=== PATIENT | female | born 1985 | race Caucasian/White ===

== ENCOUNTER 2023-01-13 20:31 | Outpatient (REF) | payer MEDICAID, SELFPAY ==
[2023-01-16 21:08] LABS: Age Gdln ACOG Testing Note (.); HPV Aptima Negative (Negative); IGP, Aptima HPV, rfx 16/18,45 Note (.)
== END 2023-01-13 20:32 | disposition home or self-care (01) ==
LOC: LAB 20:31
PROVIDERS: Visit Provider Obstetrics & Gynecology
DX: Z12.4 Encounter for screening for malignant neoplasm of cervix (principal)
CPT/HCPCS: 87624; G0145

== ENCOUNTER 2023-01-30 09:22 | Outpatient (OUT) | payer MEDICAID, SELFPAY ==
--- NOTE | 2023-01-30 09:31 | US_ITS ---
Patient: LUIS LOVELACE Exam Date: 01/30/2023 : 1985 Gender:F Ordering : DR Jhonny Bhatia . Admission #: [id number] Family : DR. LORAINE VOSS . Order #: [id number] CLICK HERE TO VIEW EXAM RADIOLOGY REPORT PROCEDURE: MM TOMOSYNTHESIS DIAGNOSTIC BI, 01/30/2023, 09:21 US BREAST LT LIMITED, 01/30/2023, 10:20 COMPARISON: None. INDICATIONS: Left Breast Lump N63.21 Calculator Name NCI Breast Cancer Risk Assessment Tool 5 Year Breast Cancer Risk Not Reported. Lifetime Breast Cancer Risk Not Reported. Personal Breast Cancer No Personal Ovarian Cancer No Treatments None Family Cancers None LOCATION: [facility] [place] BREAST COMPOSITION: Heterogeneously dense,which may obscure small masses. FINDINGS: DIAGNOSTIC CATEGORY 1--NEGATIVE. RIGHT BREAST: No significant suspicious finding. LEFT BREAST: A skin surface marker localizing the patient's palpable lump is present over the upper outer quadrant. No underlying mammographic abnormality. Ultrasound evaluation demonstrates normal appearing fibroglandular tissue within this region. RECOMMENDATIONS: CLINICAL EVALUATION. PLEASE NOTE: A NORMAL MAMMOGRAM DOES NOT EXCLUDE THE POSSIBILITY OF BREAST CANCER. A CLINICALLY SUSPICIOUS PALPABLE LUMP SHOULD BE BIOPSIED. Dictated by: Tarun Briceno M.D. on 01/30/2023 at 11:55 Approved by: Tarun Briceno M.D. on 01/30/2023 at 11:57
--- NOTE | 2023-01-30 09:31 | US_ITS ---
The [address] [address] Patient Name: LUIS LOVELACE MRN: [id number] date: 1985 Sex: F Assigned Patient Location: Current Patient Location: US Accession/Order Number: [id number] Exam Date: 01/30/2023 09:32 Report Date: 01/30/2023 10:21 At the request of: BABS GUILLEN Procedure: US pelvis transvaginal EXAM: Pelvic ultrasound HISTORY: . Pelvic Pain In Female R10.2 . COMPARISON: None. TECHNIQUE: Transvaginal scanning was performed FINDINGS: Scanning of the pelvis demonstrates absence of the uterus. Cyst are noted within the cervix. Right ovary measures 4.3 x 2.4 x 2.1 cm. Color-flow is noted. Resistive indexes 0.4. Follicles are noted. There is a 1.8 x 1.5 cm simple cyst in the right ovary. Left ovary was not identified. No fluid is noted in the cul-de-sac. US/US pelvis transvaginal IMPRESSION: 1. Absent uterus. 2. Cervix remains. Nabothian cyst are noted. 3. Left ovary was not identified. 4. Color-flow regional to the right ovary. There is a 1.8 x 1.5 cm simple cyst within the right ovary. Electronically authenticated by: ANDREW IQBAL Date: 01/30/2023 10:21
== END 2023-01-30 09:23 | disposition home or self-care (01) ==
LOC: US 09:22
PROVIDERS: PCP Internal Medicine; Visit Provider Obstetrics & Gynecology
DX: N63.21 Unspecified lump in the left breast, upper outer quadrant (principal); R10.2 Pelvic and perineal pain
CPT/HCPCS: 76642; 76830; 77066; G0279

== ENCOUNTER 2023-02-10 21:49 | Outpatient (OUT) | payer MEDICAID, SELFPAY | END 2023-02-10 21:50 | disposition home or self-care (01) | LOC: SLEEP 21:50 | PROVIDERS: PCP Internal Medicine; Visit Provider Internal Medicine | DX: G47.33 Obstructive sleep apnea (adult) (pediatric) (principal); G47.11 Idiopathic hypersomnia with long sleep time; F51.01 Primary insomnia; G47.61 Periodic limb movement disorder | CPT/HCPCS: 95810 ==

== ENCOUNTER 2023-02-27 12:23 | Outpatient (OUT) | payer MEDICAID, SELFPAY ==
--- NOTE | 2023-02-27 12:55 | XR_ITS ---
[address] [address] Patient Name: LUIS LOVELACE MRN: [id number] date: 1985 Sex: F Assigned Patient Location: [facility] Current Patient Location: [facility] Accession/Order Number: [id number] Exam Date: 02/27/2023 13:00 Report Date: 02/27/2023 13:42 At the request of: BABS GUILLEN Procedure: XR chest 2V EXAM: XR chest 2V HISTORY: Preop exam COMPARISON: None. TECHNIQUE: PA and lateral views of the chest. FINDINGS: The cardiomediastinal silhouette is normal. No focal consolidation is identified. There is no pneumothorax. No pleural effusion is noted. The osseous structures are intact. XR/XR chest 2V IMPRESSION: No acute cardiopulmonary process. Electronically authenticated by: ELIZABETH MONTOYA Date: 02/27/2023 13:42
== END 2023-02-27 12:24 | disposition home or self-care (01) ==
LOC: PST 12:23
PROVIDERS: Visit Provider Obstetrics & Gynecology
DX: Z01.810 Encounter for preprocedural cardiovascular examination (principal); Z01.812 Encounter for preprocedural laboratory examination; R10.2 Pelvic and perineal pain; N94.10 Unspecified dyspareunia
CPT/HCPCS: 71046

== ENCOUNTER 2023-02-27 12:30 | Outpatient (OUT) | payer MEDICAID, SELFPAY ==
[2023-02-27 13:36] LABS: Basophils Absolute Auto 0.1 10^3/uL (0.0-0.1); Basophils Percent Auto 0.9 % (0.2-2.0); Eosinophils Absolute Auto 0.1 10^3/uL (0.0-0.7); Eosinophils Percent Auto 1.5 % (0.9-7.0); Hematocrit 40.1 % (36.0-48.0); Immature Granulocytes Abs Auto 0.01 10^3/uL (0.00-0.03); Immature Granulocytes Pct Auto 0.1 % (0.0-0.5); Lymphocytes Absolute Auto 2.5 10^3/uL (1.2-3.8); Mean Corpuscular HGB Conc 32.4 g/dL (29.9-35.2); Mean Corpuscular Hemoglobin 30.6 pg (26.7-34.0); Mean Corpuscular Volume 94.4 fL (81.0-99.0); Mean Platelet Volume 10.9 fL (9.5-13.5); Monocytes Absolute Auto 0.5 10^3/uL (0.3-0.8); Monocytes Percent Auto 7.8 % (1.7-12.0); Neutrophils Absolute Auto 3.5 10^3/uL (1.4-6.5); Neutrophils Percent Auto 51.7 % (43.0-75.0); Platelet Count 249 10^3/uL (150-450); Red Blood Count 4.25 10^6/uL (4.20-5.40); Red Cell Distribution Width 11.6 % (11.0-15.0); White Blood Count 6.7 10^3/uL (4.0-11.0)
[2023-02-27 13:46] LABS: Estimated Average Glucose 100 mg/dL; Glycohemoglobin A1C 5.1 % (4.5-6.2)
[2023-02-27 14:30] LABS: Free T4 1.09 ng/dL (0.76-1.46)
[2023-02-27 14:34] LABS: HCG Quantitative <1 mIU/mL; Thyroid Stimulating Hormone 1.711 uIU/mL (0.358-3.740)
[2023-02-28 05:08] LABS: Estradiol 81.2 pg/mL (.); FSH 13.5 mIU/mL (.); Luteinizing Hormone(LH) 13.4 mIU/mL (.); Progesterone 1.1 ng/mL (.)
[2023-03-03 13:08] LABS: DHEA, Serum 123 ng/dL (31-701)
== END 2023-02-27 12:31 | disposition home or self-care (01) ==
LOC: LAB 12:31
PROVIDERS: Visit Provider Obstetrics & Gynecology
DX: Z01.812 Encounter for preprocedural laboratory examination (principal); Z01.810 Encounter for preprocedural cardiovascular examination; R10.2 Pelvic and perineal pain; N94.10 Unspecified dyspareunia
CPT/HCPCS: 36415; 71046; 82626; 82627; 82670; 83001; 83002; 83036; 84144; 84439; 84443; 84702; 85025

== ENCOUNTER 2023-03-13 06:13 | Day surgery (SDC) | payer MEDICAID, SELFPAY ==
[2023-02-27 12:48] VITALS: BP 111/72; PULSE 85; RESP 18; TEMP 36.3; O2SAT 99; BMI 40.9
[2023-03-13] VITALS (9 sets, daily range): BP systolic 82–136; BP diastolic 60–85; PULSE 66–88; RESP 12–19; TEMP 36.1; O2SAT 98–100
[2023-03-13 06:22] LABS: Basophils Absolute Auto 0.1 10^3/uL (0.0-0.1); Basophils Percent Auto 0.8 % (0.2-2.0); Eosinophils Absolute Auto 0.2 10^3/uL (0.0-0.7); Eosinophils Percent Auto 2.4 % (0.9-7.0); Hematocrit 36.5 % (36.0-48.0); Hemoglobin 12.1 g/dL (12.0-16.0); Immature Granulocytes Abs Auto 0.02 10^3/uL (0.00-0.03); Immature Granulocytes Pct Auto 0.3 % (0.0-0.5); Lymphocytes Absolute Auto 3.2 10^3/uL (1.2-3.8); Lymphocytes Percent Auto 40.2 % (20.5-60.0); Mean Corpuscular HGB Conc 33.2 g/dL (29.9-35.2); Mean Corpuscular Hemoglobin 31.1 pg (26.7-34.0); Mean Corpuscular Volume 93.8 fL (81.0-99.0); Mean Platelet Volume 10.8 fL (9.5-13.5); Monocytes Absolute Auto 0.8 10^3/uL (0.3-0.8); Monocytes Percent Auto 9.5 % (1.7-12.0); Neutrophils Absolute Auto 3.7 10^3/uL (1.4-6.5); Neutrophils Percent Auto 46.8 % (43.0-75.0); Platelet Count 229 10^3/uL (150-450); Red Blood Count 3.89 10^6/uL (4.20-5.40); Red Cell Distribution Width 11.5 % (11.0-15.0); White Blood Count 7.9 10^3/uL (4.0-11.0)
[2023-03-13 06:49] LABS: Glucometer 106 mg/dL (74-106)
[2023-03-13] MEDS: LACTATED RINGER'S SOLUTION 1,000 ML 50 ML IV (07:00)
--- NOTE | 2023-03-13 08:39 | P.ON_ITS ---
Brief Operative Note Date of procedure: 03/13/23 Pre-op diagnosis: pelvic pain Post-op diagnosis: same as pre-op Procedure: NAME OF PROCEDURE: [diagnostic laparoscopy with lysis of omental adhesions] PROCEDURE: The patient was taken back to the Operating Room where she was placed in dorsal lithotomy position after given general anesthesia. The patient was prepped and draped in normal sterile fashion. A sponge stick was placed into the patient's vagina. Attention was turned to the patient's abdomen, where a small umbilical incision was made. The fascia was tented using Sd clamps and the fascia was entered sharply. Confirmation of intraabdominal placement of the 10 mm port was confirmed under direct visualization using a laparoscope. The patient's abdomen was then insufflated using CO2 gas with approximately 4 liters. A second port was placed left laterally, this was done under direct visualization with a 5 mm port. Survey of the patient's abdomen demonstrated normal liver and gallbladder. Survey of the patient's pelvic anatomy demonstrated normal appearing rt and lt ovary as well as normal absent uterus. No endometrial implants could be noted, no evidence of any pelvic disease was seen, normal appearing pelvic cavity. Omental adhesions to anterior abdominal wall, transected and ligated using the ligasure. All instruments were removed from the patient's abdomen. The patient's abdomen was deinsufflated of CO2 gas. The patient tolerated the procedure well. Sponge stick was removed from the patient's vagina. The patient's infraumbilical fascia was closed using #0 Vicryl on a GI needle. The patient's skin was closed laterally and infraumbilically using 4-0 Vicryl. The patient tolerated the procedure well. Sponge, lap and needle counts were correct x 2. The patient was taken to Recovery Room in stable condition.Clips from prior surgery noted adhered to bladder, the clips were grasped and gently removed Anesthesia: SINGH Surgeon: Jhonny Bhatia Head Char Filter Tank Tender: Caitlin Ferrell Estimated blood loss (mL): 5 Pathology: none sent Condition: stable Disposition: PACU
== END 2023-03-13 09:48 | disposition home or self-care (01) ==
PROVIDERS: Visit Provider Obstetrics & Gynecology
PROC: (CPT 00840; principal; 2023-03-13 07:30)
DX: R10.2 Pelvic and perineal pain (principal); N94.10 Unspecified dyspareunia; Z79.84 Long term (current) use of oral hypoglycemic drugs; N73.6 Female pelvic peritoneal adhesions (postinfective); F41.8 Other specified anxiety disorders; J45.909 Unspecified asthma, uncomplicated; N91.2 Amenorrhea, unspecified; Z90.49 Acquired absence of other specified parts of digestive tract; Z90.711 Acquired absence of uterus with remaining cervical stump
CPT/HCPCS: 00840; 49329; 36415; 82948; 85025; J2704

== ENCOUNTER 2023-07-02 18:29 | Emergency (ER) | payer MEDICAID, SELFPAY ==
--- OUTSIDE RECORDS SUMMARY | 2023-07-02 18:37 | XMS_ITS | CCD ---
Author Name Unknown Address [address] [facility] [address] [place] [id number] Organization [facility] Care Team Providers Care Drum Operator Name Role Phone DENNISE, DR MCKAY Espinoza Primary Care Unavailable KHRIS, DR ELIZABETH Arias Admitting Unavailable KHRIS, DR ELIZABETH Arias Attending Unavailable KHRIS, DR ELIZABETH Arias Consulting Unavailable ERROL TIM Consulting Unavailable MINDY, DR BRICE Admitting Unavailable MINDY, DR BRICE Attending Unavailable DENNISE, DR MCKAY Espinoza Primary Care Unavailable MINDY, DR BRICE Consulting Unavailable DENNISE, DR MCKAY Espinoza Admitting Unavailable DENNISE, DR MCKAY Espinoza Attending Unavailable DENNISE, DR MCKAY Espinoza Primary Care Unavailable DE SOTO, DR ANDREW Hopkins Consulting Unavailable DENNISE, DR MCKAY Espinoza Consulting Unavailable LORNA Velasquez Attending Provider Problems Active Problems Problem Classification Problem Date Documented Date Episodic/Chronic Immunizations and screening for infectious disease (2 sources) Encounter for screening for human papillomavirus (HPV); Translations: [Contact with and (suspected) exposure to other viral communicable diseases] Onset: 03-19-2020 Episodic Other nervous system disorders (1 source) Other chronic pain; Translations: [OTHER CHRONIC PAIN] Onset: 06-14-2020 Chronic Other upper respiratory infections (1 source) Chronic sinusitis, unspecified; Translations: [CHRONIC SINUSITIS UNSPECIFIED] Onset: 03-19-2020 Chronic Past or Other Problems Problem Classification Problem Date Documented Da te Episodic/Chronic Chronic obstructive pulmonary disease and bronchiectasis (1 source) Bronchitis, not specified as acute or chronic; Translations: [BRONCHITIS NOT SPEC ACUTE/CHRON] Onset: 03-19-2020 Episodic Nonspecific chest pain (4 sources) Other chest pain; Translations: [OTHER CHEST PAIN] Onset: 03-14-2020 Episodic Spondylosis; intervertebral disc disorders; other back problems (4 sources) Lumbago with sciatica, left side; Translations: [LUMBAGO WITH SCIATICA LEFT SIDE] Onset: 06-06-2020 Episodic Results Test Name Value Interpretation Reference Range Facil ity XR ankle LT min 3V*on 2021 XR ankle LT min 3V* [facility] Main Needles [address] [place] [id number] XRay Report Signed Patient: Diana Stewart MR#: [id number] : 1985 Acct:[id number] Age/Sex: 36 / F ADM Date: 12/20/21 Loc: XDUCLY Room: Type: [facility] Attending Dr: Amanda Velasquez APRN Copies to: Amanda Velasquez APRN Ordering Provider: Amanda Velasquez APRN Date of Service: 12/20/21 XR/XR ankle LT min 3V*: Injury ([id number]) XR/XR foot LT min 3V*: Injury XR foot LT min 3V*, XR ankle LT min 3V* 12/20/2021 12:24 PM SIGNS AND SYMPTOMS: Injury to left foot and ankle with pain on the lateral aspect of the foot and ankle PROTOCOL: Frontal, lateral, and radiographs of the left foot and left ankle COMPARISON: None FINDINGS: Left ankle: The ankle mortise is preserved. There is no evidence of fracture or dislocation. There is mild diffuse soft tissue swelling. Left foot: The bones are in anatomical. There is no evidence of fracture or dislocation. The joint spaces are preserved. No significant soft tissue swelling is noted. XR/XR foot LT min 3V* IMPRESSION: Left ankle: No evidence of fracture or dislocation. There is mild diffuse soft tissue swelling. Left foot: No evidence of fracture or dislocation. Impression dictated by: Elizabeth Yeager M.D.12/20/2021 12:52 PM Dictation Location: [place] [address] Transcribed By: [facility] 12/20/21 1252 Dictated By: Elizabeth Yeager II, MD 12/20/21 1247 Signed By: 12/20/21 1252 [facility] PAP ACOG PANEL 2: 30 to 65on 12-28-2020 . . Normal [facility] Comment on above: Result Comment: Perf ormed at: WB Performed By: #### [id number] #### [facility] Laboratory [address] [place] [address] Tracy Pop Age Gdln ACOG Testing 30-65 Normal [facility] Comment on above: Performed By: #### [id number] #### [facility] Laboratory [address] [place] [address] Tracy Elaineen DIAGNOSIS: Comment Normal [facility] Comment on above: Result Comment: NEGA TIVE FOR INTRAEPITHELIAL LESION OR MALIGNANCY. THIS SPECIMEN WAS RESCREENED PART OF OUR SHOE REPAIRER APPRENTICE PROGRAM. Performed at: WB Performed By: #### [id number] #### [facility] Laboratory [address] [place] [address] Tracy Elaineen HPV Aptima Negative Normal Negative [facility] Comment on above: Result Comment: This nucleic acid amplification test detects fourteen high-risk HPV types (16,18,31,33,35,39,45,51,52,56,58,59,66,68) without differentiation. Performed at: =G Performed By: #### [id number] #### [facility] Laboratory [address] [place] [address] Tracy Elaineen Methodology: Comment Normal [facility] Comment on above: Result Comment: This liquid based ThinPrep(R) pap test was screened with the use of an image guided system. Performed at: WB Performed By: #### [id number] #### [facility] Laboratory [address] [place] [address] Tracy Pop Note: Comment Normal [facility] Comment on above: Result Comment: The Pap smear is a screening test designed to aid in the detection of premalignant and malignant conditions of the uterine cervix. It is not a diagnostic procedure and should not be used as the sole means of detecting cervical cancer. Both false-positive and false-negative reports do occur. . Performed at: WB Performed By: #### [id number] #### [facility] [address] [place] [address] Tracy Pop Performed by: Comment Normal [facility] Comment on above: Result Comment: Addi Barajas, Boat Rental Clerk (ASCP) Performed at: WB Performed By: #### [id number] #### [facility] [address] [place] [address] Tracy Pop QC reviewed by: Comment Normal [facility] Comment on above: Result Comment: Aby Oliveira, Supervisory Boat Rental Clerk (ASCP) Performed at: WB Performed By: #### [id number] #### [facility] Laboratory [address] [place] [address] Tracy Pop Specimen adequacy: Comment Normal [facility] Comment on above: Result Comment: Sati sfactory for evaluation. No endocervical component is identified. Performed at: WB Performed By: #### [id number] #### [facility] Laboratory [address] [place] [address] Tracy Pop CHLAMYDIA/GONOCOCCUS ANTONIO (SW AB/URINE/PAPon 12-26-2020 Chlamydia trachomatis, ANTONIO Negative Normal Negative [facility] Comment on above: Performed By: #### C T/NGNA #### [facility] Laboratory [address] [place] [address] Tracy Pop Neisseria gonorrhoeae, ANTONIO Negative Normal Negative [facility] Comment on above: Performed By: #### C T/NGNA #### [facility] [address] [place] [address] Tracy Pop VAGINITIS/VAGINOSIS DNA PROB Boris 12-26-2020 Cheryl species Negative Normal Negative [facility] Comment on above: Performed By: #### V AGINT ####[facility] [address] [place], [place] [address]Gerken Kiesha Gardnerella vaginalis Negative Normal Negative [facility] Comment on above: Performed By: #### V AGINT ####[facility] [address] [place], [place] [address]Gerken Kiesha Trichomonas vaginalis Negative Normal Negative [facility] Comment on above: Performed By: #### V AGINT ####[facility] [address] [place], [place] [address]Gerken Kiesha XR LSPINE 2_3 VIEWSon 2020 XR LSPINE 2_3 VIEWS EXAMINATION: XR LSPINE 2_3 VIEWS HISTORY: Lumbago with sciatica COMPARISON: No relevant comparison available. FINDINGS: BONES: Normal. No significant spondylosis, scoliosis, fracture, or visible bony lesion. DISC SPACES: Normal. No significant disc height narrowing, subluxation, or endplate abnormality. PARASPINOUS: Negative. No paraspinous abnormality is seen. OTHER: Negative. IMPRESSION: No acute abnormality Electronically authenticated by: ANDREW BLUM Date: 2020-06-06 09:25 Normal [facility] COVID-19 PCRon 03-17-2020 SARS-CoV-2 (COVID-19) RNA ANTONIO+probe Ql (Unsp spec) Not detected Normal Not Detected [facility] Comment on above: Result Comment: This nucleic acid amplification test was developed and its performance characteristics determined by [employer]. Nucleic acid amplification tests include PCR and TMA. This test has not been FDA cleared or approved. This test has been authorized by FDA under an Emergency Use Authorization (EUA). This test is only authorized for the duration of time the declaration that circumstances exist justifying the authorization of the emergency use of in vitro diagnostic tests for detection of SARS-CoV-2 virus and/or diagnosis of COVID-19 infection under section 564(b)(1) of the Act, 21 U.S.C. 360bbb-3(b) (1), unless the authorization is terminated or revoked sooner. When diagnostic testing is negative, the possibility of a false negative result should be considered in the context of a patient's recent exposures and the presence of clinical signs and symptoms consistent with COVID-19. An individual without symptoms of COVID-19 and who is not shedding SARS-CoV-2 virus would expect to have a negative (not detected) result in this assay. Performed By: #### C VDPCR, CVDSTAT #### [facility] [address] [address] Tracy Pop PRIORITY COVID PROCESSINGon 03-17-2020 Comment Comment Normal [facility] Comment on above: Result Comment: Rece ived Performed By: #### C VDPCR, CVDSTAT #### [facility] [address] [address] Tracy Pop CBC AUTO DIFFon 03-15-2020 BASO # 0.1 103/ul Normal 0.0-0.1 [facility] Comment on above: Performed By: #### C BC #### [facility] Laboratory [address] [place], [place] [address] Tracy Kiesha Basophils/100 WBC (Bld) 0.8 % Normal 0.2-2.0 [facility] Comment on above: Performed By: #### C BC #### [facility] [address] [place] [address] Tracy Kiesha EO # 0.3 103/ul Normal 0.0-0.7 [facility] Comment on above: Performed By: #### C BC #### [facility] [address] [place] [address] Tracy Kiesha Eosinophils/100 WBC (Bld) 3.8 % Normal 0.9-7.0 [facility] Comment on above: Performed By: #### C BC #### [facility] [address] [place] [address] Tracy Kiesha Erythrocyte distribution width (RBC) [Ratio] 11.7 % Normal 11.0-15.0 [facility] Comment on above: Performed By: #### C BC #### [facility] [address] [place], [place] [address] Tracy Kiesha Hematocrit (Bld) [Volume fraction] 39.6 % Normal 36.0-48.0 [facility] Comment on above: Performed By: #### C BC #### [facility] [address] [place], [place] [address] Tracy Kiesha Hemoglobin (Bld) [Mass/Vol] 13.0 g/dL Normal 12.0-16.0 [facility] Comment on above: Performed By: #### C BC #### [facility] Laboratory [address] [place] [address] Tracy Kiesha IG # 0.03 10e3/ul Normal 0.00-0.03 [facility] Comment on above: Performed By: #### C BC #### [facility] [address] [place] [address] Tracy Kiesha IG % 0.4 % Normal 0.0-0.5 [facility] Comment on above: Performed By: #### C BC #### [facility] [address] [place], [place] [address] Tracy Kiesha LYMPH # 3.5 103/ul Normal 1.2-3.8 [facility] Comment on above: Performed By: #### C BC #### [facility] [address] [place], [place] [address] Tracy Kiesha Lymphocytes/100 WBC (Bld) 41.5 % Normal 20.5-60.0 [facility] Comment on above: Performed By: #### C BC #### [facility] [address] [place], [place] [address] Tracy Kiesha MANUAL DIFF REQ NO Normal [facility] Comment on above: Performed By: #### C BC #### [facility] [address] [place] [address] Tracy Kiesha MCH (RBC) [Entitic mass] 31.0 pg Normal 26.7-34.0 [facility] Comment on above: Performed By: #### C BC #### [facility] [address] [place], [place] [address] Tracy Kiesha MCHC (RBC) [Mass/Vol] 32.8 g/dL Normal 29.9-35.2 [facility] Comment on above: Performed By: #### C BC #### [facility] [address] [place], [place] [address] Tracy Kiesha MCV (RBC) [Entitic vol] 94.5 fL Normal 81.0-99.0 [facility] Comment on above: Performed By: #### C BC #### [facility] [address] [place] [address] Tracy Kiesha MONO # 0.7 103/ul Normal 0.3-0.8 [facility] Comment on above: Performed By: #### C BC #### [facility] [address] [place], [place] [address] Tracy Kiesha Monocytes/100 WBC (Bld) 7.8 % Normal 1.7-12.0 [facility] Comment on above: Performed By: #### C BC #### [facility] [address] [place], [place] [address] Tracy Pop NEUT # 3.9 103/ul Normal 1.4-6.5 [facility] Comment on above: Performed By: #### C BC #### [facility] [address] [place], [place] [address] Tracy Pop Neutrophils/100 WBC (Bld) 45.7 % Normal 43.0-75.0 [facility] Comment on above: Performed By: #### C BC #### [facility] [address] [place], [place] [address] Tracyramona Pop Platelet mean volume (Bld) [Entitic vol] 11.1 fL Normal 9.5-13.5 [facility] Comment on above: Performed By: #### C BC #### [facility] [address] [place], [place] [address] Tracyramona Elaineen PLT 226 103/ul Normal 150-450 [facility] Comment on above: Performed By: #### C BC #### [facility] [address] [place] [address] Tracyramona Pop RBC 4.19 106/ul Critically low 4.20-5.40 [facility] Comment on above: Performed By: #### C BC #### [facility] [address] [place] [address] Tracyramona Pop WBC 8.4 103/ul Normal 4.0-11.0 [facility] Comment on above: Performed By: #### C BC #### [facility] [address] [place] [address] Tracyramona oPp PROF 14(COMP METB)on 020 Albumin [Mass/Vol] 3.9 g/dL Normal 3.5-5.0 [facility] Comment on above: Performed By: #### C MP #### [facility] [address] [place] [address] Tracyramona Pop Albumin/Globulin [Mass ratio] 1.2 {ratio} Normal [facility] Comment on above: Performed By: #### C MP #### [facility] [address] [place], [place] [address] Tracy Kiesha ALP [Catalytic activity/Vol] 63 U/L Normal 38-126 [facility] Comment on above: Performed By: #### C MP #### [facility] [address] [place], [place] [address] Tracy Kiesha ALT [Catalytic activity/Vol] 29 U/L Normal 9-52 [facility] Comment on above: Performed By: #### C MP #### [facility] [address] [place], [place] [address] Tracy Kiesha Anion gap [Moles/Vol] 9.1 mmol/L Normal [facility] Comment on above: Performed By: #### C MP #### [facility] [address] [place], [place] [address] Tracy Kiesha AST [Catalytic activity/Vol] 16 U/L Normal 14-36 [facility] Comment on above: Performed By: #### C MP #### [facility] [address] [place], [place] [address] Tracy Kiesha Bilirubin [Mass/Vol] 0.3 mg/dL Normal 0.2-1.3 [facility] Comment on above: Performed By: #### C MP #### [facility] [address] [place], [place] [address] Tracy Kiesha Calcium [Mass/Vol] 9.2 mg/dL Normal 8.4-10.2 [facility] Comment on above: Performed By: #### C MP #### [facility] [address] [place], [place] [address] Tracy Kiesha Chloride [Moles/Vol] 103 mmol/L Normal 98-107 [facility] Comment on above: Performed By: #### C MP #### [facility] [address] [place], [place] [address] Tracy Kiesha CO2 [Moles/Vol] 28.1 mmol/L Normal 22.0-30.0 [facility] Comment on above: Performed By: #### C MP #### [facility] [address] [place], [place] [address] Tracy Kiesha Creatinine [Mass/Vol] 0.60 mg/dL Normal 0.52-1.04 [facility] Comment on above: Performed By: #### C MP #### [facility] [address] [place], [place] [address] Tracy Kiesha EGFR-AF HAITIAN >60 Normal >=60 [facility] Comment on above: Performed By: #### C MP #### [facility] [address] [place], [place] [address] Tracy Kiesha EGFR-NON AF HAITIAN >60 Normal >=60 [facility] Comment on above: Performed By: #### C MP #### [facility] [address] [place], [place] [address] Tracy Kiesha Globulin (S) [Mass/Vol] 3.3 g/dL Normal [facility] Comment on above: Performed By: #### C MP #### [facility] [address] [place] [address] Tracy Kiesha Glucose [Mass/Vol] 97 mg/dL Normal 74-106 [facility] Comment on above: Performed By: #### C MP #### [facility] [address] [place], [place] [address] Tracy Kiesha Potassium [Moles/Vol] 4.2 mmol/L Normal 3.4-5.0 [facility] Comment on above: Performed By: #### C MP #### [facility] [address] [place], [place] [address] Tracy Kiesha Protein [Mass/Vol] 7.2 g/dL Normal 6.1-8.2 [facility] Comment on above: Performed By: #### C MP #### [facility] [address] [place], [place] [address] Tracy Kiesha Sodium [Moles/Vol] 136 mmol/L Critically low 137-145 [facility] Comment on above: Performed By: #### C MP #### [facility] [address] [place], [place] [address] Tracy Kiesha Urea nitrogen [Mass/Vol] 9.0 mg/dL Normal 7.0-17.0 [facility] Comment on above: Performed By: #### C MP #### [facility] [address] [place] [address] Tracy Pop Urea nitrogen/Creatinin e [Mass ratio] 15.0 mg/mg Normal [facility] Comment on above: Performed By: #### C MP #### [facility] [address] [place] [address] Tracy Pop TROPONIN - Ion 03-15-2020 TROP <0.012 Normal <=0.034 [facility] Comment on above: Performed By: #### T ROP #### [facility] [address] [place] [address] Tracy Pop TROPONIN RANGE SEE BELOW Normal [facility] Comment on above: Result Comment: <0.0 34 ng/ml NEGATIVE 0.034-0.119 INDETERMINATE 0.120 AMI CUT OFF Performed By: #### T ROP #### [facility] [address] [place] [address] Tracy Pop INFLUENZA A AND B AGon 03-14 INFLUANEGH SEE BELOW Normal [facility] Comment on above: Result Comment: Nega tive for Flu A protein angiten. Infection due to Flu A cannot be ruled out. Flu A angiten in the sample may be below the detection limit of the test. Performed By: #### I NFLUAB #### [facility] [address] [place] [address] Tracy Pop INFLUBNEGH SEE BELOW Normal [facility] Comment on above: Result Comment: Nega tive for Flu B protein antigen. Infection due to Flu B cannot be ruled out. Flu B antigen in the sample may be below the detection limit of the test. Performed By: #### I NFLUAB #### [facility] [address] [place] [address] Tracy Pop INFLUENZA A AG Negative Normal NEGATIVE SEE COMMENT [facility] Comment on above: Performed By: #### I NFLUAB #### [facility] [address] [place] [address] Tracy Pop INFLUENZA B AG Negative Normal NEGATIVE SEE COMMENT [facility] Comment on above: Performed By: #### I NFLUAB #### [facility] [address] [place], [place] [address] Tracy Pop INTERNAL CONTROLS Within Normal Limits Normal Wi thin Normal Limits [facility] Comment on above: Performed By: #### I NFLUAB #### [facility] [address] [place], [place] [address] Tracy Pop Encounters Encounter Date Encounter Type Care Provider Facility Start: 12-20-2021 End: 12-20-2021 Patient encounter procedure 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 Amanda Velasquez Work Phone: [facility] Start: 01-08-2021 Encounter for gynecological examination (general) (routine) without abnormal findings DR BABS GUILLEN [facility] Start: 12-24-2020 End: 12-24-[address] BABS GUILLEN Facility:[facility] Start: 12-24-2020 End: 12-24-2020 Encounter for gynecological examination (general) (routine) without abnormal findings DR BABS GUILLEN Facility:[facility] Start: 06-06-2020 End: 06-07-[address] MCKAY BOWDEN Facility:[facility] Start: 03-14-2020 End: 03-15-[address] MCKAY BOWDEN Facility:[facility] Procedures Date Procedure Procedure Detail Performing Clinician Start: 12-20-2021 X-ray of left ankle APR N Amanda Velasquez Work Phone: Start: 12-20-2021 X-ray of left foot GED TEACHER Amanda Ron Work Phone: Payers Date Payer Category Payer Unknown [id number] [id number] [id number] 1985 Unknown [id number] [id number] [id number] 1985 Unknown [id number] 1958 Unknown [id number] Social History Date Type Detail Facility [facility] Work Phone: Start: 1985 Sex Assigned At Female F [facility] Clinical Note 03-15-2020 Note Date & Type Note Facility 03-15-2020 Note PROCEDURE: XR CHEST 1 V REASON FOR STUDY/CLINICAL HISTORY: COUGH. COMPARISON STUDY: 07/06/2009 TECHNIQUE: Single view(s) of the chest presented for interpretation. FINDINGS: No acute cardiopulmonary process. There is minimal left basilar atelectasis and subtle left perihilar bronchial wall thickening. Normal cardiomediastinal silhouette. No focal consolidation, edema, or effusion. No pneumothorax. No acute appearing focal significant bony abnormality. IMPRESSION: Trace left basilar atelectasis and mild bronchial thickening. No other acute process. Electronically authenticated by: ERROL TIM Date: 2020-03-14 22:34 [facility] Evaluation note Note Date & Type Note Facility Evaluation note No assessment information availa [facility] Work Phone: Summary Purpose Family History No Family History Records FoundNo Family History Records Found Advance Directives Advance Directive Response Recorded Date/ Time Advance Directives No December 20, 2021 7:52pm Chief Complaint and Reason for Visit Chief Complaint T14.90XA Additional Source Comments INFORMATION SOURCE (unrecogn ized section and content) DATE CREATED AUTHOR 01/09/2021 [facility] DATE CREATED AUTHOR AUTHOR'S ORGANIZ ATION 01/01/2022 [facility] Care Teams (unrecognized sec tion and content) Team Status: Inactive Member Role Status Dates Amanda Velasquez APRN Attending Provider Active Goals (unrecognized section and content) Goals may be documented in a n alternate section FOR RECORDS PERTAINING TO PATIENTS WHO ARE OR HAVE BEEN ENROLLED IN A CHEMICAL DEPENDENCY/SUBSTANCEABUSE PROGRAM, SOME INFORMATION MAY BE OMITTED. This clinical summary was aggregated from multiple sources. Caution should be exercised in using it in the provision of clinical care. This summary normalizes information from multiple sources, and as a consequence, information in this document may materially change the coding, format and clinical context of patient data. In addition, data may be omitted in some cases. CLINICAL DECISIONS SHOULD BE BASED ON THE PRIMARY CLINICAL RECORDS. [employer] provides no warranty or guarantee of the accuracy or completeness of information in this document.
[2023-07-02 18:39] VITALS: BP 136/83; PULSE 85; RESP 16; TEMP 36.8; O2SAT 98; BMI 38.4
--- NOTE | 2023-07-02 19:07 | CT_ITS ---
The [address] [address] Patient Name: LUIS LOVELACE MRN: [id number] date: 1985 Sex: F Assigned Patient Location: ED.MAIN Current Patient Location: ER Accession/Order Number: [id number] Exam Date: 07/02/2023 19:40 Report Date: 07/02/2023 19:56 At the request of: DAISY ABARCA Procedure: CT head/brain wo con EXAM: CT head/brain wo con HISTORY: Head injury 2 weeks ago. COMPARISON: None. TECHNIQUE: Multi slice thin computed tomograms of the brain were obtained, with sagittal and coronal reconstructions. Radiation reduction technique and algorithms were utilized during the study. FINDINGS: The ventricles are not enlarged, the lateral ventricles are symmetric and the third ventricles in the midline. The sylvian fissures and cortical sulci are unremarkable. There is no evidence of an intracranial hemorrhage, mass lesion or apparent acute infarct. No abnormality is seen in the deep white matter. The cerebellum and visualized brainstem are intact. The visualized paranasal sinuses are clear. The middle ears are aerated. The mastoid sinuses are clear. There is no apparent acute skull fracture. CT/CT head/brain wo con IMPRESSION: There is no evidence of an intracranial hemorrhage, mass lesion or apparent acute infarct. The visualized sinuses are clear. There is no apparent skull fracture. Electronically authenticated by: MARYSOL REES Date: 07/02/2023 19:56
--- NOTE | 2023-07-02 20:50 | ED_ITS ---
HPI - General Adult General Chief complaint: Headache Stated complaint: head injury-hit by gate 2 weeks ago Time Seen by Provider: 07/02/23 19:07 Source: patient Mode of arrival: walk-in Limitations: no limitations History of Present Illness HPI narrative: Patient is a 38-year-old female presents to the emergency department for continued headache, light sensitivity, nausea 2 weeks after head injury. She states she was moving cows when the gate came back and hit her in the left congregational. She states she had a large area of swelling to the scalp. She continues to have a headache, light sensitivity and occasional blurred vision. She denies neck pain, falls or other associated injuries. She has had nausea but no vomiting, no concern for . No fevers or upper respiratory symptoms. She has been using ibuprofen without improvement. Related Data Home Medications Medication Instructions Recorded Confirmed alprazolam 0.25 mg tablet 0.25 mg PO QDAY PRN anxiety 02/27/23 07/02/23 atomoxetine 80 mg capsule 80 mg PO QDAY 02/27/23 07/02/23 metformin 500 mg tablet,extended 500 mg PO QDAY 02/27/23 07/02/23 release 24 hr zolpidem 5 mg tablet 5 mg PO QPM PRN insomnia 02/27/23 07/02/23 escitalopram oxalate 5 mg tablet 5 mg PO DAILY 03/13/23 07/02/23 fexofenadine 180 mg tablet 180 mg PO DAILY 03/13/23 07/02/23 ibuprofen 800 mg tablet 800 mg PO TID 03/13/23 07/02/23 Previous Rx's Medication Instructions Recorded ibuprofen 800 mg tablet 800 mg PO Q8H PRN pain 14 days #40 03/13/23 tabs dggumcpeto-rowesdwmosmiq-qkmzadri 1 cap PO QID PRN headache 4 days 07/02/23 50 mg-300 mg-40 mg capsule #20 caps (Fioricet) ondansetron 4 mg disintegrating 4 mg PO Q6H PRN nausea and 07/02/23 tablet vomiting #12 tabs Allergies Allergy/AdvReac Type Severity Reaction Status Date / Time chlorhexidine Allergy Rash Verified 02/27/23 12:37 Review of Systems ROS Constitutional Denies: fever or chills Ears, nose, mouth, and throat Denies: throat pain Cardiovascular Denies: chest pain Respiratory Denies: shortness of breath or cough Gastrointestinal Reports: nausea; Denies: vomiting Musculoskeletal Denies: back pain or neck pain Integumentary/Breast Denies: rash Neurological Reports: headache and dizziness; Denies: weakness in extremities or slurred speech Psychiatric Denies: anxiety Endocrine Denies: excessive urination [facility] Medical History (Updated 07/02/23 @ 20:52 by CHUCKY Gaytan) Knee pain ?M25.569 - Pain in unspecified knee (ICD-10) Back pain ?M54.9 - Dorsalgia, unspecified (ICD-10) History of blood transfusion ?Z92.89 - Personal history of other medical treatment (ICD-10) Anemia ?D64.9 - Anemia, unspecified (ICD-10) Insomnia ?G47.00 - Insomnia, unspecified (ICD-10) Depression ?F32.A - Depression, unspecified (ICD-10) Anxiety ?F41.9 - Anxiety disorder, unspecified (ICD-10) Sleep apnea ?G47.30 - Sleep apnea, unspecified (ICD-10) COVID-19 ?U07.1 - COVID-19 (ICD-10) Asthma ?J45.909 - Unspecified asthma, uncomplicated (ICD-10) Migraine ?G43.909 - Migraine, unspecified, not intractable, without status migrainosus (ICD-10) Dyspareunia Pelvic pain ?R10.2 - Pelvic and perineal pain (ICD-10) Prediabetes ?R73.03 - Prediabetes (ICD-10) Surgical History (Updated 02/27/23 @ 12:48 by Tanna Redding NP) History of appendectomy ?Z90.49 - Acquired absence of other specified parts of digestive tract (ICD- 10) History of cholecystectomy ?Z90.49 - Acquired absence of other specified parts of digestive tract (ICD- 10) History of section ?Z98.891 - History of uterine scar from previous surgery (ICD-10) History of section ?Z98.891 - History of uterine scar from previous surgery (ICD-10) History of hysterectomy ?Z90.710 - Acquired absence of both cervix and uterus (ICD-10) History of section ?Z98.891 - History of uterine scar from previous surgery (ICD-10) Family History (Updated 02/27/23 @ 12:48 by Tanna Redding NP) Other Family history of breast cancer Family history of cervical cancer Family history of diabetes mellitus Family history of stroke Social History Within the past year, how often did you have a drink containing alcohol: monthly or less Smoking status: Current every day smoker Do you use any of these nicotine containing products: e-cigarettes and vaping products Non-prescribed substance use: denies use 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 Highest level of school completed/degree received: high school graduate Exam Narrative Exam Narrative: Gen.: Awake, alert, in no distress Head: Normocephalic, atraumatic ENT: Moist mucous membranes, C-spine nontender Respiratory: No respiratory distress, lungs clear bilaterally Cardio: Regular rate and rhythm Gastrointestinal: Abdomen is soft, nondistended and nontender to palpation Extremities: Moves extremities equally, no injuries noted Psych: Normal mood and affect Neuro: No focal neuro deficit Skin: Warm, dry, intact Constitutional Vital Signs, click to edit/add: Last Vital Signs Temp 98.2 F 07/02/23 18:39 Pulse 85 07/02/23 18:39 Resp 16 07/02/23 18:39 BP 136/83 07/02/23 18:39 Pulse Ox 98 07/02/23 18:39 O2 Del Method Room Air 07/02/23 18:39 Course Vital Signs Vital signs: Vital Signs Temperature 98.2 F 07/02/23 18:39 Pulse Rate 85 07/02/23 18:39 Respiratory Rate 16 07/02/23 18:39 Blood Pressure 136/83 07/02/23 18:39 Pulse Oximetry 98 07/02/23 18:39 Oxygen Delivery Method Room Air 07/02/23 18:39 Temperature 98.2 F 07/02/23 18:39 Pulse Rate 85 07/02/23 18:39 Respiratory Rate 16 07/02/23 18:39 Blood Pressure 136/83 07/02/23 18:39 Pulse Oximetry 98 07/02/23 18:39 Oxygen Delivery Method Room Air 07/02/23 18:39 Medical Decision Making MDM Narrative Medical decision making narrative: CT of the brain with no evidence of acute process.Patient given Toradol and Zofran in the ER if she is driving home. Fioricet and Zofran given for home, postconcussion syndrome discussed with the patient at bedside, she is referred to a concussion clinic locally. Follow-up with PCP and return to the ER if symptoms change or worsen Medical Records Medical records reviewed: Yes I reviewed the patient's medical records Imaging Data CT scan - head: Attestation: I have reviewed the pertinent imaging results. Radiologist's impression: ITS Impressions Head CT 07/02/23 19:07 IMPRESSION: There is no evidence of an intracranial hemorrhage, mass lesion or apparent acute infarct. The visualized sinuses are clear. There is no apparent skull fracture. Electronically authenticated by: MARYSOL REES Date: 07/02/2023 19:56 Discharge Plan Discharge Chief Complaint: Headache Clinical Impression: Closed head injury, Postconcussion syndrome Patient Disposition: Home, Self-Care Time of Disposition Decision: 20:52 Condition: Good Prescriptions / Home Meds: New gtovlaudvj-rafdkrwdegpfn-mumb [Fioricet] 50-300-40 mg capsule 1 cap PO QID PRN (Reason: headache) 4 Days Qty: 20 0RF Rx Instructions: DX: R51 ondansetron 4 mg tablet,disintegrating 4 mg PO Q6H PRN (Reason: nausea and vomiting) Qty: 12 0RF No Action alprazolam 0.25 mg tablet 0.25 mg PO QDAY PRN (Reason: anxiety) atomoxetine 80 mg capsule 80 mg PO QDAY metformin 500 mg tablet extended release 24 hr 500 mg PO QDAY zolpidem 5 mg tablet 5 mg PO QPM PRN (Reason: insomnia) ibuprofen 800 mg tablet 800 mg PO TID Patient Comments: takes PRN escitalopram oxalate 5 mg tablet 5 mg PO DAILY fexofenadine 180 mg tablet 180 mg PO DAILY ibuprofen 800 mg tablet 800 mg PO Q8H PRN (Reason: pain) 14 Days Qty: 40 0RF Instructions: Post Concussion Syndrome (ED) Stand Alone Forms: Portal Instructions Referrals: MARSHALL LIU [Physician] - 1 week ([id number] [place] [facility] [place] Physician,Non-Staff, MD [Primary Care Provider] - 1 week Discharge Date/Time: 07/02/23 21:26
[2023-07-02] MEDS: KETOROLAC TROMETHAMINE 10 MG TABLET PO (21:14)
[2023-07-02] MEDS: ONDANSETRON 4 MG RAPDIS TABLET SL (21:14)
== END 2023-07-02 21:26 | disposition home or self-care (01) ==
PROVIDERS: Emergency Provider Internal Medicine
DX: F07.81 Postconcussional syndrome (principal); S09.8XXA Other specified injuries of head, initial encounter; W22.8XXA Striking against or struck by other objects, initial encounter; Z79.899 Other long term (current) drug therapy; F32.A Depression, unspecified; F41.9 Anxiety disorder, unspecified; G47.30 Sleep apnea, unspecified; J45.909 Unspecified asthma, uncomplicated; Z86.16 Personal history of COVID-19; Z90.49 Acquired absence of other specified parts of digestive tract; R73.03 Prediabetes; Z98.891 History of uterine scar from previous surgery; Z90.710 Acquired absence of both cervix and uterus; F17.290 Nicotine dependence, other tobacco product, uncomplicated
CPT/HCPCS: 70450; 99285; Q0162

== ENCOUNTER 2023-08-06 07:03 | Outpatient (RCR) | payer MEDICAID, SELFPAY | END 2023-08-14 13:03 | disposition home or self-care (01) | LOC: PT 07:03 | PROVIDERS: PCP Family Medicine; Visit Provider Physical Medicine & Rehabilitation | DX: H81.10 Benign paroxysmal vertigo, unspecified ear (principal); R26.89 Other abnormalities of gait and mobility; R26.9 Unspecified abnormalities of gait and mobility | CPT/HCPCS: 97110; 97162 ==

== ENCOUNTER 2023-09-22 08:45 | Outpatient (OUT) | payer MEDICAID, SELFPAY ==
--- OUTSIDE RECORDS SUMMARY | 2023-09-22 08:51 | XMS_ITS | CCD ---
Author Organization [facility] Care Team Providers Care Beam Worker Name Role Phone DENNISE, DR MCKAY Espinoza [...] DENNISE, DR MCKAY Espinoza Primary Care Unavailable KULWANT, DR ANDREW [employer] Unavailable DENNISE, DR MCKAY Espinoza Consulting Unavailable LORNA Velasquez Attending Provider [phone] Medications Current Medications Medication Drug Class(es) Dates Sig (Normalized) Sig (Original) ALPRAZolam 0.25 mg oral tablet (1 source) Benzodiazepine Start: 08-04-2023 take 0.25 mg by mouth once daily Alprazolam Active 0.25 MG PO Daily August 04, 2023 12:00am atomoxetine 80 mg oral capsule (1 source) Norepinephrine Reuptake Inhibitor Start: 08-04-2023 take 80 mg by mouth once daily in the morning Atomoxetine Active 80 MG PO Every morning August 04, 2023 12:00am escitalopram 5 mg oral tablet (1 source) Serotonin Reuptake Inhibitor Start: 08-04-2023 take 1 tablet by mouth once daily Escitalopram Oxalate (Lexapro) 5 mg tablet Active 5 MG PO Daily August 04, 2023 12:00am fexofenadine hydrochloride 180 mg oral tablet (1 source) Histamine-1 Receptor Antagonist Start: 08-04-2023 take 1 tablet by mouth once daily Fexofenadine (Darby Allergy) 180 mg tablet Active 180 MG PO Daily August 04, 2023 12:00am ibuprofen 800 mg oral tablet (1 source) Nonsteroidal Anti-inflammatory Drug Start: 08-04-2023 take 800 mg by mouth three times daily Ibuprofen Active 800 MG PO Three times daily August 04, 2023 12:00am metFORMIN hydrochloride 500 mg oral tablet (1 source) Biguanide Start: 08-04-2023 take 500 mg by mouth once daily Metformin Active 500 MG PO Daily August 04, 2023 12:00am Multivitamin preparation (1 source) Start: 08-04-2023 take 1 tablet by mouth once daily Multivitamin Active 1 TAB PO Daily August 04, 2023 12:00am zolpidem tartrate 10 mg oral tablet (1 source) gamma-Aminobutyric Acid-ergic Agonist Start: 08-04-2023 take 10 mg by mouth once daily at bedtime Zolpidem Active 10 MG PO Daily at bedtime August 04, 2023 12:00am Completed/Discontinued Medications Medication Drug Class(es) Dates Sig (Normalized) Sig (Original) LORazepam 0.5 mg oral tablet (1 source) Benzodiazepine Start: 08-04-2023 End: 08-04-2023 take 0.5 mg by mouth once daily Lorazepam Discontinued 0.5 MG PO Daily August 04, 2023 12:00am August 04, 2023 1:41pm Problems Active Problems Problem Classification Problem Date Documented Date Episodic/Chronic Anxiety disorders (2 sources) Mixed anxiety and depressive disorder; Translations: [Anxiety disorder, unspecified] 08-04-2023 Chronic Attention-deficit, conduct, and disruptive behavior disorders (1 source) Attention deficit hyperactivity disorder; Translations: [Attention-deficit hyperactivity disorder, unspecified type] 08-04-2023 Chronic Attention-deficit, conduct, and disruptive behavior disorders (1 source) Attention-deficit hyperactivity disorder, unspecified type; Translations: [Attention deficit disorder with hyperactivity] 08-04-2023 Chronic Delirium, dementia, and amnestic and other cognitive disorders (2 sources) Postconcussion syndrome; Translations: [Postconcussional syndrome] 08-04-2023 Chronic Headache; including migraine (2 sources) Posttraumatic headache; Translations: [Post-traumatic headache, unspecified, not intractable] 08-04-2023 Episodic Immunizations and screening for infectious disease (2 [...] 3V*on 2021 XR ankle LT min 3V* [facility] [place] [address] [place] [address] XRay Report Signed Patient: Diana Stewart MR#: [id number] : 1985 Acct:[id number] Age/Sex: 36 / F ADM Date: 12/20/21 Loc: [facility] Room: Type: [facility] Attending Dr: Amanda Velasquez APRN Copies to: Amanda Velasquez APRN Ordering Provider: Amanda Velasquez APRN Date of Service: 12/20/21 XR/XR ankle LT min 3V*: Injury ([id number]) XR/XR foot LT min 3V*: Injury XR [...] Elizabeth Yeager M.D.12/20/2021 12:52 PM Dictation Location: [place] [address] Transcribed By: WOO 12/20/21 1252 Dictated By: Elizabeth Yeager II, MD 12/20/21 1247 Signed By: 12/20/[address] [facility] PAP ACOG PANEL 2: 30 to 65on 12-28-2020 . . Normal [facility] Comment on above: Result Comment: Perf ormed at: WB Performed By: #### [id number] #### [facility] [address] [place] [address] Tracy Pop Age Gdln ACOG Testing 30-65 Normal [facility] Comment on above: Performed By: #### [id number] #### [facility] [address] [address] Tracy Pop DIAGNOSIS: Comment Normal [facility] Comment on above: Result Comment: NEGA TIVE FOR INTRAEPITHELIAL LESION OR MALIGNANCY. THIS SPECIMEN WAS RESCREENED PART OF OUR OTOLARYNGOLOGY NURSE PROGRAM. Performed at: WB Performed By: #### [id number] #### [facility] [address] [place] [address] Tracy Pop HPV Aptima Negative Normal Negative [facility] Comment on above: Result Comment: This nucleic acid amplification test detects fourteen high-risk HPV types (16,18,31,33,35,39,45,51,52,56,58,59,66,68) without differentiation. Performed at: =G Performed By: #### 4 [id number] #### [facility] [address] [place] [address] Tracy Pop Methodology: Comment Normal [facility] Comment on above: Result Comment: This liquid based ThinPrep(R) pap test was screened with the use of an image guided system. Performed at: WB Performed By: #### [id number] #### [facility] [address] [place] [address] Tracy Elaineen Note: Comment Normal [facility] Comment on above: Result Comment: The Pap smear is a screening test designed to aid in the detection of premalignant and malignant conditions of the uterine cervix. It is not a diagnostic procedure and should not be used as the sole means of detecting cervical cancer. Both false-positive and false-negative reports do occur. . Performed at: WB Performed By: #### [id number] #### [facility] [address] [place] [address] Tracy Pop Performed by: Comment Normal [facility] Comment on above: Result Comment: Addi Barajas, Caustic Strength Inspector (ASCP) Performed at: WB Performed By: #### [id number] #### [facility] [address] [place] [address] Tracy Pop QC reviewed by: Comment Normal [facility] Comment on above: Result Comment: Aby Oliveira, Supervisory Caustic Strength Inspector (ASCP) Performed at: WB Performed By: #### 4 [id number] #### [facility] [address] [place] [address] Tracy Pop Specimen adequacy: Comment Normal [facility] Comment on above: Result Comment: Sati sfactory for evaluation. No endocervical component is identified. Performed at: WB Performed By: #### 4 [id number] #### [facility] [address] [place] [address] Tracy Pop CHLAMYDIA/GONOCOCCUS ANTONIO (SW AB/URINE/PAPon 12-26-2020 Chlamydia trachomatis, ANTONIO Negative Normal Negative [facility] Comment on above: Performed By: #### C T/NGNA #### [facility] [address] [place] [address] Tracy Pop Neisseria gonorrhoeae, ANTONIO Negative Normal Negative [facility] Comment on above: Performed By: #### C T/NGNA #### [facility] [address] [place] [address] Tracy Pop VAGINITIS/VAGINOSIS DNA PROB Boris 12-26-2020 Cheryl species Negative Normal Negative [facility] Comment on above: Performed By: #### V AGINT ####[facility] [id number] [place] Gardnerella vaginalis Negative Normal Negative [facility] Comment on above: Performed By: #### V AGINT ####[facility] [id number] [place] Trichomonas vaginalis Negative Normal Negative [facility] Comment on above: Performed By: #### V AGINT ####[facility] [id number] [place] XR LSPINE 2_3 VIEWSon 2020 XR [...] No acute abnormality Electronically authenticated by: ANDREW LBUM Date: 2020-06-06 09:25 Normal [facility] COVID-19 PCRon 03-17-2020 SARS-CoV-2 (COVID-19) RNA ANTONIO+probe Ql (Unsp spec) Not detected Normal Not Detected [facility] Comment on above: Result Comment: This nucleic acid amplification test was developed and its performance characteristics determined by [employer]. Nucleic acid amplification tests include PCR and [...] Performed By: #### C VDPCR, CVDSTAT #### [facility] [address] [place], [place] [id number] Tracy Kiesha PRIORITY COVID PROCESSINGon 03-17-2020 Comment Comment Normal [facility] Comment on above: Result Comment: Rece ived Performed By: #### C VDPCR, CVDSTAT #### [facility] [address] [place], [place] [id number] Tracy Kiesha CBC AUTO DIFFon 03-15-2020 BASO # 0.1 103/ul Normal 0.0-0.1 [facility] Comment on above: Performed By: #### C BC #### [facility] [address] [place] [address] Tracy Kiesha Basophils/100 WBC (Bld) 0.8 % Normal 0.2-2.0 [facility] Comment on above: Performed By: #### C BC #### [facility] [address] [place] [address] Tracy Kiesha EO # 0.3 103/ul Normal 0.0-0.7 [facility] Comment on above: Performed By: #### C BC #### [facility] [address] [place] [address] Tracy Pop Eosinophils/100 WBC (Bld) 3.8 % Normal 0.9-7.0 [facility] Comment on above: Performed By: #### C BC #### [facility] [address] [place] [address] Tracy Kiesha Erythrocyte distribution width (RBC) [Ratio] 11.7 % Normal 11.0-15.0 [facility] Comment on above: Performed By: #### C BC #### [facility] [address] [place] [address] Tracy Kiesha Hematocrit (Bld) [Volume fraction] 39.6 % Normal 36.0-48.0 [facility] Comment on above: Performed By: #### C BC #### [facility] [address] [id number] Tracy Kiesha Hemoglobin (Bld) [Mass/Vol] 13.0 g/dL Normal 12.0-16.0 [facility] Comment on above: Performed By: #### C BC #### [facility] [address] [id number] Tracy Kiesha IG # 0.03 10e3/ul Normal 0.00-0.03 [facility] Comment on above: Performed By: #### C BC #### [facility] [address] [place] [address] Tracy Kiesha IG % 0.4 % Normal 0.0-0.5 [facility] Comment on above: Performed By: #### C BC #### [facility] [address] [place] [address] Tracy Kiesha LYMPH # 3.5 103/ul Normal 1.2-3.8 [facility] Comment on above: Performed By: #### C BC #### [facility] [address] [place] [address] Tracy Kiesha Lymphocytes/100 WBC (Bld) 41.5 % Normal 20.5-60.0 [facility] Comment on above: Performed By: #### C BC #### [facility] [address] [place] [address] Tracy Kiesha MANUAL DIFF REQ NO Normal [facility] Comment on above: Performed By: #### C BC #### [facility] [address] [place], [place] [id number] Tracy Kiesha MCH (RBC) [Entitic mass] 31.0 pg Normal 26.7-34.0 [facility] Comment on above: Performed By: #### C BC #### [facility] [address] [place] [address] Tracy Kiesha MCHC (RBC) [Mass/Vol] 32.8 g/dL Normal 29.9-35.2 [facility] Comment on above: Performed By: #### C BC #### [facility] [address] [place], [place] [address] Tracyramona Elaineen MCV (RBC) [Entitic vol] 94.5 fL Normal 81.0-99.0 [facility] Comment on above: Performed By: #### C BC #### [facility] [address] [id number] Tracyramona Elaineen MONO # 0.7 103/ul Normal 0.3-0.8 [facility] Comment on above: Performed By: #### C BC #### [facility] [address] [id number] Tracy Kiesha Monocytes/100 WBC (Bld) 7.8 % Normal 1.7-12.0 [facility] Comment on above: Performed By: #### C BC #### [facility] [address] [place], [place] [id number] Tracy Kiesha NEUT # 3.9 103/ul Normal 1.4-6.5 [facility] Comment on above: Performed By: #### C BC #### [facility] [address] [place], [place] [id number] Tracy Kiesha Neutrophils/100 WBC (Bld) 45.7 % Normal 43.0-75.0 [facility] Comment on above: Performed By: #### C BC #### [facility] [address] [place], [place] [id number] Tracyramona Pop Platelet mean volume (Bld) [Entitic vol] 11.1 fL Normal 9.5-13.5 [facility] Comment on above: Performed By: #### C BC #### [facility] [address] [place], [place] [id number] Tracy Kiesha PLT 226 103/ul Normal 150-450 [facility] Comment on above: Performed By: #### C BC #### [facility] [address] [place], [place] [id number] Tracy Kiesha RBC 4.19 106/ul Critically low 4.20-5.40 [facility] Comment on above: Performed By: #### C BC #### [facility] [address] [place], [place] [id number] Tracy Kiesha WBC 8.4 103/ul Normal 4.0-11.0 [facility] Comment on above: Performed By: #### C BC #### [facility] [address] [place], [place] [id number] Tracy Pop PROF 14(COMP METB)on 020 Albumin [Mass/Vol] 3.9 g/dL Normal 3.5-5.0 [facility] Comment on above: Performed By: #### C MP #### [facility] [address] [place], [place] [id number] Tracy Kiesha Albumin/Globulin [Mass ratio] 1.2 {ratio} Normal [facility] Comment on above: Performed By: #### C MP #### [facility] [address] [place] [address] Tracyramona Pop ALP [Catalytic activity/Vol] 63 U/L Normal 38-126 [facility] Comment on above: Performed By: #### C MP #### [facility] [address] [place] [address] Tracy Elaineen ALT [Catalytic activity/Vol] 29 U/L Normal 9-52 [facility] Comment on above: Performed By: #### C MP #### [facility] [address] [place], [place] [id number] Tracyramona Pop Anion gap [Moles/Vol] 9.1 mmol/L Normal [facility] Comment on above: Performed By: #### C MP #### [facility] [address] [place], [place] [id number] Tracy Elaineen AST [Catalytic activity/Vol] 16 U/L Normal 14-36 [facility] Comment on above: Performed By: #### C MP #### [facility] [address] [place], [place] [id number] Tracy Kiesha Bilirubin [Mass/Vol] 0.3 mg/dL Normal 0.2-1.3 [facility] Comment on above: Performed By: #### C MP #### [facility] [address] [place], [place] [id number] Tracy Kiesha Calcium [Mass/Vol] 9.2 mg/dL Normal 8.4-10.2 [facility] Comment on above: Performed By: #### C MP #### [facility] [address] [id number] Tracy Kiesha Chloride [Moles/Vol] 103 mmol/L Normal 98-107 [facility] Comment on above: Performed By: #### C MP #### [facility] [address] [address] Tracy Kiesha CO2 [Moles/Vol] 28.1 mmol/L Normal 22.0-30.0 [facility] Comment on above: Performed By: #### C MP #### [facility] [address] [address] Tracy Kiesha Creatinine [Mass/Vol] 0.60 mg/dL Normal 0.52-1.04 [facility] Comment on above: Performed By: #### C MP #### [facility] [address] [place], [place] [id number] Tracy Kiesha EGFR-AF MALTESE >60 Normal >=60 [facility] Comment on above: Performed By: #### C MP #### [facility] [address] [place] [address] Tracy Kiesha EGFR-NON AF MALTESE >60 Normal >=60 [facility] Comment on above: Performed By: #### C MP #### [facility] [address] [place], [place] [id number] Tracy Kiesha Globulin (S) [Mass/Vol] 3.3 g/dL Normal [facility] Comment on above: Performed By: #### C MP #### [facility] [address] [place] [address] Tracy Kiesha Glucose [Mass/Vol] 97 mg/dL Normal 74-106 [facility] Comment on above: Performed By: #### C MP #### [facility] [address] [place], [place] [id number] Tracy Kiesha Potassium [Moles/Vol] 4.2 mmol/L Normal 3.4-5.0 [facility] Comment on above: Performed By: #### C MP #### [facility] [address] [place] [address] Tracy Kiesha Protein [Mass/Vol] 7.2 g/dL Normal 6.1-8.2 [facility] Comment on above: Performed By: #### C MP #### [facility] [address] [address] Tracyramona Pop Sodium [Moles/Vol] 136 mmol/L Critically low 137-145 [facility] Comment on above: Performed By: #### C MP #### [facility] [address] [place] [address] Tracy Kiesha Urea nitrogen [Mass/Vol] 9.0 mg/dL Normal 7.0-17.0 [facility] Comment on above: Performed By: #### C MP #### [facility] [address] [place] [address] Tracy Pop Urea nitrogen/Creatinin e [Mass ratio] 15.0 mg/mg Normal [facility] Comment on above: Performed By: #### C MP #### [facility] [address] [place] [address] Tracy Pop TROPONIN - Ion 03-15-2020 TROP <0.012 Normal <=0.034 [facility] Comment on above: Performed By: #### T ROP #### [facility] [address] [place] [address] Tracy Pop TROPONIN RANGE SEE BELOW Normal [facility] Comment on above: Result Comment: <0.0 34 ng/ml NEGATIVE 0.034-0.119 INDETERMINATE 0.120 AMI CUT OFF Performed By: #### T ROP #### [facility] [address] [place] [address] Tracy Pop INFLUENZA A AND B AGon 03-14 INFLUANEGH SEE BELOW Normal [facility] Comment on above: Result Comment: Nega tive for Flu A protein angiten. Infection due to Flu A cannot be ruled out. Flu A angiten in the sample may be below the detection limit of the test. Performed By: #### I NFLUAB #### [facility] [address] [place] [address] Tracyramona Elaineen INFLUBNEGH SEE BELOW Normal [facility] Comment on above: Result Comment: Nega tive for Flu B protein antigen. Infection due to Flu B cannot be ruled out. Flu B antigen in the sample may be below the detection limit of the test. Performed By: #### I NFLUAB #### [facility] [address] [place] [address] Tracy Pop INFLUENZA A AG Negative Normal NEGATIVE SEE COMMENT [facility] Comment on above: Performed By: #### I NFLUAB #### [facility] [address] [place] [address] Tracy Pop INFLUENZA B AG Negative Normal NEGATIVE SEE COMMENT [facility] Comment on above: Performed By: #### I NFLUAB #### [facility] [address] [place] [address] Tracy Kiesha INTERNAL CONTROLS Within Normal Limits Normal Wi thin Normal Limits [facility] Comment on above: Performed By: #### I NFLUAB #### [facility] [address] [place] [address] Tracy Pop Vital Signs Date Time Vital Sign Value Performing Clinician Faci lity 08-04-2023 13:24-0400 Diastolic blood pressure 70 mm[Hg] [facility] 08-04-2023 13:24-0400 Heart rate 95 /min [facility] 08-04-2023 13:24-0400 SaO2% (BldA) [Mass fraction] 98 % [facility] 08-04-2023 13:24-0400 Systolic blood pressure 110 mm[Hg] [facility] Encounters Encounter Date Encounter Type Care Provider Facility Start: 08-04-2023 End: 08-04-2023 ambulatory [facility] Work Phone: Start: 08-04-2023 End: 08-04-2023 Patient encounter procedure [facility] Work Phone: Start: 12-20-2021 End: 12-20-2021 Patient encounter procedure LORNA Velasquez Work Phone: [facility] Start: 01-08-2021 Encounter for gynecological examination (general) (routine) without abnormal findings DR BABS GUILLEN [facility] Start: 12-24-2020 End: 12-24-[address] BABS GUILLEN Facility:[facility] Start: 12-24-2020 End: 12-24-2020 Encounter for gynecological examination (general) (routine) without abnormal findings DR BABS GUILLEN Facility:[facility] Start: 06-06-2020 End: 06-07-[address] MCKAY WEEKS Facility:[facility] Start: 03-14-2020 End: 03-15-[address] MCKAY WEEKS Facility:[facility] Procedures Date Procedure Procedure Detail Performing Clinician Start: 12-20-2021 X-ray of left ankle APR N Amanda Velasquez Work Phone: Start: 12-20-2021 X-ray of left foot DIRECTOR OF PUBLIC WORKS Amanda Velasquez Work Phone: Payers Date Payer Category Payer Unknown [id number] 1985 Unknown [id number] 1985 Unknown [id number] 1958 Unknown [id number] Medicaid Anthem [place] Medicaid [id number] Social History Date Type Detail Facility Tobacco smoking stat [facility] Unknown if ever smoked [facility] Work Phone: Start: 1985 Sex Assigned At Female F [facility] Start: 05-17-2018 Tobacco smoking stat [facility] Smoker (finding) [facility] Clinical Note 03-15-2020 Note Date & Type [...] by: ERROL TIM Date: 2020-03-14 22:34 [facility] Evaluation note Note Date & Type Note Facility Evaluation note No assessment information availa ble [facility] Work Phone: Evaluation note Note Date & Type Note Facility Evaluation note Diagnosis Onset Date ADHD acute Anxiety and depression acute Headache, post-traumatic acu te Post concussion syndrome acu te [facility] Work Phone: Summary Purpose Family History Relationship Condition Age at Onset Recorded Date/T gunnar father Unknown Not Specified Diabetes mellitus Unknown Unknown Advance Directives Advance Directive Response Recorded Date/ Time Advance Directives No December 20, 2021 7:52pm Chief Complaint and Reason for Visit Chief Complaint [id number] Chief Complaint concussion eval Reason for Visit ADHD Anxiety and depression Headache, post-traumatic Post concussion syndrome Additional Source Comments INFORMATION SOURCE (unrecogn ized section and content) DATE CREATED AUTHOR 01/09/2021 [facility] pitla DATE CREATED AUTHOR AUTHOR'S ORGANIZ ATION 01/01/2022 [facility] Care Teams (unrecognized sec tion and content) Team Status: Inactive Member Role Status Dates Amanda Velasquez APRN Attending Provider Active Team Status: Active Member Role Status Dates Mckay Weeks MD Primary Care Provider Active Team Status: Inactive Member Role Status Dates Mckay Weeks MD Primary Care Provider Active Start: August 04, 2023 End: August 04, 2023 Robert De Anda MD Attending Provider Active Star t: August 04, 2023 End: August 04, 2023 Goals (unrecognized section and content) Goals may be documented in a n alternate sectionGoals may be documented in an alternate section FOR RECORDS PERTAINING TO PATIENTS [...] BE BASED ON THE PRIMARY CLINICAL RECORDS. [facility] [employer] [facility]. provides no warranty or guarantee of the accuracy or completeness of information in this document.
[2023-09-22 09:23] LABS: Basophils Absolute Auto 0.1 10^3/uL (0.0-0.1); Basophils Percent Auto 0.9 % (0.2-2.0); Eosinophils Absolute Auto 0.1 10^3/uL (0.0-0.7); Hematocrit 36.4 % (36.0-48.0); Immature Granulocytes Abs Auto 0.02 10^3/uL (0.00-0.03); Immature Granulocytes Pct Auto 0.4 % (0.0-0.5); Lymphocytes Absolute Auto 2.2 10^3/uL (1.2-3.8); Lymphocytes Percent Auto 40.1 % (20.5-60.0); Mean Corpuscular Hemoglobin 30.2 pg (26.7-34.0); Mean Corpuscular Volume 91.7 fL (81.0-99.0); Mean Platelet Volume 10.6 fL (9.5-13.5); Monocytes Absolute Auto 0.4 10^3/uL (0.3-0.8); Monocytes Percent Auto 7.2 % (1.7-12.0); Neutrophils Absolute Auto 2.8 10^3/uL (1.4-6.5); Neutrophils Percent Auto 49.4 % (43.0-75.0); Platelet Count 251 10^3/uL (150-450); Red Blood Count 3.97 10^6/uL (4.20-5.40); White Blood Count 5.6 10^3/uL (4.0-11.0)
[2023-09-22 09:47] LABS: Alanine Aminotransferase 26 U/L (14-59); Albumin Globulin Ratio 1.1; Albumin Level 3.7 g/dL (3.4-5.0); Alkaline Phosphatase 66 U/L (46-116); Anion Gap 13.6; Aspartate Amino Transferase 20 U/L (15-37); BUN Creatinine Ratio 10.9; Bilirubin Total 0.8 mg/dL (0.2-1.0); Calcium 9.4 mg/dL (8.5-10.1); Carbon Dioxide 27.3 mmol/L (21.0-32.0); Chloride 103 mmol/L (98-107); Chol HDL Ratio 2.6; Cholesterol 152 mg/dL (<=200); Estimated GFR (African America >60 (>=60); Estimated GFR (Non-African Ame >60 (>=60); Globulin 3.3 g/dL; Glucose 98 mg/dL (74-106); HDL Cholesterol 58 mg/dL (40-60); LDL Cholesterol Calculated 83.4 mg/dL; Potassium 3.9 mmol/L (3.5-5.1); Sodium 140 mmol/L (136-145); Triglycerides 53 mg/dL (<=150); VLDL CHOLESTEROL 10.6 mg/dL
[2023-09-22 10:53] LABS: Estimated Average Glucose 108 mg/dL; Glycohemoglobin A1C 5.4 % (4.5-6.2)
[2023-09-23 12:11] LABS: Insulin 6.1 uIU/mL (2.6-24.9)
== END 2023-09-22 08:46 | disposition home or self-care (01) ==
LOC: LAB 08:46
PROVIDERS: PCP Family Medicine; Visit Provider Family Medicine
DX: Z00.00 Encounter for general adult medical examination without abnormal findings (principal); R73.03 Prediabetes; E55.9 Vitamin D deficiency, unspecified
CPT/HCPCS: 36415; 80053; 80061; 82306; 83036; 83525; 85025

== ENCOUNTER 2024-01-19 19:43 | Outpatient (REF) | payer MEDICAID, SELFPAY ==
--- OUTSIDE RECORDS SUMMARY | 2024-01-19 19:47 | XMS_ITS | CCD ---
Author Organization [facility] Care Team Providers Care Wood Inspector Name Role Phone DR MCKAY WEEKS Primary Care Unavailable KHRIS, DR ELIZABETH Arias [...] [employer] Consult[employer] Unavailable LORNA Velasquez Attending Provider [phone] MD Mckay Weeks Primary Care Provider MD Robert De Anda Attending Provider [phone] Robert De Anda Admitting Unavailable Robert De Anda Attending Unavailable Mckay Weeks Primary Care Unavailable Medications Current Medications Medication Drug Class(es) Dates Sig (Normalized) Sig (Original) ALPRAZolam 0.25 mg oral tablet (3 sources) Benzodiazepine Start: 08-04-2023 take 0.25 mg by mouth once daily Alprazolam Active 0.25 MG PO Daily August 04, 2023 12:00am escitalopram 5 mg oral tablet (4 sources) Serotonin Reuptake Inhibitor Start: 01-13-2024 take 3 tablets by mouth once daily Escitalopram Oxalate (Lexapro) 5 mg tablet Active 0 PO Daily January 13, 2024 10:50am 15mg orally daily; Start: 08-04-2023 End: 01-13-2024 take 1 tablet by mouth once daily Escitalopram Oxalate (Lexapro) 5 mg tablet Discontinued 5 MG PO Daily August 04, 2023 12:00am January 13, 2024 10:51am fexofenadine hydrochloride 180 mg oral tablet (3 sources) Histamine-1 Receptor Antagonist Start: 08-04-2023 take 1 tablet by mouth once daily Fexofenadine (Darby Allergy) 180 mg tablet Active 180 MG PO Daily August 04, 2023 12:00am ibuprofen 800 mg oral tablet (3 sources) Nonsteroidal Anti-inflammatory Drug Start: 08-04-2023 take 800 mg by mouth three times daily Ibuprofen Active 800 MG PO Three times daily August 04, 2023 12:00am metFORMIN hydrochloride 500 mg oral tablet (3 sources) Biguanide Start: 08-04-2023 take 500 mg by mouth once daily Metformin Active 500 MG PO Daily August 04, 2023 12:00am Multivitamin preparation (3 sources) Start: 08-04-2023 take 1 tablet by mouth once daily Multivitamin Active 1 TAB PO Daily August 04, 2023 12:00am 24 hr propranolol hydrochloride 60 mg extended release oral capsule (4 sources) beta-Adrenergic Bree Start: 08-04-2023 End: 09-22-2023 take 60 mg by mouth once daily at bedtime Propranolol Active 60 MG PO Daily at bedtime 90 90 September 22, 2023 2:20pm zolpidem tartrate 10 mg oral tablet (3 sources) gamma-Aminobutyric Acid-ergic Agonist Start: 08-04-2023 take 10 mg by mouth once daily at bedtime Zolpidem Active 10 MG PO Daily at bedtime August 04, 2023 12:00am Completed/Discontinued Medications Medication Drug Class(es) Dates Sig (Normalized) Sig (Original) atomoxetine 80 mg oral capsule (3 sources) Norepinephrine Reuptake Inhibitor Start: 08-04-2023 End: 01-13-2024 take 80 mg by mouth once daily in the morning Atomoxetine Discontinued 80 MG PO Every morning August 04, 2023 12:00am January 13, 2024 10:49am LORazepam 0.5 mg oral tablet (3 sources) Benzodiazepine Start: 08-04-2023 End: 08-04-2023 take 0.5 mg by mouth once daily Lorazepam Discontinued 0.5 MG PO Daily August 04, 2023 12:00am August 04, 2023 1:41pm Problems Active Problems Problem Classification Problem Date Documented Date Episodic/Chronic Anxiety disorders (6 sources) Mixed anxiety and depressive disorder; Translations: [Anxiety disorder, unspecified] 08-04-2023 Chronic Attention-deficit, conduct, and disruptive behavior disorders (3 sources) Attention deficit hyperactivity disorder; Translations: [Attention-deficit hyperactivity disorder, unspecified type] 08-04-2023 Chronic Attention-deficit, conduct, and disruptive behavior disorders (3 sources) Attention-deficit hyperactivity disorder, unspecified type; Translations: [Attention deficit disorder with hyperactivity] 08-04-2023 Chronic Blindness and vision defects (2 sources) Eye / vision finding; Translations: [Unspecified visual disturbance] 09-22-2023 Episodic Delirium, dementia, and amnestic and other cognitive disorders (6 sources) Postconcussion syndrome; Translations: [Postconcussional syndrome] 08-04-2023 Chronic Headache; including migraine (8 sources) Posttraumatic headache; Translations: [Post-traumatic headache, unspecified, not intractable] Onset: 10-23-2023 08-04-2023 Episodic Immunizations and screening for infectious [...] Name Value Interpretation Reference Range Facil ity MR angio MR brain wo/w conon 10-23-2023 MR angio MR brain wo/w con [facility] [place] [address] MRI Report Signed Patient: Diana Stewart MR#: [id number] : 1985 Acct:[id number] Age/Sex: 38 / F ADM Date: 10/23/23 Loc: MR Room: Type: [facility] Attending Dr: Robert De Anda MD Copies to: Robert De Anda MD Ordering Provider: Robert De Anda MD Date of Service: 10/23/23 MR/MR angio MR brain wo/w con: G44.309, H53.9 MRA OF THE INTRACRANIAL CIRCULATION TECHNIQUE: 3-D [id number] imaging of the [place] of [place] obtained. HISTORY: Head injury. Concussion. Headaches The visualized carotid and the vertebrobasilar system are unremarkable. No abnormality of the anterior, middle and posterior cerebral arteries identified. No arterial occlusion, stenosis or dissection identified. No intracranial aneurysm identified. MR/MR angio MR brain wo/w con IMPRESSION: UNREMARKABLE MRA OF THE INTRACRANIAL CIRCULATION. MRI the Brain with and without contrast TECHNIQUE: Multiplanar T1 and T2-weighted imaging of the brain. HISTORY: Head injury. Concussion. Headaches. COMPARISON: none VENTRICLES: Unremarkable BRAIN VOLUME: Adequate volume of brain parenchyma identified. BRAIN PARENCHYMAL SIGNAL INTENSITY: Normal signal intensity of the brain parenchyma identified. BLEED: None MASS EFFECT: No mass effect DIFFUSION RESTRICTION: None GRADIENT ECHO PARENCHYMAL SIGNAL LOSS: None MIDBRAIN: The midbrain structures are unremarkable. RENEA: Unremarkable MEDULLA: Unremarkable INTERNAL AUDITORY CANALS: Unremarkable SINUSES: Unremarkable ORBITS: Grossly unremarkable MASTOIDS: Unremarkable ENHANCEMENT: No pathologic enhancement. IMPRESSION: No acute intracranial process. Impression dictated by: Levon Stone M.D.10/23/2023 9:16 PM Dictation Location: [place] [address] Transcribed By: [facility] 10/23/232115 Dictated By: Levon Stone DO 10/23/232102 Signed By: 10/23/232115 Normal [facility] PAP ACOG PANEL 2: 30 to 65on 12-28-2020 . . Normal [facility] Comment on above: Result Comment: Perf ormed at: WB Performed By: #### [id number] #### [facility] [address] [address] Tracy Pop Age Gdln ACOG Testing 30-65 Normal [facility] Comment on above: Performed By: #### [id number] #### [facility] [address] [place] [address] Tracy Pop DIAGNOSIS: Comment Normal [facility] Comment on above: Result Comment: NEGA TIVE FOR INTRAEPITHELIAL LESION OR MALIGNANCY. THIS SPECIMEN WAS RESCREENED PART OF OUR ELECTROCARDIOGRAM TECHNICIAN PROGRAM. Performed at: WB Performed By: #### [id number] #### [facility] [address] [place] [address] Tracy Pop HPV Aptima Negative Normal Negative [facility] Comment on above: Result Comment: This nucleic acid amplification test detects fourteen high-risk HPV types (16,18,31,33,35,39,45,51,52,56,58,59,66,68) without differentiation. Performed at: =G Performed By: #### 4 [id number] #### [facility] [address] [place] [address] Tracy Pop Methodology: Comment Normal [facility] Comment on above: Result Comment: This liquid based ThinPrep(R) pap test was screened with the use of an image guided system. Performed at: WB Performed By: #### [id number] #### [facility] [address] [place] [address] Tracy Pop Note: Comment Normal [facility] Comment on above: Result Comment: The Pap smear is a screening test designed to aid in the detection of premalignant and malignant conditions of the uterine cervix. It is not a diagnostic procedure and should not be used as the sole means of detecting cervical cancer. Both false-positive and false-negative reports do occur. . Performed at: WB Performed By: #### [id number] #### [facility] [address] [place] [address] Tracy Pop Performed by: Comment Normal [facility] Comment on above: Result Comment: Addi Barajas, Development Technical Lead (ASCP) Performed at: WB Performed By: #### [id number] #### [facility] [address] [place] [address] Tracy Pop QC reviewed by: Comment Normal [facility] Comment on above: Result Comment: Aby Oliveira, Supervisory Development Technical Lead (ASCP) Performed at: WB Performed By: #### [id number] #### [facility] [address] [place] [address] Tracy oPp Specimen adequacy: Comment Normal [facility] Comment on above: Result Comment: Sati sfactory for evaluation. No endocervical component is identified. Performed at: WB Performed By: #### [id number] #### [facility] [address] [place] [address] Tracy Pop CHLAMYDIA/GONOCOCCUS ANTONIO (SW AB/URINE/PAPon 12-26-2020 Chlamydia trachomatis, ANTONIO Negative Normal Negative [facility] Comment on above: Performed By: #### C T/NGNA #### [facility] [address] [place] [address] Tracy Pop Neisseria gonorrhoeae, ANTONIO Negative Normal Negative [facility] Comment on above: Performed By: #### C T/NGNA #### [facility] [address] [place] [address] Tracy Pop VAGINITIS/VAGINOSIS DNA PROB Boris 12-26-2020 Cheryl species Negative Normal Negative [facility] Comment on above: Performed By: #### V AGINT ####[facility] [address] [place] [address] Kiesha Gardnerella vaginalis Negative Normal Negative [facility] Comment on above: Performed By: #### V AGINT ####[facility] [address] [place] [address] Kiesha Trichomonas vaginalis Negative Normal Negative [facility] Comment on above: Performed By: #### V AGINT ####[facility] [address] [place], [place] [address]Gerken Kiesha XR LSPINE 2_3 VIEWSon 2020 XR [...] ANDREW BLUM Date: 2020-06-06 09:25 Normal [facility] COVID-19 PCRon 03-17-2020 SARS-CoV-2 (COVID-19) RNA ANTONIO+probe Ql (Unsp spec) Not detected Normal Not Detected [facility] Comment on above: Result Comment: This nucleic acid amplification test was developed and its performance characteristics determined by [facility]. Nucleic acid amplification tests include PCR and [...] Performed By: #### C VDPCR, CVDSTAT #### [facility] [address] [place], [place] [id number] Tracy Pop PRIORITY COVID PROCESSINGon 03-17-2020 Comment Comment Normal [facility] Comment on above: Result Comment: Rece ived Performed By: #### C VDPCR, CVDSTAT #### [facility] [address] [place], [place] [id number] Tracy Pop CBC AUTO DIFFon 03-15-2020 BASO # 0.1 103/ul Normal 0.0-0.1 [facility] Comment on above: Performed By: #### C BC #### [facility] [address] [place], [place] [id number] Tracy Kiesha Basophils/100 WBC (Bld) 0.8 % Normal 0.2-2.0 [facility] Comment on above: Performed By: #### C BC #### [facility] [address] [place] [address] Tracy Kiesha EO # 0.3 103/ul Normal 0.0-0.7 [facility] Comment on above: Performed By: #### C BC #### [facility] [address] [place] [address] Tracy Kiesha Eosinophils/100 WBC (Bld) 3.8 % Normal 0.9-7.0 [facility] Comment on above: Performed By: #### C BC #### [facility] [address] [place] [address] Tracy Kiesha Erythrocyte distribution width (RBC) [Ratio] 11.7 % Normal 11.0-15.0 [facility] Comment on above: Performed By: #### C BC #### [facility] [address] [place] [address] Tracy Kiesha Hematocrit (Bld) [Volume fraction] 39.6 % Normal 36.0-48.0 [facility] Comment on above: Performed By: #### C BC #### [facility] [address] [place] [address] Tracy Kiesha Hemoglobin (Bld) [Mass/Vol] 13.0 g/dL Normal 12.0-16.0 [facility] Comment on above: Performed By: #### C BC #### [facility] [address] [place] [address] Tracy Kiesha IG # 0.03 10e3/ul Normal 0.00-0.03 [facility] Comment on above: Performed By: #### C BC #### [facility] [address] [place] [address] Tracy Kiesha IG % 0.4 % Normal 0.0-0.5 [facility] Comment on above: Performed By: #### C BC #### [facility] [address] [place] [address] Tracy Kiesha LYMPH # 3.5 103/ul Normal 1.2-3.8 [facility] Comment on above: Performed By: #### C BC #### [facility] [address] [place] [address] Tracy Kiesha Lymphocytes/100 WBC (Bld) 41.5 % Normal 20.5-60.0 [facility] Comment on above: Performed By: #### C BC #### [facility] [address] [place] [address] Tracy Kiesha MANUAL DIFF REQ NO Normal [facility] Comment on above: Performed By: #### C BC #### [facility] [address] [place], [place] [id number] Tracy Kiesha MCH (RBC) [Entitic mass] 31.0 pg Normal 26.7-34.0 [facility] Comment on above: Performed By: #### C BC #### [facility] [address] [place], [place] [id number] Tracy Kiesha MCHC (RBC) [Mass/Vol] 32.8 g/dL Normal 29.9-35.2 [facility] Comment on above: Performed By: #### C BC #### [facility] [address] [place], [place] [id number] Tracy Kiesha MCV (RBC) [Entitic vol] 94.5 fL Normal 81.0-99.0 [facility] Comment on above: Performed By: #### C BC #### [facility] [address] [place], [place] [address] Tracy Kiesha MONO # 0.7 103/ul Normal 0.3-0.8 [facility] Comment on above: Performed By: #### C BC #### [facility] [address] [place], [place] [id number] Tracy Kiesha Monocytes/100 WBC (Bld) 7.8 % Normal 1.7-12.0 [facility] Comment on above: Performed By: #### C BC #### [facility] [address] [place], [place] [id number] Tracy Kiesha NEUT # 3.9 103/ul Normal 1.4-6.5 [facility] Comment on above: Performed By: #### C BC #### [facility] [address], [place] [address] Tracyramona Pop Neutrophils/100 WBC (Bld) 45.7 % Normal 43.0-75.0 [facility] Comment on above: Performed By: #### C BC #### [facility] [address], [place] [address] Tracyramona Pop Platelet mean volume (Bld) [Entitic vol] 11.1 fL Normal 9.5-13.5 [facility] Comment on above: Performed By: #### C BC #### [facility] [address], [place] [address] Tracy Kiesha PLT 226 103/ul Normal 150-450 [facility] Comment on above: Performed By: #### C BC #### [facility] [address] [place], [place] [address] Tracy Kiesha RBC 4.19 106/ul Critically low 4.20-5.40 [facility] Comment on above: Performed By: #### C BC #### [facility] [address] [place], [place] [id number] Tracy Kiesha WBC 8.4 103/ul Normal 4.0-11.0 [facility] Comment on above: Performed By: #### C BC #### [facility] [address] [place], [place] [id number] Tracy Pop PROF 14(COMP METB)on 020 Albumin [Mass/Vol] 3.9 g/dL Normal 3.5-5.0 [facility] Comment on above: Performed By: #### C MP #### [facility] [address] [place], [place] [phone] Tracy Kiesha Albumin/Globulin [Mass ratio] 1.2 {ratio} Normal [facility] Comment on above: Performed By: #### C MP #### [facility] [address] [place], [place] [id number] Tracy Kiesha ALP [Catalytic activity/Vol] 63 U/L Normal 38-126 [facility] Comment on above: Performed By: #### C MP #### [facility] [address] [place], [place] [id number] Tracy Kiesha ALT [Catalytic activity/Vol] 29 U/L Normal 9-52 [facility] Comment on above: Performed By: #### C MP #### [facility] [address] [id number] Tracy Kiesha Anion gap [Moles/Vol] 9.1 mmol/L Normal [facility] Comment on above: Performed By: #### C MP #### [facility] [address] [address] Tracy Kiesha AST [Catalytic activity/Vol] 16 U/L Normal 14-36 [facility] Comment on above: Performed By: #### C MP #### [facility] [address] [place] [address] Tracy Kiesha Bilirubin [Mass/Vol] 0.3 mg/dL Normal 0.2-1.3 [facility] Comment on above: Performed By: #### C MP #### [facility] [address] [place] [address] Tracy Keisha Calcium [Mass/Vol] 9.2 mg/dL Normal 8.4-10.2 [facility] Comment on above: Performed By: #### C MP #### [facility] [address] [place] [address] Tracy Kiesha Chloride [Moles/Vol] 103 mmol/L Normal 98-107 [facility] Comment on above: Performed By: #### C MP #### [facility] [address] [place] [address] Tracy Kiesha CO2 [Moles/Vol] 28.1 mmol/L Normal 22.0-30.0 [facility] Comment on above: Performed By: #### C MP #### [facility] [address] [place], [place] [address] Tracy Kiesha Creatinine [Mass/Vol] 0.60 mg/dL Normal 0.52-1.04 [facility] Comment on above: Performed By: #### C MP #### [facility] [address] [id number] Tracy Kiesha EGFR-AF TRINIDADIAN >60 Normal >=60 [facility] Comment on above: Performed By: #### C MP #### [facility] [address], [place] [address] Tracy Kiesha EGFR-NON AF TRINIDADIAN >60 Normal >=60 [facility] Comment on above: Performed By: #### C MP #### [facility] [address], [place] [address] Tracy Kiesha Globulin (S) [Mass/Vol] 3.3 g/dL Normal [facility] Comment on above: Performed By: #### C MP #### [facility] [address] [id number] Tracy Kiesha Glucose [Mass/Vol] 97 mg/dL Normal 74-106 [facility] Comment on above: Performed By: #### C MP #### [facility] [address] [address] Tracy Kiesha Potassium [Moles/Vol] 4.2 mmol/L Normal 3.4-5.0 [facility] Comment on above: Performed By: #### C MP #### [facility] [address] [place], [place] [address] Tracy Kiesha Protein [Mass/Vol] 7.2 g/dL Normal 6.1-8.2 [facility] Comment on above: Performed By: #### C MP #### [facility] [address] [place], [place] [address] Tracy Kiesha Sodium [Moles/Vol] 136 mmol/L Critically low 137-145 [facility] Comment on above: Performed By: #### C MP #### [facility] [address] [id number] Tracy Kiesha Urea nitrogen [Mass/Vol] 9.0 mg/dL Normal 7.0-17.0 [facility] Comment on above: Performed By: #### C MP #### [facility] [address] [place], [place] [address] Tracy Kiesha Urea nitrogen/Creatinin e [Mass ratio] 15.0 mg/mg Normal [facility] Comment on above: Performed By: #### C MP #### [facility] [address] [place] [address] Tracy Pop TROPONIN - Ion 03-15-2020 TROP <0.012 Normal <=0.034 [facility] Comment on above: Performed By: #### T ROP #### [facility] [address] [place] [address] Tracy Pop TROPONIN RANGE SEE BELOW Normal [facility] Comment on above: Result Comment: <0.0 34 ng/ml NEGATIVE 0.034-0.119 INDETERMINATE 0.120 AMI CUT OFF Performed By: #### T ROP #### [facility] [address] [place] [address] Tracy Pop INFLUENZA A AND B AGon 03-14 INFLUANEGH SEE BELOW Normal [facility] Comment on above: Result Comment: Nega tive for Flu A protein angiten. Infection due to Flu A cannot be ruled out. Flu A angiten in the sample may be below the detection limit of the test. Performed By: #### I NFLUAB #### [facility] [address] [place] [address] Tracy Pop INFLUBNEGH SEE BELOW Normal [facility] Comment on above: Result Comment: Nega tive for Flu B protein antigen. Infection due to Flu B cannot be ruled out. Flu B antigen in the sample may be below the detection limit of the test. Performed By: #### I NFLUAB #### [facility] [address] [place] [address] Tracy Pop INFLUENZA A AG Negative Normal NEGATIVE SEE COMMENT [facility] Comment on above: Performed By: #### I NFLUAB #### [facility] [address] [place] [address] Tracy Pop INFLUENZA B AG Negative Normal NEGATIVE SEE COMMENT [facility] Comment on above: Performed By: #### I NFLUAB #### [facility] [address] [place] [address] Tracy Pop INTERNAL CONTROLS Within Normal Limits Normal Wi thin Normal Limits [facility] Comment on above: Performed By: #### I NFLUAB #### [facility] [address] [place] [address] Tracy Pop Vital Signs Date Time Vital Sign Value Performing Clinician Tono preciado 01-13-2024 10:51-0400 Body height 157.48 cm MD Mckay Weeks Work Phone: [facility] 01-13-2024 10:51-0400 Body mass index (BMI) [Ratio] 38.4 kg/m2 MD Mckay Weeks Work Phone: [facility] 01-13-2024 10:51-0400 Body weight 95.25 kg MD Mckay Weeks Work Phone: [facility] 01-13-2024 10:51-0400 Diastolic blood pressure 64 mm[Hg] MD Mckay Weeks Work Phone: [facility] 01-13-2024 10:51-0400 Heart rate 71 /min MD Mckay Weeks Work Phone: [facility] 01-13-2024 10:51-0400 SaO2% (BldA) [Mass fraction] 97 % MD Mckay Weeks Work Phone: [facility] 01-13-2024 10:51-0400 Systolic blood pressure 112 mm[Hg] MD Mckay Weeks Work Phone: [facility] 09-22-2023 13:20-0400 Diastolic blood pressure 90 mm[Hg] MD Mckay Weeks Work Phone: [facility] 09-22-2023 13:20-0400 Systolic blood pressure 130 mm[Hg] MD Mckay Weeks Work Phone: [facility] 08-04-2023 13:24-0400 Diastolic blood pressure 70 mm[Hg] [facility] 08-04-2023 13:24-0400 Heart rate 95 /min [facility] 08-04-2023 13:24-0400 SaO2% (BldA) [Mass fraction] 98 % [facility] 08-04-2023 13:24-0400 Systolic blood pressure 110 mm[Hg] [facility] Encounters Encounter Date Encounter Type Care Provider Facility Start: 01-13-2024 End: 01-13-2024 ambulatory MD Mckay Weeks Work Phone: [facility] Work Phone: Start: 01-13-2024 End: 01-13-2024 Patient encounter procedure MD Mckay Weeks Work Phone: [facility] Work Phone: Start: 10-23-2023 End: 10-23-2023 Patient encounter procedure MD Mckay Weeks Work Phone: [facility] [place] [place] Work Phone: Start: 10-23-2023 End: 10-23-2023 ambulatory MD Mckay Weeks Work Phone: [facility] [place] Work Phone: Start: 09-22-2023 End: 09-22-2023 Patient encounter procedure MD Mckay Weeks Work Phone: [facility] Work Phone: Start: 08-04-2023 End: 08-04-2023 ambulatory [facility] Work Phone: Start: 08-04-2023 End: 08-04-2023 Patient encounter procedure [facility] Work Phone: Start: 12-20-2021 End: 12-20-2021 Patient encounter procedure LORNA Velasquez Work Phone: [facility] [place] Start: 01-08-2021 Encounter for gynecological examination (general) (routine) without abnormal findings DR BABS GUILLEN [facility] Start: 12-24-2020 End: 12-24-[address] BABS GUILLEN Facility: Start: 12-24-2020 End: 12-24-2020 Encounter for gynecological examination (general) (routine) without abnormal findings DR BABS GUILLEN Facility:[facility] Start: 06-06-2020 End: 06-07-[address] MCKAY WEEKS Facility:[facility] Start: 03-14-2020 End: 03-15-[address] MCKAY WEEKS Facility:[facility] Procedures Date Procedure Procedure Detail Performing Clinician Start: 10-23-2023 MR angiography of he ad with contrast MD Mckay Weeks Work Phone: Start: 12-20-2021 X-ray of left ankle APR N Amanda Velasquez Work Phone: Start: 12-20-2021 X-ray of left foot [employer] Amanda Velasquez Work Phone: Plan of Treatment Date Care Activity Detail Author Start: 01-13-2024 Patient referral [facility] Work Phone: MRA Head vessels W contrast IV [facility] MRA Head vessels WO contrast [facility] Patient referral [facility] Work Phone: Payers Date Payer Category Payer Self-pay 2023 Medicaid [id number] 11 [id number] 1985 Unknown [id number] [id number] 1985 Unknown [id number] [id number] [id number] 1986 Unknown [id number] [id number] [id number] 1959 Unknown [id number] Unknown [id number] 2.16.8 [id number] Social History Date Type Detail Facility Tobacco smoking stat [facility] Unknown if ever smoked [facility] Work Phone: Start: 1985 Sex Assigned At Female F [facility] Start: [facility]-17-[facility] Clinical Note 03-15-2020 Note Date & Type [...] by: ERROL TIM Date: 2020-03-14 22:34 [facility] Evaluation note Note Date & Type Note Facility Evaluation note No assessment information availa [facility] Work Phone: Evaluation note Note Date & Type Note Facility Evaluation note Diagnosis Onset Date ADHD acute Anxiety and depression acute Headache, post-traumatic acu te Post concussion syndrome acu te [facility] Work Phone: Evaluation note Note Date & Type Note Facility Evaluation note Diagnosis Onset Date ADHD acute Anxiety and depression acute Headache, post-traumatic acu te Post concussion syndrome acu te ADHD acute Anxiety and depression acute Headache, post-traumatic acu te Post concussion syndrome acu te [facility] Work Phone: Evaluation note Note Date & Type Note Facility Evaluation note Diagnosis Onset Date Headache, post-traumatic acu te [facility] Work Phone: Hospital Discharge instructions Note Date & Type Note Facility Hospital Discharge instructions Ambulatory OrdersReferral to Neurology Time Frame: 01/13/24, Location: None Selected [facility] Work Phone: Summary Purpose Family History Relationship Condition Age at Onset Recorded Date/T gunnar father Unknown Not Specified Diabetes mellitus Unknown Unknown Relationship Condition Age at Onset Recorded Date/T gunnar father Unknown mother Diabetes mellitus Unknown Unknown Advance Directives Advance Directive Response Recorded Date/ Time Advance Directives No December 20, 2021 7:52pm Chief Complaint and Reason for Visit Chief Complaint T14.90XA Chief Complaint concussion eval Reason for Visit ADHD Anxiety and depression Headache, post-traumatic Post concussion syndrome Chief Complaint concussion eval 8 week follow up G44.309 H53.9 Reason for Visit ADHD Anxiety and depression Headache, post-traumatic Post concussion syndrome ADHD Anxiety and depression Headache, post-traumatic Post concussion syndrome Chief Complaint G44.309 H53.9 Increased head aches Reason for Visit Headache, post-traum atic Additional Source Comments INFORMATION SOURCE (unrecogn ized section and content) DATE CREATED AUTHOR 01/09/2021 [facility] DATE CREATED AUTHOR AUTHOR'S ORGANIZ ATION 11/01/2023 [facility] Care Teams (unrecognized sec tion and content) Team Status: Inactive Member Role Status Yvette Velasquez APRN Attending Provider Active Team Status: Active Member Role Status Dates Mckay Weeks MD Primary Care Provider Active Team Status: Inactive Member Role Status Yvette Weeks MD Primary Care Provider Active Start: August 04, 2023 End: August 04, 2023 Robert De Anda MD Attending Provider Active Star t: August 04, 2023 End: August 04, 2023 Team Status: Inactive Member Role Status Yvette Weeks MD Primary Care Provider Active Start: September 22, 2023 End: September 22, 2023 Robert De Anda MD Attending Provider Active Star t: September 22, 2023 End: September 22, 2023 Team Status: Inactive Member Role Status Yvette Weeks MD Primary Care Provider Active Start: October 23, 2023 End: October 23, 2023 Robert De Anda MD Attending Provider Active Star t: October 23, 2023 End: October 23, 2023 Team Status: Inactive Member Role Status Yvette Weeks MD Primary Care Provider Active Start: January 13, 2024 End: January 13, 2024 Robert De Anda MD Attending Provider Active Star t: January 13, 2024 End: January 13, 2024 Goals (unrecognized section and content) Goals may be documented in a n alternate sectionGoals may be documented in an alternate sectionGoals may be documented in an alternate sectionGoals may be documented in an [...] BE BASED ON THE PRIMARY CLINICAL RECORDS. [facility] [employer] [facility]. provides no warranty or guarantee of the accuracy or completeness of information in this document.
== END 2024-01-19 19:44 | disposition home or self-care (01) ==
LOC: LAB 19:43
PROVIDERS: PCP Family Medicine; Visit Provider Obstetrics & Gynecology
DX: Z01.419 Encounter for gynecological examination (general) (routine) without abnormal findings (principal)
CPT/HCPCS: 87624; 88175

== ENCOUNTER 2024-05-29 20:29 | Observation (INO) | payer MEDICAID, SELFPAY ==
[2024-05-29 20:36] VITALS: BP 119/79; PULSE 96; TEMP 36.9; O2SAT 99; BMI 31.7
--- OUTSIDE RECORDS SUMMARY | 2024-05-29 20:44 | XMS_ITS | CCD ---
Author Organization [facility] Care Team Providers Care Pens And Pencils Repairer Name Role Phone DR MCKAY WEEKS Primary Care Unavailable KHRIS, DR ELIZABETH Arias Admitting Unavailable KHRIS, DR ELIZABETH Arias Attending Unavailable KHRIS, DR ELIZABETH Arias Consulting Unavailable ERROL TIM Consulting Unavailable JANNETTE, DR BRICE Admitting Unavailable JANNETTE, DR BRICE Attending Unavailable DENNISE, DR MCKAY Espinoza Primary Care Unavailable JANNETTE, DR BRICE Consulting Unavailable DENNISE, DR MCKAY Espinoza Admitting Unavailable DENNISE, DR MCKAY Espinoza Attending Unavailable DENNISE, DR MCKAY Espinoza Primary Care Unavailable KULWANT, DR ANDREW Hopkins Consulting Unavailable DENNISE, DR MCKAY Espinoza Consulting Unavailable LORNA Velasquez Attending Provider MD Mckay Weeks Primary Care Provider [phone] MD Robert De Anda Attending Provider Robert De Anda Admitting Unavailable Robert De Anda Attending Unavailable Mckay Weeks Primary Care Unavailable BABS BHATIA Attending Unavailable BABS BHATIA Attending Unavailable LUIS SHAIKH Attending Unavailable ROBERT DE ANDA Referring Unavailable Mckay Weeks MD Primary Care Provider Allergies Allergy Classification Reported Allergen(s) Allergy Type Date of Onset Reaction(s) Facility (7 sources) Chlorhexidine Drug Allergy 01-11-2019 Rash [facility] Healthcare (6 sources) Chlorhexidine / Ethanol Drug Allergy 01-19-2024 [facility] Medications Current Medications Medication Drug Class(es) Dates Sig (Normalized) Sig (Original) ALPRAZolam 0.5 mg oral tablet (16 sources) Benzodiazepine Start: 12-20-2023 ALPRAZolam (Xanax) 0.5 MG tablet 12/20/2023 Active Start: 08-26-2022 ALPRAZolam (Xa nax) 0.25 MG tablet 08/26/2022 Active amitriptyline hydrochloride 25 mg oral tablet (2 sources) Tricyclic Antidepressant Start: 02-11-2024 End: 02-10-2025 take 1 tablet by mouth once daily amitriptyline (Elavil) 25 MG tablet Indications: Intractable migraine without aura and without status migrainosus (CMS/HCC) Take 1 tablet (25 mg) by mouth Daily 30 tablet 2 02/11/2024 02/10/2025 Active atomoxetine 40 mg oral capsule (7 sources) Norepinephrine Reuptake Inhibitor Start: 12-28-2023 End: 01-19-2024 atomoxetine (Strattera) 40 MG capsule 12/28/2023 01/19/2024 Discontinued (Therapy completed) Start: 08-04-2023 End: 01-19-2024 atomoxetine (Strattera) 80 M G capsule 11/15/2023 01/19/2024 Discontinued (Therapy completed) ergocalciferol 1.25 mg oral capsule (6 sources) Provitamin D2 Compound Start: 05-18-2023 ergocalciferol (Vitamin D2) 1.25 MG (84303 UT) capsule 05/18/2023 Active escitalopram 5 mg oral tablet (17 sources) Serotonin Reuptake Inhibitor Start: 01-13-2024 take 3 tablets by mouth once daily Escitalopram Oxalate (Lexapro) 5 mg tablet Active 0 PO Daily January 13, 2024 10:50am 15mg orally daily; Start: 11-10-2023 escitalopram ( Lexapro) 10 MG tablet 11/10/2023 Active Start: 11-04-2022 End: 01-13-2024 escitalopram (Lexapro) 5 MG tablet 11/04/2022 Active fexofenadine hydrochloride 180 mg oral tablet (10 sources) Histamine-1 Receptor Antagonist Start: 10-21-2022 fexofenadine (Darby) 180 MG tablet 10/21/2022 Active ibuprofen 600 mg oral tablet (9 sources) Nonsteroidal Anti-inflammatory Drug Start: 09-09-2023 IBU 600 MG tablet 09/09/2023 Active Start: 08-04-2023 take 800 mg by mouth three times daily Ibuprofen Active 800 MG PO Three times daily August 04, 2023 12:00am metFORMIN hydrochloride 500 mg oral tablet (10 sources) Biguanide Start: 08-04-2023 take 500 mg by mouth once daily Metformin Active 500 MG PO Daily August 04, 2023 12:00am take 1 tablet by abigail th every twenty-four hours metFORMIN XR (Glucophage-XR) 500 MG 24 h r tablet Oral for 90 Days Active Multiple Vitamins-Minerals (Multivitamin Adults) tablet (7 sources) Multiple Vitamins-Minerals (Multivitamin Adults) tablet Orally Active Multivitamin preparation (3 sources) Start: take 1 tablet by mouth once daily Multivitamin Active 1 TAB PO Daily August 04, 2023 12:00am 24 hr propranolol hydrochloride 60 mg extended release oral capsule (10 sources) beta-Adrenergic Bree Start: End: propranolol LA (Inderal LA) 60 MG 24 hr capsule Daily at bedtime 09/22/2023 Active rizatriptan 10 mg oral tablet (2 sources) Serotonin-1b and Serotonin-1d Receptor Agonist Start: End: take 1 tablet by mouth once rizatriptan (Maxalt) 10 MG tablet Indications: Intractable migraine without aura and without status migrainosus (CMS/HCC) Take 1 tablet (10 mg) by mouth 1 (one) time if needed for migraine (may repeat x1) for up to 9 doses May repeat in 2 hours if unresolved. Do not exceed 30 mg in 24 hours. 9 tablet 02/11/2024 03/12/2024 Active sertraline 100 mg oral tablet (3 sources) Serotonin Reuptake Inhibitor End: sertraline (Zoloft) 100 MG tablet 1 (one) time each day at the same time. 01/19/2024 Discontinued (Therapy completed) zolpidem tartrate 10 mg oral tablet (10 sources) gamma-Aminobutyr ic Acid-ergic Agonist Start: take 10 mg by mouth once daily at bedtime Zolpidem Active 10 MG PO Daily at bedtime August 04, 2023 12:00am Start: 11-13-2022 zolpidem (Ambi en) 5 MG tablet 11/13/2022 Active Completed/Discontinued Medications Medication Drug Class(es) Dates Sig (Normalized) Sig (Original) LORazepam 0.5 mg oral tablet (3 sources) [...] finding; Translations: [Unspecified visual disturbance] 09-22-2023 Episodic Conditions associated with dizziness or vertigo (2 sources) Dizziness; Translations: [Dizziness and giddiness] 02-11-2024 Episodic Delirium, dementia, and amnestic and other cognitive disorders (8 sources) Postconcussion syndrome; Translations: [Postconcussional syndrome] 08-04-2023 Chronic Headache; including migraine (2 sources) Refractory migraine without aura; Translations: [Migraine without aura, intractable, without status migrainosus] 02-11-2024 Chronic Headache; including migraine (8 sources) Posttraumatic [...] Translations: [CHRONIC SINUSITIS UNSPECIFIED] Onset: 03-19-2020 Chronic Residual codes; unclassified (2 sources) Disturbance in sleep behavior; Translations: [Sleep disorder, unspecified] 02-11-2024 Episodic Past or Other Problems Problem Classification Problem Date Documented Da te Episodic/Chronic Abdominal pain (2 sources) Pain in female pelvis; Translations: [Pelvic and perineal pain] 01-19-2024 Episodic Chronic obstructive pulmonary disease and bronchiectasis (1 [...] Name Value Interpretation Reference Range Facil ity IGP,APTIMA HPV,AGE GDLNon AGE GDLN ACOG TESTING Note . [facility] Comment on above: TESTS RESULT FLAG UN ITS REF RANGE LAB Clinician Provided Cytology Information Source.............Vagina No. of containers..01 ThinPrep Vial Age Algo ACOG Peggy... 30-65 01 FLAG LEGEND: L-Low Normal,H-High Normal,LL-Alert Low,HH-Alert High <-Panic Low,>-Panic High,A-Abnormal,AA-Critical Abnormal Performed at: 01 =G [address] [place] [address] Sabiha Quinn MD, HPV APTIMA Negative Negative [facility] Comment on above: This nucleic acid am plification test detects fourteen high- risk HPV types (16,18,31,33,35,39,45,51,52,56,58,59,66,68) without differentiation. Performed at: =G - [facility] [id number] [employer] Clerk: Sabiha Quinn MD, Phone: [phone] Performed at: - [facility], [place] [id number] [employer] Clerk: Sabiha Quinn MD, Phone: [phone] IGP, APTIMA HPV, RFX 16/18,45 Note . [facility] Comment on above: TESTS RESULT FLAG UN ITS REF RANGE LAB DIAGNOSIS: 02 NEGATIVE FOR INTRAEPITHELIAL LESION OR MALIGNANCY. Specimen adequacy: 02 Satisfactory for evaluation. Performed by: 02 Arlet Overton, Relationship Banker (ASC) . 02 Note: Note 02 The Pap smear is a screening test designed to aid in the detection of premalignant and malignant conditions of the uterine cervix. It is not a diagnostic procedure and should not be used as the sole means of detecting cervical cancer. Both false-positive and false-negative reports do occur. Test Methodology: Note 02 This liquid based ThinPrep(R) pap test was screened with the use of an image guided system. HPV Genotype Reflex Note 02 Criteria not met, HPV Genotype not performed. FLAG LEGEND: L-Low Normal,H-High Normal,LL-Alert Low,HH-Alert High <-Panic Low,>-Panic High,A-Abnormal,AA-Critical Abnormal Performed at: 02 WB [facility] [address] [place] [address] Sabiha Quinn MD, [facility]io MR brain wo/w [facility] 10-23-2023 MR angio MR brain wo/w con [facility] [place] [address] [place] [address] MRI Report Signed Patient: Luis Stewart MR#: [id number] : 1985 Acct:[id number] Age/Sex: 38 / F ADM Date: 10/23/23 Loc: MR Room: Type: [facility] Attending Dr: Robert De Anda MD Copies to: Robert De Anda MD Ordering Provider: Robert De Anda MD Date of Service: 10/23/23 MR/MR angio MR brain wo/w con: G44.309, H53.9 MRA OF THE INTRACRANIAL CIRCULATION TECHNIQUE: 3-D arip-wo-gvkswo imaging of the [place] of [place] obtained. HISTORY: Head injury. Concussion. [...] Levon Stone M.D.10/23/2023 9:16 PM Dictation Location: [place] [address] Transcribed By: [facility] 10/23/232115 Dictated By: Levon Stone DO 10/23/232102 Signed By: 10/23/232115 Normal [facility] Cytology Cervical or vaginal smear or scraping studyon 01-13-2023 [facility] PAP ACOG PANEL 2: 30 to 65on 12-28-2020 . . Normal [facility] Comment on above: Result Comment: Perf ormed at: WB Performed By: #### 4 [id number] #### [facility] [address] [address] Tracy Pop Age Gdln ACOG Testing 30-65 Normal [facility] Comment on above: Performed By: #### 4 [id number] #### [facility] [address] [place] [address] Tracy Pop DIAGNOSIS: Comment Normal [facility] Comment on above: Result Comment: NEGA TIVE FOR INTRAEPITHELIAL LESION OR MALIGNANCY. THIS SPECIMEN WAS RESCREENED PART OF OUR [employer] STAFF MEMBER PROGRAM. Performed at: WB Performed By: #### 4 [id number] #### [facility] [address] [place] [address] Tracy Pop HPV Aptima Negative Normal Negative [facility] Comment on above: Result Comment: This nucleic acid amplification test detects fourteen high-risk HPV types (16,18,31,33,35,39,45,51,52,56,58,59,66,68) without differentiation. Performed at: =G Performed By: #### 4 [id number] #### [facility] [address] [id number] Tracy Pop Methodology: Comment Normal [facility] Comment on above: Result Comment: This liquid based ThinPrep(R) pap test was screened with the use of an image guided system. Performed at: WB Performed By: #### 4 [id number] #### [facility] [address] [id number] Tracy Pop Note: Comment Normal [facility] Comment on above: Result Comment: The Pap smear is a screening test designed to aid in the detection of premalignant and malignant conditions of the uterine cervix. It is not a diagnostic procedure and should not be used as the sole means of detecting cervical cancer. Both false-positive and false-negative reports do occur. . Performed at: WB Performed By: #### 4 [id number] #### [facility] [address] [address] Tracy Elaineen Performed by: Comment Normal [facility] Comment on above: Result Comment: Addi Barajas, Relationship Banker (ASCP) Performed at: WB Performed By: #### 4 [id number] #### [facility] [address] [address] Tracy Elaineen QC reviewed by: Comment Normal [facility] Comment on above: Result Comment: Aby Oliveira, Supervisory Relationship Banker (ASCP) Performed at: WB Performed By: #### 4 [id number] #### [facility] [address] [place] [address] Tracy Elaineen Specimen adequacy: Comment Normal [facility] Comment on above: Result Comment: Sati sfactory for evaluation. No endocervical component is identified. Performed at: WB Performed By: #### 4 [id number] #### [facility] [address] [id number] Tracy Kiesha CHLAMYDIA/GONOCOCCUS ANTONIO (SW AB/URINE/PAPon 12-26-2020 Chlamydia trachomatis, ANTONIO Negative Normal Negative [facility] Comment on above: Performed By: #### C T/NGNA #### [facility] [address] [place] [address] Tracy Kiesha Neisseria gonorrhoeae, ANTONIO Negative Normal Negative [facility] Comment on above: Performed By: #### C T/NGNA #### [facility] [address] [place], [place] [id number] Tracy Kiesha VAGINITIS/VAGINOSIS DNA PROB Boris 12-26-2020 Cheryl species Negative Normal Negative [facility] Comment on above: Performed By: #### V AGINT ####[facility] [id number] [place] [id number] Pop Gardnerella vaginalis Negative Normal Negative [facility] Comment on above: Performed By: #### V AGINT ####[facility] [id number] [place], [place] [address]KgighmTracy Pop Trichomonas vaginalis Negative Normal Negative [facility] Comment on above: Performed By: #### V AGINT ####[facility] [id number] [place], [place] [address]DcauyyTracy Pop XR LSPINE 2_3 VIEWSon 2020 XR LSPINE [...] ANDREW BLUM Date: 2020-06-06 09:25 Normal [facility] COVID-19 PCRon 03-17-2020 SARS-CoV-2 (COVID-19) RNA ANTONIO+probe Ql (Unsp spec) Not detected Normal Not Detected [facility] Comment on above: Result Comment: This nucleic acid amplification test was developed and its performance characteristics determined by [facility]. Nucleic acid amplification tests include PCR and [...] Performed By: #### C VDPCR, CVDSTAT #### [facility] [address] [place], [place] [address] Tracy Kiesha PRIORITY COVID PROCESSINGon 03-17-2020 Comment Comment Normal [facility] Comment on above: Result Comment: Rece ived Performed By: #### C VDPCR, CVDSTAT #### [facility] [address] [place], [place] [id number] Tracy Kiesha CBC AUTO DIFFon 03-15-2020 BASO # 0.1 103/ul Normal 0.0-0.1 [facility] Comment on above: Performed By: #### C BC #### [facility] [address] [place], [place] [address] Tracy Kiesha Basophils/100 WBC (Bld) 0.8 % Normal 0.2-2.0 [facility] Comment on above: Performed By: #### C BC #### [facility] [address] [place] [address] Tracy Kiesha EO # 0.3 103/ul Normal 0.0-0.7 [facility] Comment on above: Performed By: #### C BC #### [facility] [address] [place], [place] [address] Tracy Kiesha Eosinophils/100 WBC (Bld) 3.8 % Normal 0.9-7.0 [facility] Comment on above: Performed By: #### C BC #### [facility] [address] [place], [place] [address] Tracy Kiesha Erythrocyte distribution width (RBC) [Ratio] 11.7 % Normal 11.0-15.0 [facility] Comment on above: Performed By: #### C BC #### [facility] [address] [place], [place] [address] Tracy Kiesha Hematocrit (Bld) [Volume fraction] 39.6 % Normal 36.0-48.0 [facility] Comment on above: Performed By: #### C BC #### [facility] [address] [place], [place] [address] Tracy Kiesha Hemoglobin (Bld) [Mass/Vol] 13.0 g/dL Normal 12.0-16.0 [facility] Comment on above: Performed By: #### C BC #### [facility] [address] [id number] Tracy Kiesha IG # 0.03 10e3/ul Normal 0.00-0.03 [facility] Comment on above: Performed By: #### C BC #### [facility] [address] [id number] Tracy Kiesha IG % 0.4 % Normal 0.0-0.5 [facility] Comment on above: Performed By: #### C BC #### [facility] [address] [place] [address] Tracy Kiesha LYMPH # 3.5 103/ul Normal 1.2-3.8 [facility] Comment on above: Performed By: #### C BC #### [facility] [address] [place] [address] Tracy Kiesha Lymphocytes/100 WBC (Bld) 41.5 % Normal 20.5-60.0 [facility] Comment on above: Performed By: #### C BC #### [facility] [address] [place], [place] [id number] Tracy Kiesha MANUAL DIFF REQ NO Normal [facility] Comment on above: Performed By: #### C BC #### [facility] [address] [place], [place] [address] Tracy Kiesha MCH (RBC) [Entitic mass] 31.0 pg Normal 26.7-34.0 [facility] Comment on above: Performed By: #### C BC #### [facility] [address] [place] [address] Tracy Kiesha MCHC (RBC) [Mass/Vol] 32.8 g/dL Normal 29.9-35.2 [facility] Comment on above: Performed By: #### C BC #### [facility] [address] [place], [place] [address] Tracy Kiesha MCV (RBC) [Entitic vol] 94.5 fL Normal 81.0-99.0 [facility] Comment on above: Performed By: #### C BC #### [facility] [address] [id number] Tracyramona Elaineen MONO # 0.7 103/ul Normal 0.3-0.8 [facility] Comment on above: Performed By: #### C BC #### [facility] [address] [place], [place] [address] Tracy Pop Monocytes/100 WBC (Bld) 7.8 % Normal 1.7-12.0 [facility] Comment on above: Performed By: #### C BC #### [facility] [address] [place], [place] [address] Tracy Kiesha NEUT # 3.9 103/ul Normal 1.4-6.5 [facility] Comment on above: Performed By: #### C BC #### [facility] [address] [place], [place] [address] Tracy Pop Neutrophils/100 WBC (Bld) 45.7 % Normal 43.0-75.0 [facility] Comment on above: Performed By: #### C BC #### [facility] [address] [place], [place] [address] Tracy Pop Platelet mean volume (Bld) [Entitic vol] 11.1 fL Normal 9.5-13.5 [facility] Comment on above: Performed By: #### C BC #### [facility] [address] [place], [place] [address] Tracyramona Elaineen PLT 226 103/ul Normal 150-450 [facility] Comment on above: Performed By: #### C BC #### [facility] [address] [place], [place] [address] Tracy Kiesha RBC 4.19 106/ul Critically low 4.20-5.40 [facility] Comment on above: Performed By: #### C BC #### [facility] [address] [place], [place] [address] Tracy Kiesha WBC 8.4 103/ul Normal 4.0-11.0 [facility] Comment on above: Performed By: #### C BC #### [facility] [address] [place], [place] [address] Tracy Pop PROF 14(COMP METB)on 020 Albumin [Mass/Vol] 3.9 g/dL Normal 3.5-5.0 [facility] Comment on above: Performed By: #### C MP #### [facility] [address] [place], [place] [address] Tracy Kiesha Albumin/Globulin [Mass ratio] 1.2 {ratio} Normal [facility] Comment on above: Performed By: #### C MP #### [facility] [address] [place], [place] [address] Tracy Kiesha ALP [Catalytic activity/Vol] 63 U/L Normal 38-126 [facility] Comment on above: Performed By: #### C MP #### [facility] [address] [place] [address] Tracy Kiesha ALT [Catalytic activity/Vol] 29 U/L Normal 9-52 [facility] Comment on above: Performed By: #### C MP #### [facility] [address] [place] [address] Tracy Kiesha Anion gap [Moles/Vol] 9.1 mmol/L Normal [facility] Comment on above: Performed By: #### C MP #### [facility] [address] [place] [address] Tracy Kiesha AST [Catalytic activity/Vol] 16 U/L Normal 14-36 [facility] Comment on above: Performed By: #### C MP #### [facility] [address] [place], [place] [address] Tracy Kiesha Bilirubin [Mass/Vol] 0.3 mg/dL Normal 0.2-1.3 [facility] Comment on above: Performed By: #### C MP #### [facility] [address] [place], [place] [address] Tracy Kiesha Calcium [Mass/Vol] 9.2 mg/dL Normal 8.4-10.2 [facility] Comment on above: Performed By: #### C MP #### [facility] [address] [place] [address] Tracy Kiesha Chloride [Moles/Vol] 103 mmol/L Normal 98-107 [facility] Comment on above: Performed By: #### C MP #### [facility] [address] [id number] Tracy Kiesha CO2 [Moles/Vol] 28.1 mmol/L Normal 22.0-30.0 [facility] Comment on above: Performed By: #### C MP #### [facility] [address] [address] Tracy Kiesha Creatinine [Mass/Vol] 0.60 mg/dL Normal 0.52-1.04 [facility] Comment on above: Performed By: #### C MP #### [facility] [address] [address] Tracy Kiesha EGFR-AF NIGERIAN >60 Normal >=60 [facility] Comment on above: Performed By: #### C MP #### [facility] [address] [place] [address] Tracy Kiesha EGFR-NON AF NIGERIAN >60 Normal >=60 [facility] Comment on above: Performed By: #### C MP #### [facility] [address] [place], [place] [address] Tracy Kiesha Globulin (S) [Mass/Vol] 3.3 g/dL Normal [facility] Comment on above: Performed By: #### C MP #### [facility] [address] [place] [address] Tracy Kiesha Glucose [Mass/Vol] 97 mg/dL Normal 74-106 [facility] Comment on above: Performed By: #### C MP #### [facility] [address] [address] Tracy Kiesha Potassium [Moles/Vol] 4.2 mmol/L Normal 3.4-5.0 [facility] Comment on above: Performed By: #### C MP #### [facility] [address] [place], [place] [address] Tracy Kiesha Protein [Mass/Vol] 7.2 g/dL Normal 6.1-8.2 [facility] Comment on above: Performed By: #### C MP #### [facility] [address] [place], [place] [address] Tracy Kiesha Sodium [Moles/Vol] 136 mmol/L Critically low 137-145 [facility] Comment on above: Performed By: #### C MP #### [facility] [address] [place] [address] Tracy Pop Urea nitrogen [Mass/Vol] 9.0 mg/dL Normal 7.0-17.0 [facility] Comment on above: Performed By: #### C MP #### [facility] [address] [place] [address] Tracy Pop Urea nitrogen/Creatinin e [Mass ratio] 15.0 mg/mg Normal [facility] Comment on above: Performed By: #### C MP #### [facility] [address] [place] [address] Tracy Pop TROPONIN - Ion 03-15-2020 TROP <0.012 Normal <=0.034 [facility] Comment on above: Performed By: #### T ROP #### [facility] [address] [place] [address] Tracy Pop TROPONIN RANGE SEE BELOW Normal [facility] Comment on above: Result Comment: <0.0 34 ng/ml NEGATIVE 0.034-0.119 INDETERMINATE 0.120 AMI CUT OFF Performed By: #### T ROP #### [facility] [address] [place] [address] Tracy Pop INFLUENZA A AND B AGon 03-14 INFLUANEGH SEE BELOW Normal [facility] Comment on above: Result Comment: Nega tive for Flu A protein angiten. Infection due to Flu A cannot be ruled out. Flu A angiten in the sample may be below the detection limit of the test. Performed By: #### I NFLUAB #### [facility] [address] [place] [address] Tracyramona Elaineen INFLUBNEGH SEE BELOW Normal [facility] Comment on above: Result Comment: Nega tive for Flu B protein antigen. Infection due to Flu B cannot be ruled out. Flu B antigen in the sample may be below the detection limit of the test. Performed By: #### I NFLUAB #### [facility] [address] [place] [id number] Tracy Pop INFLUENZA A AG Negative Normal NEGATIVE SEE COMMENT [facility] Comment on above: Performed By: #### I NFLUAB #### [facility] [address] [place], [place] [address] Tracy Pop INFLUENZA B AG Negative Normal NEGATIVE SEE COMMENT [facility] Comment on above: Performed By: #### I NFLUAB #### [facility] [address] [place], [place] [address] Tracy Pop INTERNAL CONTROLS Within Normal Limits Normal Wi thin Normal Limits [facility] Comment on above: Performed By: #### I NFLUAB #### [facility] [address] [place], [place] [address] Tracy Pop Vital Signs Date Time Vital Sign Value Performing Clinician Tono preciado 02-11-2024 13:04-0400 Body height 157.5 cm Luis Nicholas DO Work Phone: [facility] 02-11-2024 13:04-0400 Body mass index (BMI) [Ratio] 38.41 kg/m2 Luis Nicholas DO Work Phone: [facility] 02-11-2024 13:04-0400 Body weight 95.25 kg Luis Nicholas DO Work Phone: [facility] 02-11-2024 13:04-0400 Diastolic blood pressure 72 mm[Hg] Luis Nicholas DO Work Phone: [facility] 02-11-2024 13:04-0400 Heart rate 69 /min Luis Nicholas DO Work Phone: [facility] 02-11-2024 13:04-0400 SaO2% (BldA) [Mass fraction] 99 % Luis Nicholas DO Work Phone: [facility] 02-11-2024 13:04-0400 Systolic blood pressure 108 mm[Hg] Luis Nicohlas DO Work Phone: [facility] 01-19-2024 11:13-0400 Body mass index (BMI) [Ratio] 41.88 kg/m2 Babs Jannette DO Work Phone: [facility] 01-19-2024 11:13-0400 Body weight 103.87 kg Babs Jannette DO Work Phone: [facility] 01-19-2024 11:13-0400 Diastolic blood pressure 72 mm[Hg] Babs Jannette DO Work Phone: [facility] 01-19-2024 11:13-0400 Systolic blood pressure 122 mm[Hg] Babs Jannette DO Work Phone: [facility] 01-13-2024 10:51-0400 Body height 157.48 cm MD Mckay Weeks Work Phone: [facility] [place] [facility] 01-13-2024 10:51-0400 Body mass index (BMI) [Ratio] 38.4 kg/m2 MD Mckay Weeks Work Phone: [facility] [place] [facility] 01-13-2024 10:51-0400 Body weight 95.25 kg MD Mckay Weeks Work Phone: [facility] [place] [facility] 01-13-2024 10:51-0400 Diastolic blood pressure 64 mm[Hg] MD Mckay Weeks Work Phone: [facility] [place] [facility] 01-13-2024 10:51-0400 Heart rate 71 /min MD Mckay Weeks Work Phone: [facility] [place] [facility] 01-13-2024 10:51-0400 SaO2% (BldA) [Mass fraction] 97 % MD Mckay Weeks Work Phone: [facility] [place] [facility] 01-13-2024 10:51-0400 Systolic blood pressure 112 mm[Hg] MD Mckay Weeks Work Phone: [facility] [place] [facility] 09-22-2023 13:20-0400 Diastolic blood pressure 90 mm[Hg] MD Mckay Weeks Work Phone: [facility] [place] [facility] 09-22-2023 13:20-0400 Systolic blood pressure 130 mm[Hg] MD Mckay Weeks Work Phone: [facility] [place] [facility] 08-04-2023 13:24-0400 Diastolic blood pressure 70 mm[Hg] [facility] [place] [facility] 08-04-2023 13:24-0400 Heart rate 95 /min [facility] 08-04-2023 13:24-0400 SaO2% (BldA) [Mass fraction] 98 % [facility] [place] [facility] 08-04-2023 13:24-0400 Systolic blood pressure 110 mm[Hg] [facility] [place] [facility] Encounters Encounter Date Encounter Type Care Provider Facility Start: 02-11-2024 End: 02-11-2024 Bamboo Simioheet Luis Shaikh DO Work Phone: [facility] Start: 02-11-2024 End: 02-11-2024 Bamboo flowsheet Luis Shaikh DO Work Phone: [facility] Start: 02-11-2024 End: 02-11-2024 Office consultation new/estab patient 60 min Luis Shaikh DO Work Phone: [facility] Comment on above: Intractable migraine without aura and without status migrainosus (CMS/HCC) (Primary Dx); Post concussion syndrome; Dizziness; Sleep disturbance Start: 02-11-2024 End: 02-11-2024 ambulatory LUISJAN SHAIKH Not Available Start: 01-19-2024 End: 01-19-2024 Bamboo flowsheet Babs Jannette DO Work Phone: [facility] Start: 01-19-2024 End: 01-23-2024 Clinisync Result Encounter Babs Jannette DO Work Phone: [facility] Unsolicited Start: 01-19-2024 End: 01-23-2024 Clinisync Result Encounter Babs Jannette DO Work Phone: [facility] Unsolicited Start: 01-19-2024 End: 01-19-2024 Patient encounter procedure Babs Jannette DO Work Phone: [facility] Start: 01-19-2024 End: 01-19-2024 Periodic preventive med est patient 18-39 yrs Babs Bhatia DO Work Phone: [facility] Comment on above: Well woman exam with routine gynecological exam; H/O: hysterectomy; Pelvic pain in female Start: 01-19-2024 End: 01-19-2024 ambulatory BABS BHATIA Not Available Start: 01-13-2024 End: 01-13-2024 ambulatory MD Mckay Weeks Work Phone: [facility] Work Phone: Start: 01-13-2024 End: 01-13-2024 Patient encounter procedure MD Mckay Weeks Work Phone: [facility] Work Phone: Start: 10-23-2023 End: 10-23-2023 Patient encounter procedure MD Mckay Weeks Work Phone: [facility] [place] Work Phone: Start: 10-23-2023 End: 10-23-2023 ambulatory MD Mckay Weeks Work Phone: [facility] Work Phone: Start: 09-22-2023 End: 09-22-2023 Patient encounter procedure MD Mckay Weeks Work Phone: [facility] Work Phone: Start: 08-04-2023 End: 08-04-2023 ambulatory [facility] Work Phone: Start: 08-04-2023 End: 08-04-2023 Patient encounter procedure [facility] Work Phone: Start: 07-07-2023 End: 07-07-2023 ambulatory BABS BHATIA Not Available Start: 12-20-2021 End: 12-20-2021 Patient encounter procedure LORNA Velasquez Work Phone: [facility] Start: 01-08-2021 Encounter for gynecological examination (general) (routine) without abnormal findings DR BABS BHATIA [facility] Start: 12-24-2020 End: 12-24-[address] BABS BHATIA Facility:[facility] Start: 12-24-2020 End: 12-24-2020 Encounter for gynecological examination (general) (routine) without abnormal findings DR BABS BHATIA Facility:[facility] Start: 06-06-2020 End: 06-07-[address] MCKAY WEEKS Facility:[facility] Start: 03-14-2020 End: 03-15-[address] MCKAY WEEKS Facility:[facility] Procedures Date Procedure Procedure Detail Performing Clinician Start: 01-19-2024 IGP,APTIMA HPV,AGE GDLN Babs Bhatia DO Work Phone: Start: 10-23-2023 MR angiography of he ad with contrast MD Mckay Weeks Work Phone: Start: 01-13-2023 Cytp cerv/vag auto t hin layer prep mnl screen Babs Bhatia DO Work Phone: Start: 12-20-2021 X-ray of left ankle APR N Amanda Velasquez Work Phone: Start: 12-20-2021 X-ray of left foot TIE SAWYER Amanda Velasquez Work Phone: H/O: hysterectomy H/O: hysterectomy Babs Bhatia DO Work Phone: Plan of Treatment Date Care Activity Detail Author Start: 01-19-2025 End: 01-19-2025 Patient encounter procedure 01/19/2025 11:00 AM EDT Office Visit [facility] [address] [place] [address] Babs Bhatia DO [address] [place] [address] [facility] Start: 02-29-2024 End: 02-29-2024 Patient encounter procedure 02/29/2024 9:20 AM EDT [facility] [address] [place] [address] Tanna Christiansen, TAYLOR [address] [place] [facility] [place] [address] Start: 02-11-2024 End: 02-11-2024 Patient encounter procedure 02/11/2024 1:15 PM EDT [facility] [address] [place] [address] Luis Shaikh, DO [address] [place], [place] [id number] Arrived [facility] [place] [facility] Comment on above: Arrived Start: 01-19-2024 End: 01-18-2025 US for US PELVIS-TRANSVAG IF INDICATED Imaging Routine Pelvic pain in female Expected: 01/19/2024 (Approximate), Expires: 01/18/2025 [facility] Comment on above: Expected: 01/19/2024 (Approximate), Expires: 01/18/2025 Start: 01-19-2024 End: 01-19-2024 Patient encounter procedure 01/19/2024 11:00 AM EDT [facility] [address] [place] [address] Babs Bhatia, DO [address] [facility] [address] [place], [place] [id number] Arrived [facility] Comment on above: Arrived Start: 01-13-2024 Patient referral [facility] Work Phone: Cytology Cervical or vaginal smear or scraping study Pap Smear Pathology and Cytology Routine Well woman exam with routine gynecological exam Ordered: 01/19/2024 [facility] Work Phone: Comment on above: Ordered: 01/19/2024 Human papilloma viru s DNA [Presence] in Unspecified specimen by Probe with amplification HPV DNA probe, amplified Microbiology Routine Well woman exam with routine gynecological exam Ordered: 01/19/2024 [facility] Comment on above: Ordered: 01/19/2024 MRA Head vessels W contrast IV [facility] [place] [facility] MRA Head vessels WO contrast [facility] [place] [facility] Patient referral [facility] Work Phone: Payers Date Payer Category Payer Self-pay 2022 Medicaid [employer] [place] [employer] [id number] 2022-Present [address] [place] [address] [id number] 2022 Medicaid [id number] 1986 Unknown [id number] 1986 Unknown [id number] 1986 Unknown [id number] 1986 Unknown [id number] 1986 Unknown [id number] 1986 Unknown [id number] 1959 Unknown [id number] Unknown [id number] Social History Date Type Detail Facility Tobacco smoking stat [facility] Unknown if ever smoked [facility] Work Phone: Start: 1985 Sex Assigned At Female [facility] [place] [facility] Start: 05-17-2018 Tobacco smoking status NHIS Smoker (finding) [facility] [place] [facility] Tobacco smoking stat us NHIS Tobacco smoking consumption unknown [facility] Start: 02-10-2023 Gender identity Identifies as female gender (finding) [facility] Start: 02-10-2023 Sexual orientation Heterosexual (finding) [facility] Medical Equipment Procedure Code Equipment Code Equipment Origin al Text Equipment Identifier Dates Start: 02-03-2023 History of Present illness Narrative 02-11-2024 Luis Shaikh DO - 02/11/2024 1:15 PM EDT Note Date & Type Note Facility 02-11-2024 History of Presen t illness Narrative Images from the original note were not included. Chief Complaint Patient presents with Headache Subjective Luis Stewart, 38 y.o., female at the request of Dr. De Anda. Dr. Weeks is her Dr. Weeks. 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 It hit her head on the left side of her forehead. She did not have LOC. She was dazed for a few minutes. She went to the ED a couple weeks later due to a CROSS and throbbing pressure that developed shortly after. She has had a concussion before and the CROSS lasted for a couple weeks and then she got back to normal. She has had 3 concussions, NO LOC or hospitalizations with any of them. She has had a daily headache since the injury. The pain is located behind her eyes and goes back her head over her temples. She states that she will get shooting pains that last anywhere from a few seconds to 45 minutes. She has photo and phonophobia. She denies any vision changes. She states that if she would focus on anything her eyes will jump. She states that she was getting vertigo with a true spinning but that has improved.. She had trouble with balance. She had BP fluctuations. She was having nausea but denies vomiting. She has a hx of migraines and would get an occasional headache. She would get a migraine more stress induced. She may get one or two year. She went to [facility] and they gave her Dr. De Anda's number and they thought it was sports medicine. She states that she has a harder time concentrating. She was put on propranolol and that is not helping. It helped early on. She has good and bad nights of sleep. She will have a bad night 2-3 nights a week. On a good night sleep she is getting about 6-8 hours closer to 8 most nights. Past Medical History: Diagnosis Date Amenorrhea Anxiety and depression ([facility]/HCC) Anxiety with depression Asthma ([facility]) Tobacco use Past Surgical History: Procedure Laterality Date SECTION, LOW TRANSVERSE 04/13/2017 SECTION, LOW TRANSVERSE 01/17/2019 SECTION, LOW TRANSVERSE 02/05/2011 LAPAROSCOPY DIAGNOSTIC / BIOPSY / ASPIRATION / LYSIS 03/13/2023 lysis of omental adhesion OTHER SURGICAL HISTORY 2009 Miscarriage PARTIAL HYSTERECTOMY 01/17/2019 supracervical OR LAP,CHOLECYSTECTOMY 2010 Family History Problem Relation Name Age of Onset Diabetes Mother Stroke Mother Obesity Mother Neuropathy Mother Cataracts Mother Alcohol abuse Father Drug abuse Father No Known Problems Brother No Known Problems Daughter ADD / ADHD Son No Known Problems Son Social History Tobacco Use Smoking status: Not on file Smokeless tobacco: Not on file Substance Use Topics Alcohol use: Not on file Allergies: Chlorhexidine gluconate and Chlorhexidine General: No fever or chills HEENT: No nasal congestion or runny nose Pulmonary: No shortness of breath or cough Cardiovascular: No chest pain or palpitations GI: No nausea or vomiting : No dysuria or hematuria Musculoskeletal: No new aches or pains or muscle weakness Infectious: no recurrent fevers or infections Dermatologic: No rashes or skin lesions Neurologic: No new headaches or dizziness Vitals: 02/11/24 1304 BP: 108/72 Pulse: 69 SpO2: 99% Body mass index is 38.41 kg/m . weight: 210 lb Neurologic exam: General: Normal body habitus, cooperative, pleasant Mental status: Awake, alert to person, place and time. Recent and remote memory are intact. Attention and concentration are normal. Fund of knowledge is appropriate for level of education. HEENT: NC/AT Cranial nerves: CN II: Visual lainez full to confrontation. No loss of vision CN III, IV, : pupils equal round and reactive to light. Extraocular movements intact. No ptosis present. CN V: Facial sensation is normal. CN VII: Full and symmetric facial movement. CN VIII: Hearing is normal CN IX and X: Palate elevates symmetrically. CN XI: Shoulder shrug is normal bilaterally. CN XII: Tongue is midline without atrophy or fasciculation. Speech: Clear and fluent no aphasia or dysarthria Pronator drift: Negative bilateral upper extremity Coordination: Intact, no signs of dysmetria Good finger to nose and rapid alternating movements Sensory: Sensation is intact to light, temperature and vibratory touch throughout four extremities. Pinprick intact in all four extremities. Motor: LUE 5/5 RUE 5/5 LLE 5/5 RLE 5/5 Tone: Physiologic, no tremor, bradykinesia or rigidity DTR: Bilateral Biceps 2/4 Bilateral BR 2/4 No spasticity Gait: Normal to casual gait but can be slightly unsteady Romberg's Minimally positive Review and summary of old records: Assessment/Plan Diagnoses and all orders for this visit: Intractable migraine without aura and without status migrainosus (CMS/HCC) - amitriptyline (Elavil) 25 MG tablet; Take 1 tablet (25 mg) by mouth Daily - rizatriptan (Maxalt) 10 MG tablet; Take 1 tablet (10 mg) by mouth 1 (one) time if needed for migraine (may repeat x1) for up to 9 doses May repeat in 2 hours if unresolved. Do not exceed 30 mg in 24 hours. Post concussion syndrome Dizziness Sleep disturbance 38 year old female with her thrid concussion. Fortunately she did not have any LOC or intracranial hemorrhage. She is having some dizziness, headaches with intreactable migraines and shooting headachdes, ataxia and sleep distrubance most consistent with a has a syndrome. She was put on propranolol and that was helpful. She had gone to the emergency room and they sent her to Dr. De Anda which is a little atypical as he is a data manager. Regardless he sent her over here. The propranolol was working initially but has lost its efficacy. She had an MRA of the head that was unremarkable and an MRI of the head that was also unremarkable. Plan MRA was reviewed with her MRI was reviewed with her She can continue the propranolol she would like however I would like to add in amitriptyline 25 mg half to 1 at bedtime and see if that will help shut down the headaches. This may also help with her sleep. We will also give her some rizatriptan and see if that helps with the true migraines up to 2 days out of the week. She was counseled to get about 8 hours of sleep every night Drink half of her body weight and oz of water per day She can add some electrolyte drink during the day Gradually advance activity Minimize excessive screen time The diagnosis was all discussed with the patient. All questions were answered and they agreed with the treatment plan. Patient will call if there are any new issues or questions. Pt has been fully educated on their diagnosis, treatment options, follow up plan, and return instructions Return to clinic: 6 weeks documented in this encounter [facility] History of Present illness Narrative 01-19-2024 Kiesha Fair LPN - 01/19/2024 11:00 AM EDT Note Date & Type Note Facility 01-19-2024 History of Presen t illness Narrative Reason for Appointment: Patient ID: Laurie Stewart is a 38 y.o. female who presents for Gynecologic Exam Patient presents today for Annual Exam. MEDICATIONS Current Outpatient Medications Medication Instructions ALPRAZolam (Xanax) 0.25 MG tablet ALPRAZolam (Xanax) 0.5 MG tablet ergocalciferol (Vitamin D2) 1.25 MG (53550 UT) capsule escitalopram (Lexapro) 10 MG tablet escitalopram (Lexapro) 5 MG tablet fexofenadine (Darby) 180 MG tablet IBU 600 MG tablet Lancets (onetouch ultrasoft) lancets metFORMIN XR (Glucophage-XR) 500 MG 24 hr tablet Oral for 90 Days Multiple Vitamins-Minerals (Multivitamin Adults) tablet Orally OneTouch Ultra test strip propranolol LA (Inderal LA) 60 MG 24 hr capsule Daily at bedtime zolpidem (Ambien) 5 MG tablet ALLERGIES Allergies Allergen Reactions Chlorhexidine Gluconate Other Reaction(s): Severe rash Chlorhexidine Rash rash PROBLEMS Active Ambulatory Problems Diagnosis Date Noted No Active Ambulatory Problems Resolved Ambulatory Problems Diagnosis Date Noted No Resolved Ambulatory Problems Past Medical History: Diagnosis Date Amenorrhea Anxiety and depression (CMS/HCC) Anxiety with depression Asthma (CMS/HCC) Tobacco use HISTORY PAST MEDICAL HISTORY SOCIAL HISTORY Past Medical History: Diagnosis Date Amenorrhea Anxiety and depression (CMS/HCC) Anxiety with depression Asthma (CMS/HCC) Tobacco use Social History Tobacco Use Smoking status: Not on file Smokeless tobacco: Not on file Substance Use Topics Alcohol use: Not on file Drug use: Not on file FAMILY HISTORY Family History Problem Relation Name Age of Onset Diabetes Mother Stroke Mother Obesity Mother Neuropathy Mother Cataracts Mother Alcohol abuse Father Drug abuse Father No Known Problems Brother No Known Problems Daughter ADD / ADHD Son No Known Problems Son SURGICAL HISTORY Past Surgical History: Procedure Laterality Date SECTION, LOW TRANSVERSE 04/13/2017 SECTION, LOW TRANSVERSE 01/17/2019 SECTION, LOW TRANSVERSE 02/05/2011 LAPAROSCOPY DIAGNOSTIC / BIOPSY / ASPIRATION / LYSIS 03/13/2023 lysis of omental adhesion OTHER SURGICAL HISTORY 2009 Miscarriage PARTIAL HYSTERECTOMY 01/17/2019 supracervical OR LAP,CHOLECYSTECTOMY 2010 REVIEW OF SYSTEMS Review of Systems: Review of Systems Constitutional: Negative. HENT: Negative. Eyes: Negative. Respiratory: Negative. Cardiovascular: Negative. Gastrointestinal: Negative. Genitourinary: Positive for pelvic pain. Musculoskeletal: Negative. Skin: Negative. Neurological: Negative. All other systems reviewed and are negative. Hematological: Negative. Endocrine: Negative. Allergic/Immunologic: Negative. OBJECTIVE Objective: Physical Exam Constitutional: Appearance: Normal appearance. She is well-developed. Genitourinary: Vulva normal. Vaginal cuff intact. Cervix is not absent. Uterus is not absent. Breasts: Breasts are soft. Right: Normal. Left: Normal. Cardiovascular: Rate and Rhythm: Normal rate and regular rhythm. Abdominal: General: Bowel sounds are normal. There is no distension. Palpations: Abdomen is soft. Tenderness: There is no abdominal tenderness. There is no guarding or rebound. Musculoskeletal: General: No swelling. Normal range of motion. Right lower leg: No edema. Left lower leg: No edema. Neurological: Mental Status: She is alert and oriented to person, place, and time. Skin: General: Skin is warm and dry. Psychiatric: Mood and Affect: Mood normal. Behavior: Behavior normal. Vitals and nursing note reviewed. Exam conducted with a gardening instructor present. Vitals: Estimated body mass index is 41.88 kg/m as calculated from the following: Height as of 02/17/23: 5' 2 . Weight as of this encounter: 229 lb. BP: 122/72 No LMP recorded (lmp unknown). Patient has had a hysterectomy. ASSESSMENT & PLAN ICD-10-CM 1. Well woman exam with routine gynecological exam Z01.419 Pap Smear HPV DNA probe, amplified 2. H/O: hysterectomy Z90.710 Annual Exam: Patient presents today for an annual exam. Patient states she is doing well and has no complaints. Pap was obtained without difficulty. Pt has complaints of pain over incision and and ovary - given ultrasound order to have obtained. Orders Placed This Encounter Procedures HPV DNA probe, amplified US PELVIS-TRANSVAG IF INDICATED Follow Up: Patient is to return in one year for annual unless needed otherwise. Documented by Kiesha Fair LPN on behalf of: Babs Bhatia DO documented in this encounter [facility] Clinical Note 03-15-2020 Note Date & [...] by: ERROL TIM Date: 2020-03-14 22:34 [facility] Evaluation note Note Date & Type Note Facility Evaluation note No assessment information availa [facility] Work Phone: Evaluation note Note Date & Type Note Facility Evaluation note Diagnosis Onset Date ADHD acute Anxiety and depression acute Headache, post-traumatic acu te Post concussion syndrome acu te [facility] Work Phone: Evaluation note Note Date & Type Note Facility Evaluation note Diagnosis Onset Date ADHD acute Anxiety and depression acute Headache, post-traumatic acu te Post concussion syndrome acu te ADHD acute Anxiety and depression acute Headache, post-traumatic acu te Post concussion syndrome acu te [facility] Work Phone: Evaluation note Note Date & Type Note Facility Evaluation note Diagnosis Onset Date Headache, post-traumatic acu te [facility] Work Phone: Evaluation note Note Date & Type Note Facility Evaluation note Diagnosis Intractable migraine without aura and without status migrainosus (CMS/HCC)- Primary Post concussion syndrome Postconcussion syndrome Dizziness Dizziness and giddiness Sleep disturbance Unspecified sleep disturbance documented in this encounter [facility] Evaluation note Note Date & Type Note Facility Evaluation note Diagnosis Well woman exam with routine gynecological exam Routine gynecological examination H/O: hysterectomy Acquired absence of both cervix and uterus Pelvic pain in female Unspecified symptom associated with female genital organs documented in this encounter [facility] Hospital Discharge instructions Note Date & Type Note Facility Hospital Discharge instructions Ambulatory OrdersReferral to Neurology Time Frame: 01/13/24, Location: [facility] Work Phone: Summary Purpose Family History [...] CREATED AUTHOR AUTHOR'S ORGANIZ ATION 11/01/2023 [facility] DATE CREATED AUTHOR AUTHOR'S ORGANIZ ATION 02/13/2024 [facility] Care Teams (unrecognized sec tion and content) [...] 2023 Team Status: Inactive Member Role Status Dates Mckay Weeks MD Primary Care Provider Active Start: September 22, 2023 End: September 22, 2023 Robert De Anda MD Attending Provider Active Star t: September 22, 2023 End: September 22, 2023 Team Status: Inactive Member Role Status Dates Mckay Weeks MD Primary Care Provider Active Start: October 23, 2023 End: October 23, 2023 Robert De Anda MD Attending Provider Active Star t: October 23, 2023 End: October 23, 2023 Team Status: Inactive Member Role Status Dates Mckay Weeks MD Primary Care Provider Active Start: January 13, 2024 End: January 13, 2024 Robert De Anda MD Attending Provider Active Star t: January 13, 2024 End: January 13, 2024 [employer] Repairer Relationship Specialty Start Date End Date Mckay Weeks MD [address] [phone] PCP - General Family Medicine 11/20/22 [employer] Repairer Relationship Specialty Start Date End Date Mckay Weeks MD [address] [phone] PCP - General Family Medicine 11/20/22 [employer] Repairer Relationship Specialty Start Date End Date Mckay Weeks MD [address] [place] [phone] PCP - General Family Medicine 11/20/22 [employer] Repairer Relationship Specialty Start Date End Date Mckay Weeks MD [address] [place] [phone] PCP - General Family Medicine 11/20/22 Goals (unrecognized section and content) Goals may be documented in a n alternate sectionGoals may be documented in an alternate sectionGoals may be documented in an alternate sectionGoals may be documented in an alternate section Reason for Visit (unrecogniz ed section and content) Reason Comments Headache Reason Comments Gynecologic Exam FOR RECORDS PERTAINING TO PATIENTS WHO ARE [...] BE BASED ON THE PRIMARY CLINICAL RECORDS. [facility] [employer] [facility]. provides no warranty or guarantee of the accuracy or completeness of information in this document.
[2024-05-29 20:52] LABS: Glucometer 97 mg/dL (74-106)
--- NOTE | 2024-05-29 21:07 | CT_ITS ---
The [address] [address] Patient Name: LUIS LOVELACE MRN: [id number] date: 1985 Sex: F Assigned Patient Location: ER Current Patient Location: ER Accession/Order Number: [id number] Exam Date: 05/29/2024 21:30 Report Date: 05/29/2024 22:09 At the request of: MIKE WOLF Procedure: CT head/brain wo con EXAM: CT Head Without Intravenous Contrast CLINICAL INDICATION: confusion TECHNIQUE: Axial computed tomography images of the head/brain without intravenous contrast. This CT exam was performed using one or more of the following dose reduction techniques: automated exposure control, adjustment of the mA and/or kV according to patient size, and/or use of iterative reconstruction technique. COMPARISON: 07/02/2023 FINDINGS: BRAIN AND EXTRA-AXIAL SPACES: Unremarkable. No hemorrhage. No significant white matter disease. No edema. No ventriculomegaly. BONES/JOINTS: Unremarkable. No acute fracture. SOFT TISSUES: Unremarkable. SINUSES: Unremarkable as visualized. No acute sinusitis. MASTOID AIR CELLS: Unremarkable as visualized. No mastoid effusion. CT/CT head/brain wo con IMPRESSION: No CT evidence of acute intracranial pathology without intravenous contrast. Electronically authenticated by: GLENDY JACKSON Date: 05/29/2024 22:09
[2024-05-29 21:11] VITALS: BP 109/72; PULSE 86; O2SAT 99
[2024-05-29 21:38] VITALS: BP 114/71; PULSE 86; O2SAT 98
--- NOTE | 2024-05-29 22:11 | ED_ITS ---
HPI HPI - General Adult General Chief complaint: Neuro Symptoms/Deficit Stated complaint: OFF BALANCE, NAUSEA, HEAD INJURY 1 YR AGO Time Seen by Provider: 05/29/24 20:51 Mode of arrival: walk-in History of Present Illness HPI narrative: The patient is a 39-year-old female who presents to the emergency department with her brother via personal vehicle for evaluation of mental status change. The patient's brother became involved in the situation when the patient's called him. had indicated that the patient's last known normal was sometime on Thursday. Since then, the patient has apparently been in bed for the past 3 days. The indicated that he was unable to get her to talk. He himself did not come to the emergency department because they have 3 children he is caring for. Therefore, the patient's brother brought her in. The symptoms were apparently preceded by the patient having nausea, vomiting, and diarrhea May 22 and . She stated it only lasted approximately 24 hours. She admitted she had sick contacts with her and children also being ill. She has not received a COVID nor influenza vaccination. To begin with, the patient starts out with she takes antidepressants. She denies that she has any new medications or dosage changes. She denies that she has been taking any of them inappropriately. She does state that she takes alprazolam 0.5 mg every 8 hours as needed. And she takes Zolpidem 5 mg QPM PRN insomnia. She denies that she is taking any of the medications or doses inappropriately. She denies that she is supplementing her antidepressants with other mind altering substances such as alcohol or illicit drugs. She states that she has not been using anybody else's prescriptions. She states that she does not feel weak but rather she feels tired. She states that she feels overwhelmed and ready for bed. Patient does not recall anything since Thursday. She states prior to that she has not noticed anything. In terms of physical symptoms, the patient denies any chest pain or shortness of breath. The patient does have a headache. But, the patient states that she always has a headache. It is currently a 9 out of 10. She states that she usually lives in a 9 out of 10. It is and all of her headache and its dull and achy. She states nothing makes it worse. Nothing makes it better and this is not any worse than her normal headache. She states that she feels nauseous but she has not vomited. She denies that she has any weakness. Although, when the patient was trying to get into her brother's vehicle she fell several times trying to get into the car and he almost had to carry her . The patient denies any loss of bowel or bladder. She denies any numbness, tingling, weakness in her extremities. She denies that she is having trouble speaking or comprehending speech. She denies that she is have any difficulty swallowing. She does not have a known history of stroke or TIA. She has a history of diabetes but does not have a history of hypertension or high cholesterol. Patient does give me a history that she stopped taking all of her medications approximately 1 week ago. She stated things were too hectic at her house. She states her children were having school and then not having school and then she was having a hard time navigating that and she states that her house was crazy and she just stopped taking her medications. Her medications include psychiatric medications that she take for anxiety and depression. The patient however did take steroid twice a day which she states that she has been taking for approximately 1 week. So even though she stopped her normal medications, she proceeded to take the steroid because he had some intense itching. The patient states that she vapes but she does not smoke, drinks rarely, and no use of illicit drugs. She is and has 3 children. She denies any thoughts of self-harm or homicidal ideation. Related Data Home Medications ?Medication ?Instructions ?Recorded ?Confirmed alprazolam 0.25 mg tablet 0.25 mg PO QDAY PRN anxiety 02/27/23 07/02/23 atomoxetine 80 mg capsule 80 mg PO QDAY 02/27/23 05/29/24 metformin 500 mg tablet,extended 500 mg PO QDAY 02/27/23 05/29/24 release 24 hr zolpidem 5 mg tablet 5 mg PO QPM PRN insomnia 02/27/23 05/29/24 escitalopram oxalate 5 mg tablet 5 mg PO DAILY 03/13/23 07/02/23 fexofenadine 180 mg tablet 180 mg PO DAILY 03/13/23 05/29/24 ibuprofen 800 mg tablet 800 mg PO TID 03/13/23 05/29/24 Previous Rx's ?Medication ?Instructions ?Recorded ibuprofen 800 mg tablet 800 mg PO Q8H PRN pain 14 days #40 03/13/23 tabs wyvccblido-immufvmsibtjw-fnjpihbm 1 cap PO QID PRN headache 4 days 07/02/23 50 mg-300 mg-40 mg capsule #20 caps (Fioricet) Allergies Allergy/AdvReac Type Severity Reaction Status Date / Time chlorhexidine Allergy Rash Verified 05/29/24 20:42 Opioid HPI Opioid Management Most Recent Opioid Data: Last Pain Scale 3 03/13/23 09:47 03/13/23 Ur Phencyclidine Scrn Negative (NEGATIVE) 05/29/24 23:05 05/11 02/02 Review of Systems ROS Status of ROS 10 or more systems reviewed and unremark able except as noted in history and below [facility] Medical History Knee pain ?M25.569 - Pain in unspecified knee (ICD-10) Back pain ?M54.9 - Dorsalgia, unspecified (ICD-10) History of blood transfusion ?Z92.89 - Personal history of other medical treatment (ICD-10) Anemia ?D64.9 - Anemia, unspecified (ICD-10) Insomnia ?G47.00 - Insomnia, unspecified (ICD-10) Depression ?F32.A - Depression, unspecified (ICD-10) Anxiety ?F41.9 - Anxiety disorder, unspecified (ICD-10) Sleep apnea ?G47.30 - Sleep apnea, unspecified (ICD-10) COVID-19 ?U07.1 - COVID-19 (ICD-10) Asthma ?J45.909 - Unspecified asthma, uncomplicated (ICD-10) Migraine ?G43.909 - Migraine, unspecified, not intractable, without status migrainosus (ICD-10) Dyspareunia Pelvic pain ?R10.2 - Pelvic and perineal pain (ICD-10) Prediabetes ?R73.03 - Prediabetes (ICD-10) Surgical History History of appendectomy ?Z90.49 - Acquired absence of other specified parts of digestive tract (ICD- 10) History of cholecystectomy ?Z90.49 - Acquired absence of other specified parts of digestive tract (ICD- 10) History of section ?Z98.891 - History of uterine scar from previous surgery (ICD-10) History of section ?Z98.891 - History of uterine scar from previous surgery (ICD-10) History of hysterectomy ?Z90.710 - Acquired absence of both cervix and uterus (ICD-10) History of section ?Z98.891 - History of uterine scar from previous surgery (ICD-10) Family History Other Family history of breast cancer Family history of cervical cancer Family history of diabetes mellitus Family history of stroke Social History Within the past year, how often did you have a drink containing alcohol: monthly or less Smoking status: Current every day smoker Do you use any of these nicotine containing products: e-cigarettes and vaping products Non-prescribed substance use: denies use 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 Prior to to uching the patient, I asked for consent to examine the patient.? General: Alert and oriented, well nourished, mild distress. Patient is aware that it is May. She knows it is 2024. She knows where she is right now. The patient is using a baby voice and when she was looking for her cell phone she was fumbling around with her purse and admitted she forgot what she was looking for. Eye: PERRL, EOMI, normal conjunctiva. 4 mm and reactive. No vertical or horizontal nystagmus. Patient is wearing glasses. HENT: Normocephalic, normal hearing, moist oral mucosa, no scleral icterus, no sinus tenderness. Dentition is in good repair Neck: Supple, non-tender, no lymphadenopathy. Lungs: Clear to auscultation and percussion, non-labored respiration. No rhonchi, rales, wheezing Heart: Normal rate, regular rhythm, no murmur, gallop or edema. Abdomen: Soft, non-tender, non-distended, normal bowel sounds, no masses. Increased BMI Musculoskeletal: Normal range of motion and strength, no tenderness or swelling. Skin: Skin is warm, dry and pink, no rashes or lesions. Neurologic: Awake, alert, and oriented X3, CN II-XII intact. I specifically did an NIH stroke scale and it is 0. The patient did have difficulty with 62nd recall. I asked her to recall watch, glasses, ring and the patient could only recall 2 of the 3 items with 60 seconds of lapse. Psychiatric: Cooperative, appropriate mood and affect.? Following the conclusion of the examination, I have washed my hands thoroughly after removing examination gloves. Constitutional Vital Signs, click to edit/add: Last Vital Signs Temp 98.5 F 05/29/24 20:36 Pulse 74 05/29/24 23:06 Resp 19 05/29/24 23:06 BP 104/68 05/29/24 23:06 Pulse Ox 100 05/29/24 23:06 O2 Del Method Room Air 05/29/24 20:36 Course Course Hospital Course: While the patient was in the hospital, she had a workup that included an infectious type of workup, toxic workup, intracranial workup, encephalopathic workup and drugs of abuse. In summary, none of my workup turned up an obvious etiology for the patient's altered mental status. I does appear to have improved send the patient had been in the hospital. Brother indicates about an hour and a half before he brought her to the hospital he made her take her daily dose of medications. She apparently puts her pills in a case and takes them as directed and states that she would not have accidentally have taken more of a medication than not. 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 That would account for her altered mentation but it would not account for her sleepiness over Thursday and Thursday. Typically the people with steroid psychosis are very agitated and awake. Next, the patient could having withdrawal symptoms from her medications. However, I went through all of her medications individually and I do not see where her present symptoms would be exacerbated by withholding her medications. Reevaluation(s) Reevaluation #1: The patient is not at her baseline. States that she is still off and having incomplete thoughts. At this time the patient may benefit from an observation admit where we placed the patient back on her medications and withhold the steroid to see if that improves her cognition. Time: 00:02 Consultations Consultation #1: I did speak with nurse practitioner Ly Bains who did agree to take the patient as an observation. Time: 00:14 Vital Signs Vital signs: Vital Signs Temperature 98.5 F 05/29/24 20:36 Pulse Rate 96 H 05/29/24 20:36 Respiratory Rate 18 05/29/24 20:36 Blood Pressure 119/79 05/29/24 20:36 Pulse Oximetry 99 05/29/24 20:36 Oxygen Delivery Method Room Air 05/29/24 20:36 Temperature 98.5 F 05/29/24 20:36 Pulse Rate 74 05/29/24 23:06 Respiratory Rate 19 05/29/24 23:06 Blood Pressure 104/68 05/29/24 23:06 Pulse Oximetry 100 05/29/24 23:06 Oxygen Delivery Method Room Air 05/29/24 20:36 Medical Decision Making MDM Narrative Medical decision making narrative: In summary the patient is a 39-year-old female presenting to the emergency department doctoral level of consciousness. Laboratory and imaging do not reveal an obvious etiology for the patient's presentation this evening. The patient does not have physical exam consistent with oral laboratory/imaging consistent with cerebrovascular accident, TIA, subarachnoid hemorrhage, convulsions, delirium. Differential Diagnosis Differential Diagnosis: Toxic metabolic encephalopathy, infection, intracranial hemorrhage, drugs Medical Records Medical records reviewed: Yes I reviewed the patient's medical records Lab Data Lab results reviewed: Yes I reviewed the patient's lab results Labs: Lab Results 05/29/24 05/29/24 05/29/24 Range/Units 20:51 21:45 22:10 WBC 8.5 (4.0-11.0) 10^3/uL RBC 4.55 (4.20-5.40) 10^6/uL Hgb 14.1 (12.0-16.0) g/dL Hct 41.9 (36.0-48.0) % MCV 92.1 (81.0-99.0) fL MCH 31.0 (26.7-34.0) pg MCHC 33.7 (29.9-35.2) g/dL RDW 11.3 (11.0-15.0) % Plt Count 242 (150-450) 10^3/uL MPV 11.2 (9.5-13.5) fL Neut % (Auto) 58.7 (43.0-75.0) % Lymph % (Auto) 30.8 (20.5-60.0) % [place] % (Auto) 7.1 (1.7-12.0) % Eos % (Auto) 2.4 (0.9-7.0) % Baso % (Auto) 0.6 (0.2-2.0) % Neut # (Auto) 5.0 (1.4-6.5) 10^3/uL Lymph # (Auto) 2.6 (1.2-3.8) 10^3/uL [place] # (Auto) 0.6 (0.3-0.8) 10^3/uL Eos # (Auto) 0.2 (0.0-0.7) 10^3/uL Baso # (Auto) 0.1 (0.0-0.1) 10^3/uL Abs Immat Gran (auto) 0.03 (0.00-0.03) 10^3/uL Imm/Tot Granulo (auto) 0.4 (0.0-0.5) % Sodium 139 (136-145) mmol/L Potassium 3.9 (3.5-5.1) mmol/L Chloride 104 (98-107) mmol/L Carbon Dioxide 28.0 (21.0-32.0) mmol/L Anion Gap 10.9 BUN 9.0 (7.0-18.0) mg/dL Creatinine 0.70 (0.55-1.02) mg/dL Est GFR ( Amer) >60 (>=60 mL/min/1.73m^2) Est GFR (Non-Af Amer) >60 (>=60 mL/min/1.73m^2) BUN/Creatinine Ratio 12.9 Glucose 89 (74-106) mg/dL Lactate 1.3 (0.4-2.0) mmol/L Calcium 9.5 (8.5-10.1) mg/dL Magnesium 2.2 (1.8-2.4) mg/dL Total Bilirubin 0.4 (0.2-1.0) mg/dL AST 29 (15-37) U/L ALT 47 (14-59) U/L Alkaline Phosphatase 62 (46-116) U/L Ammonia 22 (11-32) umol/L Total Protein 7.1 (6.4-8.2) g/dL Albumin 3.9 (3.4-5.0) g/dL Globulin 3.2 g/dL Albumin/Globulin Ratio 1.2 Urine Color (YELLOW) Urine Clarity (CLEAR) Urine pH (5.0-9.0) Ur Specific [place] (1.005-1.025) Urine Protein (NEG/TRACE) mg/dL Urine Glucose (UA) (NEGATIVE) mg/dL Urine Ketones (NEGATIVE) mg/dL Urine Occult Blood (NEGATIVE) Urine Nitrite (NEGATIVE) Urine Bilirubin (NEGATIVE) Urine Urobilinogen (0.2-1.0) EU/dL Ur Leukocyte Esterase (NEGATIVE) Urine RBC (0-2) #/HPF Urine WBC (NONE SEEN) #/HPF Ur Squamous Epith Cells (NONE/RARE) #/LPF Urine Crystals (None Seen) #/HPF Urine Bacteria (NONE SEEN) #/HPF Urine Casts (NONE SEEN) #/LPF Urine Mucus (NONE SEEN) Ur Culture Indicated? Salicylates <2.8 (<=19.9) mg/dL Urine Opiates Screen (NEGATIVE) Ur Buprenorphine Scrn (NEGATIVE) Ur Oxycodone Screen (NEGATIVE) Urine Methadone Screen (NEGATIVE) Acetaminophen <2.0 L (10.0-30.0) ug/mL Ur Barbiturates Screen (NEGATIVE) U Tricyclic Antidepress (NEGATIVE) Ur Phencyclidine Scrn (NEGATIVE) Ur Amphetamines Screen (NEGATIVE) U Methamphetamines Scrn (NEGATIVE) U Benzodiazepines Scrn (NEGATIVE) Urine Cocaine Screen (NEGATIVE) U Cannabinoids Screen (NEGATIVE) Ethanol Quant <3 mg/dL Influenza Type A Ag Negative Influenza Type B Ag Negative POC Glucose 97 (74-106) mg/dL 05/29/24 Range/Units 23:05 WBC (4.0-11.0) 10^3/uL RBC (4.20-5.40) 10^6/uL Hgb (12.0-16.0) g/dL Hct (36.0-48.0) % MCV (81.0-99.0) fL MCH (26.7-34.0) pg MCHC (29.9-35.2) g/dL RDW (11.0-15.0) % Plt Count (150-450) 10^3/uL MPV (9.5-13.5) fL Neut % (Auto) (43.0-75.0) % Lymph % (Auto) (20.5-60.0) % [place] % (Auto) (1.7-12.0) % Eos % (Auto) (0.9-7.0) % Baso % (Auto) (0.2-2.0) % Neut # (Auto) (1.4-6.5) 10^3/uL Lymph # (Auto) (1.2-3.8) 10^3/uL [place] # (Auto) (0.3-0.8) 10^3/uL Eos # (Auto) (0.0-0.7) 10^3/uL Baso # (Auto) (0.0-0.1) 10^3/uL Abs Immat Gran (auto) (0.00-0.03) 10^3/uL Imm/Tot Granulo (auto) (0.0-0.5) % Sodium (136-145) mmol/L Potassium (3.5-5.1) mmol/L Chloride (98-107) mmol/L Carbon Dioxide (21.0-32.0) mmol/L Anion Gap BUN (7.0-18.0) mg/dL Creatinine (0.55-1.02) mg/dL Est GFR ( Amer) (>=60 mL/min/1.73m^2) Est GFR (Non-Af Amer) (>=60 mL/min/1.73m^2) BUN/Creatinine Ratio Glucose (74-106) mg/dL Lactate (0.4-2.0) mmol/L Calcium (8.5-10.1) mg/dL Magnesium (1.8-2.4) mg/dL Total Bilirubin (0.2-1.0) mg/dL AST (15-37) U/L ALT (14-59) U/L Alkaline Phosphatase (46-116) U/L Ammonia (11-32) umol/L Total Protein (6.4-8.2) g/dL Albumin (3.4-5.0) g/dL Globulin g/dL Albumin/Globulin Ratio Urine Color Dk. yellow (YELLOW) Urine Clarity Clear (CLEAR) Urine pH 6.0 (5.0-9.0) Ur Specific [place] 1.025 (1.005-1.025) Urine Protein Negative (NEG/TRACE) mg/dL Urine Glucose (UA) Negative (NEGATIVE) mg/dL Urine Ketones Negative (NEGATIVE) mg/dL Urine Occult Blood Negative (NEGATIVE) Urine Nitrite Negative (NEGATIVE) Urine Bilirubin Negative (NEGATIVE) Urine Urobilinogen 0.2 (0.2-1.0) EU/dL Ur Leukocyte Esterase Negative (NEGATIVE) Urine RBC 0-2 (0-2) #/HPF Urine WBC 2-5 A (NONE SEEN) #/HPF Ur Squamous Epith Cells Moderate A (NONE/RARE) #/LPF Urine Crystals None seen (None Seen) #/HPF Urine Bacteria Moderate A (NONE SEEN) #/HPF Urine Casts None seen (NONE SEEN) #/LPF Urine Mucus None seen (NONE SEEN) Ur Culture Indicated? Yes Salicylates (<=19.9) mg/dL Urine Opiates Screen Negative (NEGATIVE) Ur Buprenorphine Scrn Negative (NEGATIVE) Ur Oxycodone Screen Negative (NEGATIVE) Urine Methadone Screen Negative (NEGATIVE) Acetaminophen (10.0-30.0) ug/mL Ur Barbiturates Screen Negative (NEGATIVE) U Tricyclic Antidepress Negative (NEGATIVE) Ur Phencyclidine Scrn Negative (NEGATIVE) Ur Amphetamines Screen Negative (NEGATIVE) U Methamphetamines Scrn Negative (NEGATIVE) U Benzodiazepines Scrn Positive A (NEGATIVE) Urine Cocaine Screen Negative (NEGATIVE) U Cannabinoids Screen Negative (NEGATIVE) Ethanol Quant mg/dL Influenza Type A Ag Influenza Type B Ag POC Glucose (74-106) mg/dL Imaging Data CT scan - head: Attestation: I have reviewed the pertinent imaging results. Radiologist's impression: ITS Impressions Head CT 05/29/24 21:07 IMPRESSION: No CT evidence of acute intracranial pathology without intravenous contrast. Electronically authenticated by: GLENDY JACKSON Date: 05/29/2024 22:09 Discharge Plan Discharge Chief Complaint: Neuro Symptoms/Deficit Clinical Impression: Altered level of consciousness Patient Disposition: Admitted as Observation Time of Disposition Decision: 00:06 Condition: Fair
[2024-05-29 22:19] LABS: Basophils Absolute Auto 0.1 10^3/uL (0.0-0.1); Basophils Percent Auto 0.6 % (0.2-2.0); Eosinophils Absolute Auto 0.2 10^3/uL (0.0-0.7); Eosinophils Percent Auto 2.4 % (0.9-7.0); Hematocrit 41.9 % (36.0-48.0); Hemoglobin 14.1 g/dL (12.0-16.0); Immature Granulocytes Abs Auto 0.03 10^3/uL (0.00-0.03); Immature Granulocytes Pct Auto 0.4 % (0.0-0.5); Lymphocytes Absolute Auto 2.6 10^3/uL (1.2-3.8); Lymphocytes Percent Auto 30.8 % (20.5-60.0); Mean Corpuscular HGB Conc 33.7 g/dL (29.9-35.2); Mean Corpuscular Volume 92.1 fL (81.0-99.0); Mean Platelet Volume 11.2 fL (9.5-13.5); Monocytes Absolute Auto 0.6 10^3/uL (0.3-0.8); Monocytes Percent Auto 7.1 % (1.7-12.0); Neutrophils Percent Auto 58.7 % (43.0-75.0); Platelet Count 242 10^3/uL (150-450); Red Blood Count 4.55 10^6/uL (4.20-5.40); Red Cell Distribution Width 11.3 % (11.0-15.0); White Blood Count 8.5 10^3/uL (4.0-11.0)
[2024-05-29] MEDS: 0.9 % SODIUM CHLORIDE 1,000 ML 1000 ML IV (22:23)
[2024-05-29 22:29] LABS: Influenza Virus A Antigen Negative; Influenza Virus B Antigen Negative; Internal Control Within Normal Limits
[2024-05-29 22:30] VITALS: BP 105/65; PULSE 75; O2SAT 100
[2024-05-29 22:34] LABS: Ammonia 22 umol/L (11-32)
[2024-05-29 22:38] LABS: Alanine Aminotransferase 47 U/L (14-59); Albumin Globulin Ratio 1.2; Albumin Level 3.9 g/dL (3.4-5.0); Alkaline Phosphatase 62 U/L (46-116); Anion Gap 10.9; Aspartate Amino Transferase 29 U/L (15-37); BUN Creatinine Ratio 12.9; Bilirubin Total 0.4 mg/dL (0.2-1.0); Calcium 9.5 mg/dL (8.5-10.1); Chloride 104 mmol/L (98-107); Estimated GFR (African America >60 (>=60 mL/min/1.73m^2); Estimated GFR (Non-African Ame >60 (>=60 mL/min/1.73m^2); Globulin 3.2 g/dL; Glucose 89 mg/dL (74-106); Magnesium 2.2 mg/dL (1.8-2.4); Potassium 3.9 mmol/L (3.5-5.1); Salicylate <2.8 mg/dL (<=19.9); Sodium 139 mmol/L (136-145); Total Protein 7.1 g/dL (6.4-8.2)
[2024-05-29 22:39] LABS: Acetaminophen <2.0 ug/mL (10.0-30.0); Ethanol <3 mg/dL
[2024-05-29 22:43] LABS: Lactate/Lactic Acid 1.3 mmol/L (0.4-2.0)
[2024-05-29 23:06] VITALS: BP 104/68; PULSE 74; O2SAT 100
[2024-05-29 23:16] LABS: Bilirubin Urine NEGATIVE (NEGATIVE); Blood Urine NEGATIVE (NEGATIVE); Clarity Urine CLEAR (CLEAR); Color Urine DK. YELLOW (YELLOW); Glucose Urine UA NEGATIVE (NEGATIVE); Ketones Urine NEGATIVE (NEGATIVE); Leukocyte Esterase Urine NEGATIVE (NEGATIVE); Nitrite Urine NEGATIVE (NEGATIVE); Protein Urine NEGATIVE (NEG/TRACE); Specific Gravity Urine 1.025 (1.005-1.025); Urobilinogen Urine 0.2 EU/dL (0.2-1.0)
[2024-05-29 23:18] LABS: Urine Microscopic Indicated YES
[2024-05-29 23:22] LABS: Bacteria Urine MODERATE #/HPF (NONE SEEN); Mucus Urine NONE SEEN (NONE SEEN); RBC Urine 0-2 #/HPF (0-2); Squamous Epithelial Cell Urine MODERATE #/LPF (NONE/RARE)
[2024-05-29 23:23] LABS: Cast Seen? NONE SEEN #/LPF (NONE SEEN); Crystals Seen? None Seen #/HPF (None Seen); Urine Culture Indicated YES
[2024-05-29 23:24] LABS: Amphetamine Screen Urine NEGATIVE (NEGATIVE); Barbiturates Screen Urine NEGATIVE (NEGATIVE); Benzodiazepines Screen Urine POSITIVE (NEGATIVE); Cannabinoid Screen Urine NEGATIVE (NEGATIVE); Cocaine Screen Urine NEGATIVE (NEGATIVE); Methadone Screen Urine NEGATIVE (NEGATIVE); Methamphetamines Screen Urine NEGATIVE (NEGATIVE); Opiate Screen Urine NEGATIVE (NEGATIVE); Oxycodone Screen Urine NEGATIVE (NEGATIVE); Phencyclidine Screen Urine NEGATIVE (NEGATIVE); Tricyclic Antidepressant Urine NEGATIVE (NEGATIVE)
[2024-05-29 23:25] LABS: Buprenorphine Screen Urine NEGATIVE (NEGATIVE)
[2024-05-30] VITALS (13 sets, daily range): BP systolic 93–120; BP diastolic 59–79; PULSE 57–85; TEMP 36.4–36.8; O2SAT 94–98; BMI 41.7
--- OUTSIDE RECORDS SUMMARY | 2024-05-30 01:06 | XMS_ITS | CCD ---
Author Organization [facility] Care Team Providers Care Fisheries Technician Name Role Phone DR MCKAY WEEKS Primary [...] MCKAY Espinoza Primary Care Unavailable KULWANT, DR ANRDEW Hopkins Consulting Unavailable DENNISE, DR MCKAY Espinoza Consulting Unavailable LORNA Velasquez Attending Provider [phone] MD Mckay Weeks Primary Care Provider [phone] MD Robert De Anda Attending Provider Robert De Anda Admitting Unavailable Robert De Anda Attending Unavailable Mckay Weeks Primary Care Unavailable BABS BHATIA Attending Unavailable BABS BHATIA Attending Unavailable LUIS SHAIKH Attending Unavailable ROBERT DE ANDA Referring Unavailable Mckay Weeks MD Primary Care Provider [phone] Allergies Allergy Classification Reported Allergen(s) Allergy Type Date of Onset Reaction(s) Facility (7 sources) Chlorhexidine Drug Allergy 01-11-2019 Rash [facility] Healthcare (6 sources) Chlorhexidine / Ethanol Drug Allergy 01-19-2024 [facility] Healthcare Medications Current Medications Medication Drug [...] Start: 05-18-2023 ergocalciferol (Vitamin D2) 1.25 MG (86264 UT) capsule 05/18/2023 Active escitalopram 5 mg [...] GDLNon AGE GDLN ACOG TESTING Note . [facility] Comment on above: TESTS RESULT FLAG UN ITS REF RANGE LAB Clinician Provided Cytology Information Source.............Vagina No. of containers..01 ThinPrep Vial Age Algo ACOG Peggy... 30-65 01 FLAG LEGEND: L-Low Normal,H-High Normal,LL-Alert Low,HH-Alert High <-Panic Low,>-Panic High,A-Abnormal,AA-Critical Abnormal Performed at: 01 =G [address] [place] [address] Sabiha Quinn MD, HPV APTIMA Negative Negative [facility] Comment on above: This nucleic acid am plification test detects fourteen high- risk HPV types (16,18,31,33,35,39,45,51,52,56,58,59,66,68) without differentiation. Performed at: =G - [facility] [id number] Shipping Lead Person: Sabiha Quinn MD, Phone: [phone] Performed at: - [facility], [place] [id number] Shipping Lead Person: Sabiha Quinn MD, Phone: [phone] IGP, APTIMA HPV, RFX 16/18,45 Note . [facility] Comment on above: TESTS RESULT FLAG UN ITS REF RANGE LAB DIAGNOSIS: 02 NEGATIVE FOR INTRAEPITHELIAL LESION OR MALIGNANCY. Specimen adequacy: 02 Satisfactory for evaluation. Performed by: 02 Arlet Overton, Door To Door Selling Agent (ASC) . 02 Note: Note 02 The [...] High,A-Abnormal,AA-Critical Abnormal Performed at: 02 WB [facility] [address] [place] [address] Sabiha Quinn MD, [facility] e MR angio MR brain wo/w [facility] 10-23-2023 MR angio MR brain wo/w con [facility] [place] [address] [place] [address] MRI Report Signed Patient: Luis Stewart MR#: [id number] : 1985 Acct:[id number] Age/Sex: 38 / F ADM Date: 10/23/23 Loc: MR Room: Type: [facility] Attending Dr: Robert De Anda MD Copies to: Robert De Anda MD Ordering Provider: Robert De Anda MD Date of Service: 10/23/23 MR/MR angio MR brain wo/w con: G44.309, H53.9 MRA OF THE INTRACRANIAL CIRCULATION TECHNIQUE: 3-D [id number] imaging of the [place] obtained. HISTORY: Head injury. Concussion. [...] Levon Stone M.D.10/23/2023 9:16 PM Dictation Location: [place] [address] Transcribed By: [facility] 10/23/232115 Dictated By: Levon Stone DO 10/23/232102 Signed By: 10/23/232115 Normal [facility] Cytology Cervical or vaginal smear or scraping studyon 01-13-2023 [facility] PAP ACOG PANEL 2: 30 to 65on 12-28-2020 . . Normal [facility] Comment on above: Result Comment: Perf ormed at: WB Performed By: #### 4 [id number] #### [facility] [address] [address] Tracy Pop Age Gdln ACOG Testing 30-65 Normal [facility] Comment on above: Performed By: #### 4 [id number] #### [facility] [address] [address] Tracy Pop DIAGNOSIS: Comment Normal [facility] Comment on above: Result Comment: NEGA TIVE FOR INTRAEPITHELIAL LESION OR MALIGNANCY. THIS SPECIMEN WAS RESCREENED PART OF OUR LIGHT [employer]IL WINDER PROGRAM. Performed at: WB Performed By: #### 4 [id number] #### [facility] [address] [address] Tracy Pop HPV Aptima Negative Normal Negative [facility] Comment on above: Result Comment: This nucleic acid amplification test detects fourteen high-risk HPV types (16,18,31,33,35,39,45,51,52,56,58,59,66,68) without differentiation. Performed at: =G Performed By: #### 4 [id number] #### [facility] [address] [id number] Tracy Pop Methodology: Comment Normal [facility] Comment on above: Result Comment: This liquid based ThinPrep(R) pap test was screened with the use of an image guided system. Performed at: WB Performed By: #### 4 [id number] #### [facility] [address] [id number] Tracy Pop Note: Comment Normal [facility] Comment on above: Result Comment: The Pap smear is a screening test designed to aid in the detection of premalignant and malignant conditions of the uterine cervix. It is not a diagnostic procedure and should not be used as the sole means of detecting cervical cancer. Both false-positive and false-negative reports do occur. . Performed at: WB Performed By: #### 4 [id number] #### [facility] [address] [address] Tracy Elaineen Performed by: Comment Normal [facility] Comment on above: Result Comment: Addi Barajas, Door To Door Selling Agent (ASCP) Performed at: WB Performed By: #### 4 [id number] #### [facility] [address] [address] Tracy Elaineen QC reviewed by: Comment Normal [facility] Comment on above: Result Comment: Aby Oliveira, Supervisory Door To Door Selling Agent (ASCP) Performed at: WB Performed By: #### 4 [id number] #### [facility] [address] [place] [address] Tracy Elaineen Specimen adequacy: Comment Normal [facility] Comment on above: Result Comment: Sati sfactory for evaluation. No endocervical component is identified. Performed at: WB Performed By: #### 4 [id number] #### [facility] [address] [id number] Tracy Kiesha CHLAMYDIA/GONOCOCCUS ANTONIO (SW AB/URINE/PAPon 12-26-2020 Chlamydia trachomatis, ANTONIO Negative Normal Negative [facility] Comment on above: Performed By: #### C T/NGNA #### [facility] [address] [place] [address] Tracy Kiesha Neisseria gonorrhoeae, ANTONIO Negative Normal Negative [facility] Comment on above: Performed By: #### C T/NGNA #### [facility] [address] [place], [place] [address] Tracy Kiesha VAGINITIS/VAGINOSIS DNA PROB Boris 12-26-2020 Cheryl species Negative Normal Negative [facility] Comment on above: Performed By: #### V AGINT ####[facility] [address] [place] [id number] Pop Gardnerella vaginalis Negative Normal Negative [facility] Comment on above: Performed By: #### V AGINT ####[facility] [address] [place], [place] [address]OjckokTracy Pop Trichomonas vaginalis Negative Normal Negative [facility] Comment on above: Performed By: #### V AGINT ####[facility] [address] [place], [place] [address]TiirppTracy Pop XR LSPINE 2_3 VIEWSon 2020 XR [...] ANDREW BLUM Date: 2020-06-06 09:25 Normal [facility] COVID-19 PCRon 03-17-2020 SARS-CoV-2 (COVID-19) RNA ANTONIO+probe Ql (Unsp spec) Not detected Normal Not Detected [facility] Comment on above: Result Comment: This nucleic acid amplification test was developed and its performance characteristics determined by [employer]. Nucleic acid amplification tests include PCR and [...] Performed By: #### C VDPCR, CVDSTAT #### [facility] [address] [place], [place] [address] Tracy Kiesha PRIORITY COVID PROCESSINGon 03-17-2020 Comment Comment Normal [facility] Comment on above: Result Comment: Rece ived Performed By: #### C VDPCR, CVDSTAT #### [facility] [address] [place], [place] [address] Tracy Kiesha CBC AUTO DIFFon 03-15-2020 BASO # 0.1 103/ul Normal 0.0-0.1 [facility] Comment on above: Performed By: #### C BC #### [facility] [address] [place], [place] [address] Tracy Kiesha Basophils/100 WBC (Bld) 0.8 % Normal 0.2-2.0 [facility] Comment on above: Performed By: #### C BC #### [facility] [address] [place] [address] Tracy Kiesha EO # 0.3 103/ul Normal 0.0-0.7 [facility] Comment on above: Performed By: #### C BC #### [facility] [address] [place], [place] [address] Tracy Kiesha Eosinophils/100 WBC (Bld) 3.8 % Normal 0.9-7.0 [facility] Comment on above: Performed By: #### C BC #### [facility] [address] [place], [place] [address] Tracy Kiesha Erythrocyte distribution width (RBC) [Ratio] 11.7 % Normal 11.0-15.0 [facility] Comment on above: Performed By: #### C BC #### [facility] [address] [place], [place] [address] Tracy Kiesha Hematocrit (Bld) [Volume fraction] 39.6 % Normal 36.0-48.0 [facility] Comment on above: Performed By: #### C BC #### [facility] [address] [place], [place] [address] Tracy Kiesha Hemoglobin (Bld) [Mass/Vol] 13.0 g/dL Normal 12.0-16.0 [facility] Comment on above: Performed By: #### C BC #### [facility] [address] [id number] Tracy Kiesha IG # 0.03 10e3/ul Normal 0.00-0.03 [facility] Comment on above: Performed By: #### C BC #### [facility] [address] [address] Tracy Kiesha IG % 0.4 % Normal 0.0-0.5 [facility] Comment on above: Performed By: #### C BC #### [facility] [address] [address] Tracy Kiesha LYMPH # 3.5 103/ul Normal 1.2-3.8 [facility] Comment on above: Performed By: #### C BC #### [facility] [address] [place] [address] Tracy Kiesha Lymphocytes/100 WBC (Bld) 41.5 % Normal 20.5-60.0 [facility] Comment on above: Performed By: #### C BC #### [facility] [address] [place], [place] [address] Tracy Kiesha MANUAL DIFF REQ NO Normal [facility] Comment on above: Performed By: #### C BC #### [facility] [address] [place], [place] [address] Tracy Kiesha MCH (RBC) [Entitic mass] 31.0 pg Normal 26.7-34.0 [facility] Comment on above: Performed By: #### C BC #### [facility] [address] [place] [address] Tracy Kiesha MCHC (RBC) [Mass/Vol] 32.8 g/dL Normal 29.9-35.2 [facility] Comment on above: Performed By: #### C BC #### [facility] [address] [place], [place] [address] Tracy Kiesha MCV (RBC) [Entitic vol] 94.5 fL Normal 81.0-99.0 [facility] Comment on above: Performed By: #### C BC #### [facility] [address] [address] Tracyramona Elaineen MONO # 0.7 103/ul Normal 0.3-0.8 [facility] Comment on above: Performed By: #### C BC #### [facility] [address] [place], [place] [address] Tracy Pop Monocytes/100 WBC (Bld) 7.8 % Normal 1.7-12.0 [facility] Comment on above: Performed By: #### C BC #### [facility] [address] [place], [place] [address] Tracy Kiesha NEUT # 3.9 103/ul Normal 1.4-6.5 [facility] Comment on above: Performed By: #### C BC #### [facility] [address] [place], [place] [address] Tracy Pop Neutrophils/100 WBC (Bld) 45.7 % Normal 43.0-75.0 [facility] Comment on above: Performed By: #### C BC #### [facility] [address] [place], [place] [address] Tracy Pop Platelet mean volume (Bld) [Entitic vol] 11.1 fL Normal 9.5-13.5 [facility] Comment on above: Performed By: #### C BC #### [facility] [address] [place], [place] [address] Tracyramona Elaineen PLT 226 103/ul Normal 150-450 [facility] Comment on above: Performed By: #### C BC #### [facility] [address] [place], [place] [address] Tracy Kiesha RBC 4.19 106/ul Critically low 4.20-5.[address] [facility] Comment on above: Performed By: #### C BC #### [facility] [address] [place], [place] [address] Tracy Kiesha WBC 8.4 103/ul Normal 4.0-11.0 [facility] Comment on above: Performed By: #### C BC #### [facility] [address] [place], [place] [address] Tracy Pop PROF 14(COMP METB)on 020 Albumin [Mass/Vol] 3.9 g/dL Normal 3.5-5.0 [facility] Comment on above: Performed By: #### C MP #### [facility] [address] [place], [place] [address] Tracy Kiesha Albumin/Globulin [Mass ratio] 1.2 {ratio} Normal [facility] Comment on above: Performed By: #### C MP #### [facility] [address] [place], [place] [address] Tracy Kiesha ALP [Catalytic activity/Vol] 63 U/L Normal 38-126 [facility] Comment on above: Performed By: #### C MP #### [facility] [address] [place] [address] Tracy Kiesha ALT [Catalytic activity/Vol] 29 U/L Normal 9-52 [facility] Comment on above: Performed By: #### C MP #### [facility] [address] [place] [address] Tracy Kiesha Anion gap [Moles/Vol] 9.1 mmol/L Normal [facility] Comment on above: Performed By: #### C MP #### [facility] [address] [place] [address] Tracy Kiesha AST [Catalytic activity/Vol] 16 U/L Normal 14-36 [facility] Comment on above: Performed By: #### C MP #### [facility] [address] [place], [place] [address] Tracy Kiesha Bilirubin [Mass/Vol] 0.3 mg/dL Normal 0.2-1.3 [facility] Comment on above: Performed By: #### C MP #### [facility] [address] [place], [place] [address] Tracy Kiesha Calcium [Mass/Vol] 9.2 mg/dL Normal 8.4-10.2 [facility] Comment on above: Performed By: #### C MP #### [facility] [address] [place] [address] Tracy Kiesha Chloride [Moles/Vol] 103 mmol/L Normal 98-107 [facility] Comment on above: Performed By: #### C MP #### [facility] [address] [address] Tracy Kiesha CO2 [Moles/Vol] 28.1 mmol/L Normal 22.0-30.0 [facility] Comment on above: Performed By: #### C MP #### [facility] [address] [address] Tracy Kiesha Creatinine [Mass/Vol] 0.60 mg/dL Normal 0.52-1.04 [facility] Comment on above: Performed By: #### C MP #### [facility] [address] [address] Tracy Kiesha EGFR-AF WELSH >60 Normal >=60 [facility] Comment on above: Performed By: #### C MP #### [facility] [address] [place] [address] Tracy Kiesha EGFR-NON AF WELSH >60 Normal >=60 [facility] Comment on above: Performed By: #### C MP #### [facility] [address] [place], [place] [address] Tracy Kiesha Globulin (S) [Mass/Vol] 3.3 g/dL Normal [facility] Comment on above: Performed By: #### C MP #### [facility] [address] [place] [address] Tracy Kiesha Glucose [Mass/Vol] 97 mg/dL Normal 74-106 [facility] Comment on above: Performed By: #### C MP #### [facility] [address] [address] Tracy Kiesha Potassium [Moles/Vol] 4.2 mmol/L Normal 3.4-5.0 [facility] Comment on above: Performed By: #### C MP #### [facility] [address] [place], [place] [address] Tracy Kiesha Protein [Mass/Vol] 7.2 g/dL Normal 6.1-8.2 [facility] Comment on above: Performed By: #### C MP #### [facility] [address] [place], [place] [address] Tracy Kiesha Sodium [Moles/Vol] 136 mmol/L Critically low 137-145 [facility] Comment on above: Performed By: #### C MP #### [facility] [address] [place] [address] Tracy Pop Urea nitrogen [Mass/Vol] 9.0 mg/dL Normal 7.0-17.0 [facility] Comment on above: Performed By: #### C MP #### [facility] [address] [place] [address] Tracy Pop Urea nitrogen/Creatinin e [Mass ratio] 15.0 mg/mg Normal [facility] Comment on above: Performed By: #### C MP #### [facility] [address] [place] [address] Tracy Pop TROPONIN - Ion 03-15-2020 TROP <0.012 Normal <=0.034 [facility] Comment on above: Performed By: #### T ROP #### [facility] [address] [place] [address] Tracy Pop TROPONIN RANGE SEE BELOW Normal [facility] Comment on above: Result Comment: <0.0 34 ng/ml NEGATIVE 0.034-0.119 INDETERMINATE 0.120 AMI CUT OFF Performed By: #### T ROP #### [facility] [address] [place] [address] Tracy Pop INFLUENZA A AND B AGon 03-14 INFLUANEGH SEE BELOW Normal [facility] Comment on above: Result Comment: Nega tive for Flu A protein angiten. Infection due to Flu A cannot be ruled out. Flu A angiten in the sample may be below the detection limit of the test. Performed By: #### I NFLUAB #### [facility] [address] [place] [address] Tracyramona Elaineen INFLUBNEGH SEE BELOW Normal [facility] Comment on above: Result Comment: Nega tive for Flu B protein antigen. Infection due to Flu B cannot be ruled out. Flu B antigen in the sample may be below the detection limit of the test. Performed By: #### I NFLUAB #### [facility] [address] [place] [address] Tracy Pop INFLUENZA A AG Negative Normal NEGATIVE SEE COMMENT [facility] Comment on above: Performed By: #### I NFLUAB #### [facility] [address] [place], [place] [address] Tracy Pop INFLUENZA B AG Negative Normal NEGATIVE SEE COMMENT [facility] Comment on above: Performed By: #### I NFLUAB #### [facility] [address] [place], [place] [address] Tracy Pop INTERNAL CONTROLS Within Normal Limits Normal Wi thin Normal Limits [facility] Comment on above: Performed By: #### I NFLUAB #### [facility] [address] [place], [place] [address] Tracy Pop Vital Signs Date Time Vital Sign Value Performing Clinician Tono preciado 02-11-2024 13:04-0400 Body height 157.5 cm Luis Nicholas DO Work Phone: [facility] 02-11-2024 13:04-0400 Body mass index (BMI) [Ratio] 38.41 kg/m2 Luis Nicholas DO Work Phone: [facility] 02-11-2024 13:04-0400 Body weight 95.25 kg Luis Nicholas DO Work Phone: [facility] 02-11-2024 13:04-0400 Diastolic blood pressure 72 mm[Hg] Luis Nicholas DO Work Phone: [facility] 02-11-2024 13:04-0400 Heart rate 69 /min Luis Nicholas DO Work Phone: [facility] 02-11-2024 13:04-0400 SaO2% (BldA) [Mass fraction] 99 % Luis Nicholas DO Work Phone: [facility] 02-11-2024 13:04-0400 Systolic blood pressure 108 mm[Hg] Luis Nicholas DO Work Phone: [facility] 01-19-2024 11:13-0400 Body mass index (BMI) [Ratio] 41.88 kg/m2 Babs Jannette DO Work Phone: [facility] 01-19-2024 11:13-0400 Body weight 103.87 kg Babs Jannette DO Work Phone: [facility] 01-19-2024 11:13-0400 Diastolic blood pressure 72 mm[Hg] Babs Jannette DO Work Phone: [facility] 01-19-2024 11:13-0400 Systolic blood pressure 122 mm[Hg] Babs Jannette DO Work Phone: [facility] 01-13-2024 10:51-0400 Body height 157.48 cm MD Mckay Weesk Work Phone: [facility] 01-13-2024 10:51-0400 Body mass index (BMI) [Ratio] 38.4 kg/m2 MD Mckay Weeks Work Phone: [facility] 01-13-2024 10:51-0400 Body weight 95.25 kg MD Mckay Weeks Work Phone: [facility] 01-13-2024 10:51-0400 Diastolic blood pressure 64 mm[Hg] MD Mckay Weeks Work Phone: [facility] 01-13-2024 10:51-0400 Heart rate 71 /min MD Mckay Weeks Work Phone: [facility] 01-13-2024 10:51-0400 SaO2% (BldA) [Mass fraction] 97 % MD Mckay Weeks Work Phone: [facility] 01-13-2024 10:51-0400 Systolic blood pressure 112 mm[Hg] MD Mckay Weeks Work Phone: [facility] 09-22-2023 13:20-0400 Diastolic blood pressure 90 mm[Hg] MD Mckay Weeks Work Phone: [facility] 09-22-2023 13:20-0400 Systolic blood pressure 130 mm[Hg] MD Mckay Weeks Work Phone: [facility] 08-04-2023 13:24-0400 Diastolic blood pressure 70 mm[Hg] [facility] 08-04-2023 13:24-0400 Heart rate 95 /min [facility] 08-04-2023 13:24-0400 SaO2% (BldA) [Mass fraction] 98 % [facility] 08-04-2023 13:24-0400 Systolic blood pressure 110 mm[Hg] [facility] Encounters Encounter Date Encounter Type Care Provider Facility Start: 02-11-2024 End: 02-11-2024 [employer] Luis Shaikh DO Work Phone: [facility] Start: 02-11-2024 End: 02-11-2024 Bamboo flowsheet Luis Shaikh DO Work Phone: [facility] Start: 02-11-2024 End: 02-11-2024 Office consultation new/estab patient 60 min Luis Shaikh DO Work Phone: [facility] Comment on above: Intractable migraine without [...] 01-13-2024 ambulatory MD Mckay Weeks Work Phone: [facility] Work Phone: Start: 01-13-2024 End: 01-13-2024 Patient encounter procedure MD Mckay Weeks Work Phone: [facility] Work Phone: Start: 10-23-2023 End: 10-23-2023 Patient encounter procedure MD Mckay Weeks Work Phone: [facility] [place] Work Phone: Start: 10-23-2023 End: 10-23-2023 ambulatory MD Mckay Weeks Work Phone: [facility] Work Phone: Start: 09-22-2023 End: 09-22-2023 Patient encounter procedure MD Mckay Weeks Work Phone: [facility] Work Phone: Start: 08-04-2023 End: 08-04-2023 ambulatory [facility] Work Phone: Start: 08-04-2023 End: 08-04-2023 Patient encounter procedure [facility] Work Phone: Start: 07-07-2023 End: 07-07-2023 ambulatory BABS BHATIA Not Available Start: 12-20-2021 End: 12-20-2021 Patient encounter procedure LORNA Velasquez Work Phone: [facility] Start: 01-08-2021 Encounter for gynecological examination (general) (routine) without abnormal findings DR BABS BHATIA [facility] Start: 12-24-2020 End: 12-24-[address] [...] Phone: Start: 12-20-2021 X-ray of left foot INTERIOR PAINTER Amanda Velasquez Work Phone: H/O: hysterectomy H/O: hysterectomy Babs Bhatia DO Work Phone: Plan of Treatment Date Care Activity Detail Author Start: 01-19-2025 End: 01-19-2025 Patient encounter procedure 01/19/2025 11:00 AM EDT Office Visit [facility] [address] [place] [address] Babs Bhatia DO [address] [place] [address] [facility] Start: 02-29-2024 End: 02-29-2024 Patient encounter procedure 02/29/2024 9:20 AM EDT [facility] [address] [place] [address] Tanna Christiansen, TAYLOR [address] [place] [facility] [place] [address] Start: 02-11-2024 End: 02-11-2024 Patient encounter procedure 02/11/2024 1:15 PM EDT [facility] [address] [place] [address] Luis Shaikh, DO [address] [place], [place] [id number] Arrived [facility] [place] [facility] Comment on above: Arrived Start: 01-19-2024 End: 01-18-2025 US for US PELVIS-TRANSVAG IF INDICATED Imaging Routine Pelvic pain in female Expected: 01/19/2024 (Approximate), Expires: 01/18/2025 [facility] Comment on above: Expected: 01/19/2024 (Approximate), Expires: 01/18/2025 Start: 01-19-2024 End: 01-19-2024 Patient encounter procedure 01/19/2024 11:00 AM EDT Office Visit [facility] B[facility] OB [address] [place] [address] Babs Bhatia, DO [address] [place] [place], [place] [id number] Arrived [facility] OB Comment on above: Arrived Start: 01-13-2024 Patient referral [facility] Work Phone: Cytology Cervical or vaginal smear or scraping study Pap Smear Pathology and Cytology Routine Well woman exam with routine gynecological exam Ordered: 01/19/2024 [facility] Work Phone: Comment on above: Ordered: 01/19/2024 Human papilloma viru s DNA [Presence] in Unspecified specimen by Probe with amplification HPV DNA probe, amplified Microbiology Routine Well woman exam with routine gynecological exam Ordered: 01/19/2024 [facility] Comment on above: Ordered: 01/19/2024 MRA Head vessels W contrast IV [facility] MRA Head vessels WO contrast [facility] Patient referral [facility] Work Phone: Payers Date Payer Category Payer Self-pay 2022 Medicaid [employer] [employer] [place] [id number] 2022-Present [address] [place] [address] [id number] 2022 Medicaid [id number] 1985 Unknown [id number] 1985 Unknown [id number] 1986 Unknown [id number] 1986 Unknown [id number] 1986 Unknown [id number] 1986 Unknown [id number] 1959 Unknown [id number] Unknown [id number] Social History Date Type Detail Facility Tobacco smoking stat [facility] Unknown if ever smoked [facility] Work Phone: Start: 1985 Sex Assigned At Female [facility] Start: 05-17-2018 Tobacco smoking status NHIS Smoker (finding) [facility] Tobacco smoking stat us NHIS Tobacco smoking consumption unknown [facility] Start: 02-10-2023 Gender identity Identifies as female gender (finding) [facility] Start: 02-10-2023 Sexual orientation Heterosexual (finding) [facility] Medical Equipment Procedure Code Equipment Code Equipment [...] one or two year. She went to [place] ED and they gave her Dr. De [...] History: Diagnosis Date Amenorrhea Anxiety and depression ([facility]/HCC) Anxiety with depression Asthma ([facility]) Tobacco use Past Surgical History: Procedure Laterality Date SECTION, LOW TRANSVERSE 04/13/2017 SECTION, LOW TRANSVERSE 01/17/2019 SECTION, LOW TRANSVERSE 02/05/2011 LAPAROSCOPY DIAGNOSTIC / BIOPSY / ASPIRATION / LYSIS 03/13/2023 lysis of omental adhesion OTHER SURGICAL HISTORY 2009 Miscarriage PARTIAL HYSTERECTOMY 01/17/[address] LAP,CHOLECYSTECTOMY 2010 Family History Problem Relation Name [...] 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 Regardless he sent her over here. The [...] clinic: 6 weeks documented in this encounter [facility] Healthcare History of Present illness Narrative 01-19-2024 [...] MG tablet ergocalciferol (Vitamin D2) 1.25 MG (07313 UT) capsule escitalopram (Lexapro) 10 MG tablet [...] HISTORY 2009 Miscarriage PARTIAL HYSTERECTOMY 01/17/[address] LAP,CHOLECYSTECTOMY 2010 REVIEW OF SYSTEMS Review of [...] nursing note reviewed. Exam conducted with a core maker present. Vitals: Estimated body mass index is [...] Babs Bhatia DO documented in this encounter [facility] Clinical Note 03-15-2020 Note Date & Type [...] by: ERROL TIM Date: 2020-03-14 22:34 [facility] Evaluation note Note Date & Type Note Facility Evaluation note No assessment information availa [facility] Work Phone: Evaluation note Note Date & Type Note Facility Evaluation note Diagnosis Onset Date ADHD acute Anxiety and depression acute Headache, post-traumatic acu te Post concussion syndrome acu te [facility] Work Phone: Evaluation note Note Date & Type Note Facility Evaluation note Diagnosis Onset Date ADHD acute Anxiety and depression acute Headache, post-traumatic acu te Post concussion syndrome acu te ADHD acute Anxiety and depression acute Headache, post-traumatic acu te Post concussion syndrome acu te [facility] Work Phone: Evaluation note Note Date & Type Note Facility Evaluation note Diagnosis Onset Date Headache, post-traumatic acu te [facility] Work Phone: Evaluation note Note Date & Type Note Facility Evaluation note Diagnosis Intractable migraine without aura and without status migrainosus (CMS/HCC)- Primary Post concussion syndrome Postconcussion syndrome Dizziness Dizziness and giddiness Sleep disturbance Unspecified sleep disturbance documented in this encounter [facility] Evaluation note Note Date & Type Note Facility Evaluation note Diagnosis Well woman exam with routine gynecological exam Routine gynecological examination H/O: hysterectomy Acquired absence of both cervix and uterus Pelvic pain in female Unspecified symptom associated with female genital organs documented in this encounter [facility] Hospital Discharge instructions Note Date & Type Note Facility Hospital Discharge instructions Ambulatory OrdersReferral to Neurology Time Frame: 01/13/24, Location: [facility] Work Phone: Summary Purpose Family History Relationship [...] CREATED AUTHOR AUTHOR'S ORGANIZ ATION 11/01/2023 [facility] DATE CREATED AUTHOR AUTHOR'S ORGANIZ ATION 02/13/2024 [facility] Care Teams (unrecognized sec tion and content) [...] January 13, 2024 End: January 13, 2024 Fisheries Technician Relationship Specialty Start Date End Date Mckay Weeks MD [address] [phone] PCP - General Family Medicine 11/20/22 Fisheries Technician Relationship Specialty Start Date End Date Mckay Weeks MD [address] [phone] PCP - General Family Medicine 11/20/22 Fisheries Technician Relationship Specialty Start Date End Date Mckay Weeks MD [address] [place] [address] PCP - General Family Medicine 11/20/22 Fisheries Technician Relationship Specialty Start Date End Date Mckay Weeks MD [address] [place] [address] PCP - General Family Medicine 11/20/22 Goals [...] BE BASED ON THE PRIMARY CLINICAL RECORDS. [facility]. provides no warranty or guarantee of the accuracy or completeness of information in this document.
--- NOTE | 2024-05-30 01:07 | PC.NURSE ---
this patient was taken upstairs via WC, this patient placed all of her belongings in a bag, this patient said she has a cell phone. this patient voices no concerns and shows no signs of distress
[2024-05-30] MEDS: 0.9 % SODIUM CHLORIDE 1,000 ML 100 ML IV (01:35)
[2024-05-30 06:16] LABS: Basophils Percent Auto 0.6 % (0.2-2.0); Eosinophils Absolute Auto 0.2 10^3/uL (0.0-0.7); Eosinophils Percent Auto 2.8 % (0.9-7.0); Hematocrit 36.7 % (36.0-48.0); Hemoglobin 12.2 g/dL (12.0-16.0); Immature Granulocytes Abs Auto 0.03 10^3/uL (0.00-0.03); Immature Granulocytes Pct Auto 0.5 % (0.0-0.5); Lymphocytes Absolute Auto 2.7 10^3/uL (1.2-3.8); Lymphocytes Percent Auto 43.1 % (20.5-60.0); Mean Corpuscular HGB Conc 33.2 g/dL (29.9-35.2); Mean Corpuscular Hemoglobin 30.6 pg (26.7-34.0); Mean Platelet Volume 10.9 fL (9.5-13.5); Monocytes Absolute Auto 0.6 10^3/uL (0.3-0.8); Monocytes Percent Auto 9.3 % (1.7-12.0); Neutrophils Absolute Auto 2.8 10^3/uL (1.4-6.5); Neutrophils Percent Auto 43.7 % (43.0-75.0); Platelet Count 209 10^3/uL (150-450); Red Blood Count 3.99 10^6/uL (4.20-5.40); Red Cell Distribution Width 11.3 % (11.0-15.0); White Blood Count 6.3 10^3/uL (4.0-11.0)
[2024-05-30 06:34] LABS: Alanine Aminotransferase 39 U/L (14-59); Albumin Globulin Ratio 1.1; Alkaline Phosphatase 47 U/L (46-116); Anion Gap 10.1; Aspartate Amino Transferase 26 U/L (15-37); BUN Creatinine Ratio 14.8; Bilirubin Total 0.6 mg/dL (0.2-1.0); Calcium 8.4 mg/dL (8.5-10.1); Carbon Dioxide 26.5 mmol/L (21.0-32.0); Chloride 109 mmol/L (98-107); Estimated GFR (African America >60 (>=60 mL/min/1.73m^2); Estimated GFR (Non-African Ame >60 (>=60 mL/min/1.73m^2); Globulin 2.7 g/dL; Glucose 95 mg/dL (74-106); Magnesium 2.1 mg/dL (1.8-2.4); Potassium 3.6 mmol/L (3.5-5.1); Sodium 142 mmol/L (136-145); Total Protein 5.7 g/dL (6.4-8.2)
[2024-05-30] MEDS: CETIRIZINE HCL 10 MG TABLET PO (09:03)
[2024-05-30] MEDS: ESCITALOPRAM 10 MG TABLET 5 MG PO (09:03)
[2024-05-30] MEDS: ESCITALOPRAM 10 MG TABLET 15 MG PO (09:08)
[2024-05-30] MEDS: METFORMIN HCL 500 MG TAB.ER.24H PO (09:43)
[2024-05-30] MEDS: ESCITALOPRAM 10 MG TABLET PO (09:43)
--- NOTE | 2024-05-30 12:14 | CM.NOTE ---
Rounds made with Dr. Weber, changing pt to OBS status. Pt A&Ox3 and feeling back to baseline. Dr. Weber will consult teleneuro and possible discharge this afternoon.
--- NOTE | 2024-05-30 12:25 | P.HP_ITS ---
HPI H&P: HPI History of Present Illness Chief complaint: AMS Narrative: 39-year-old female who presents to the emergency department with her brother via personal vehicle for evaluation of mental status change. The patient's brother became involved in the situation when the patient's called him and could not bring her because they have young children at home. According to ED report, indicated patient had been in bed for past 3-4 days with last known normal on Thursday. The symptoms were apparently preceded by the patient having nausea, vomiting, and diarrhea May 22 and . Her symptoms resolved within a day or two. Patient takes Straterra for ADHD and Lexapro for MDD and admits to not using them for past 2-3 weeks because it has been chaotic at house with kids. She is also on Ambien, melatonin and Benadryl for Insomnia and she has been using them as prescribed. Patient also has chronic daily migraine CROSS for which she takes Fioricet as needed. Patient denies using excessive quantities of her sleeping medications or Fioricet. She previously saw Dr Peterson for Migraine headaches and has never used CGRPs for migraine prevention or for abortive therapy as far as I could tell. She has an appt with a new Neurologist next month in [place]. She denies drug use. Patient does not remember much of what happened last few days but can tell that she was slurring words and that she hostile verbally and not acting like herself. The patient denies any loss of bowel or bladder. She denies any numbness, tingling, weakness in her extremities. She has no neurological symptoms except for chronic headache that is not changed/or different from her baseline. She is at her baseline today, conversing normally. Opioid HPI Opioid Management Most Recent Pain and Opioid Data: Last Pain Scale 3 03/13/23 09:47 03/13/23 Last Pain Assessment 05/30/24 11:45 Last ORT Total Score 7 05/30/24 01:08 05/30/24 Last ORT Risk Category Moderate Risk 05/30/24 01:08 05/30/24 Ur Phencyclidine Scrn Negative (NEGATIVE) 05/29/24 23:05 05/11 02/02 Review of Systems ROS Status of ROS 10 or more systems reviewed and unremark able except as noted in history and below [facility] Medical History (Updated 05/30/24 @ 12:35 by Shaikh Tia MD) Chronic daily headache ?R51.9 - Headache, unspecified (ICD-10) ADHD ?F90.9 - Attention-deficit hyperactivity disorder, unspecified type (ICD-10) Major depression ?F32.9 - Major depressive disorder, single episode, unspecified (ICD-10) Knee pain ?M25.569 - Pain in unspecified knee (ICD-10) Back pain ?M54.9 - Dorsalgia, unspecified (ICD-10) History of blood transfusion ?Z92.89 - Personal history of other medical treatment (ICD-10) Anemia ?D64.9 - Anemia, unspecified (ICD-10) Insomnia ?G47.00 - Insomnia, unspecified (ICD-10) Depression ?F32.A - Depression, unspecified (ICD-10) Anxiety ?F41.9 - Anxiety disorder, unspecified (ICD-10) Sleep apnea ?G47.30 - Sleep apnea, unspecified (ICD-10) COVID-19 ?U07.1 - COVID-19 (ICD-10) Asthma ?J45.909 - Unspecified asthma, uncomplicated (ICD-10) Migraine ?G43.909 - Migraine, unspecified, not intractable, without status migrainosus (ICD-10) Dyspareunia Pelvic pain ?R10.2 - Pelvic and perineal pain (ICD-10) Prediabetes ?R73.03 - Prediabetes (ICD-10) Surgical History History of appendectomy ?Z90.49 - Acquired absence of other specified parts of digestive tract (ICD- 10) History of cholecystectomy ?Z90.49 - Acquired absence of other specified parts of digestive tract (ICD- 10) History of section ?Z98.891 - History of uterine scar from previous surgery (ICD-10) History of section ?Z98.891 - History of uterine scar from previous surgery (ICD-10) History of hysterectomy ?Z90.710 - Acquired absence of both cervix and uterus (ICD-10) History of section ?Z98.891 - History of uterine scar from previous surgery (ICD-10) Family History Other Family history of breast cancer Family history of cervical cancer Family history of diabetes mellitus Family history of stroke Social History (Updated 05/30/24 @ 01:15 by Cyndy Lion RN) Within the past year, how often did you have a drink containing alcohol: monthly or less Smoking status: Current every day smoker Do you use any of these nicotine containing products: e-cigarettes and vaping products Non-prescribed substance use: denies use 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 Highest level of school completed/degree received: high school graduate Are you now , , , , never or living with a partner: In a typical week, how many times do you talk on the telephone with family, friends, or neighbors: once per week How often do you get together with friends or relatives: once per week Little interest or pleasure in doing things: several days Feeling down, depressed, or hopeless: not at all Feel stressed/tense/nervous/anxious/difficulty sleeping: only a little Meds Home Medications and Allergies Home Medications ?Medication ?Instructions ?Recorded ?Confirmed ?Type alprazolam 0.25 mg tablet 0.25 mg PO QDAY PRN anxiety 02/27/23 05/30/24 History metformin 500 mg tablet,extended 500 mg PO QDAY 02/27/23 05/29/24 History release 24 hr zolpidem 5 mg tablet 5 mg PO QPM PRN insomnia 02/27/23 05/29/24 History fexofenadine 180 mg tablet 180 mg PO DAILY 03/13/23 05/29/24 History ibuprofen 800 mg tablet 800 mg PO TID 03/13/23 05/29/24 History taxqbqwakr-amtzzcvselpna-oixqcokf 1 cap PO QID PRN headache 4 days 07/02/23 05/30/24 Rx 50 mg-300 mg-40 mg capsule #20 caps (Fioricet) atomoxetine 40 mg capsule 40 mg PO .qd 05/30/24 05/30/24 History escitalopram oxalate 10 mg tablet 15 mg PO .qd 05/30/24 05/30/24 History propranolol 60 mg capsule,24 60 mg PO .qd 05/30/24 05/30/24 History hr,extended release Allergies Allergy/AdvReac Type Severity Reaction Status Date / Time chlorhexidine Allergy Rash Verified 05/30/24 00:21 Exam Constitutional Vital Signs, click to edit/add: Last Vital Signs Temp 98.2 F 05/30/24 06:58 Pulse 82 05/30/24 11:52 Resp 18 05/30/24 06:58 BP 104/68 05/30/24 06:58 Pulse Ox 98 05/30/24 12:00 O2 Del Method Room Air 05/30/24 12:00 Documenting provider has reviewed patient's vital signs: yes Common normals: no apparent distress and oriented x3 General appearance: cooperative HENMT Common normals: normocephalic and head/scalp atraumatic Head and scalp: normocephalic and atraumatic Eye Common normals: conjunctivae normal and no scleral icterus Conjunctiva: conjunctiva(e) normal Respiratory Common normals: normal respiratory effort and clear to auscultation bilaterally Effort & inspection: able to speak in complete sentences Auscultation: clear to auscultation bilaterally Cardio Common normals: regular rate, S1 normal heart sound and S2 normal heart sound Rate: regular rate Heart sounds: S1 normal and S2 normal GI Common normals: Normal to inspection, nondistended, normoactive bowel sounds present, soft to palpation, non-tender and no hepatosplenomegaly Palpation: soft and no hepatosplenomegaly Extremity Common normals: no clubbing, cyanosis or edema Neuro Common normals: oriented x3, moves all extremities and no focal motor deficits Psych Common normals: mental status grossly normal, denies hallucinations, denies homicidal ideation and denies suicidal ideation Results Labs Labs: Short CBC 05/29/24 05/30/24 Range/Units 22:10 06:03 WBC 8.5 6.3 (4.0-11.0) 10^3/uL Hgb 14.1 12.2 (12.0-16.0) g/dL Hct 41.9 36.7 (36.0-48.0) % Plt Count 242 209 (150-450) 10^3/uL BMP 05/29/24 05/30/24 22:10 06:03 Sodium 139 142 Potassium 3.9 3.6 Chloride 104 109 H Carbon Dioxide 28.0 26.5 BUN 9.0 8.0 Creatinine 0.70 0.54 L Glucose 89 95 Calcium 9.5 8.4 L Liver Function 05/29/24 05/30/24 Range/Units 22:10 06:03 Total Bilirubin 0.4 0.6 (0.2-1.0) mg/dL AST 29 26 (15-37) U/L ALT 47 39 (14-59) U/L Alkaline Phosphatase 62 47 (46-116) U/L Albumin 3.9 3.0 L (3.4-5.0) g/dL Urine 05/29/24 Range/Units 23:05 Urine Color Dk. yellow (YELLOW) Urine Clarity Clear (CLEAR) Urine pH 6.0 (5.0-9.0) Ur Specific [place] 1.025 (1.005-1.025) Urine Protein Negative (NEG/TRACE) mg/dL Urine Glucose (UA) Negative (NEGATIVE) mg/dL Assessment and Plan Assessment and Plan (1) Altered level of consciousness: (2) Chronic daily headache: (3) Major depression: Qualifiers: Major depression recurrence: recurrent Active/Remission status: in full remission Qualified Code(s): F33.42 - Major depressive disorder, recurrent, in full remission (4) ADHD: Qualifiers: Attention deficit-hyperactivity disorder type: combined inattentive- hyperactive Qualified Code(s): F90.2 - Attention-deficit hyperactivity disorder, combined type Plan Altered level of consciousness with no clear identifiable etiology. CTH - no acute finding. Back to her baseline. No infectious etiology on initial work up. No sig metabolic or electrolyte abnormality on labs. Her symptoms could have been due to abruptly stopping her medications or neurological manifestation of migraine headache. This has never happened to her before. Tele neurology consulted for their recommendation.
--- NOTE | 2024-05-31 15:25 | CM.DCFOLLOWU ---
Person spoke with:patient How are you feeling? ok still a little dizzy How is your pain?none Did you understand your discharge instructions?yes Do you have any questions about your discharge instructions?no Were you given any prescriptions at discharge?none Were you able to get your prescriptions filled?N/A Do you understand how to take your medications as ordered?yes Do you have any questions about your follow up appointment and do you plan to keep your follow up appointment? no questions, follow ups reviewed Is there anything else that you would like to discuss?none Questions/Comments/Concerns/Other: Advised to come back to ED if feeling worse
== END 2024-05-30 16:42 | disposition home or self-care (01) ==
LOC: ER 05-30 00:06 → MS 05-30 01:02
PROVIDERS: Registered Nurse; Admitting Provider Internal Medicine; Emergency Provider Emergency Medicine; PCP Family Medicine; Visit Provider Internal Medicine
DX: G47.00 Insomnia, unspecified (principal); R51.9 Headache, unspecified; F41.9 Anxiety disorder, unspecified; Z90.49 Acquired absence of other specified parts of digestive tract; Z90.710 Acquired absence of both cervix and uterus; F17.290 Nicotine dependence, other tobacco product, uncomplicated; Z79.899 Other long term (current) drug therapy; Z91.81 History of falling; F33.42 Major depressive disorder, recurrent, in full remission; F90.2 Attention-deficit hyperactivity disorder, combined type; J45.909 Unspecified asthma, uncomplicated; R42 Dizziness and giddiness
CPT/HCPCS: 36415; 70450; 80048; 80053; 80179; 80307; 80320; 80329; 81001; 82140; 83605; 83735; 85025; 87086; 87804; 94761; 96360; 96361; 99285; G0378

== ENCOUNTER 2024-06-02 15:50 | Outpatient (OUT) | payer MEDICAID, SELFPAY ==
[2024-06-02 16:18] LABS: Basophils Absolute Auto 0.1 10^3/uL (0.0-0.1); Basophils Percent Auto 0.7 % (0.2-2.0); Eosinophils Absolute Auto 0.1 10^3/uL (0.0-0.7); Eosinophils Percent Auto 1.6 % (0.9-7.0); Hematocrit 40.4 % (36.0-48.0); Hemoglobin 13.6 g/dL (12.0-16.0); Immature Granulocytes Abs Auto 0.02 10^3/uL (0.00-0.03); Immature Granulocytes Pct Auto 0.2 % (0.0-0.5); Lymphocytes Absolute Auto 2.9 10^3/uL (1.2-3.8); Lymphocytes Percent Auto 35.3 % (20.5-60.0); Mean Corpuscular HGB Conc 33.7 g/dL (29.9-35.2); Mean Corpuscular Hemoglobin 30.9 pg (26.7-34.0); Mean Corpuscular Volume 91.8 fL (81.0-99.0); Mean Platelet Volume 10.7 fL (9.5-13.5); Monocytes Absolute Auto 0.6 10^3/uL (0.3-0.8); Monocytes Percent Auto 7.1 % (1.7-12.0); Neutrophils Absolute Auto 4.5 10^3/uL (1.4-6.5); Neutrophils Percent Auto 55.1 % (43.0-75.0); Platelet Count 271 10^3/uL (150-450); Red Cell Distribution Width 11.5 % (11.0-15.0); White Blood Count 8.1 10^3/uL (4.0-11.0)
[2024-06-02 16:27] LABS: Ammonia <10 umol/L (11-32)
[2024-06-02 16:30] LABS: Estimated Average Glucose 108 mg/dL; Glycohemoglobin A1C 5.4 % (4.5-6.2)
[2024-06-02 16:32] LABS: Creatinine Urine Random 25.72 mg/dL (20.00-300.00); Microalbumin Urine Random <1.3 mg/dL (<=30.0)
[2024-06-02 16:44] LABS: Alanine Aminotransferase 36 U/L (14-59); Albumin Globulin Ratio 1.2; Albumin Level 3.8 g/dL (3.4-5.0); Alkaline Phosphatase 63 U/L (46-116); Anion Gap 11.2; Aspartate Amino Transferase 18 U/L (15-37); BUN Creatinine Ratio 11.6; Bilirubin Total 0.6 mg/dL (0.2-1.0); Carbon Dioxide 29.3 mmol/L (21.0-32.0); Chloride 103 mmol/L (98-107); Estimated GFR (African America >60 (>=60 mL/min/1.73m^2); Estimated GFR (Non-African Ame >60 (>=60 mL/min/1.73m^2); Free T3 2.17 pg/mL (2.18-3.98); Globulin 3.2 g/dL; Glucose 97 mg/dL (74-106); Magnesium 2.1 mg/dL (1.8-2.4); Potassium 3.5 mmol/L (3.5-5.1); Sodium 140 mmol/L (136-145); Thyroid Stimulating Hormone 2.013 uIU/mL (0.358-3.740)
[2024-06-02 17:52] LABS: Free T4 1.13 ng/dL (0.76-1.46)
[2024-06-04 07:10] LABS: Vitamin B12 782 pg/mL (232-1245)
== END 2024-06-02 15:51 | disposition home or self-care (01) ==
LOC: LAB 15:51
PROVIDERS: PCP Family Medicine; Visit Provider Family Medicine
DX: G93.40 Encephalopathy, unspecified (principal); R73.03 Prediabetes; E55.9 Vitamin D deficiency, unspecified
CPT/HCPCS: 36415; 80053; 82043; 82140; 82306; 82570; 82607; 82746; 83036; 83735; 84439; 84443; 84481; 85025

== ENCOUNTER 2024-07-05 11:34 | Outpatient (OUT) | payer MEDICAID, SELFPAY ==
--- OUTSIDE RECORDS SUMMARY | 2024-07-05 11:39 | XMS_ITS | CCD ---
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 Name Role Phone DR MCKAY WEEKS Primary [...] DENNISE, DR MCKAY Espinoza Primary Care Unavailable FOLEY, DR ANDREW Hopkins Consulting Unavailable DENNISE, DR MCKAY Espinoza Consulting Unavailable LORNA Velasquez Attending Provider [phone] MD Mckay Weeks Primary Care Provider [phone] MD Robert De Anda Attending Provider [phone] Robert De Anda Admitting Unavailable Robert De Anda Attending Unavailable Mckay Weeks Primary Care Unavailable Mckay Weeks MD Primary Care Provider MCKAY WEEKS Primary Care Unavailable AMADOU COOK Consulting Unavailable INPATIENT, TELENEUROLOGY Consulting Unavail able MCKAY WEEKS Referring Unavailable MCKAY WEEKS Primary Care Unavailable OTILIO MONTGOMERY Attending Unavailable BABS BHATIA Attending Unavailable BABS BHATIA Attending Unavailable LUIS SHAIKH Attending Unavailable ROBERT DE ANDA Referring Unavailable Allergies Allergy Classification Reported Allergen(s) Allergy Type Date of Onset Reaction(s) Facility (11 sources) Chlorhexidine; Translations: [CHLORHEXIDINE] Drug Allergy 9 Rash [facility] (9 sources) Chlorhexidine / Ethanol Drug Allergy 4 [facility] (2 sources) Iodinated Contrast Media Propensity to adverse reactions [facility] Medications Current Medications Medication Drug Class(es) Dates Sig (Normalized) Sig (Original) ALPRAZolam 0.5 mg oral tablet (20 sources) Benzodiazepine Start: 12-20-2023 ALPRAZolam (Xanax) 0.5 MG tablet 12/20/2023 Active Start: 08-26-2022 ALPRAZolam (Xa nax) 0.25 MG tablet 08/26/2022 Active amitriptyline hydrochloride 25 mg oral tablet (5 sources) Tricyclic Antidepressant Start: 02-11-2024 End: 02-10-2025 take 1 tablet by mouth once daily amitriptyline (Elavil) 25 MG tablet Indications: Intractable migraine without aura and without status migrainosus (CMS/HCC) Take 1 tablet (25 mg) by mouth Daily 30 tablet 2 02/11/2024 06/30/2024 Discontinued (Ineffective) Atogepant (Qulipta) 60 MG tablet (2 sources) Start: 06-30-2024 End: 06-30-2025 take 1 tablet by mouth once daily Atogepant (Qulipta) 60 MG tablet Indications: Chronic migraine without aura without status migrainosus, not intractable (CMS/HCC) Take 60 mg by mouth Daily 30 tablet 11 06/30/2024 06/30/2025 Active atomoxetine 40 mg oral capsule (7 sources) Norepinephrine Reuptake Inhibitor Start: 12-28-2023 End: 01-19-2024 atomoxetine (Strattera) 40 MG capsule 12/28/2023 01/19/2024 Discontinued (Therapy completed) Start: 08-04-2023 End: 01-19-2024 atomoxetine (Strattera) 80 M G capsule 11/15/2023 01/19/2024 Discontinued (Therapy completed) ergocalciferol 1.25 mg oral capsule (9 sources) Provitamin D2 Compound Start: 05-18-2023 ergocalciferol (Vitamin D2) 1.25 MG (22646 UT) capsule 05/18/2023 Active escitalopram 5 mg oral tablet (20 sources) Serotonin Reuptake Inhibitor Start: 01-13-2024 take 3 tablets by mouth once daily Escitalopram Oxalate (Lexapro) 5 mg tablet Active 0 PO Daily January 13, 2024 10:50am 15mg orally daily; Start: 11-10-2023 escitalopram ( Lexapro) 10 MG tablet 11/10/2023 Active Start: 11-04-2022 End: 01-13-2024 escitalopram (Lexapro) 5 MG tablet 11/04/2022 Active fexofenadine hydrochloride 180 mg oral tablet (13 sources) Histamine-1 Receptor Antagonist Start: 10-21-2022 fexofenadine (Darby) 180 MG tablet 10/21/2022 Active ibuprofen 600 mg oral tablet (12 sources) Nonsteroidal Anti-inflammatory Drug Start: 09-09-2023 IBU 600 MG tablet 09/09/2023 Active Start: 08-04-2023 take 800 mg by mouth three times daily Ibuprofen Active 800 MG PO Three times daily August 04, 2023 12:00am metFORMIN hydrochloride 500 mg oral tablet (13 sources) Biguanide Start: 08-04-2023 take 500 mg by mouth once daily Metformin Active 500 MG PO Daily August 04, 2023 12:00am take 1 tablet by abigail th every twenty-four hours metFORMIN XR (Glucophage-XR) 500 MG 24 h r tablet Oral for 90 Days Active Multiple Vitamins-Minerals (Multivitamin Adults) tablet (10 sources) Multiple Vitamins-Minerals (Multivitamin Adults) tablet Orally Active Multivitamin preparation (3 sources) Start: take 1 tablet by mouth once daily Multivitamin Active 1 TAB PO Daily August 04, 2023 12:00am 24 hr propranolol hydrochloride 60 mg extended release oral capsule (13 sources) beta-Adrenergic Bree Start: End: propranolol LA (Inderal LA) 60 MG 24 hr capsule Daily at bedtime 09/22/2023 Active rizatriptan 10 mg oral tablet (5 sources) Serotonin-1b and Serotonin-1d Receptor Agonist Start: [...] mg in 24 hours. 9 tablet 02/11/2024 Active sertraline 100 mg oral tablet (3 sources) Serotonin Reuptake Inhibitor End: sertraline (Zoloft) 100 MG tablet 1 (one) time each day at the same time. 01/19/2024 Discontinued (Therapy completed) zolpidem tartrate 10 mg oral tablet (13 sources) gamma-Aminobutyr ic Acid-ergic Agonist Start: take [...] [Postconcussional syndrome] 08-04-2023 Chronic Headache; including migraine (4 sources) Refractory migraine without aura; Translations: [Migraine without aura, intractable, without status migrainosus] 02-11-2024 Chronic Headache; including migraine (8 sources) Posttraumatic headache; Translations: [Post-traumatic headache, unspecified, not intractable] Onset: 10-23-2023 08-04-2023 Episodic Immunizations and screening for infectious disease (2 sources) Encounter for screening for human papillomavirus (HPV); Translations: [Contact with and (suspected) exposure to other viral communicable diseases] Onset: 03-19-2020 Episodic Malaise and fatigue (2 sources) Asthenia; Translations: [Weakness] 06-30-2024 Episodic Other nervous system disorders (1 source) Other chronic pain; Translations: [OTHER CHRONIC PAIN] Onset: 06-14-2020 Chronic Other upper respiratory infections (1 source) Chronic sinusitis, unspecified; Translations: [CHRONIC SINUSITIS UNSPECIFIED] Onset: 03-19-2020 Chronic Residual codes; unclassified (3 sources) Obstructive sleep apnea syndrome; Translations: [Obstructive sleep apnea (adult) (pediatric)] Onset: 02-17-2024 02-17-2024 Chronic Residual codes; unclassified (2 sources) Disturbance in sleep behavior; Translations: [Sleep disorder, unspecified] 02-11-2024 Episodic Residual codes; unclassified (1 source) Pain, unspecified; Translations: [Pain, unspecified] Onset: 05-31-2024 Episodic Residual codes; unclassified (4 sources) Transient alteration of awareness; Translations: [Transient alteration of awareness] 06-30-2024 Episodic Unclassified (1 source) Altered Mental Status at [facility] Onset: 05-30-2024 Past or Other Problems Problem Classification Problem [...] GDLNon AGE GDLN ACOG TESTING Note . [facility] Comment on above: TESTS RESULT FLAG UN ITS REF RANGE LAB Clinician Provided Cytology Information Source.............Vagina No. of containers..01 ThinPrep Vial Age Algo ACOG Peggy... FLAG LEGEND: L-Low Normal,H-High Normal,LL-Alert Low,HH-Alert High <-Panic Low,>-Panic High,A-Abnormal,AA-Critical Abnormal Performed at: 01 =G [address] [address] Sabiha Quinn MD, HPV APTIMA Negative Negative [facility] Comment on above: This nucleic acid am plification test detects fourteen high- risk HPV types (16,18,31,33,35,39,45,51,52,56,58,59,66,68) without differentiation. Performed at: =G - [address] [id number] Congressional Assistant: Sabiha Quinn MD, Phone: [phone] Performed at: - [address] [id number] Congressional Assistant: Sabiha Quinn MD, Phone: [phone] IGP, APTIMA HPV, RFX 16/18,45 Note . [facility] Comment on above: TESTS RESULT FLAG UN ITS REF RANGE LAB DIAGNOSIS: 02 NEGATIVE FOR INTRAEPITHELIAL LESION OR MALIGNANCY. Specimen adequacy: 02 Satisfactory for evaluation. Performed by: 02 Arlet Overton, Electrical Equipment Technician ([facility]) . 02 Note: Note 02 The Pap [...] Low,>-Panic High,A-Abnormal,AA-Critical Abnormal Performed at: [address] [place] [address] Sabiha Quinn MD, SPATULA-ALONE VAGINA [facility]io MR brain wo/w conon 10-23-2023 MR angio MR brain wo/w [facility] [address] [address] MRI Report Signed Patient: Luis Stewart MR#: [id number] : 1985 Acct:[id number] Age/Sex: 38 / F ADM Date: 10/23/23 Loc: MR Room: Type: [facility] Attending Dr: Robert De Anda MD Copies to: Robert De Anda MD Ordering Provider: Robert De Anda MD Date of Service: 10/23/23 MR/MR angio MR brain wo/w con: G44.309, H53.9 MRA OF THE INTRACRANIAL CIRCULATION TECHNIQUE: 3-D wsup-ev-mdtllv imaging of the match-[employer]-be-n[employer]she[employer]wish band of [place] obtained. HISTORY: Head injury. Concussion. [...] Levon Stone M.D.10/23/2023 9:16 PM Dictation Location: [place] [address] Transcribed By: [facility] 10/23/232115 Dictated By: Levon Stone DO 10/23/232102 Signed By: 10/23/232115 Normal [facility] Cytology Cervical or vaginal smear or scraping studyon 01-13-2023 [facility] PAP ACOG PANEL 2: 30 to 65on 12-28-2020 . . Normal [facility] Comment on above: Result Comment: Perf ormed at: WB Performed By: #### [id number] #### [facility] [address] [address] Tracy Pop Age Gdln ACOG Testing 30-65 Normal [facility] Comment on above: Performed By: #### [id number] #### [facility] [address] [place] [address] Tracy Pop DIAGNOSIS: Comment Normal [facility] Comment on above: Result Comment: NEGA TIVE FOR INTRAEPITHELIAL LESION OR MALIGNANCY. THIS SPECIMEN WAS RESCREENED PART OF OUR [employer] PRINCIPAL SOLUTION SPECIALIST PROGRAM. Performed at: WB Performed By: #### 4 [id number] #### [facility] [address] [place] [address] Tracy Pop HPV Aptima Negative Normal Negative [facility] Comment on above: Result Comment: This nucleic acid amplification test detects fourteen high-risk HPV types (16,18,31,33,35,39,45,51,52,56,58,59,66,68) without differentiation. Performed at: =G Performed By: #### [id number] #### [facility] [address] [place] [address] Tracy Pop Methodology: Comment Normal [facility] Comment on above: Result Comment: This liquid based ThinPrep(R) pap test was screened with the use of an image guided system. Performed at: WB Performed By: #### 4 [id number] #### [facility] [address] [place] [address] Tracy Pop Note: Comment Normal [facility] Comment on above: Result Comment: The Pap smear is a screening test designed to aid in the detection of premalignant and malignant conditions of the uterine cervix. It is not a diagnostic procedure and should not be used as the sole means of detecting cervical cancer. Both false-positive and false-negative reports do occur. . Performed at: WB Performed By: #### [id number] #### [facility] [address] [place] [address] Tracy Pop Performed by: Comment Normal [facility] Comment on above: Result Comment: Addi Barajas, Electrical Equipment Technician (ASCP) Performed at: WB Performed By: #### [id number] #### [facility] [address] [place] [address] Tracy Pop QC reviewed by: Comment Normal [facility] Comment on above: Result Comment: Aby Oliveira, Supervisory Electrical Equipment Technician (ASCP) Performed at: WB Performed By: #### 4 [id number] #### [facility] [address] [place] [address] Tracy Pop Specimen adequacy: Comment Normal [facility] Comment on above: Result Comment: Sati sfactory for evaluation. No endocervical component is identified. Performed at: WB Performed By: #### 4 [id number] #### [facility] [address] [place] [address] Tracy Pop CHLAMYDIA/GONOCOCCUS ANTONIO (SW AB/URINE/PAPon 12-26-2020 Chlamydia trachomatis, ANTONIO Negative Normal Negative [facility] Comment on above: Performed By: #### C T/NGNA #### [facility] [address] [place] [address] Tracy Pop Neisseria gonorrhoeae, ANTONIO Negative Normal Negative [facility] Comment on above: Performed By: #### C T/NGNA #### [facility] [address] [place] [address] Tracy Pop VAGINITIS/VAGINOSIS DNA PROB Boris 12-26-2020 Cheryl species Negative Normal Negative [facility] Comment on above: Performed By: #### V AGINT ####[facility] [address] [place] [address] Kiesha Gardnerella vaginalis Negative Normal Negative [facility] Comment on above: Performed By: #### V AGINT ####[facility] [address] [place] [address] Kiesha Trichomonas vaginalis Negative Normal Negative [facility] Comment on above: Performed By: #### V AGINT ####[facility] [address] [place], [place] [address]Gerken Kiesha XR LSPINE 2_3 VIEWSon 2020 XR [...] ANDREW BLUM Date: 2020-06-06 09:25 Normal [facility] COVID-19 PCRon 03-17-2020 SARS-CoV-2 (COVID-19) RNA ANTONIO+probe Ql (Unsp spec) Not detected Normal Not Detected [facility] Comment on above: Result Comment: This nucleic acid amplification test was developed and its performance characteristics determined by [employer]. Nucleic acid amplification tests include PCR and [...] Performed By: #### C VDPCR, CVDSTAT #### [facility] [address] [place], [place] [id number] Tracy Pop PRIORITY COVID PROCESSINGon 03-17-2020 Comment Comment Normal [facility] Comment on above: Result Comment: Rece ived Performed By: #### C VDPCR, CVDSTAT #### [facility] [address] [place], [place] [id number] Tracy Pop CBC AUTO DIFFon 03-15-2020 BASO # 0.1 103/ul Normal 0.0-0.1 [facility] Comment on above: Performed By: #### C BC #### [facility] [address] [place], [place] [address] Tracy Pop Basophils/100 WBC (Bld) 0.8 % Normal 0.2-2.0 [facility] Comment on above: Performed By: #### C BC #### [facility] [address] [place] [address] Tracy Kiesha EO # 0.3 103/ul Normal 0.0-0.7 [facility] Comment on above: Performed By: #### C BC #### [facility] [address] [place] [address] Tracy Kiesha Eosinophils/100 WBC (Bld) 3.8 % Normal 0.9-7.0 [facility] Comment on above: Performed By: #### C BC #### [facility] [address] [place] [address] Tracy Kiesha Erythrocyte distribution width (RBC) [Ratio] 11.7 % Normal 11.0-15.0 [facility] Comment on above: Performed By: #### C BC #### [facility] [address] [place] [address] Tracy Kiesha Hematocrit (Bld) [Volume fraction] 39.6 % Normal 36.0-48.0 [facility] Comment on above: Performed By: #### C BC #### [facility] [address] [place] [address] Tracy Kiesha Hemoglobin (Bld) [Mass/Vol] 13.0 g/dL Normal 12.0-16.0 [facility] Comment on above: Performed By: #### C BC #### [facility] [address] [place] [address] Tracy Kiesha IG # 0.03 10e3/ul Normal 0.00-0.03 [facility] Comment on above: Performed By: #### C BC #### [facility] [address] [place] [address] Tracy Kiesha IG % 0.4 % Normal 0.0-0.5 [facility] Comment on above: Performed By: #### C BC #### [facility] [address] [place] [address] Tracy Kiesha LYMPH # 3.5 103/ul Normal 1.2-3.8 [facility] Comment on above: Performed By: #### C BC #### [facility] [address] [place] [address] Tracy Kiesha Lymphocytes/100 WBC (Bld) 41.5 % Normal 20.5-60.0 [facility] Comment on above: Performed By: #### C BC #### [facility] [address] [place] [address] Tracy Kiesha MANUAL DIFF REQ NO Normal [facility] Comment on above: Performed By: #### C BC #### [facility] [address] [place], [place] [address] Tracy Kiesha MCH (RBC) [Entitic mass] 31.0 pg Normal 26.7-34.0 [facility] Comment on above: Performed By: #### C BC #### [facility] [address] [place], [place] [address] Tracy Kiesha MCHC (RBC) [Mass/Vol] 32.8 g/dL Normal 29.9-35.2 [facility] Comment on above: Performed By: #### C BC #### [facility] [address] [place], [place] [address] Tracy Kiesha MCV (RBC) [Entitic vol] 94.5 fL Normal 81.0-99.0 [facility] Comment on above: Performed By: #### C BC #### [facility] [address] [place], [place] [address] Tracy Kiesha MONO # 0.7 103/ul Normal 0.3-0.8 [facility] Comment on above: Performed By: #### C BC #### [facility] [address] [place], [place] [address] Tracy Kiesha Monocytes/100 WBC (Bld) 7.8 % Normal 1.7-12.0 [facility] Comment on above: Performed By: #### C BC #### [facility] [address] [place], [place] [address] Tracy Kiesha NEUT # 3.9 103/ul Normal 1.4-6.5 [facility] Comment on above: Performed By: #### C BC #### [facility] [address] [place], [place] [address] Tracyramona Pop Neutrophils/100 WBC (Bld) 45.7 % Normal 43.0-75.0 [facility] Comment on above: Performed By: #### C BC #### [facility] [address] [place], [place] [address] Tracyramona Pop Platelet mean volume (Bld) [Entitic vol] 11.1 fL Normal 9.5-13.5 [facility] Comment on above: Performed By: #### C BC #### [facility] [address] [place], [place] [address] Tracy Kiesha PLT 226 103/ul Normal 150-450 [facility] Comment on above: Performed By: #### C BC #### [facility] [address] [place], [place] [address] Tracy Kiesha RBC 4.19 106/ul Critically low 4.20-5.40 [facility] Comment on above: Performed By: #### C BC #### [facility] [address] [id number] Tracy Kiesha WBC 8.4 103/ul Normal 4.0-11.0 [facility] Comment on above: Performed By: #### C BC #### [facility] [address] [place], [place] [address] Tracy Pop PROF 14(COMP METB)on 020 Albumin [Mass/Vol] 3.9 g/dL Normal 3.5-5.0 [facility] Comment on above: Performed By: #### C MP #### [facility] [address] [place] [address] Tracy Kiesha Albumin/Globulin [Mass ratio] 1.2 {ratio} Normal [facility] Comment on above: Performed By: #### C MP #### [facility] [address] [place], [place] [address] Tracy Kiesha ALP [Catalytic activity/Vol] 63 U/L Normal 38-126 [facility] Comment on above: Performed By: #### C MP #### [facility] [address] [place], [place] [address] Tracy Kiesha ALT [Catalytic activity/Vol] 29 U/L Normal 9-52 [facility] Comment on above: Performed By: #### C MP #### [facility] [address] [place], [place] [address] Tracy Kiesha Anion gap [Moles/Vol] 9.1 mmol/L Normal [facility] Comment on above: Performed By: #### C MP #### [facility] [address] [place] [address] Tracy Kiesha AST [Catalytic activity/Vol] 16 U/L Normal 14-36 [facility] Comment on above: Performed By: #### C MP #### [facility] [address] [place] [address] Trcay Kiesha Bilirubin [Mass/Vol] 0.3 mg/dL Normal 0.2-1.3 [facility] Comment on above: Performed By: #### C MP #### [facility] [address] [place] [address] Tracy Kiesha Calcium [Mass/Vol] 9.2 mg/dL Normal 8.4-10.2 [facility] Comment on above: Performed By: #### C MP #### [facility] [address] [place] [address] Tracy Kiesha Chloride [Moles/Vol] 103 mmol/L Normal 98-107 [facility] Comment on above: Performed By: #### C MP #### [facility] [address] [place] [address] Tracy Kiesha CO2 [Moles/Vol] 28.1 mmol/L Normal 22.0-30.0 [facility] Comment on above: Performed By: #### C MP #### [facility] [address] [place], [place] [address] Tracy Kiesha Creatinine [Mass/Vol] 0.60 mg/dL Normal 0.52-1.04 [facility] Comment on above: Performed By: #### C MP #### [facility] [address] [place], [place] [address] Tracy Kiesha EGFR-AF CITIZEN OF [place] >60 Normal >=60 [facility] Comment on above: Performed By: #### C MP #### [facility] [address] [place], [place] [address] Tracy Kiesha EGFR-NON AF CITIZEN OF [place] >60 Normal >=60 [facility] Comment on above: Performed By: #### C MP #### [facility] [address] [place], [place] [address] Tracy Kiesha Globulin (S) [Mass/Vol] 3.3 g/dL Normal [facility] Comment on above: Performed By: #### C MP #### [facility] [address] [id number] Tracy Kiesha Glucose [Mass/Vol] 97 mg/dL Normal 74-106 [facility] Comment on above: Performed By: #### C MP #### [facility] [address] [id number] Tracy Kiesha Potassium [Moles/Vol] 4.2 mmol/L Normal 3.4-5.0 [facility] Comment on above: Performed By: #### C MP #### [facility] [address] [id number] Tracy Kiesha Protein [Mass/Vol] 7.2 g/dL Normal 6.1-8.2 [facility] Comment on above: Performed By: #### C MP #### [facility] [address] [place], [place] [address] Tracy Kiesha Sodium [Moles/Vol] 136 mmol/L Critically low 137-145 [facility] Comment on above: Performed By: #### C MP #### [facility] [address] [id number] Tracy Kiesha Urea nitrogen [Mass/Vol] 9.0 mg/dL Normal 7.0-17.0 [facility] Comment on above: Performed By: #### C MP #### [facility] [address] [place], [place] [address] Tracy Kiesha Urea nitrogen/Creatinin e [Mass ratio] 15.0 mg/mg Normal [facility] Comment on above: Performed By: #### C MP #### [facility] [address] [place] [address] Tracy Pop TROPONIN - Ion 03-15-2020 TROP <0.012 Normal <=0.034 [facility] Comment on above: Performed By: #### T ROP #### [facility] [address] [place] [address] Tracy Pop TROPONIN RANGE SEE BELOW Normal [facility] Comment on above: Result Comment: <0.0 34 ng/ml NEGATIVE 0.034-0.119 INDETERMINATE 0.120 AMI CUT OFF Performed By: #### T ROP #### [facility] [address] [place] [address] Tracy Pop INFLUENZA A AND B AGon 03-14 INFLUANEGH SEE BELOW Normal [facility] Comment on above: Result Comment: Nega tive for Flu A protein angiten. Infection due to Flu A cannot be ruled out. Flu A angiten in the sample may be below the detection limit of the test. Performed By: #### I NFLUAB #### [facility] [address] [place] [address] Tracy Pop INFLUBNEGH SEE BELOW Normal [facility] Comment on above: Result Comment: Nega tive for Flu B protein antigen. Infection due to Flu B cannot be ruled out. Flu B antigen in the sample may be below the detection limit of the test. Performed By: #### I NFLUAB #### [facility] [address] [place] [address] Tracy Pop INFLUENZA A AG Negative Normal NEGATIVE SEE COMMENT [facility] Comment on above: Performed By: #### I NFLUAB #### [facility] [address] [place] [address] Tracy Pop INFLUENZA B AG Negative Normal NEGATIVE SEE COMMENT [facility] Comment on above: Performed By: #### I NFLUAB #### [facility] [address] [place] [address] Tracy Pop INTERNAL CONTROLS Within Normal Limits Normal Wi thin Normal Limits [facility] Comment on above: Performed By: #### I NFLUAB #### [facility] [address] [place] [address] Tracy Pop Vital Signs Date Time Vital Sign Value Performing Clinician Tono preciado 06-30-2024 09:30-0500 Body mass index (BMI) [Ratio] 42.29 kg/m2 Christopher Ulises DO Work Phone: [facility] 06-30-2024 09:30-0500 Body weight 104.87 kg Christopher Ulises DO Work Phone: [facility] 06-30-2024 09:30-0500 Diastolic blood pressure 74 mm[Hg] Christopher Ulises DO Work Phone: [facility] 06-30-2024 09:30-0500 Heart rate 78 /min Christopher Ulises DO Work Phone: [facility] 06-30-2024 09:30-0500 SaO2% (BldA) [Mass fraction] 94 % [facility] Work Phone: [facility] 06-30-2024 09:30-0500 Systolic blood pressure 128 mm[Hg] Christopher Ulises DO Work Phone: [facility] 02-11-2024 13:04-0400 Body height 157.5 cm Luis Nicholas DO Work Phone: [facility] 02-11-2024 13:04-0400 Body mass index (BMI) [Ratio] 38.41 kg/m2 Luis Nicholas DO Work Phone: [facility] 02-11-2024 13:04-0400 Body weight 95.25 kg Luis Nicholas DO Work Phone: [facility] 02-11-2024 13:04-0400 Diastolic blood pressure 72 mm[Hg] Luis Nicholas DO Work Phone: [facility] 02-11-2024 13:04-0400 Heart rate 69 /min Luis Nicholas DO Work Phone: [facility] 02-11-2024 13:04-0400 SaO2% (BldA) [Mass fraction] 99 % Luis Nicholas DO Work Phone: [facility] 02-11-2024 13:04-0400 Systolic blood pressure 108 mm[Hg] Luis Shaikh DO Work Phone: [facility] 01-19-2024 11:13-0400 Body mass index (BMI) [Ratio] 41.88 kg/m2 Babs Jannette DO Work Phone: [facility] 01-19-2024 11:13-0400 Body weight 103.87 kg Babs Jannette DO Work Phone: [facility] 01-19-2024 11:13-0400 Diastolic blood pressure 72 mm[Hg] Babs Jannette DO Work Phone: [facility] 01-19-2024 11:13-0400 Systolic blood pressure 122 mm[Hg] Babs Jannette DO Work Phone: [facility] 01-13-2024 10:51-0400 Body height 157.48 cm MD Mckay Weeks Work Phone: [facility] 01-13-2024 10:51-0400 Body mass index (BMI) [Ratio] 38.4 kg/m2 MD Mckay Weeks Work Phone: [facility] 01-13-2024 10:51-0400 Body weight 95.25 kg MD Mckay Weeks Work Phone: [facility] 01-13-2024 10:51-0400 Diastolic blood pressure 64 mm[Hg] MD Mckay Weeks Work Phone: [facility] 01-13-2024 10:51-0400 Heart rate 71 /min MD Mckay Weeks Work Phone: [facility] 01-13-2024 10:51-0400 SaO2% (BldA) [Mass fraction] 97 % MD Mckay Weeks Work Phone: [facility] 01-13-2024 10:51-0400 Systolic blood pressure 112 mm[Hg] MD Mckay Weeks Work Phone: [facility] 09-22-2023 13:20-0400 Diastolic blood pressure 90 mm[Hg] MD Mckay Weeks Work Phone: [facility] 09-22-2023 13:20-0400 Systolic blood pressure 130 mm[Hg] MD Mckay Weeks Work Phone: [facility] 08-04-2023 13:24-0400 Diastolic blood pressure 70 mm[Hg] [facility] 08-04-2023 13:24-0400 Heart rate 95 /min [facility] 08-04-2023 13:24-0400 SaO2% (BldA) [Mass fraction] 98 % [facility] 08-04-2023 13:24-0400 Systolic blood pressure 110 mm[Hg] [facility] Encounters Encounter Date Encounter Type Care Provider Facility Start: 06-30-2024 End: 06-30-2024 Bamboo flowsheet Otilio Montgomery DO Work Phone: [facility] Start: 06-30-2024 End: 06-30-2024 Bamboo flowsheet Otilio Montgomery DO Work Phone: [facility] Start: 06-30-2024 End: 06-30-2024 Office outpatient visit 25 minutes Otilio Montgomery DO Work Phone: [facility] Comment on above: Transient alteration of awareness (Primary Dx); Chronic migraine without aura without status migrainosus, not intractable (CMS/[facility]); Weakness Start: 06-30-2024 End: 06-30-2024 ambulatory OTILIO MONTGOMERY Not Available Start: 05-31-2024 ambulatory [facility] Start: 05-30-2024 End: 06-02-2024 Emergency department patient visit [facility] Start: 02-11-2024 End: 02-11-2024 Bamboo flowsheet Luis Shaikh DO Work Phone: [facility] Start: 02-11-2024 End: 02-11-2024 Bamboo flowsheet Luis Shaikh DO Work Phone: [facility] [place] [facility] Start: 02-11-2024 End: 02-11-2024 Office consultation new/estab patient 60 min Luis Shaikh DO Work Phone: [facility] [place] [facility] Comment on above: Intractable migraine without aura and without status migrainosus (CMS/HCC) (Primary Dx); Post concussion syndrome; Dizziness; Sleep disturbance Start: 02-11-2024 End: 02-11-2024 ambulatory LUIS SHAIKH Not Available Start: 01-19-2024 End: 01-19-2024 Bamboo flowsheet Babs Jannette DO Work Phone: [facility] Start: 01-19-2024 End: 01-23-2024 Clinisync Result Encounter Babs Jannette DO Work Phone: [facility] Unsolicited Start: 01-19-2024 End: 01-23-2024 Clinisync Result Encounter Babs Jannette DO Work Phone: [facility] Unsolicited Start: 01-19-2024 End: 01-19-2024 Patient encounter procedure Babs Jannette DO Work Phone: [facility] Start: 01-19-2024 End: 01-19-2024 Periodic preventive med est patient 18-39 yrs Babs Jannette DO Work Phone: [facility] Comment on above: Well woman exam with routine gynecological exam; H/O: hysterectomy; Pelvic pain in female Start: 01-19-2024 End: 01-19-2024 ambulatory BABS JANNETTE Not Available Start: 01-13-2024 End: 01-13-2024 ambulatory MD Mckay Weeks Work Phone: [facility] Work Phone: Start: 01-13-2024 End: 01-13-2024 Patient encounter procedure MD Mckay Weeks Work Phone: [facility] Work Phone: Start: 10-23-2023 End: 10-23-2023 Patient encounter procedure MD Mckay Weeks Work Phone: [facility] Work Phone: Start: 10-23-2023 End: 10-23-2023 ambulatory MD Mckay Weeks Work Phone: [facility] Work Phone: Start: 09-22-2023 End: 09-22-2023 Patient encounter procedure MD Mckay Weeks Work Phone: [facility] Work Phone: Start: 08-04-2023 End: 08-04-2023 ambulatory [facility] Work Phone: Start: 08-04-2023 End: 08-04-2023 Patient encounter procedure [facility] Work Phone: Start: 07-07-2023 End: 07-07-2023 ambulatory BABS BHATIA Not Available Start: 12-20-2021 End: 12-20-2021 Patient encounter procedure LORNA Amanda Velasquez Work Phone: [facility] Start: 01-08-2021 Encounter for gynecological examination (general) (routine) without abnormal findings DR BABS BHATIA [facility] Start: 12-24-2020 End: 12-24-[address] BABS [...] Phone: Start: 12-20-2021 X-ray of left foot LOAN REVIEW ANALYST Amanda Velasquez Work Phone: H/O: hysterectomy H/O: hysterectomy Babs Bhatia [facility] Work Phone: Plan of Treatment Date Care Activity Detail Author Start: 01-19-2025 End: 01-19-2025 Patient encounter procedure 01/19/2025 11:00 AM EDT Office Visit [facility] [address] [place] [address] Babs Bhatia, DO [address] [place], [place] [id number] [facility] Start: 07-11-2024 End: 07-11-2024 Patient encounter procedure 07/11/2024 10:00 AM EST Office Visit [facility] [address] [place] [phone] Carlton Messina, PhD [address] [place] [place] [id number] [facility] Start: 06-30-2024 End: 06-30-2025 Creatine kinase [Enzymatic activity/volume] in Serum or Plasma CK Lab Routine Weakness Expected: 06/30/2024 (Approximate), Expires: 06/30/2025 [facility] Work Phone: Comment on above: Expected: 06/30/2024 (Approximate), Expires: 06/30/2025 Start: 06-30-2024 End: 06-30-2025 Myoglobin, serum Myoglobin, serum Lab Routine Weakness Expected: 06/30/2024 (Approximate), Expires: 06/30/2025 [facility] Comment on above: Expected: 06/30/2024 (Approximate), Expires: 06/30/2025 Start: 06-30-2024 End: 06-30-2025 Nuclear Ab [Titer] in Serum by Immunofluorescence [facility] Lab Routine Weakness Expected: 06/30/2024 (Approximate), Expires: 06/30/2025 [facility] Comment on above: Expected: 06/30/2024 (Approximate), Expires: 06/30/2025 Start: 06-30-2024 End: 06-30-2024 Patient encounter procedure 06/30/2024 9:30 AM EST Office Visit [facility] [address] [address] [place] [phone] Otilio Montgomery, DO [address] [place], [place] [id number] Arrived [facility] Comment on above: Arrived Start: 02-29-2024 End: 02-29-2024 Patient encounter procedure 02/29/2024 9:20 AM EDT Office Visit [facility] [place] [address] [place] [phone] Tanna Christiansen, CASE HARDENER [address] [place], [place] [facility] [place] [address] [facility] Start: 02-11-2024 End: 02-11-2024 Patient encounter procedure 02/11/2024 1:15 PM EDT Office Visit [facility] [place] [address] [place] [phone] Luis Shaikh, DO [address] [place], [place] [id number] Arrived [facility] [place] [address] [facility] Comment on above: Arrived Start: 01-19-2024 End: 01-18-2025 US for US PELVIS-TRANSVAG IF INDICATED Imaging Routine Pelvic pain in female Expected: 01/19/2024 (Approximate), Expires: 01/18/2025 [facility] Comment on above: Expected: 01/19/2024 (Approximate), Expires: 01/18/2025 Start: 01-19-2024 End: 01-19-2024 Patient encounter procedure 01/19/2024 11:00 AM EDT Office Visit [facility] [address] [place] [address] Babs Bhatia DO [address] [place] [address] Arrived [facility] Comment on above: Arrived Start: 01-13-2024 Patient referral [facility] Work Phone: Cytology Cervical or vaginal smear or scraping study Pap Smear Pathology and Cytology Routine Well woman exam with routine gynecological exam Ordered: 01/19/2024 [facility] Work Phone: Comment on above: Ordered: 01/19/2024 Human papilloma viru s DNA [Presence] in Unspecified specimen by Probe with amplification HPV DNA probe, amplified Microbiology Routine Well woman exam with routine gynecological exam Ordered: 01/19/2024 [facility] Comment on above: Ordered: 01/19/2024 MRA Head vessels W c ontrast IV [facility] MRA Head vessels WO contrast [facility] Patient referral [facility] Work Phone: Payers Date Payer Category Payer Self-pay 2022 Medicaid [id number] 2022 Medicaid [id number] 1986 Unknown [id number] 2.16.84 [id number] 1986 Unknown [id number] 2.16.84 [id number] 1986 Unknown [id number] 2.16.84 [id number] 1986 Unknown [id number] 2.16. [id number] 1986 Unknown [id number] 2.16. [id number] 1986 Unknown [id number] 2.16.84 [id number] 1986 Unknown [id number] 2.16.84 [id number] 1986 Unknown [id number] 2.16.84 [id number] 1986 Unknown [id number] 2.16.84 [id number] 1959 Unknown [id number] Unknown [id number] 2.16.8 [id number] Social History Date Type Detail Facility Tobacco smoking stat [facility] Unknown if ever smoked [facility] Work Phone: Start: 1985 Sex Assigned At Female [facility] Start: 05-17-2018 Tobacco smoking status WIIS Smoker (finding) [facility] Tobacco smoking stat [facility] Tobacco smoking consumption unknown [facility] Start: 02-10-2023 Gender identity Identifies as female gender (finding) [facility] Start: 02-10-2023 Sexual orientation Heterosexual (finding) [facility] Medical Equipment Procedure Code Equipment Code Equipment Origin al Text Equipment Identifier Dates Start: 02-03-2023 Clinical Notes 03-15-2020 to 06-30-2024 Otilio Montgomery, - 06/30/2024 9:30 AM Lori Shaikh DO - 02/11/2024 1:15 PM Zelalem Fair LPN - 01/19/2024 11:00 AM EDT Note Date & Type Note Facility 06-30-2024 History of Present illness Narrative Images from the original note were not included. Chief Complaint: headaches Subjective Luis Stewart, 39 y.o., female Patient presents today for a ELIDIA for migraines. She was started on rizatriptan and amitriptyline neither of which were helpful. She has 3-5 migraines weekly currently. She also reports a daily headache. May 27 she took her son to school and came home and felt tired. She states she does not remember 3 days after this. She does not remember going to the hospital on Thursday. She was slurring her words, not making sense and did not seem herself her friend states. The patient states in Jun 2023 she [...] few seconds to 45 minutes. She has light and sound sensitivity. She denies any vision changes. She states [...] She may get one or two year. Review of Systems Constitutional: Positive for fatigue. Negative for diaphoresis and fever. Respiratory: Positive for shortness of breath. Cardiovascular: Positive for chest pain and palpitations. Gastrointestinal: Positive for nausea. Negative for abdominal pain and vomiting. Musculoskeletal: Positive for back pain. Negative for neck pain. Neurological: Positive for dizziness, syncope, weakness, light-headedness and headaches. Psychiatric/Behavioral: Positive for confusion. Past Medical History: Diagnosis Date Amenorrhea Anxiety and depression ([facility]/HCC) Anxiety with depression Asthma ([facility]) Tobacco use Past Surgical History: Procedure Laterality Date SECTION, LOW TRANSVERSE 04/13/2017 SECTION, LOW TRANSVERSE 01/17/2019 SECTION, LOW TRANSVERSE 02/05/2011 LAPAROSCOPY DIAGNOSTIC / BIOPSY / ASPIRATION / LYSIS 03/13/2023 lysis of omental adhesion OTHER SURGICAL HISTORY 2009 Miscarriage PARTIAL HYSTERECTOMY 01/17/2019 supracervical NM LAP,CHOLECYSTECTOMY 2010 Family History Problem Relation Name [...] on file Allergies: Chlorhexidine gluconate and Chlorhexidine Vitals: 06/30/24 0930 BP: 128/74 Pulse: 78 SpO2: 94% Body mass index is 42.29 kg/m . weight: 231 lb 3.2 oz Neurologic exam: Mental status: Awake, alert to person, place and time. Recent and remote memory are intact. Language is fluent without aphasia. Attention and concentration are normal. Fund of knowledge is appropriate for level of education. Cranial nerves: CN II: Visual acuity is normal. Visual lainez full to confrontation. CN III, IV, : pupils equal round and reactive to light. Extraocular movements intact. No ptosis present. CN V: Facial sensation is normal. CN VII: Full and symmetric facial movement. CN VIII: Hearing is normal to finger rub bilaterally: CN IX and X: Palate elevates symmetrically. CN XI: Shoulder shrug is normal bilaterally. CN XII: Tongue is midline without atrophy or fasciculation. Motor: RUE Strength deltoid, , biceps , triceps , wrist extensors , wrist flexor , efficiency manager strength 5/5. LUE Strength deltoid , biceps , triceps , wrist extensors , wrist flexor , efficiency manager strength 5/5. RLE Strength illopsoas, quadriceps, tibialis anterior, and gastrocnemius strength 5/5. LLE Strength illopsoas, quadriceps, tibialis anterior, and gastrocnemius strength 5/5. Normal tone x4 extremities. Bulk is normal. Some functional features noted during strength testing Sensory: Sensation is intact to light touch throughout Four extremities. Reflexes: RUE biceps reflex 2+ brachioradialis reflex 2+ . LUE biceps reflex 2+ brachioradialis reflex 2+ . RLE knee reflex 2+ . LLE knee reflex 2+ . Rm's sign negative. Coordination: [id number]-mp-[id number] testing and rapid alternating movements are normal. Gait: Normal Review and summary of old records: I have reviewed the patient's Emergency Department at [place] and the recent hospitalization and workup including workup for encephalopathic, toxic and intracranial process. These were all unremarkable. The patient was accompanied by her brother who indicated approximately an hour and a half prior to her arrival she had taken her daily medications and wondered if she had perhaps taken more medications on accident then were prescribed. CT of the brain without contrast on 05/29/2024: Unremarkable MRI of the brain with and without contrast and MR angiogram of the head: Unremarkable Assessment/Plan Diagnoses and all orders for this visit: Transient alteration of awareness The patient seems to have a recent episode of transient alteration of awareness with slurred speech and altered mental status. She had an extensive evaluation including laboratory evaluation, MRI of the brain, MR angiogram of the head and follow up CT of the brain in the emergency department in a visit thereafter all of which were unremarkable. There was question as to whether or not she may have taken inappropriate dosing of medications which may have led to this process according to her brother who accompanied her to the emergency department on May 29, 2024. The patient was previously seen by us and was prescribed amitriptyline and rizatriptan in addition to previously prescribed propranolol for chronic migraine and patient did stop these. Plan: Routine EEG to assess for any epileptiform abnormalities which may account for the patient's symptoms. EEG is planned pending at [place] [facility] testing. I wonder if there is a psychiatric component to the patient's complaints and this may help determine this etiology. Chronic migraine without aura without status migrainosus, not intractable (CMS/HCC) Patient does have a history of chronic migraine. She gets approximately 20 headache days per month. She has failed propranolol and amitriptyline from a preventative perspective. MRI, MR angiogram and CT, as stated above, are unremarkable. Patient does have coexistent anxiety which likely plays a role in this as well. Plan: Start Qulipta 60mg po daily. Side effects discussed in detail and patient understands and wishes to proceed. Weakness The patient also has complaints of weakness. This does not seem to follow any particular pattern. It seems to be generalized. Certainly this could be related to a widespread generalized process such as muscle or nerve disease. We will begin evaluation for this. Plan: Check CK, myoglobin and antinuclear antibody with reflex If these are unremarkable I would suggest EMG of the right upper and lower extremity to assess for further pathology as well I would also suggest consideration of physical therapy The patient was accompanied by her duordt-hw-him today who provided additional history and was agreeable to the plan. Pt has been fully educated on their diagnosis, lab results, treatment options, follow up plan, and return instructions documented in this encounter [facility] 02-11-2024 History of Present illness Narrative Images from the original note [...] one or two year. She went to [place] ED and they gave her Dr. 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 Regardless he sent her over here. The [...] clinic: 6 weeks documented in this encounter [facility] 01-19-2024 History of Present illness Narrative Reason for Appointment: Patient ID: Laurie Stewart is a 38 y.o. female who presents for Gynecologic Exam Patient presents today for Annual Exam. MEDICATIONS Current Outpatient Medications Medication Instructions ALPRAZolam (Xanax) 0.25 MG tablet ALPRAZolam (Xanax) 0.5 MG tablet ergocalciferol (Vitamin D2) 1.25 MG (27058 UT) capsule escitalopram (Lexapro) 10 MG tablet [...] HISTORY 2009 Miscarriage PARTIAL HYSTERECTOMY 01/17/2019 supracervical NM LAP,CHOLECYSTECTOMY 2010 REVIEW OF SYSTEMS Review of [...] nursing note reviewed. Exam conducted with a pig farmer present. Vitals: Estimated body mass index is [...] Babs Bhatia DO documented in this encounter [facility] 03-15-2020 Note PROCEDURE: XR CHEST 1 V [...] authenticated by: ERROL TIM Date: 2020-03-14 22:34 [facility] Evaluation note No assessment inform ation available [facility] Work Phone: Evaluation note Diagnosis Onset Date ADHD acute Anxiety and depression acute Headache, post-traumatic acu te Post concussion syndrome acu te [facility] Work Phone: Evaluation note* Diagnosis Onset Date Resolution Status ADHD acute Anxiety and depression acute Headache, post-traumatic acu te Post concussion syndrome acu te ADHD acute Anxiety and depression acute Headache, post-traumatic acu te Post concussion syndrome acu te [facility] Work Phone: Evaluation note* Diagnosis Onset Date Resolution Status Headache, post-traumatic acu te [facility] Work Phone: Evaluation note* Diagnosis Intractable migraine without aura and without status migrainosus (CMS/HCC)- Primary Post concussion syndrome Postconcussion syndrome Dizziness Dizziness and giddiness Sleep disturbance Unspecified sleep disturbance [facility] Well woman exam with routine gynecological exam Routine gynecological examination H/O: hysterectomy Acquired absence of both cervix and uterus Pelvic pain in female Unspecified symptom associated with female genital organs documented in this encounter [facility] Diagnosis Transient alteration of awareness- Primary Chronic migraine without aura without status migrainosus, not intractable (CMS/HCC) Weakness Other malaise and fatigue documented in this encounter [facility] Orders* Referral to Neurology Time Frame: 01/13/24, Location: None [facility] Work Phone: Summary Purpose Family History No Family History Records Found Relationship Condition Age at Onset Recorded Date/T gunnar father Unknown Not Specified Diabetes mellitus Unknown Unknown Relationship Condition Age at Onset Recorded Date/T gunnar father Unknown mother Diabetes mellitus Unknown Unknown Advance Directives No Advanced Directives Records Found Advance Directive Response Recorded Date/ Time Advance [...] and content) DATE CREATED AUTHOR 01/09/2021 [facility] DATE CREATED AUTHOR AUTHOR'S ORGANIZ ATION 11/01/2023 [facility] DATE CREATED AUTHOR AUTHOR'S ORGANIZ ATION 06/04/2024 [facility] DATE CREATED AUTHOR AUTHOR'S ORGANIZ ATION 07/02/2024 [facility] EPIC Care Teams (unrecognized sec tion and content) [...] January 13, 2024 End: January 13, 2024 Buy Boat 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 Relationship Specialty Start Date End Date Mckay Weeks MD [address] [place] [address] PCP - General Family Medicine 11/20/22 Buy Boat Operator Relationship Specialty Start Date End Date Mckay Weeks MD [address] [place] [address] PCP - General Family Medicine 11/20/22 Buy Boat Operator Relationship Specialty Start Date End Date Mckay Weeks MD [address] [place] [address] PCP - General Family Medicine 11/20/22 Buy Boat Operator Relationship Specialty Start Date End Date Mckay Weeks MD [address] [place] [address] PCP - General Family Medicine 11/20/22 Buy Boat Operator Relationship Specialty Start Date End Date Mckay Weeks MD [address] [place] [address] PCP - General Family Medicine 11/20/22 Buy Boat Operator Relationship Specialty Start Date End Date Mckay Weeks MD [address] [place] [address] PCP - General Family Medicine 11/20/22 Goals [...] BE BASED ON THE PRIMARY CLINICAL RECORDS. [employer] [facility] [facility] provides no warranty or guarantee of the accuracy or completeness of information in this document.
[2024-07-05 12:52] LABS: Creatine Kinase 37 U/L (26-192); Myoglobin 20 ng/mL (9-82)
[2024-07-07 12:08] LABS: Antinuclear Antibodies, IFA Positive (.)
== END 2024-07-05 11:35 | disposition home or self-care (01) ==
PROVIDERS: PCP Family Medicine; Visit Provider Psychiatry & Neurology Neurology
DX: R53.1 Weakness (principal)
CPT/HCPCS: 36415; 82550; 83874; 86038

== ENCOUNTER 2024-07-08 07:56 | Outpatient (OUT) | payer MEDICAID, SELFPAY ==
--- NOTE | 2024-07-08 08:14 | MR_ITS ---
[address] [address] Patient Name: LUIS LOVELACE MRN: [id number] date: 1985 Sex: F Assigned Patient Location: CARD Current Patient Location: CARD Accession/Order Number: [id number] Exam Date: 07/08/2024 16:16 Report Date: 07/08/2024 16:22 At the request of: SELVIN SOLORZANO DO Procedure: MR head/brain wo/w con MR head/brain wo/w con 07/08/2024 10:43 AM SIGN AND SYMPTOMS: ^Migraine Without Aura G43.009 PROTOCOL: Multiplanar multisequence MR images of the brain were obtained with and without IV contrast CONTRAST: 20 mL of intravenous Dotarem COMPARISON: 05/29/2024 FINDINGS: Extra axial spaces: Age appropriate. Hemorrhage: None. Ventricular system: Within normal limits. Basal cisterns: Within normal limits and not effaced. Cerebral parenchyma: Normal in signal. Midline shift: None.. Cerebellum: There is 8 mm of downward displacement of the cerebellar tonsils. This is consistent with a mild Chiari I malformation. This is more notable on the left. Brainstem: Within normal limits. OTHER: Calvarium: Normal marrow signal. Vascular system: Satisfactory flow voids within the anterior and posterior circulation. Visualized Paranasal sinuses: Mild mucosal thickening is noted in the maxillary sinuses. Visualized Orbits: Within normal limits. Visualized upper cervical spine: Within normal limits. Sella and skull base: Within normal limits. MR/MR head/brain wo/w con IMPRESSION: No acute intracranial pathology or abnormal postcontrast enhancement. There is 8 mm of downward displacement of the cerebellar tonsils. This is consistent with a mild Chiari I malformation. This is more notable on the left. Mild mucosal thickening is noted in the maxillary sinuses. Impression dictated by: Edward Yeager M.D.07/08/2024 4:22 PM Dictation Location: [place] [address] Electronically authenticated by: [id number] Y Date: 07/08/2024 16:22
== END 2024-07-08 07:57 | disposition home or self-care (01) ==
LOC: CARD 07:56
PROVIDERS: PCP Family Medicine; Visit Provider Family Medicine
DX: G93.40 Encephalopathy, unspecified (principal); G43.009 Migraine without aura, not intractable, without status migrainosus; G93.5 Compression of brain
CPT/HCPCS: 70553; A9575

== ENCOUNTER 2024-07-13 07:18 | Outpatient (OUT) | payer MEDICAID, SELFPAY ==
--- OUTSIDE RECORDS SUMMARY | 2024-07-13 07:21 | XMS_ITS | CCD ---
Author Organization [facility] Care Team Providers Care Psychologist Counseling Name Role Phone DR MCKAY WEEKS Primary [...] DENNISE, DR MCKAY Espinoza Primary Care Unavailable [place], DR ANDREW Hopkins Consulting Unavailable DENNISE, DR MCKAY Espinoza Consulting Unavailable LORNA Velasquez Attending Provider MD Mckay Weeks Primary Care Provider MD Robert De Anda Attending Provider Robert De Anda Admitting Unavailable Robert De Anda Attending Unavailable Mckay Weeks Primary Care Unavailable Mckay Weeks MD Primary Care Provider MCKAY WEEKS Primary Care Unavailable AMADOU COOK Consulting Unavailable INPATIENT, TELENEUROLOGY Consulting Unavail able MCKAY WEEKS Referring Unavailable MCKAY WEEKS Primary Care Unavailable OTILIO MONTGOMERY Attending Unavailable CARLTON MIJARES Attending Unavailable OTILIO MONTGOMERY Referring Unavailable BABS BHATIA Attending Unavailable LUIS SHAIKH Attending Unavailable ROBERT DE ANDA Referring Unavailable Allergies Allergy Classification Reported Allergen(s) Allergy Type Date of Onset Reaction(s) Facility (15 sources) Chlorhexidine; Translations: [CHLORHEXIDINE] Drug Allergy 9 Rash [facility] (13 sources) Chlorhexidine / Ethanol Drug Allergy 4 [facility] (6 sources) Iodinated Contrast Media Propensity to adverse reactions [facility] Medications Current Medications Medication Drug [...] Discontinued (Ineffective) Atogepant (Qulipta) 60 MG tablet (6 sources) Start: 06-30-2024 End: 06-30-2025 take 1 [...] (Therapy completed) ergocalciferol 1.25 mg oral capsule (13 sources) Provitamin D2 Compound Start: 05-18-2023 ergocalciferol (Vitamin D2) 1.25 MG (18599 UT) capsule 05/18/2023 Active escitalopram 5 mg [...] Active fexofenadine hydrochloride 180 mg oral tablet (17 sources) Histamine-1 Receptor Antagonist Start: 10-21-2022 fexofenadine (Darby) 180 MG tablet 10/21/2022 Active ibuprofen 600 mg oral tablet (16 sources) Nonsteroidal Anti-inflammatory Drug Start: 09-09-2023 IBU 600 MG tablet 09/09/2023 Active Start: 08-04-2023 take 800 mg by mouth three times daily Ibuprofen Active 800 MG PO Three times daily August 04, 2023 12:00am metFORMIN hydrochloride 500 mg oral tablet (17 sources) Biguanide Start: 08-04-2023 take 500 mg by mouth once daily Metformin Active 500 MG PO Daily August 04, 2023 12:00am take 1 tablet by abigail th every twenty-four hours metFORMIN XR (Glucophage-XR) 500 MG 24 h r tablet Oral for 90 Days Active Multiple Vitamins-Minerals (Multivitamin Adults) tablet (14 sources) Multiple Vitamins-Minerals (Multivitamin Adults) tablet Orally [...] 09/22/2023 Active rizatriptan 10 mg oral tablet (9 sources) Serotonin-1b and Serotonin-1d Receptor Agonist Start: [...] completed) zolpidem tartrate 10 mg oral tablet (17 sources) gamma-Aminobutyr ic Acid-ergic Agonist Start: take [...] Problem Date Documented Date Episodic/Chronic Anxiety disorders (8 sources) Mixed anxiety and depressive disorder; Translations: [Anxiety disorder, unspecified] 08-04-2023 Chronic Attention-deficit, conduct, and disruptive behavior disorders (3 sources) Attention deficit hyperactivity disorder; Translations: [Attention-deficit hyperactivity disorder, unspecified type] 08-04-2023 Chronic Attention-deficit, conduct, and disruptive behavior disorders (3 sources) Attention-deficit hyperactivity disorder, unspecified type; Translations: [Attention deficit disorder with hyperactivity] 08-04-2023 Chronic Attention-deficit, conduct, and disruptive behavior disorders (2 sources) Attention deficit hyperactivity disorder, predominantly inattentive type; Translations: [Attention-deficit hyperactivity disorder, predominantly inattentive type] 07-12-2024 Chronic Blindness and vision defects (2 sources) Eye / vision finding; Translations: [Unspecified visual disturbance] 09-22-2023 Episodic Conditions associated with dizziness or vertigo (2 sources) Dizziness; Translations: [Dizziness and giddiness] 02-11-2024 Episodic Delirium, dementia, and amnestic and other cognitive disorders (10 sources) Postconcussion syndrome; Translations: [Postconcussional syndrome] 08-04-2023 Chronic Headache; including migraine (6 sources) Refractory migraine without aura; Translations: [Migraine [...] (2 sources) Asthenia; Translations: [Weakness] 06-30-2024 Episodic Mood disorders (2 sources) Depressive disorder; Translations: [Depression, unspecified depression type (CMS/HCC)] 07-12-2024 Chronic Other nervous system disorders (1 source) Other chronic pain; Translations: [OTHER CHRONIC PAIN] Onset: 06-14-2020 Chronic Other upper respiratory infections (1 source) Chronic sinusitis, unspecified; Translations: [CHRONIC SINUSITIS UNSPECIFIED] Onset: 03-19-2020 Chronic Residual codes; unclassified (7 sources) Obstructive sleep apnea syndrome; Translations: [Obstructive sleep apnea (adult) (pediatric)] Onset: 02-17-2024 02-17-2024 Chronic Residual codes; unclassified (4 sources) Disturbance in sleep behavior; Translations: [Sleep disorder, unspecified] 02-11-2024 Episodic Residual codes; unclassified (1 source) Pain, unspecified; Translations: [Pain, unspecified] Onset: 05-31-2024 Episodic Residual codes; unclassified (6 sources) Transient alteration of awareness; Translations: [Transient alteration of awareness] 06-30-2024 Episodic Residual codes; unclassified (2 sources) Amnesia; Translations: [Other amnesia] 07-12-2024 Episodic Unclassified (1 source) Altered Mental Status at [facility] Onset: 05-30-2024 Past or Other Problems Problem [...] Results Test Name Value Interpretation Reference Range Facility ALL MYOGLOBINon 07-05-2024 Myoglobin [Mass/Vol] 20 ng/mL 9 - 82 ng/mL [facility] CKon 07-05-2024 CK [Catalytic activity/Vol] 37 U/L 26 - 192 U/L [facility] No Panel Informationon 07-05 [facility] HPV,AGE GDLNon AGE GDLN ACOG TESTING Note . [facility] Comment on above: TESTS RESULT FLAG UN ITS REF RANGE LAB Clinician Provided Cytology Information Source.............Vagina No. of containers..01 ThinPrep Vial Age Algo ACOG Peggy... 30-65 01 FLAG LEGEND: L-Low Normal,H-High Normal,LL-Alert Low,HH-Alert High <-Panic Low,>-Panic High,A-Abnormal,AA-Critical Abnormal Performed at: 01 =G [address] [address] Sabiha Quinn MD, HPV APTIMA Negative Negative [facility] Comment on above: This nucleic acid am plification test detects fourteen high- risk HPV types (16,18,31,33,35,39,45,51,52,56,58,59,66,68) without differentiation. Performed at: =G - [facility] [id number] Electrolog Operator: Sabiha Quinn MD, Phone: [phone] Performed at: - [facility] [id number] Electrolog Operator: Sabiha Quinn MD, Phone: [phone] IGP, APTIMA HPV, RFX 16/18,45 Note . [facility] Comment on above: TESTS RESULT FLAG UN ITS REF RANGE LAB DIAGNOSIS: 02 NEGATIVE FOR INTRAEPITHELIAL LESION OR MALIGNANCY. Specimen adequacy: 02 Satisfactory for evaluation. Performed by: Craig Overton, Bench Shear Operator ([facility]) . 02 Note: Note 02 The Pap [...] High,A-Abnormal,AA-Critical Abnormal Performed at: 02 WB [facility] [address] [place] [address] Sabiha Quinn MD, [facility] Healthcar e MR angio MR brain wo/w conon 10-23-2023 MR angio MR brain wo/w con [facility] Main [place] [address] [place] [address] MRI Report Signed Patient: Luis Stewart MR#: [id number] : 1985 Acct:[id number] Age/Sex: 38 / F ADM Date: 10/23/23 Loc: MR Room: Type: [facility] Attending Dr: Robert De Anda MD Copies to: Robert De Anda MD Ordering Provider: Robert De Anda MD Date of Service: 10/23/23 MR/MR angio MR brain wo/w con: G44.309, H53.9 MRA OF THE INTRACRANIAL CIRCULATION TECHNIQUE: 3-D bari-yd-nltvmo imaging of the [place] of [place] obtained. HISTORY: Head injury. Concussion. [...] Levon Stone M.D.10/23/2023 9:16 PM Dictation Location: [place] [address] Transcribed By: [facility] 10/23/232115 Dictated By: Levon Stone DO 10/23/232102 Signed By: 10/23/232115 Normal [facility] Cytology Cervical or vaginal smear or scraping studyon 01-13-2023 [facility] PAP ACOG PANEL 2: 30 to 65on 12-28-2020 . . Normal [facility] Comment on above: Result Comment: Perf ormed at: WB Performed By: #### [id number] #### [facility] [address] [place] [address] Tracy Pop Age Gdln ACOG Testing 30-65 [facility] Comment on above: Performed By: #### [id number] #### [facility] [address] [place] [address] Tracy Pop DIAGNOSIS: Comment Normal [facility] Comment on above: Result Comment: NEGA TIVE FOR INTRAEPITHELIAL LESION OR MALIGNANCY. THIS SPECIMEN WAS RESCREENED PART OF OUR INFORMATION MANAGEMENT MANAGER PROGRAM. Performed at: WB Performed By: #### 4 [id number] #### [facility] [address] [place] [address] Tracy Pop HPV Aptima Negative Normal Negative [facility] Comment on above: Result Comment: This nucleic acid amplification test detects fourteen high-risk HPV types (16,18,31,33,35,39,45,51,52,56,58,59,66,68) without differentiation. Performed at: =G Performed By: #### 4 [id number] #### [facility] [address] [address] Tracy Pop Methodology: Comment Normal [facility] Comment on above: Result Comment: This liquid based ThinPrep(R) pap test was screened with the use of an image guided system. Performed at: WB Performed By: #### 4 [id number] #### [facility] [address] [place] [address] Tracy Pop Note: Comment Normal [facility] Comment on above: Result Comment: The Pap smear is a screening test designed to aid in the detection of premalignant and malignant conditions of the uterine cervix. It is not a diagnostic procedure and should not be used as the sole means of detecting cervical cancer. Both false-positive and false-negative reports do occur. . Performed at: WB Performed By: #### [id number] #### [facility] [address] [place] [address] Tracy Pop Performed by: Comment Normal [facility] Comment on above: Result Comment: Addi Barajas, Bench Shear Operator (ASCP) Performed at: WB Performed By: #### 4 [id number] #### [facility] [address] [place] [address] Tracy Pop QC reviewed by: Comment Normal [facility] Comment on above: Result Comment: Aby Oliveira, Supervisory Bench Shear Operator (ASCP) Performed at: WB Performed By: #### 4 [id number] #### [facility] [address] [place] [address] Tracy Pop Specimen adequacy: Comment Normal [facility] Comment on above: Result Comment: Sati sfactory for evaluation. No endocervical component is identified. Performed at: WB Performed By: #### 4 [id number] #### [facility] [address] [place] [address] Tracy Pop CHLAMYDIA/GONOCOCCUS ANTONIO (SW AB/URINE/PAPon 12-26-2020 Chlamydia trachomatis, ANTONIO Negative Normal Negative [facility] Comment on above: Performed By: #### C T/NGNA #### [facility] [address] [place] [address] Tracy Pop Neisseria gonorrhoeae, ANTONIO Negative Normal Negative [facility] Comment on above: Performed By: #### C T/NGNA #### [facility] [address] [place] [address] Tracy Pop VAGINITIS/VAGINOSIS DNA PROB Boris 12-26-2020 Cheryl species Negative Normal Negative [facility] Comment on above: Performed By: #### V AGINT ####[facility] [address] [place], [place] [address]Gerken Kiesha Gardnerella vaginalis Negative Normal Negative [facility] Comment on above: Performed By: #### V AGINT ####[facility] [address] [place] [id number] Kiesha Trichomonas vaginalis Negative Normal Negative [facility] Comment on above: Performed By: #### V AGINT ####[facility] [address] [place] [address]Josseline Pop XR LSPINE 2_3 VIEWSon 2020 XR LSPINE 2_3 VIEWS EXAMINATION: XR LSPI NE 2_3 VIEWS HISTORY: Lumbago with sciatica COMPARISON: No relevant comparison available. FINDINGS: BONES: Normal. No significant spondylosis, scoliosis, fracture, or visible bony lesion. DISC SPACES: Normal. No significant disc height narrowing, subluxation, or endplate abnormality. PARASPINOUS: Negative. No paraspinous abnormality is seen. OTHER: Negative. IMPRESSION: No acute abnormality Electronically authenticated by: ANDREW BLUM Date: 2020-06-06 09:25 Normal [facility] COVID-19 PCRon 03-17-2020 SARS-CoV-2 (COVID-19) RNA ANTONIO+probe Ql (Unsp spec) Not detected Normal Not Detected [facility] Comment on above: Result Comment: This nucleic acid amplification test was developed and its performance characteristics determined by [employer]. Nucleic acid amplification tests include PCR and [...] Performed By: #### C VDPCR, CVDSTAT #### [facility] [address] [place], [place] [id number] Tracy Pop PRIORITY COVID PROCESSINGon 03-17-2020 Comment Comment Normal [facility] Comment on above: Result Comment: Rece ived Performed By: #### C VDPCR, CVDSTAT #### [facility] [address] [place], [place] [id number] Tracy Kiesha CBC AUTO DIFFon 03-15-2020 BASO # 0.1 103/ul Normal 0.0-0.1 [facility] Comment on above: Performed By: #### C BC #### [facility] [address] [place] [address] Tracy Kiesha Basophils/100 WBC (Bld) 0.8 % Normal 0.2-2.0 [facility] Comment on above: Performed By: #### C BC #### [facility] [address] [place] [address] Tracy Kiesha EO # 0.3 103/ul Normal 0.0-0.7 [facility] Comment on above: Performed By: #### C BC #### [facility] [address] [place] [address] Tracy Kiesha Eosinophils/100 WBC (Bld) 3.8 % Normal 0.9-7.0 [facility] Comment on above: Performed By: #### C BC #### [facility] [address] [place] [address] Tracy Kiesha Erythrocyte distribution width (RBC) [Ratio] 11.7 % Normal 11.0-15.0 [facility] Comment on above: Performed By: #### C BC #### [facility] [address] [place] [address] Tracy Kiesha Hematocrit (Bld) [Volume fraction] 39.6 % Normal 36.0-48.0 [facility] Comment on above: Performed By: #### C BC #### [facility] [address] [place], [place] [id number] Tracy Kiesha Hemoglobin (Bld) [Mass/Vol] 13.0 g/dL Normal 12.0-16.0 [facility] Comment on above: Performed By: #### C BC #### [facility] [address] [place] [address] Tracy Pop IG # 0.03 10e3/ul Normal 0.00-0.03 [facility] Comment on above: Performed By: #### C BC #### [facility] [address] [place] [address] Tracy Pop IG % 0.4 % Normal 0.0-0.5 [facility] Comment on above: Performed By: #### C BC #### [facility] [address] [place] [address] Tracy Pop LYMPH # 3.5 103/ul Normal 1.2-3.8 [facility] Comment on above: Performed By: #### C BC #### [facility] [address] [place] [address] Tracy Pop Lymphocytes/100 WBC (Bld) 41.5 % Normal 20.5-60.0 [facility] Comment on above: Performed By: #### C BC #### [facility] [address] [place], [place] [id number] Tracy Pop MANUAL DIFF REQ NO Normal [facility] Comment on above: Performed By: #### C BC #### [facility] [address] [place] [address] Tracy Pop MCH (RBC) [Entitic mass] 31.0 pg Normal 26.7-34.0 [facility] Comment on above: Performed By: #### C BC #### [facility] [address] [place] [address] Tracy Pop MCHC (RBC) [Mass/Vol] 32.8 g/dL Normal 29.9-35.2 [facility] Comment on above: Performed By: #### C BC #### [facility] [address] [place] [address] Tracy Pop MCV (RBC) [Entitic vol] 94.5 fL Normal 81.0-99.0 [facility] Comment on above: Performed By: #### C BC #### [facility] [address] [place], [place] [address] Tracy Kiesha MONO # 0.7 103/ul Normal 0.3-0.8 [facility] Comment on above: Performed By: #### C BC #### [facility] [address] [id number] Tracy Kiesha Monocytes/100 WBC (Bld) 7.8 % Normal 1.7-12.0 [facility] Comment on above: Performed By: #### C BC #### [facility] [address] [id number] Tracy Kiesha NEUT # 3.9 103/ul Normal 1.4-6.5 [facility] Comment on above: Performed By: #### C BC #### [facility] [address] [place] [address] Tracy Kiesha Neutrophils/100 WBC (Bld) 45.7 % Normal 43.0-75.0 [facility] Comment on above: Performed By: #### C BC #### [facility] [address] [id number] Tracyramona Elaineen Platelet mean volume (Bld) [Entitic vol] 11.1 fL Normal 9.5-13.5 [facility] Comment on above: Performed By: #### C BC #### [facility] [address] [id number] Tracy Kiesha PLT 226 103/ul Normal 150-450 [facility] Comment on above: Performed By: #### C BC #### [facility] [address] [place], [place] [address] Tracy Kiesha RBC 4.19 106/ul Critically low 4.20-5.40 [facility] Comment on above: Performed By: #### C BC #### [facility] [address] [place], [place] [address] Tracy Kiesha WBC 8.4 103/ul Normal 4.0-11.0 [facility] Comment on above: Performed By: #### C BC #### [facility] [address] [place] [address] Tracyramona Elaineen PROF 14(COMP METB)on 020 Albumin [Mass/Vol] 3.9 g/dL Normal 3.5-5.0 [facility] Comment on above: Performed By: #### C MP #### [facility] [address] [place], [place] [address] Tracy Kiesha Albumin/Globulin [Mass ratio] 1.2 {ratio} Normal [facility] Comment on above: Performed By: #### C MP #### [facility] [address] [place], [place] [address] Tracy Kiesha ALP [Catalytic activity/Vol] 63 U/L Normal 38-126 [facility] Comment on above: Performed By: #### C MP #### [facility] [address] [place] [address] Tracy Kiesha ALT [Catalytic activity/Vol] 29 U/L Normal 9-52 [facility] Comment on above: Performed By: #### C MP #### [facility] [address] [place], [place] [phone] Tracy Kiesha Anion gap [Moles/Vol] 9.1 mmol/L Normal [facility] Comment on above: Performed By: #### C MP #### [facility] [address] [place], [place] [address] Tracy Kiesha AST [Catalytic activity/Vol] 16 U/L Normal 14-36 [facility] Comment on above: Performed By: #### C MP #### [facility] [address] [place], [place] [address] Tracy Kiesha Bilirubin [Mass/Vol] 0.3 mg/dL Normal 0.2-1.3 [facility] Comment on above: Performed By: #### C MP #### [facility] [address] [place], [place] [address] Tracy Kiesha Calcium [Mass/Vol] 9.2 mg/dL Normal 8.4-10.2 [facility] Comment on above: Performed By: #### C MP #### [facility] [address] [place], [place] [address] Tracy Kiesha Chloride [Moles/Vol] 103 mmol/L Normal 98-107 [facility] Comment on above: Performed By: #### C MP #### [facility] [address] [address] Tracy Kiesha CO2 [Moles/Vol] 28.1 mmol/L Normal 22.0-30.0 [facility] Comment on above: Performed By: #### C MP #### [facility] [address] [address] Tracy Kiesha Creatinine [Mass/Vol] 0.60 mg/dL Normal 0.52-1.04 [facility] Comment on above: Performed By: #### C MP #### [facility] [address] [place] [address] Tracy Kiesha EGFR-AF MALDIVIAN >60 Normal >=60 [facility] Comment on above: Performed By: #### C MP #### [facility] [address] [place] [address] Trcay Kiesha EGFR-NON AF MALDIVIAN >60 Normal >=60 [facility] Comment on above: Performed By: #### C MP #### [facility] [address] [address] Tracy Kiesha Globulin (S) [Mass/Vol] 3.3 g/dL Normal [facility] Comment on above: Performed By: #### C MP #### [facility] [address] [place] [address] Tracy Kiesha Glucose [Mass/Vol] 97 mg/dL Normal 74-106 [facility] Comment on above: Performed By: #### C MP #### [facility] [address] [place] [address] Tracy Kiesha Potassium [Moles/Vol] 4.2 mmol/L Normal 3.4-5.0 [facility] Comment on above: Performed By: #### C MP #### [facility] [address] [place], [place] [phone] Tracy Keisha Protein [Mass/Vol] 7.2 g/dL Normal 6.1-8.2 [facility] Comment on above: Performed By: #### C MP #### [facility] [address] [place] [address] Tracy Kiesha Sodium [Moles/Vol] 136 mmol/L Critically low 137-145 [facility] Comment on above: Performed By: #### C MP #### [facility] [address] [place] [address] Tracy Kiesha Urea nitrogen [Mass/Vol] 9.0 mg/dL Normal 7.0-17.0 [facility] Comment on above: Performed By: #### C MP #### [facility] [address] [place] [address] Tracy Kiesha Urea nitrogen/Creatinine [Mass ratio] 15.0 mg/mg Normal [facility] Comment on above: Performed By: #### C MP #### [facility] [address] [place] [address] Tracy Pop TROPONIN - Ion 03-15-2020 TROP <0.012 Normal <=0.034 [facility] Comment on above: Performed By: #### T ROP #### [facility] [address] [place] [address] Tracy Kiesha TROPONIN RANGE SEE BELOW Normal [facility] Comment on above: Result Comment: <0.0 34 ng/ml NEGATIVE 0.034-0.119 INDETERMINATE 0.120 AMI CUT OFF Performed By: #### T ROP #### [facility] [address] [place] [address] Tracy Kiesha INFLUENZA A AND B AGon 03-14 INFLUANEGH SEE BELOW Normal [facility] Comment on above: Result Comment: Nega tive for Flu A protein angiten. Infection due to Flu A cannot be ruled out. Flu A angiten in the sample may be below the detection limit of the test. Performed By: #### I NFLUAB #### [facility] [address] [place] [address] Tracy Kiesha INFLUBNEGH SEE BELOW Normal [facility] Comment on above: Result Comment: Nega tive for Flu B protein antigen. Infection due to Flu B cannot be ruled out. Flu B antigen in the sample may be below the detection limit of the test. Performed By: #### I NFLUAB #### [facility] [address] [place], [place] [address] Tracy Pop INFLUENZA A AG Negative Normal NEGATIVE SEE COMMENT [facility] Comment on above: Performed By: #### I NFLUAB #### [facility] [address] [place], [place] [address] Tracy Pop INFLUENZA B AG Negative Normal NEGATIVE SEE COMMENT [facility] Comment on above: Performed By: #### I NFLUAB #### [facility] [address] [place], [place] [address] Tracy Pop INTERNAL CONTROLS Within Normal Limits Normal Wi thin Normal Limits [facility] Comment on above: Performed By: #### I NFLUAB #### [facility] [address] [place], [place] [address] Tracy Pop Vital Signs Date Time Vital Sign Value Performing Clinician Jessiei litarun 06-30-2024 09:30-0500 Body mass index (BMI) [Ratio] 42.29 kg/m2 Otilio Montgomery DO Work Phone: [facility] 06-30-2024 09:30-0500 Body weight 104.87 kg Otilio Montgomery DO Work Phone: [facility] 06-30-2024 09:30-0500 Diastolic blood pressure 74 mm[Hg] Otilio Montgomery DO Work Phone: [facility] 06-30-2024 09:30-0500 Heart rate 78 /min [facility] [facility] 06-30-2024 09:30-0500 SaO2% (BldA) [Mass fraction] 94 % [facility] [place] Montgomery DO Work Phone: [facility] 06-30-2024 09:30-0500 Systolic blood pressure 128 mm[Hg] Otilio Ulises DO Work Phone: [facility] 02-11-2024 13:04-0400 Body height 157.5 cm Luis Shaikh DO Work Phone: [facility] 02-11-2024 13:04-0400 Body mass index (BMI) [Ratio] 38.41 kg/m2 Luis Nicholas DO Work Phone: [facility] 02-11-2024 13:04-0400 Body weight 95.25 kg Luis Nicholas DO Work Phone: [facility] 02-11-2024 13:04-0400 Diastolic blood pressure 72 mm[Hg] Luis Nicholas DO Work Phone: [facility] 02-11-2024 13:04-0400 Heart rate 69 /min Luis Nicholas DO Work Phone: [facility] 02-11-2024 13:04-0400 SaO2% (BldA) [Mass fraction] 99 % Luis Nicholas DO Work Phone: [facility] 02-11-2024 13:04-0400 Systolic blood pressure 108 mm[Hg] Luis Nicholas DO Work Phone: [facility] 01-19-2024 11:13-0400 Body mass index (BMI) [Ratio] 41.88 kg/m2 Babs Jannette DO Work Phone: [facility] 01-19-2024 11:13-0400 Body weight 103.87 kg Babs Jannette DO Work Phone: [facility] 01-19-2024 11:13-0400 Diastolic blood pressure 72 mm[Hg] Babs Jannette DO Work Phone: [facility] 01-19-2024 11:13-0400 Systolic blood pressure 122 mm[Hg] Babs Jannette DO Work Phone: [facility] 01-13-2024 10:51-0400 Body height 157.48 cm MD Mckay Weeks Work Phone: [facility] 01-13-2024 10:51-0400 Body mass index (BMI) [Ratio] 38.4 kg/m2 MD Mckay Weeks Work Phone: [facility] 01-13-2024 10:51-0400 Body weight 95.25 kg MD Mckay Weeks Work Phone: [facility] 01-13-2024 10:51-0400 Diastolic blood pressure 64 mm[Hg] MD Mckay Weeks Work Phone: [facility] 01-13-2024 10:51-0400 Heart rate 71 /min MD Mckay Weeks Work Phone: [facility] 01-13-2024 10:51-0400 SaO2% (BldA) [Mass fraction] 97 % MD Mckay Weeks Work Phone: [facility] 01-13-2024 10:51-0400 Systolic blood pressure 112 mm[Hg] MD Mckay Weeks Work Phone: [facility] 09-22-2023 13:20-0400 Diastolic blood pressure 90 mm[Hg] MD Mckay Weeks Work Phone: [facility] 09-22-2023 13:20-0400 Systolic blood pressure 130 mm[Hg] MD Mckay Weeks Work Phone: [facility] 08-04-2023 13:24-0400 Diastolic blood pressure 70 mm[Hg] [facility] 08-04-2023 13:24-0400 Heart rate 95 /min [facility] 08-04-2023 13:24-0400 SaO2% (BldA) [Mass fraction] 98 % [facility] 08-04-2023 13:24-0400 Systolic blood pressure 110 mm[Hg] [facility] Encounters Encounter Date Encounter Type Care Provider Facility Start: 07-11-2024 End: 07-11-2024 Kimberly Mijares PhD Work Phone: [facility] Start: 07-11-2024 End: 07-11-2024 Kimberly Mijares PhD Work Phone: [facility] Start: 07-11-2024 End: 07-11-2024 ambulatory [facility] Available Start: 07-11-2024 End: 07-11-2024 Patient encounter procedure Carlton Mijares PhD Work Phone: [facility] Comment on above: Transient alteration of awareness (Primary Dx); Post concussion syndrome; Chronic migraine without aura without status migrainosus, not intractable (CMS/HCC); Sleep disturbance; Memory loss; Attention deficit hyperactivity disorder (ADHD), predominantly inattentive type (CMS/HCC); Depression, unspecified depression type (CMS/HCC); Generalized anxiety disorder (CMS/HCC) Start: 07-05-2024 End: 07-05-2024 Clinisync Result Encounter Marybethbe Ulises DO Work Phone: [facility] Unsolicited Start: 07-05-2024 End: 07-05-2024 Clinisync Result Encounter Otilio Montgomery DO Work Phone: [facility] Unsolicited Start: 06-30-2024 End: 06-30-2024 Bamboo flowsheet Otilio Ulises DO Work Phone: [facility] Start: 06-30-2024 End: 06-30-2024 Bamboo flowsheet Marybether Ulises DO Work Phone: [facility] Start: 06-30-2024 End: 06-30-2024 Office outpatient visit 25 minutes Otilio Montgomery DO Work Phone: [facility] Comment on above: Transient alteration of awareness (Primary Dx); Chronic migraine without aura without status migrainosus, not intractable (CMS/HCC); Weakness Start: 06-30-2024 End: 06-30-2024 ambulatory MARYBETHER ULISES Not Available Start: 05-31-2024 ambulatory [facility] Start: 05-30-2024 End: 06-02-2024 Emergency department patient visit [facility] Start: 02-11-2024 End: 02-11-2024 Bamboo flowsheet Luis Shaikh DO Work Phone: [facility] Start: 02-11-2024 End: 02-11-2024 Bamboo flowsheet Luis Shaikh DO Work Phone: [facility] Start: 02-11-2024 End: 02-11-2024 Office consultation new/estab patient 60 min Luis Shaikh DO Work Phone: [facility] Comment on above: Intractable migraine without [...] encounter procedure Babs Jannette DO Work Phone: [facility] Start: 01-19-2024 End: 01-19-2024 Periodic preventive med est patient 18-39 yrs Babs Jannette DO Work Phone: [facility] Comment on above: Well woman exam with routine gynecological exam; H/O: hysterectomy; Pelvic pain in female Start: 01-19-2024 End: 01-19-2024 ambulatory BABS JANNETTE Not Available Start: 01-13-2024 End: 01-13-2024 ambulatory MD Mckay Weeks Work Phone: [facility] Work Phone: Start: 01-13-2024 End: 01-13-2024 Patient encounter procedure MD Mckay Weeks Work Phone: [facility] Work Phone: Start: 10-23-2023 End: 10-23-2023 Patient encounter procedure MD Mckay Weeks Work Phone: [facility] [place] Work Phone: Start: 10-23-2023 End: 10-23-2023 ambulatory MD Mckay Weeks Work Phone: [facility] Work Phone: Start: 09-22-2023 End: 09-22-2023 Patient encounter procedure MD Mckay Weeks Work Phone: [facility] Work Phone: Start: 08-04-2023 End: 08-04-2023 ambulatory [facility] Work Phone: Start: 08-04-2023 End: 08-04-2023 Patient encounter procedure [facility] Work Phone: Start: 12-20-2021 End: 12-20-2021 Patient encounter procedure TANK TENDER Amanda Velasquez Work Phone: [facility] Start: 01-08-2021 Encounter for gynecological examination (general) (routine) without abnormal findings DR BABS BHATIA [facility] Start: 12-24-2020 End: 12-24-[address] BABS BHATIA Facility:[facility] Start: 12-24-2020 End: 12-24-2020 Encounter for gynecological examination (general) (routine) without abnormal findings DR BABS BHATIA Facility:[facility] Start: 06-06-2020 End: 06-07-[address] MCKAY WEEKS Facility:[facility] Start: 03-14-2020 End: 03-15-[address] MCKAY WEEKS Facility:[facility] Procedures Date Procedure Procedure Detail Performing Clinician Start: 07-05-2024 ALL MYOGLOBIN Marybeth Montgomery DO Work Phone: Start: 07-05-2024 [facility] Tyler r Ulises DO Work Phone: Start: 01-19-2024 IGP,APTIMA HPV,AGE GDLN Babs Bhatia DO Work Phone: Start: 10-23-2023 MR angiography of he ad with contrast MD Mckay Weeks Work Phone: Start: 01-13-2023 Cytp cerv/vag auto t hin layer prep mnl screen Babs Camiloo DO Work Phone: Start: 12-20-2021 X-ray of left ankle APR N Amanda Velasquez Work Phone: Start: 12-20-2021 X-ray of left foot TANK TENDER Amanda Velasquez Work Phone: H/O: hysterectomy H/O: hysterectomy Babs Bhatia DO Work Phone: Plan of Treatment Date Care Activity Detail Author Start: 01-19-2025 End: 01-19-2025 Patient encounter procedure 01/19/2025 11:00 AM EDT Office Visit [facility] [address] [place] [address] Babs Bhatia, DO [address] [place], [place] [id number] [facility] Start: 07-21-2024 End: 07-21-2024 Patient encounter procedure 07/21/2024 9:00 AM EDT Office Visit [facility] [address] [address] [facility] Start: 07-11-2024 End: 07-11-2024 Patient encounter procedure 07/11/2024 10:00 AM EST Office Visit [facility] [address] [place] [address] Carlton Mijares, PhD [address] [place] [address] [facility] Start: 06-30-2024 End: 06-30-2025 Creatine kinase [Enzymatic activity/volume] in Serum or Plasma CK Lab Routine Weakness Expected: 06/30/2024 (Approximate), Expires: 06/30/2025 [facility] Work Phone: Comment on above: Expected: 06/30/2024 (Approximate), Expires: 06/30/2025 Start: 06-30-2024 End: 06-30-2025 Myoglobin, serum Myoglobin, serum Lab Routine Weakness Expected: 06/30/2024 (Approximate), Expires: 06/30/2025 [facility] Comment on above: Expected: 06/30/2024 (Approximate), Expires: 06/30/2025 Start: 06-30-2024 End: 06-30-2025 Nuclear Ab [Titer] in Serum by Immunofluorescence [facility] Lab Routine Weakness Expected: 06/30/2024 (Approximate), Expires: 06/30/2025 [facility] Comment on above: Expected: 06/30/2024 (Approximate), Expires: 06/30/2025 Start: 06-30-2024 End: 06-30-2024 Patient encounter procedure 06/30/2024 9:30 AM EST Office Visit [facility] [address] [address] [place] [address] Otilio Montgomery DO [address] [place] [address] Arrived [facility] Comment on above: Arrived Start: 02-29-2024 End: 02-29-2024 Patient encounter procedure 02/29/2024 9:20 AM EDT Office Visit [facility] [address] [place] [address] Tanna Christiansen NP [address] [place], [place] [facility] Start: 02-11-2024 End: 02-11-2024 Patient encounter procedure 02/11/2024 1:15 PM EDT Office Visit [facility] [facility] [place] [id number] Luis Shaikh, DO [address] [place] [id number] Arrived [facility] Comment on above: Arrived Start: 01-19-2024 End: 01-18-2025 US for US PELVIS-TRANSVAG IF INDICATED Imaging Routine Pelvic pain in female Expected: 01/19/2024 (Approximate), Expires: 01/18/2025 [facility] Comment on above: Expected: 01/19/2024 (Approximate), Expires: 01/18/2025 Start: 01-19-2024 End: 01-19-2024 Patient encounter procedure 01/19/2024 11:00 AM EDT Office Visit [facility] [address] [place] [address] Babs Bhatia DO [address] [place], [facility] [address] Arrived [facility] Comment on above: Arrived Start: 01-13-2024 Patient referral [facility] Work Phone: Cytology Cervical or vaginal smear or scraping study Pap Smear Pathology and Cytology Routine Well woman exam with routine gynecological exam Ordered: 01/19/2024 [facility] Work Phone: Comment on above: Ordered: 01/19/2024 Human papilloma viru s DNA [Presence] in Unspecified specimen by Probe with amplification HPV DNA probe, amplified Microbiology Routine Well woman exam with routine gynecological exam Ordered: 01/19/2024 [facility] Comment on above: Ordered: 01/19/2024 MRA Head vessels W c ontrast IV [facility] MRA Head vessels WO contrast [facility] Patient referral [facility] Work Phone: Payers Date Payer Category Payer Self-pay 2022 Medicaid [id number] 2022 Medicaid [id number] 1986 Unknown [id number] 2.16.84 [id number] 1986 Unknown [id number] 2.16.84 [id number] 1986 Unknown [id number] 2.16.84 [id number] 1986 Unknown [id number] 2.16. [id number] 1986 Unknown [id number] 2.16. [id number] 1986 Unknown [id number] 2.16.84 [id number] 1986 Unknown [id number] 2.16.84 [id number] 1986 Unknown [id number] 2.16.84 [id number] 1986 Unknown [id number] 2.16.84 [id number] 1959 Unknown [id number] Unknown [id number] 2.16.8 [id number] Social History Date Type Detail Facility Tobacco smoking stat [facility] Unknown if ever smoked [facility] Work Phone: Start: 1985 Sex Assigned At Female [facility] Start: 05-17-2018 Tobacco smoking status NHIS Smoker (finding) [facility] Tobacco smoking stat [facility] Tobacco smoking consumption unknown [facility] Start: 02-10-2023 Gender identity Identifies as female gender (finding) [facility] Start: 02-10-2023 Sexual orientation Heterosexual (finding) [facility] Medical Equipment Procedure Code Equipment Code Equipment Origin al Text Equipment Identifier Dates Start: 02-03-2023 Clinical Notes 03-15-2020 to 07-11-2024 Carlton Mijares, PhD - 07/11/2024 10:00 AM Lenafaykimher Montgomery, DO - 06/30/2024 9:30 AM Lori Shaikh, DO - 02/11/2024 1:15 PM EDTKiesha Fair, FISHING CAPTAIN - 01/19/2024 11:00 AM EDT Note Date & Type Note Facility 07-11-2024 History of Present illness Narrative Images from the original note were not included. Carlton Mijares, PhD NEUROBEHAVIORAL STATUS EXAMINATION Luis Stewart is a 39 y.o. female referred for neuropsychological evaluation to assist with facilitating and informing medical differential diagnosis and clinical decision-making. The following information was obtained during an interview with the patient, as well as review of available records. PRESENTING PROBLEM AND HISTORY Transient alteration of awareness, altered mental status, and slurred speech in May 2024. She had an extensive evaluation including laboratory evaluation, MRI of the brain, MR angiogram of the head and follow up CT of the brain in the emergency department in a visit thereafter all of which were unremarkable. There was question as to whether or not she may have taken inappropriate dosing of medications which may have led to this process. Hospitalized overnight. Has minimal recall of events leading up to hospitalization or being discharged home. Neurological history additionally includes concussion in June 2023. Continues to experience persisting headache as a result.Feels she continues to struggles with memory and feels mentally in autopilot . Requires repetition and extra explanation of material to retain information at baseline due to her ADHD. Also reported experiencing word finding struggles and loses train of thought. Present concentration struggles are different that her typical ADHD symptoms. Otherwise, remains independent in ADLs, household responsibilities, finances, and medication. No driving since the above episode due to persisting headache and dizziness. No regular exercise. Has become less socially engaged. Poor sleep initiation and maintenance. Diagnosed with GABRIELA and wears CPAP nightly. Daytime energy fluctuates. Pain complaints include headache and back. Family neurological history includes dementia (paternal grandmother) and strokes with memory struggles (mother). Psychiatric history notable for depression and anxiety. Meets with a psychotherapist. 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 Vapes nicotine. [place] language Tajik. Completed high school education along with vocational school. Homemaker. Resides with of 4 months, together 10+ years. Also has 3 children. MEDICAL HISTORY/MEDICATION: Past Medical History: Diagnosis Date Amenorrhea Anxiety and depression (CMS/HCC) Anxiety with depression Asthma (CMS/HCC) Tobacco use MEDICATIONS: Current Outpatient Medications Medication Instructions ALPRAZolam (Xanax) 0.25 MG tablet ALPRAZolam (Xanax) 0.5 MG tablet ergocalciferol (Vitamin D2) 1.25 MG (60100 UT) capsule escitalopram (Lexapro) 10 MG tablet escitalopram (Lexapro) 5 MG tablet fexofenadine (Darby) 180 MG tablet IBU 600 MG tablet Lancets (onetouch ultrasoft) lancets metFORMIN XR (Glucophage-XR) 500 MG 24 hr tablet Oral for 90 Days Multiple Vitamins-Minerals (Multivitamin Adults) tablet Orally OneTouch Ultra test strip Qulipta 60 mg, Oral, Daily rizatriptan (MAXALT) 10 mg, Oral, Once as needed, May repeat in 2 hours if unresolved. Do not exceed 30 mg in 24 hours. zolpidem (Ambien) 5 MG tablet INITIAL IMPRESSION AND PLAN: Altered mental status, transient alteration of awareness, poor memory, ADHD, GABRIELA (on CPAP), insomnia, depression, and anxiety: The patient will be scheduled for neuropsychological assessment, which will include tests for memory, reasoning, language, problem-solving, attention, and mood. Thank you for allowing me to participate in the care of this individual. Please contact me with any questions at [phone]. documented in this encounter [facility] 06-30-2024 History of Present illness Narrative Images [...] Anxiety and depression ([facility]) Anxiety with depression Asthma ([facility]) Tobacco use Past Surgical History: Procedure Laterality Date SECTION, LOW TRANSVERSE 04/13/2017 SECTION, LOW TRANSVERSE 01/17/2019 SECTION, LOW TRANSVERSE 02/05/2011 LAPAROSCOPY DIAGNOSTIC / BIOPSY / ASPIRATION / LYSIS 03/13/2023 lysis of omental adhesion OTHER SURGICAL HISTORY 2009 Miscarriage PARTIAL HYSTERECTOMY 01/17/2019 supracervical [place] LAP,CHOLECYSTECTOMY 2010 Family History Problem Relation Name [...] , wrist extensors , wrist flexor , senior sharepoint developer strength 5/5. LUE Strength deltoid , biceps , triceps , wrist extensors , wrist flexor , senior sharepoint developer strength 5/5. RLE Strength illopsoas, quadriceps, tibialis [...] reflex 2+ . Rm's sign negative. Coordination: Aeeldy-tq-yoop testing and rapid alternating movements are normal. Gait: Normal Review and summary of old records: I have reviewed the patient's Emergency Department at [facility] and the recent hospitalization and workup including [...] patient's symptoms. EEG is planned pending at [facility]. I wonder if there is a psychiatric [...] therapy The patient was accompanied by her btadft-ev-aux today who provided additional history and was agreeable to the plan. Pt has been fully educated on their diagnosis, lab results, treatment options, follow up plan, and return instructions documented in this encounter [facility] 02-11-2024 History of Present illness Narrative Images [...] one or two year. She went to [facility] ED and they gave her Dr. De [...] and depression (CMS/HCC) Anxiety with depression Asthma ([facility]) Tobacco use Past Surgical History: Procedure Laterality Date SECTION, LOW TRANSVERSE 04/13/2017 SECTION, LOW TRANSVERSE 01/17/2019 SECTION, LOW TRANSVERSE 02/05/2011 LAPAROSCOPY DIAGNOSTIC / BIOPSY / ASPIRATION / LYSIS 03/13/2023 lysis of omental adhesion OTHER SURGICAL HISTORY 2009 Miscarriage PARTIAL HYSTERECTOMY 01/17/2019 supracervical [place] LAP,CHOLECYSTECTOMY 2010 Family History Problem Relation Name [...] a little atypical as he is a last marker. Regardless he sent her over here. The [...] clinic: 6 weeks documented in this encounter [facility] 01-19-2024 History of Present illness Narrative Reason for Appointment: Patient ID: Laurie Stewart is a 38 y.o. female who presents for Gynecologic Exam Patient presents today for Annual Exam. MEDICATIONS Current Outpatient Medications Medication Instructions ALPRAZolam (Xanax) 0.25 MG tablet ALPRAZolam (Xanax) 0.5 MG tablet ergocalciferol (Vitamin D2) 1.25 MG (45193 UT) capsule escitalopram (Lexapro) 10 MG tablet [...] HISTORY 2009 Miscarriage PARTIAL HYSTERECTOMY 01/17/2019 supracervical [place] LAP,CHOLECYSTECTOMY 2010 REVIEW OF SYSTEMS Review of [...] nursing note reviewed. Exam conducted with a de icer element winder present. Vitals: Estimated body mass index is [...] Babs Bhatia DO documented in this encounter [facility] 03-15-2020 Note PROCEDURE: XR CHEST 1 V [...] by: ERROL TIM Date: 2020-03-14 22:34 [facility] Evaluation note No assessment inform ation available [facility] Work Phone: Evaluation note Diagnosis Onset Date ADHD acute Anxiety and depression acute Headache, post-traumatic acu te Post concussion syndrome acu te [facility] Work Phone: Evaluation note* Diagnosis Onset Date Resolution Status ADHD acute Anxiety and depression acute Headache, post-traumatic acu te Post concussion syndrome acu te ADHD acute Anxiety and depression acute Headache, post-traumatic acu te Post concussion syndrome acu te [facility] Work Phone: Evaluation note* Diagnosis Onset Date Resolution Status Headache, post-traumatic acu te [facility] Work Phone: Evaluation note* Diagnosis Intractable migraine without aura and without status migrainosus (CMS/HCC)- Primary Post concussion syndrome Postconcussion syndrome Dizziness Dizziness and giddiness Sleep disturbance Unspecified sleep disturbance documented in this encounter [facility] Healthcare[facility] note* Diagnosis Well woman exam with routine gynecological exam Routine gynecological examination H/O: hysterectomy Acquired absence of both cervix and uterus Pelvic pain in female Unspecified symptom associated with female genital organs documented in this encounter [facility]* Diagnosis Transient alteration of awareness- Primary Chronic migraine without aura without status migrainosus, not intractable (CMS/HCC) Weakness Other malaise and fatigue documented in this encounter [facility] Healthcare[facility] note* Diagnosis Transient alteration of awareness- Primary Post concussion syndrome Postconcussion syndrome Chronic migraine without aura without status migrainosus, not intractable (CMS/HCC) Sleep disturbance Unspecified sleep disturbance Memory loss Attention deficit hyperactivity disorder (ADHD), predominantly inattentive type (CMS/HCC) Depression, unspecified depression type (CMS/HCC) Generalized anxiety disorder (CMS/HCC) Generalized anxiety disorder documented in this encounter [facility] Discharge instructionsAmbulatory Orders* Referral to Neurology Time Frame: 01/13/24, Location: [facility] Work Phone: Reason for visit Narrative* Consultation (Routine) - Closed Specialty Diagnoses / Procedures Referred By Contac t Referred To Contact Psychology Diagnoses Transient alteration of awareness Procedures [place] OFFICE/OUTPATIENT NEW HIGH MDM 60 MINUTES Otilio Montgomery DO [address] [place] [address] Phone: tel: fax: Carlton Mijares, PhD [address] [address] Phone: tel: fax: Referral ID Status Reason Start Date Expiration Date V isits Requested Visits Authorized [id number] Closed Specialty Services Required 06/30/2024 12/27/2024 1 1 [facility] Summary Purpose Family History Relationship Condition Age [...] content) DATE CREATED AUTHOR 01/09/2021 [facility] DATE CREATED AUTHOR AUTHOR'S ORGANIZ ATION 11/01/2023 [facility] DATE CREATED AUTHOR AUTHOR'S ORGANIZ ATION 06/04/2024 [facility] DATE CREATED AUTHOR AUTHOR'S ORGANIZ ATION 07/12/2024 [facility] dical Specialists EPIC Care Teams (unrecognized sec [...] January 13, 2024 End: January 13, 2024 Psychologist Counseling Relationship Specialty Start Date End Date Mckay Weeks MD [address] [place] [address] PCP - General Family Medicine 11/20/22 Psychologist Counseling Relationship Specialty Start Date End Date Mckay Weeks MD [address] [place] [address] PCP - General Family Medicine 11/20/22 Psychologist Counseling Relationship Specialty Start Date End Date Mckay Weeks MD [address] [address] PCP - General Family Medicine 11/20/22 Psychologist Counseling Relationship Specialty Start Date End Date Mckay Weeks MD [address] [address] PCP - General Family Medicine 11/20/22 Psychologist Counseling Relationship Specialty Start Date End Date Mckay Weeks MD [address] [address] PCP - General Family Medicine 11/20/22 Psychologist Counseling Relationship Specialty Start Date End Date Mckay Weeks MD [address] [address] PCP - General Family Medicine 11/20/22 Psychologist Counseling Relationship Specialty Start Date End Date Mckay Weeks MD [address] [address] PCP - General Family Medicine 11/20/22 Psychologist Counseling Relationship Specialty Start Date End Date Mckay Weeks MD [address] [address] PCP - General Family Medicine 11/20/22 Psychologist Counseling Relationship Specialty Start Date End Date Mckay Weeks MD [address] [address] PCP - General Family Medicine 11/20/22 Goals [...] BE BASED ON THE PRIMARY CLINICAL RECORDS. [facility]. provides no warranty or guarantee of the accuracy or completeness of information in this document.
== END 2024-07-13 07:19 | disposition home or self-care (01) ==
LOC: CARD 07:18
PROVIDERS: PCP Family Medicine; Visit Provider Family Medicine
DX: G93.40 Encephalopathy, unspecified (principal); G43.009 Migraine without aura, not intractable, without status migrainosus
CPT/HCPCS: 95816

== ENCOUNTER 2025-01-27 09:59 | Emergency (ER) | payer MEDICAID, SELFPAY ==
--- OUTSIDE RECORDS SUMMARY | 2025-01-27 10:09 | XMS_ITS | Encounter Summary ---
Author Organization [employer] Address [id number] [address] [place] [address] Care Team Providers Care Fine Grade Bulldozer Operator Name Role Phone Sandy Weeks MD Primary Care Provider + [phone] Reason for Referral * Diagnostic Imaging (Routine) - Pending Review Specialty Diagnoses / Procedures Referred By Mirna blank Referred To Contact Radiology Diagnoses Pain Procedures CT brain without contrast [facility] [address] [place] [phone] Phone: tel: fax: Referral ID Status Reason Start Date Expiration Date V isits Requested Visits Authorized [id number] Pending Review 05/31/2024 05/31/2025 1 1 Encounter Details Date Type Department Care Team (Late st Contact Info) Description 05/31/2024 Orders Only [facility] [address] [place] [phone] Transcribe, Orders Support User Pain (Primary Dx) Social History Tobacco Use Types Packs/Day Years Used Date Smoking Tobacco: Former Cigarettes Q uit: 10/11/2018 Smokeless Tobacco: Never Alcohol Use Standard Drinks/Week Comments Not Currently 0 (1 standard drink = 0.6 oz pur e alcohol) Childcare Answer Date Recorded Childcare Unknown 10/08/2018 Employment Answer Date Recorded Employment Unknown 10/08/2018 Purpose - Life Answer Date Recorded Purpose and direction in life Unknown Comments No Sex and Gender Information Value Date Recorded Sex Assigned at Not on file Legal Sex Female 11:39 AM EDT Gender Identity Not on file Sexual Orientation Not on file documented as of this encounter Plan of Treatment Not on file documented as of this encounter Results * CT brain without contrast (05/29/2024 9:35 PM EST) us Scanning Provider External IMG CT ORDERABLES Fin al Result documented in this encounter Visit Diagnoses Diagnosis Pain- Primary Generalized pain documented in this encounter Additional Health Concerns Assessment Noted Time A Body Mass Index follow-up plan has been documented for the patient 01/03/2019 10:57 AM EDT documented as of this encounter Care Teams Fine Grade Bulldozer Operator Relationship Specialty Start Date End Date Sandy Weeks MD [address] [place] [phone] PCP - General Family Medicine 12/06/18 documented as of this encounter
--- OUTSIDE RECORDS SUMMARY | 2025-01-27 10:09 | XMS_ITS | Clinical Summary ---
Author Organization [facility] Address [address] [place], [place] [address] Care Team Providers Care Train Crew Member Name Role Phone Wili Montgomery DO Unavailable [phone] Encounters Date Type Department Care Team Description 11/14/2024 Transcribe Orders Referring Physician [address] [place] [phone] Wili Montgomery DO Postconcussion syndrome (Primary Dx); Post-traumatic headache, not intractable, unspecified chronicity pattern from Last 3 Months Social History Tobacco Use Types Packs/Day Years Used Date Smoking Tobacco: Never Assessed Comments Unknown Sex and Gender Information Value Date Recorded Sex Assigned at Not on file Legal Sex Female 3:06 PM EDT Gender Identity Not on file Sexual Orientation Not on file Plan of Treatment Not on file Insurance [employer] [place] Care Teams Train Crew Member Relationship Specialty Start Date End Date Wili Montgomery DO Referring Neurology 11/14/24
--- OUTSIDE RECORDS SUMMARY | 2025-01-27 10:09 | XMS_ITS | Clinical Summary ---
Author Organization [employer] Address [id number] [address] [place] [address] Care Team Providers Care Personal Clothing Laundry Aide Name Role Phone Sandy Weeks MD Primary Care Provider [phone] Allergies Active Allergy Reactions Criticality Noted Date Comments Chlorhexidine Rash Low 01/11/2019 rash Medications pen needle, diabetic (BD ULTRA-FINE STELLA PEN NEEDLE) 32 gauge x 5/32 needleIndication s:Insulin controlled gestational diabetes mellitus (GDM) in second trimester BD Stella Pen [place]: use as directed to administer insulin via insulin pen 2-4 times daily. 100 each 3 9 Active VITAMIN PLUS LOW IRON 27 mg iron- 1 mg tablet 1 tablet in the morning. 9 Active TRUEPLUS INSULIN 0.3 mL 30 gauge x 5/16 syringe 9 Active famotidine (PEPCID) 20 mg tabletIndication s:Reflux gastritis TAKE ONE TABLET BY MOUTH EVERY NIGHT AT BEDTIME 30 tablet 9 Active Active Problems Problem Noted Date Diagnosed Date 01/17/2019 Rh negative state in antepartum period 9 Overview (01/03/2019): S/p RhoGAM 11/20/18 Reflux gastritis 12/23/2018 Overview (12/23/2018): Rx for pepcid sent to pharmacy. Pelvic pain in , antepartum, third trim loli 12/23/2018 Overview (01/03/2019): Order for maternity belt provided. Discussed that it may or may not help the increased pelvic pressure she has. 01/03/19 still present High-risk in third trimester 9 Overview (12/23/2018): Transfer of care from Dr. Bhatia - 07/01/2018: Hep BSAg neg Rubella immune RPR NR HCV Ab neg HIV NR A-/neg HbA1c 5.8 Low risk aneuploid 07/18/2018 1hr GTT 141 Dating by 9w2d US on 07/01/2018 with SRIKANTH 02/05/2019 Assessment & Plan (12/23/2018 10:43 PM EDT): Obtain GBS next visit. Discussed purpose of this even though she will be a planned . RTC 2 weeks, weekly thereafter. History of gestational diabetes mellitus (GDM) 0 12/01/2018 H/O: 11/01/2018 Obesity affecting in third trimester 0 11/01/2018 Nausea and vomiting in 11/01/2018 Gestational diabetes mellitus, class A2 09/21/19 19 Overview (12/23/2018): 15U NPH at bedtime to 15 units, 7U Admelog at lunch and 9U at dinner. 2100 calorie consistent carb meal plan of 3 meals and 3 snacks per day. NST and GASTON weekly starting at 32 weeks until 36 weeks, then NST twice a week and GASTON once a week. Serial growth US Complete placenta previa nos or without hemorrhage, third trimester 09/20/2018 Overview (01/03/2019): 12/06/2018: Persistent posterior placenta previa, risk of accreta 30%. 11/01/2018: Comment: Placental uterine interface with somewhat increased vascularity at the interface but not within the myometrium. Placental appearance otherwise unremarkable. Assessment & Plan (12/23/2018 9:52 PM EDT): Discussed with patient concerns regarding placenta previa, need for repeat delivery of . Discussed possibilty of c-hyst. Will follow up with [facility] and colleagues regarding plan of care. We did discuss today possibility of mid-line incision, need for transfusion, consideration of cell- save, completing procedure in the main OR. All questions were answered to her satisfaction regarding this. Based off of the US, discussed delivery at 37/0, however if concern for accreta, may consider this earlier. We also reviewed possibility of late-term ANCS. Resolved Problems Problem Noted Date Diagnosed Date Resolved Date Placenta previa in third trimester 01/03/2019 01/03/2019 Overview (01/03/2019): 12/06/18 [facility] US: Posterior placenta previa, risk of accreta 30%. Immunizations Immunization Administration Dates Next Due Rho (D) Immune Globulin 01/17/2019 Tdap 01/18/2019 Family History Medical History Relation Name Comments Alzheimer's disease Maternal Grandmother Dementia Maternal Grandmother Diabetes Maternal Grandmother Irritable bowel syndrome Maternal Grandmother Cancer Mother Diabetes Mother Hyperlipidemia Mother Irritable bowel syndrome Mother Stroke Mother Alzheimer's disease Paternal Grandmother Dementia Paternal Grandmother Anesthesia problems Neg Hx Relation Name Status Comments Father Maternal Grandfather Alive Maternal Grandmother Mother Paternal Grandfather Paternal Grandmother Social History Tobacco Use Types Packs/Day Years Used Date Smoking Tobacco: Former Cigarettes Q uit: 10/11/2018 Smokeless Tobacco: Never Tobacco Cessation:Counseling Given: Not Answered Alcohol Use Standard Drinks/Week Comments Not Currently [...] on file Sexual Orientation Not on file Last Filed Vital Signs Vital Sign Reading Time Taken Comments Blood Pressure 122/72 10/06/2024 11:22 AM EDT Pulse 96 10/06/2024 11:22 AM EDT Temperature 36.8 C (98.2 F) 01/20/2019 1:38 PM EDT Respiratory Rate 16 10/06/2024 11:22 AM EDT Oxygen Saturation 100% 01/19/2019 7:30 AM EDT Inhaled Oxygen Concentration - - Weight 99.8 kg (220 lb) 10/06/2024 11:22 AM EDT Height 157.5 cm (5' 2 ) 10/06/2024 11:22 AM EDT Body Mass Index 40.24 10/06/2024 11:22 AM EDT Plan of Treatment Health Maintenance Due Date Last Done Comments Depression Screening 1998 Adult BMI Follow Up Plan 2004 Pap Smear 2007 Influenza Vaccine 01/09/2025 Adult BMI Screening 10/06/2025 10/06/2024 Tobacco Screening 10/06/2025 10/06/2024 DTaP,Tdap and Td Vaccines (2 - Td or Tdap) 01/18/2029 01/18/2019 Medical Devices Not on file Insurance [employer] MEDICAID Advance Directives * Full Code (Latest Code Status on File) Date Activated Date Inactivated Comments 01/16/2019 4:45 PM 01/20/2019 6:11 PM Care Teams Personal Clothing Laundry Aide Relationship Specialty Start Date End Date Sandy Weeks MD [address] [place] [phone] PCP - General Family Medicine 12/06/18
--- OUTSIDE RECORDS SUMMARY | 2025-01-27 10:09 | XMS_ITS | Encounter Summary ---
Author Organization [facility] tem Address [id number] [address] [place] [address] Care Team Providers Care Accounts Receivable Specialist Name Role Phone Sandy Weeks MD Primary Care Provider [phone] Encounter Details Date Type Department Care Team (Late st Contact Info) Description 01/19/2019 Documentation [facility] [address] [place] [phone] Yasmine Lawton RN Social History Tobacco Use Types Packs/Day Years Used Date Smoking Tobacco: Former Cigarettes Q uit: 10/11/2018 Smokeless Tobacco: Never Alcohol Use Standard Drinks/Week Comments Not Currently 0 (1 standard drink = 0.6 oz pur e alcohol) Childcare Answer Date Recorded Childcare Unknown 10/08/2018 Employment Answer Date Recorded Employment Unknown 10/08/2018 Comments No Sex and Gender Information Value Date Recorded Sex Assigned at Not on file Legal Sex Female 11:39 AM EDT Gender Identity Not on file Sexual Orientation Not on file documented as of this encounter Plan of Treatment Not on file documented as of this encounter Visit Diagnoses Not on filedocumented in this encounter Additional Health Concerns Assessment Noted Time A Body Mass Index follow-up plan has been documented for the patient 01/03/2019 10:57 AM EDT documented as of this encounter Care Teams Accounts Receivable Specialist Relationship Specialty Start Date End Date Sandy Weeks MD [address] [place] [phone] PCP - General Family Medicine 12/06/18 documented as of this encounter
--- OUTSIDE RECORDS SUMMARY | 2025-01-27 10:10 | XMS_ITS | CCD ---
Author Organization [facility] CliniSyn[facility] Care Team Providers Care Glass Lathe Operator Name Role Phone DR MCKAY WEEKS Primary Care Unavailable KHRIS, DR ELIZABETH Arias Admitting Unavailable KHRIS, DR ELIZABETH Arias Attending Unavailable KHRIS, DR ELIZABETH Arias Consulting Unavailable JAYSON TIM Consulting Unavailable JANNETTE, DR BRICE Admitting Unavailable JANNETTE, DR BRICE Attending Unavailable DENNISE, DR MCKAY Espinoza Primary Care Unavailable JANNETTE, DR BRICE Consulting Unavailable DENNISE, DR MCKAY Espinoza Admitting Unavailable DENNISE, DR MCKAY Espinoza Attending Unavailable DENNISE, DR MCKAY Espinoza Primary Care Unavailable KENT, DR ANDREW Hopkins Consulting Unavailable DENNISE, DR MCKAY Espinoza Consulting Unavailable LORNA Velasquez Attending Provider MD Mckay Weeks Primary Care Provider MD Robert De Anda Attending Provider Mckay Weeks MD Primary Care Provider [phone] MCKAY WEEKS Primary Care Unavailable AMADOU COOK Consulting Unavailable INPATIENT, TELENEUROLOGY Consulting Unavail able MCKAY WEEKS Referring Unavailable MCKAY WEEKS Primary Care Unavailable OTILIO MONTGOMERY Attending Unavailable CARLTON MIJARES Attending Unavailable OTILIO MONTGOMERY Referring Unavailable BABS BHATIA Attending Unavailable LUIS SHAIKH Attending Unavailable ROBERT DE ANDA Referring Unavailable ASHLEY ALVARENGA Attending Unavailable Mckay Weeks MD Primary Care Provider NOAH HOOD Attending Unavailable MCKAY WEEKS Referring Unavailable MCKAY WEEKS Primary Care Unavailable Otilio Montgomery DO Unavailable Mckay Weeks MD Primary Care Provider Otilio Montgomery DO Attending Provider Otilio Montgomery DO Other Provider Jayson Boothe DO Attending Provider Vee Richmond Attending Provider Vee Jefferson Attending Unavailable Vee Jefferson Admitting Unavailable Mckay Weeks A Primary Care Unavailable Vee Jefferson Attending Unavailable Vee Jefferson Admitting Unavailable Weeks, Mckay A Primary Care Unavailable Nely Weeksher A Primary Care Unavailable Otilio Montgomery Attending Unavailab le Otilio Montgomery Admitting Unavailab le Allergies Allergy Classification Reported Allergen(s) Allergy Type Date of Onset Reaction(s) Facility (20 sources) Chlorhexidine; Translations: [CHLORHEXIDINE] Drug Allergy 9 Rash [facility] (16 sources) Chlorhexidine / Ethanol Drug Allergy 4 [facility] (9 sources) Iodinated Contrast Media Propensity to adverse reactions 5 [facility] Medications Current Medications Medication Drug Class(es) Dates Sig (Normalized) Sig (Original) ALPRAZolam 0.5 mg oral tablet (20 sources) Benzodiazepine Start: 12-08-2024 End: 12-12-2024 take 1 tablet by mouth twice daily as needed for anxiety Start: 12-20-2023 ALPRAZolam (Xa nax) 0.5 MG tablet 12/20/2023 Active Start: 08-26-2022 End: 12-12-2024 take 1 tablet by mouth once daily Alprazolam 0.25 mg tablet Discontinued 0.25 MG PO Daily August 04, 2023 12:00am December 12, 2024 8:19am amitriptyline hydrochloride 25 mg oral tablet (5 sources) Tricyclic Antidepressant Start: 02-11-2024 End: 02-10-2025 take 1 tablet by mouth once daily amitriptyline (Elavil) 25 MG tablet Indications: Intractable migraine without aura and without status migrainosus (CMS/HCC) Take 1 tablet (25 mg) by mouth Daily 30 tablet 2 02/11/2024 06/30/2024 Discontinued (Ineffective) Atogepant (Qulipta) 60 MG tablet (9 sources) Start: 06-30-2024 End: 06-30-2025 take 1 tablet by mouth once daily Atogepant (Qulipta) 60 MG tablet Indications: Chronic migraine without aura without status migrainosus, not intractable (CMS/HCC) Take 60 mg by mouth Daily 30 tablet 11 06/30/2024 06/30/2025 Active atomoxetine 40 mg oral capsule (18 sources) Norepinephrine Reuptake Inhibitor Start: 12-08-2024 End: 12-12-2024 take 1 capsule by mouth once daily Start: 12-28-2023 End: 01-19-2024 atomoxetine (Strattera) 40 M G capsule 12/28/2023 01/19/2024 Discontinued (Therapy completed) Start: 08-04-2023 End: 01-19-2024 take 1 capsule by mouth once daily in the morning Atomoxetine 80 mg capsule Discontinued 80 MG PO Every morning August 04, 2023 12:00am January 13, 2024 10:49am 1 ml erenumab-aooe 70 mg/ml auto-injector (2 sources) Start: 09-12-2024 inject 1 mL by subcutaneous injection every 30 days erenumab (Aimovig) 70 MG/ML injection Indications: Chronic migraine without aura without status migrainosus, not intractable (CMS/HCC) Inject 1 mL (70 mg) under the skin every 30 (thirty) days 1 mL 2 09/12/2024 Active ergocalciferol 1.25 mg oral capsule (16 sources) Provitamin D2 Compound Start: 05-18-2023 ergocalciferol (Vitamin D2) 1.25 MG (33550 UT) capsule 05/18/2023 Active escitalopram 20 mg oral tablet (20 sources) Serotonin Reuptake Inhibitor Start: 12-08-2024 End: 12-12-2024 take 1 tablet by mouth once daily Start: 01-13-2024 End: 12-12-2024 take 3 tablets by mouth once daily Escitalopram Oxalate (Lexapro) 5 mg tablet Discontinued 0 PO Daily January 13, 2024 10:50am December 12, 2024 8:18am 15mg orally daily; Start: 11-10-2023 take 2 tablets by nc ut once daily escitalopram (Lexapro) 10 MG tablet Take 20 mg by mouth Daily 11/10/2023 Active Start: 11-10-2023 escitalopram ( Lexapro) 10 MG tablet 11/10/2023 Active Start: 11-04-2022 End: 01-13-2024 take 1 tablet by mouth once daily Escitalopram Oxalate (Lexapro) 5 mg tablet Discontinued 5 MG PO Daily August 04, 2023 12:00am January 13, 2024 10:51am famotidine 20 mg oral tablet (1 source) Histamine-2 Receptor Antagonist Start: 03-30-2019 take 1 tablet by mouth once daily at bedtime famotidine (PEPCID) 20 mg tablet Indications: Reflux gastritis TAKE ONE TABLET BY MOUTH EVERY NIGHT AT BEDTIME 30 tablet 03/30/2019 Active fexofenadine hydrochloride 180 mg oral tablet (20 sources) Histamine-1 Receptor Antagonist Start: 10-21-2022 take 1 tablet by mouth once daily ibuprofen 600 mg oral tablet (20 sources) Nonsteroidal Anti-inflammatory Drug Start: 09-09-2023 IBU 600 MG tablet 09/09/2023 Active Start: 08-04-2023 take 1 tablet by mouth three t imes daily 24 hr metFORMIN hydrochlorid e 500 mg extended release oral tablet (20 sources) Biguanide Start: 12-12-2024 take 1 tablet by abigail th once daily Start: 12-08-2024 End: 12-12-2024 take 1 tablet by mouth every twenty-four hours Metformin 500 mg tablet extended release 24 hr Discontinued 500 MG PO December 08, 2024 12:00am December 12, 2024 8:20am Start: 08-04-2023 End: 12-12-2024 take 1 tablet by mouth once daily Metformin 500 mg tab let Discontinued 500 MG PO Daily August 04, 2023 12:00am December 12, 2024 8:19am take 1 tablet by abigail th every twenty-four hours metFORMIN XR (Glucophage-XR) 500 MG 24 hr tablet Oral for 90 Days Active Multiple Vitamins-Minerals (Multivitamin Adults) tablet (17 sources) Multiple Vitamins-Minerals (Multivitamin Adults) tablet Orally Active Multivitamin preparation (3 sources) Start: take 1 tablet by mouth once daily Multivitamin Active 1 TAB PO Daily August 04, 2023 12:00am Multivitamin tablet (4 sources) Start: take 1 tablet by mouth once daily VITAMIN PLUS LOW IRON 27 mg iron- 1 mg tablet (1 source) Start: VITAMIN PLUS LOW IRON 27 mg iron- 1 mg tablet 1 tablet daily. 09/22/2018 Active rizatriptan 10 mg oral tablet (12 sources) Serotonin-1b and Serotonin-1d Receptor Agonist Start: [...] time. 01/19/2024 Discontinued (Therapy completed) zolpidem tartrate 5 mg oral tablet (20 sources) gamma-Aminobutyr ic Acid-ergic Agonist Start: End: take 1 tablet by mouth once daily at bedtime Start: 08-04-2023 End: 12-12-2024 take 1 tablet by mouth once daily at bedtime Zolpidem 10 mg tablet Discontinued 10 MG PO Daily at bedtime August 04, 2023 12:00am December 12, 2024 8:20am Start: 11-13-2022 zolpidem (Ambi en) 5 MG tablet 11/13/2022 Active Completed/Discontinued Medications Medication Drug Class(es) Dates Sig (Normalized) Sig (Original) LORazepam 0.5 mg oral tablet (7 sources) Benzodiazepine Start: 08-04-2023 End: 08-04-2023 take 1 tablet by mouth once daily as needed Lorazepam 0.5 mg tablet Discontinued 0.5 MG PO Daily as needed August 04, 2023 12:00am August 04, 2023 1:41pm 24 hr propranolol hydrochloride 60 mg extended release oral capsule (20 sources) beta-Adrenergic Bree Start: 08-04-2023 End: 06-30-2024 take 1 capsule by mouth once daily at bedtime Propranolol 60 mg capsule,extended release 24 hr Discontinued 60 MG PO Daily at bedtime 90 90 September 22, 2023 2:20pm 2024 11:43am Problems Active Problems Problem Classification Problem Date Documented Date Episodic/Chronic Anxiety disorders (12 sources) Mixed anxiety and depressive disorder; Translations: [Anxiety disorder, unspecified] 08-04-2023 Chronic Attention-deficit, conduct, and disruptive behavior disorders (7 sources) Attention deficit hyperactivity disorder; Translations: [Attention-deficit hyperactivity disorder, unspecified type] 08-04-2023 Chronic Attention-deficit, conduct, and disruptive behavior disorders (3 sources) Attention-deficit hyperactivity disorder, unspecified type; Translations: [Attention deficit disorder with hyperactivity] 08-04-2023 Chronic Attention-deficit, conduct, and disruptive behavior disorders (2 sources) Attention deficit hyperactivity disorder, predominantly inattentive type; Translations: [Attention-deficit hyperactivity disorder, predominantly inattentive type] 07-12-2024 Chronic Blindness and vision defects (6 sources) Eye / vision finding; Translations: [Unspecified visual disturbance] 09-22-2023 Episodic Conditions associated with dizziness or vertigo (2 sources) Dizziness; Translations: [Dizziness and giddiness] 02-11-2024 Episodic Delirium, dementia, and amnestic and other cognitive disorders (17 sources) Postconcussion syndrome; Translations: [Postconcussional syndrome] Onset: 11-29-2024 08-04-2023 Chronic Headache; including migraine (16 sources) Refractory migraine without aura; Translations: [Migraine without aura, intractable, without status migrainosus] 02-11-2024 Chronic Headache; including migraine (14 sources) Posttraumatic headache; Translations: [Post-traumatic headache, unspecified, not intractable] Onset: 11-29-2024 08-04-2023 Episodic Immunizations and screening for infectious disease (2 sources) Encounter for screening for human papillomavirus (HPV); Translations: [Contact with and (suspected) exposure to other viral communicable diseases] Onset: 03-19-2020 Episodic Malaise and fatigue (12 sources) Asthenia; Translations: [Weakness] 06-30-2024 Episodic Mood disorders (2 sources) Depressive disorder; Translations: [Depression, unspecified depression type (CMS/HCC)] 07-12-2024 Chronic Other complications of (1 source) Maternal obesity complicating , childbirth and the puerperium, antepartum; Translations: [Obesity complicating , third trimester] Onset: 11-01-2018 01-19-2019 Chronic Other nervous system disorders (1 source) Other chronic pain; Translations: [OTHER CHRONIC PAIN] Onset: 06-14-2020 Chronic Other nervous system disorders (4 sources) Chiari malformation type I; Translations: [Compression of brain] 12-12-2024 Chronic Other nervous system disorders (1 source) Compression of brain; Translations: [Compression of brain] Onset: 01-17-2025 Chronic Other screening for suspected conditions (not mental disorders or infectious disease) (4 sources) Magnetic resonance imaging of brain abnormal; Translations: [Other abnormal findings on diagnostic imaging of central nervous system] 12-12-2024 Episodic Other upper respiratory infections (1 source) Chronic sinusitis, unspecified; Translations: [CHRONIC SINUSITIS UNSPECIFIED] Onset: 03-19-2020 Chronic Residual codes; unclassified (10 sources) Obstructive sleep apnea syndrome; Translations: [Obstructive sleep apnea (adult) (pediatric)] Onset: 02-17-2024 02-17-2024 Chronic Residual codes; unclassified (4 sources) Disturbance in sleep behavior; Translations: [Sleep disorder, unspecified] 02-11-2024 Episodic Residual codes; unclassified (1 source) Pain, unspecified; Translations: [Pain, unspecified] Onset: 05-31-2024 Episodic Residual codes; unclassified (16 sources) Transient alteration of awareness; Translations: [Transient alteration of awareness] 06-30-2024 Episodic Residual codes; unclassified (2 sources) Amnesia; Translations: [Other amnesia] 07-12-2024 Episodic Unclassified (1 source) Altered Mental Status at [facility] Onset: 05-30-2024 Past or Other Problems Problem Classification Problem Date Documented Da te Episodic/Chronic Abdominal pain (2 sources) Pain in female pelvis; Translations: [Pelvic and perineal pain] 01-19-2024 Episodic Chronic obstructive pulmonary disease and bronchiectasis (1 source) Bronchitis, not specified as acute or chronic; Translations: [BRONCHITIS NOT SPEC ACUTE/CHRON] Onset: 03-19-2020 Episodic Diabetes or abnormal glucose tolerance complicating ; childbirth; or the puerperium (2 sources) Gestational diabetes mellitus, class A>2< ; Translations: [Gestational diabetes mellitus in , unspecified control] Onset: 09-20-2018 01-19-2019 Episodic Gastritis and duodenitis (1 source) Bile-induced gastritis; Translations: [Other gastritis without bleeding] Onset: 12-23-2018 12-23-2018 Episodic Hemorrhage during ; abruptio placenta; placenta previa (2 sources) Placenta previa without hemorrhage; Translations: [Complete placenta previa NOS or without hemorrhage, third trimester] Onset: 09-20-2018 Resolved: 01-03-2019 01-19-2019 Episodic Nonspecific chest pain (4 sources) Other chest pain; Translations: [OTHER CHEST PAIN] Onset: 03-14-2020 Episodic Other complications of (1 source) Vomiting of , unspecified; Translations: [Unspecified vomiting of , unspecified as to episode of care or not applicable] Onset: 11-01-2018 11-01-2018 Episodic Other complications of (1 source) Pain in pelvis; Translations: [Other specified related conditions, third trimester] Onset: 12-23-2018 01-19-2019 Episodic Other complications of (1 source) High risk ; Translations: [Supervision of high risk , unspecified, third trimester] Onset: 12-23-2018 01-19-2019 Episodic Other complications of (1 source) RhD negative; Translations: [Other specified related conditions, unspecified trimester] Onset: 01-03-2019 01-19-2019 Episodic Other and delivery including normal (1 source) ; Translations: [Encounter for supervision of normal , unspecified, unspecified trimester] Onset: 01-17-2019 01-17-2019 Episodic Spondylosis; intervertebral disc disorders; other back problems (4 sources) Lumbago with sciatica, left side; Translations: [LUMBAGO WITH SCIATICA LEFT SIDE] Onset: 06-06-2020 Episodic Unclassified (1 source) Onset: 01-03-2019 01-03-2019 Results Test Name Value Interpretation Reference Range Facility MR cervical spine wo/w [place] 01-17-2025 MR cervical spine wo/w con [facility] Main [place] [id number] MRI Report Signed Patient: Luis Jung MR#: [id number] : 1985 Acct:[id number] Age/Sex: 39 / F ADM Date: 01/17/25 Loc: Room: Type: [facility] Attending Dr: Vee ALLEN Copies to: TIFFANY Pan Ordering Provider: TIFFANY Pan Date of Service: 01/17/25 MR/MR cervical spine wo/w con: Chiari I. Evaluate for possible syrinx MRI of the cervical spine performed without with contrast INDICATION: Arnold-Chiari malformation type I COMPARISON: None FINDINGS: Craniocervical junction junction is maintained. Cervical cord demonstrates normal signal morphology. No cervical cord syrinx. No abnormal enhancement involving the cord or the vertebral bodies. Likely focal epidural venous plexus enhancement C5-6 greatest the right . Otherwise cervical vertebral vertebral heights, alignment and bone marrow signal is grossly unremarkable.. 4 mm of cerebellar tonsillar ectopia. Cerebellar tonsils maintain a normal rounded configuration. C2-C3: Unremarkable C3-C4: Minimal uncovertebral spurring causing minimal right neural foraminal narrowing. Canal and left foramen are patent. C4-C5: Mild right uncovertebral spurring. Mild right neural foraminal narrowing. Left foramen and central canal patent. C5-6: Small right subarticular protrusion C5-6. Otherwise, no central canal or neural foraminal narrowing identified. C6-7: Minimal left uncovertebral spurring. Minimal left foraminal encroachment. No significant disc disease central canal or right foraminal narrowing. C7-T1: Mild to moderate facet arthropathy. Otherwise unremarkable.. MR/MR cervical spine wo/w con IMPRESSION: Minimal degenerative change without significant canal or neural foraminal narrowing. Cerebellar tonsillar ectopia without evidence of cervical cord syrinx or pathologic enhancement involving the cord. Impression dictated by: Marquise Guerrier M.D. 01/17/2025 7:01 PM Dictation Location: [place] [address] Transcribed By: [facility] 01/17/251900 Dictated By: Marquise Guerrier MD 01/17/25 185 Signed By: 01/17/251900 Normal [facility] MR lumbar spine wo/w conon 0 01-17-2025 MR lumbar spine wo/w con [facility] Main [place] [id number] MRI Report Signed Patient: Luis Jung MR#: [id number] : 1985 Acct:[id number] Age/Sex: 39 / F ADM Date: 01/17/25 Loc: MR Room: Type: [facility] Attending Dr: Vee ALLEN Copies to: TIFFANY Pan Ordering Provider: TIFFANY Pan Date of Service: 01/17/25 MR/MR lumbar spine wo/w con: G93.5 MRI lumbar spine performed without and with contrast INDICATION: Evaluate for possible syrinx, Chiari malformation COMPARISON: None FINDINGS: Lumbar vertebral heights and alignment and bone marrow signal is unremarkable. Diminished marrow signal likely related to patient's age and red marrow conversion. Endplate Schmorl's nodes L1-L2 and minimal Schmorl's node formation inferior plate of T11. Mild facet arthropathy L3-4. Erxu-pu-zamimtwf facet arthropathy L4-5 and L5-S1. Vertebral body heights and intervertebral space heights preserved. No significant disc disease, disc protrusion, central canal or neural from narrowing identified. Conus terminates T12-L1. No distal thoracic cord syrinx identified. No abnormal postcontrast enhancement. MR/MR lumbar spine wo/w con IMPRESSION: Mild facet arthropathy noted from L3 through S1. Otherwise no significant disc disease central canal or neural foramen identified. Impression dictated by: Marquise Guerrier M.D. 01/17/2025 7:29 PM Dictation Location: [place] [address] Transcribed By: [facility] 01/17/251928 Dictated By: Marquise Guerrier MD 01/17/251925 Signed By: 01/17/251928 Normal The Replaced By [facility] Magnetic resonance imaging r eportOrdered By: Marquise Guerrier on 01-17-2025 Study report [facility] Main [address] [address] MRI Report Signed Patient: Luis Jung MR#: [id number] : 1985 Acct:[id number] Age/Sex: 39 / F ADM Date: 5 Loc: MR Room: [facility] Attending Dr: Vee ALLEN Copies to: TIFFANY Pan~ Ordering Provider: TIFFANY Pan Date of Service: 01/17/25 MR/MR lumbar spine wo/w con: G93.5 MRI lumbar spine performed without and with contrast INDICATION: Evaluate for possible syrinx, Chiari malformation COMPARISON: None FINDINGS: Lumbar vertebral heights and alignment and bone marrow signal is unremarkable. Diminished marrow signal likely related to patient's age and red marrow conversion. Endplate Schmorl's nodes L1-L2 and minimal Schmorl's node formation inferior plate of T11. Mild facet arthropathy L3-4. Ikuo-ru-zjhvepmhzvzma arthropathy L4-5 and L5-S1. Vertebral body heights and intervertebral space heights preserved. No significant disc disease, disc protrusion, central canal or neural from narrowing identified. Conus terminates T12-L1. No distal thoracic cord syrinx identified. No abnormal postcontrast enhancement. MR/MR lumbar spine wo/w con IMPRESSION: Mild facet arthropathy noted from L3 through S1. Otherwise no significant disc disease central canal or neural foramen identified. Impression dictated by: Marquise Guerrier M.D. 01/17/2025 7:29 PM Dictation Location: [place] [address] Transcribed By: [facility] 01/17/251928 Dictated By: Marquise Guerrier MD 01/17/251925 Signed By: 01/17/251928 [facility] Work Phone: Study report [facility] Main [place] [address] [place] [address] MRI Report Signed Patient: Luis Jung MR#: [id number] : 1985 Acct:[id number] Age/Sex: 39 / F ADM Date: 5 Loc: MR Room: Type: [facility] Attending Dr: Vee ALLEN Copies to: TIFFANY Pan~ Ordering Provider: TIFFANY Pan Date of Service: 01/17/25 MR/MR cervical spine wo/w con: Chiari I. Evaluate for possible syrinx MRI of the cervical spine performed without with contrast INDICATION: Arnold-Chiari malformation type I COMPARISON: None FINDINGS: Craniocervical junction junction is maintained. Cervical cord demonstrates normal signal morphology. No cervical cord syrinx. No abnormal enhancement involving the cord or the vertebral bodies. Likely focal epidural venous plexus enhancement C5-6 greatest the right . Otherwise cervical vertebral vertebral heights, alignment and bone marrow signal is grossly unremarkable.. 4 mm of cerebellar tonsillar ectopia. Cerebellar tonsils maintain a normal rounded configuration. C2-C3: Unremarkable C3-C4: Minimal uncovertebral spurring causing minimal right neural foraminal narrowing. Canal and left foramen are patent. C4-C5: Mild right uncovertebral spurring. Mild right neural foraminal narrowing. Left foramen and central canal patent. C5-6: Small right subarticular protrusion C5-6. Otherwise, no central canal or neural foraminal narrowing identified. C6-7: Minimal left uncovertebral spurring. Minimal left foraminal encroachment. No significant disc disease central canal or right foraminal narrowing. C7-T1: Mild to moderate facet arthropathy. Otherwise unremarkable.. MR/MR cervical spine wo/w con IMPRESSION: Minimal degenerative change without significant canal or neural foraminal narrowing. Cerebellar tonsillar ectopia without evidence of cervical cord syrinx or pathologic enhancement involving the cord. Impression dictated by: Marquise Guerrier M.D. 01/17/2025 7:01 PM Dictation Location: [place] [address] Transcribed By: [facility] 01/17/251900 Dictated By: Marquise Guerrier MD 01/17/251851 Signed By: 01/17/251900 [facility] Work Phone: X-ray reportOrdered By: Luis Enrique Guerrier on 01-17-2025 Study report [facility] [address] [address] XRay Report Signed Patient: Luis Jung MR#: [id number] : 1985 Acct:[id number] Age/Sex: 39 / F ADM Date: 5 Loc: MR Room: Type: [facility] Attending Dr: Vee ALLEN Copies to: TIFFANY Pan~ Ordering Provider: TIFFANY Pan Date of Service: 01/17/25 XR/XR pre/post mri xray: PRE MRI OF THE LUMBAR AND CERVICAL 2 VIEWS CERVICAL SPINE 2 VIEWS OF THE LUMBAR SPINE INDICATION: Headache/migraines, Chiari malformation XR/XR pre/post mri xray FINDINGS AND IMPRESSION: Cervical lumbar vertebral alignment and vertebral heights maintained. Mild lower lumbar facet arthropathy. No high-grade neural foraminal encroachment. Surgical clips right upper quadrant. Impression dictated by: Marquise Guerrier M.D. 01/17/2025 7:32 PM Dictation Location: [place] [address] Transcribed By: [facility] 01/17/251931 Dictated By: Marquise Guerrier MD 01/17/251929 Signed By: 01/17/251931 [facility] Work Phone: XR pre/post mri xrayon 01-17 XR pre/post mri xray [address] [address] XRay Report Signed Patient: Luis Jung MR#: [id number] : 1985 Acct:[id number] Age/Sex: 39 / F ADM Date: 01/17/25 Loc: MR Room: Type: [facility] Attending Dr: Vee ALLEN Copies to: TIFFANY Pan Ordering Provider: TIFFANY Pan Date of Service: 01/17/25 XR/XR pre/post mri xray: PRE MRI OF THE LUMBAR AND CERVICAL 2 VIEWS CERVICAL SPINE 2 VIEWS OF THE LUMBAR SPINE INDICATION: Headache/migraines, Chiari malformation XR/XR pre/post mri xray FINDINGS AND IMPRESSION: Cervical lumbar vertebral alignment and vertebral heights maintained. Mild lower lumbar facet arthropathy. No high-grade neural foraminal encroachment. Surgical clips right upper quadrant. Impression dictated by: Marquise Guerrier M.D. 01/17/2025 7:32 PM Dictation Location: [place] [id number] Transcribed By: [facility] 01/17/251931 Dictated By: Marquise Guerrier MD 01/17/251929 Signed By: 01/17/251931 Normal The Replaced By [facility] MR thoracic spine wo/w [place] 01-16-2025 MR thoracic spine wo/w con [facility] [place] [address] MRI Report Signed Patient: Luis Jung MR#: [id number] : 1985 Acct:[id number] Age/Sex: 39 / F ADM Date: 01/16/25 Loc: Room: Type: [facility] Attending Dr: Vee ALLEN Copies to: TIFFANY Pan Ordering Provider: TIFFANY Pan Date of Service: 01/16/25 MR/MR thoracic spine wo/w con: Chiari I. Evaluate for possible syrinx MRI lumbar spine performed without and with contrast INDICATION: Chiari malformation, evaluate for possible syrinx COMPARISON: None FINDINGS: Mild levocurvature of the thoracic spine. Thoracic vertebral heights, alignment and bone marrow is unremarkable. Minimal intervertebral space narrowing T6-T8. Tiny central protrusion T5-T6, T6-T7, and T7-T8. Right central protrusion T8-T9. Broad-based disc bulge and facet arthropathy at T10-11. There are Schmorl's node deformities T10-T12. Otherwise the thoracic cord is normal in signal and morphology. No focal cord syrinx. No abnormal enhancement involving cord or the vertebral bodies. Paraspinal soft tissues unremarkable. MR/MR thoracic spine wo/w con IMPRESSION: Mild midthoracic degenerative changes. No evidence of thoracic cord syrinx. No significant canal or neural foraminal narrowing identified. Impression dictated by: Marquise Guerrier M.D. 01/16/2025 11:15 PM Dictation Location: [facility] Transcribed By: [facility] 01/16/252314 Dictated By: Marquise Guerrier MD 01/16/252310 Signed By: 01/16/252314 Normal The Replaced By [facility] ALL MYOGLOBINon 07-05-2024 Myoglobin [Mass/Vol] 20 ng/mL 9 - 82 ng/mL [facility] CKon 07-05-2024 CK [Catalytic activity/Vol] 37 U/L 26 - 192 U/L [facility] No Panel Informationon 07-05 [facility] IGP,APTIMA HPV,AGE GDLNon AGE GDLN ACOG TESTING Note . [facility] Comment on above: TESTS RESULT FLAG UN ITS REF RANGE LAB Clinician Provided Cytology Information Source.............Vagina No. of containers..01 ThinPrep Vial Age Algo ACOG Peggy... 30-65 01 FLAG LEGEND: L-Low Normal,H-High Normal,LL-Alert Low,HH-Alert High <-Panic Low,>-Panic High,A-Abnormal,AA-Critical Abnormal Performed at: 01 =G [address] [place] [address] Sabiha Quinn MD, HPV APTIMA Negative Negative [facility] Comment on above: This nucleic acid am plification test detects fourteen high- risk HPV types (16,18,31,33,35,39,45,51,52,56,58,59,66,68) without differentiation. Performed at: =G - [facility], [place] [id number] [employer] Layer Helper: Sabiha Qiunn MD, Phone: [phone] Performed at: - [facility], [place] [id number] [employer] Layer Helper: Sabiha Quinn MD, Phone: [phone] IGP, APTIMA HPV, RFX 16/18,[address] [facility] Comment on above: TESTS RESULT FLAG UN ITS REF RANGE LAB DIAGNOSIS: 02 NEGATIVE FOR INTRAEPITHELIAL LESION OR MALIGNANCY. Specimen adequacy: 02 Satisfactory for evaluation. Performed by: Craig Overton, Extractor Machine Operator (ASCP) . 02 Note: Note 02 The Pap [...] High,A-Abnormal,AA-Critical Abnormal Performed at: 02 WB [facility] [address] [address] Sabiha Quinn MD, SPATULA-ALONE VAGINA [facility] Cervical or vaginal smear or scraping studyon 01-13-2023 [facility] PAP ACOG PANEL 2: 30 to 65on 12-28-2020 . . Normal [facility] Comment on above: Result Comment: Perf ormed at: WB Performed By: #### 4 [id number] #### [facility] [address] [address] Tracy Pop Age Gdln ACOG Testing -66 Normal [facility] Comment on above: Performed By: #### 4 [id number] #### [facility] [address] [address] Tracy Pop DIAGNOSIS: Comment Normal [facility] Comment on above: Result Comment: NEGA TIVE FOR INTRAEPITHELIAL LESION OR MALIGNANCY. THIS SPECIMEN WAS RESCREENED PART OF OUR MATERIAL DAMAGE APPRAISER PROGRAM. Performed at: WB Performed By: #### 4 [id number] #### [facility] [address] [address] Tracy Pop HPV Aptima Negative Normal Negative [facility] Comment on above: Result Comment: This nucleic acid amplification test detects fourteen high-risk HPV types (16,18,31,33,35,39,45,51,52,56,58,59,66,68) without differentiation. Performed at: =G Performed By: #### 4 [id number] #### [facility] [address] [address] Tracy Pop Methodology: Comment Normal [facility] Comment on above: Result Comment: This liquid based ThinPrep(R) pap test was screened with the use of an image guided system. Performed at: WB Performed By: #### 4 [id number] #### [facility] [address] [place] [address] Tracy Pop Note: Comment Normal [facility] Comment on above: Result Comment: The Pap smear is a screening test designed to aid in the detection of premalignant and malignant conditions of the uterine cervix. It is not a diagnostic procedure and should not be used as the sole means of detecting cervical cancer. Both false-positive and false-negative reports do occur. . Performed at: WB Performed By: #### 4 [id number] #### [facility] [address] [place] [address] Tracy Pop Performed by: Comment Normal [facility] Comment on above: Result Comment: Addi Barajas, Extractor Machine Operator (ASCP) Performed at: WB Performed By: #### 4 [id number] #### [facility] [address] [place] [address] Tracy Pop QC reviewed by: Comment Normal [facility] Comment on above: Result Comment: Aby Oliveira, Supervisory Extractor Machine Operator (ASCP) Performed at: WB Performed By: #### 4 [id number] #### [facility] [address] [place] [address] Tracy Pop Specimen adequacy: Comment Normal [facility] Comment on above: Result Comment: Sati sfactory for evaluation. No endocervical component is identified. Performed at: WB Performed By: #### 4 [id number] #### [facility] [address] [place] [address] Tracy Pop CHLAMYDIA/GONOCOCCUS ANTONIO (SW AB/URINE/PAPon 12-26-2020 Chlamydia trachomatis, ANTONIO Negative Normal Negative [facility] Comment on above: Performed By: #### C T/NGNA #### [facility] [address] [place] [address] Tracy Pop Neisseria gonorrhoeae, ANTONIO Negative Normal Negative [facility] Comment on above: Performed By: #### C T/NGNA #### [facility] [address] [place] [address] Tracy Pop VAGINITIS/VAGINOSIS DNA PROB Boris 12-26-2020 Cheryl species Negative Normal Negative [facility] Comment on above: Performed By: #### V AGINT ####[facility] [id number] Kiesha Gardnerella vaginalis Negative Normal Negative [facility] Comment on above: Performed By: #### V AGINT ####[facility] [id number] [place] Trichomonas vaginalis Negative Normal Negative [facility] Comment on above: Performed By: #### V AGINT ####[facility] [id number] [address] K[place]ha XR LSPINE 2_3 VIEWSon 2020 [...] ANDREW BLUM Date: 2020-06-06 09:25 Normal [facility] COVID-19 PCRon 03-17-2020 SARS-CoV-2 (COVID-19) RNA ANTONIO+probe Ql (Unsp spec) Not detected Normal Not Detected [facility] Comment on above: Result Comment: This nucleic acid amplification test was developed and its performance characteristics determined by [employer]. Nucleic acid amplification tests include PCR and [...] Performed By: #### C VDPCR, CVDSTAT #### [facility] [address] [place] [address] Tracy Pop PRIORITY COVID PROCESSINGon 03-17-2020 Comment Comment Normal [facility] Comment on above: Result Comment: Rece ived Performed By: #### C VDPCR, CVDSTAT #### [facility] [address] [place] [address] Tracy Pop CBC AUTO DIFFon 03-15-2020 BASO # 0.1 103/ul Normal 0.0-0.1 [facility] Comment on above: Performed By: #### C BC #### [facility] [address] [place] [address] Tracy Pop Basophils/100 WBC (Bld) 0.8 % Normal 0.2-2.0 [facility] Comment on above: Performed By: #### C BC #### [facility] [address] [place] [address] Tracy Pop EO # 0.3 103/ul Normal 0.0-0.7 [facility] Comment on above: Performed By: #### C BC #### [facility] [address] [place] [address] Tracy Pop Eosinophils/100 WBC (Bld) 3.8 % Normal 0.9-7.0 [facility] Comment on above: Performed By: #### C BC #### [facility] [address] [place] [address] Tracyramona Pop Erythrocyte distribution width (RBC) [Ratio] 11.7 % Normal 11.0-15.0 [facility] Comment on above: Performed By: #### C BC #### [facility] [address] [place] [address] Tracyramona Pop Hematocrit (Bld) [Volume fraction] 39.6 % Normal 36.0-48.0 [facility] Comment on above: Performed By: #### C BC #### [facility] [address] [place], [place] [address] Tracy Kiesha Hemoglobin (Bld) [Mass/Vol] 13.0 g/dL Normal 12.0-16.0 [facility] Comment on above: Performed By: #### C BC #### [facility] [address] [place], [place] [address] Tracy Kiesha IG # 0.03 10e3/ul Normal 0.00-0.03 [facility] Comment on above: Performed By: #### C BC #### [facility] [address] [place] [address] Tracy Kiesha IG % 0.4 % Normal 0.0-0.5 [facility] Comment on above: Performed By: #### C BC #### [facility] [address] [place] [address] Tracy Kiesha LYMPH # 3.5 103/ul Normal 1.2-3.8 [facility] Comment on above: Performed By: #### C BC #### [facility] [address] [place], [place] [address] Tracy Pop Lymphocytes/100 WBC (Bld) 41.5 % Normal 20.5-60.0 [facility] Comment on above: Performed By: #### C BC #### [facility] [address] [place], [place] [address] Tracy Pop MANUAL DIFF REQ NO Normal [facility] Comment on above: Performed By: #### C BC #### [facility] [address] [place], [place] [address] Tracy Kiesha MCH (RBC) [Entitic mass] 31.0 pg Normal 26.7-34.0 [facility] Comment on above: Performed By: #### C BC #### [facility] [address] [place] [address] Tracyramona Elaineen MCHC (RBC) [Mass/Vol] 32.8 g/dL Normal 29.9-35.2 [facility] Comment on above: Performed By: #### C BC #### [facility] [address] [place], [place] [address] Tracyramona Pop MCV (RBC) [Entitic vol] 94.5 fL Normal 81.0-99.0 [facility] Comment on above: Performed By: #### C BC #### [facility] [address] [place], [place] [address] Tracyramona Elaineen MONO # 0.7 103/ul Normal 0.3-0.8 [facility] Comment on above: Performed By: #### C BC #### [facility] [address] [address] Tracy Kiesha Monocytes/100 WBC (Bld) 7.8 % Normal 1.7-12.0 [facility] Comment on above: Performed By: #### C BC #### [facility] [address] [place] [address] Tracy Kiesha NEUT # 3.9 103/ul Normal 1.4-6.5 [facility] Comment on above: Performed By: #### C BC #### [facility] [address] [place], [place] [address] Tracy Kiesha Neutrophils/100 WBC (Bld) 45.7 % Normal 43.0-75.0 [facility] Comment on above: Performed By: #### C BC #### [facility] [address] [place], [place] [address] Tracyramona Pop Platelet mean volume (Bld) [Entitic vol] 11.1 fL Normal 9.5-13.5 [facility] Comment on above: Performed By: #### C BC #### [facility] [address] [place], [place] [address] Tracy Kiesha PLT 226 103/ul Normal 150-450 [facility] Comment on above: Performed By: #### C BC #### [facility] [address] [address] Tracy Kiesha RBC 4.19 106/ul Critically low 4.20-5.40 [facility] Comment on above: Performed By: #### C BC #### [facility] [address] [place], [place] [address] Tracy Kiesha WBC 8.4 103/ul Normal 4.0-11.0 [facility] Comment on above: Performed By: #### C BC #### [facility] [address] [place], [place] [address] Tracyramona Pop PROF 14(COMP METB)on 020 Albumin [Mass/Vol] 3.9 g/dL Normal 3.5-5.0 [facility] Comment on above: Performed By: #### C MP #### [facility] [address] [place], [place] [address] Rtacy Kiesha Albumin/Globulin [Mass ratio] 1.2 {ratio} Normal [facility] Comment on above: Performed By: #### C MP #### [facility] [address] [place] [address] Tracy Kiesha ALP [Catalytic activity/Vol] 63 U/L Normal 38-126 [facility] Comment on above: Performed By: #### C MP #### [facility] [address] [place] [address] Tracy Kiesha ALT [Catalytic activity/Vol] 29 U/L Normal 9-52 [facility] Comment on above: Performed By: #### C MP #### [facility] [address] [place], [place] [address] Tracy Kiesha Anion gap [Moles/Vol] 9.1 mmol/L Normal [facility] Comment on above: Performed By: #### C MP #### [facility] [address] [place] [address] Tracy Kiesha AST [Catalytic activity/Vol] 16 U/L Normal 14-36 [facility] Comment on above: Performed By: #### C MP #### [facility] [address] [place], [place] [address] Tracy Kiesha Bilirubin [Mass/Vol] 0.3 mg/dL Normal 0.2-1.3 [facility] Comment on above: Performed By: #### C MP #### [facility] [address] [place] [address] Tracy Kiesha Calcium [Mass/Vol] 9.2 mg/dL Normal 8.4-10.2 [facility] Comment on above: Performed By: #### C MP #### [facility] [address] [place], [place] [address] Tracy Kiesha Chloride [Moles/Vol] 103 mmol/L Normal 98-107 [facility] Comment on above: Performed By: #### C MP #### [facility] [address] [place], [place] [address] Tracy Kiesha CO2 [Moles/Vol] 28.1 mmol/L Normal 22.0-30.0 [facility] Comment on above: Performed By: #### C MP #### [facility] [address] [place] [address] Tracy Kiesha Creatinine [Mass/Vol] 0.60 mg/dL Normal 0.52-1.04 [facility] Comment on above: Performed By: #### C MP #### [facility] [address] [place] [address] Tracy Kiesha EGFR-AF IRAQI >60 Normal >=60 [facility] Comment on above: Performed By: #### C MP #### [facility] [address] [place] [address] Tracy Kiesha EGFR-NON AF IRAQI >60 Normal >=60 [facility] Comment on above: Performed By: #### C MP #### [facility] [address] [place] [address] Tracy Kiesha Globulin (S) [Mass/Vol] 3.3 g/dL Normal [facility] Comment on above: Performed By: #### C MP #### [facility] [address] [place] [address] Tracy Kiesha Glucose [Mass/Vol] 97 mg/dL Normal 74-106 [facility] Comment on above: Performed By: #### C MP #### [facility] [address] [place] [address] Tracy Kiesha Potassium [Moles/Vol] 4.2 mmol/L Normal 3.4-5.0 [facility] Comment on above: Performed By: #### C MP #### [facility] [address] [address] Tracy Kiesha Protein [Mass/Vol] 7.2 g/dL Normal 6.1-8.2 [facility] Comment on above: Performed By: #### C MP #### [facility] [address] [address] Tracy Kiesha Sodium [Moles/Vol] 136 mmol/L Critically low 137-[address] [facility] Comment on above: Performed By: #### C MP #### [facility] [address] [address] Tracy Kiesha Urea nitrogen [Mass/Vol] 9.0 mg/dL Normal 7.0-17.0 [facility] Comment on above: Performed By: #### C MP #### [facility] [address] [place] [address] Tracyramona Pop Urea nitrogen/Creatinine [Mass ratio] 15.0 mg/mg Normal [facility] Comment on above: Performed By: #### C MP #### [facility] [address] [place] [address] Tracyramona Elaineen TROPONIN - Ion 03-15-2020 TROP <0.012 Normal <=0.034 [facility] Comment on above: Performed By: #### T ROP #### [facility] [address] [place] [address] Tracy Kiesha TROPONIN RANGE SEE BELOW Normal [facility] Comment on above: Result Comment: <0.0 34 ng/ml NEGATIVE 0.034-0.119 INDETERMINATE 0.120 AMI CUT OFF Performed By: #### T ROP #### [facility] [address] [place] [address] Tracy Kiesha INFLUENZA A AND B AGon 03-14 INFLUANEGH SEE BELOW Normal [facility] Comment on above: Result Comment: Nega tive for Flu A protein angiten. Infection due to Flu A cannot be ruled out. Flu A angiten in the sample may be below the detection limit of the test. Performed By: #### I NFLUAB #### [facility] [address] [place] [address] Tracy Kiesha INFLUBNEGH SEE BELOW Normal [facility] Comment on above: Result Comment: Nega tive for Flu B protein antigen. Infection due to Flu B cannot be ruled out. Flu B antigen in the sample may be below the detection limit of the test. Performed By: #### I NFLUAB #### [facility] [address] [address] Tracy Pop INFLUENZA A AG Negative Normal NEGATIVE SEE COMMENT [facility] Comment on above: Performed By: #### I NFLUAB #### [facility] [address] [address] Tracy Pop INFLUENZA B AG Negative Normal NEGATIVE SEE COMMENT [facility] Comment on above: Performed By: #### I NFLUAB #### [facility] [address] [place] [address] Tracy Pop INTERNAL CONTROLS Within Normal Limits Normal Wi thin Normal Limits [facility] Comment on above: Performed By: #### I NFLUAB #### [facility] [address] [place], [place] [address] Tracy Pop Vital Signs Date Time Vital Sign Value Performing Clinician Faci lity 01-16-2025 17:51-0400 Body height 157.48 cm Mckay Weeks MD Work Phone: [facility] 01-16-2025 17:51-0400 Body weight 95.25 kg Mckay Weeks MD Work Phone: [facility] 12-08-2024 10:19040 Body height 157.48 cm Mckay Weeks MD Work Phone: [facility] 12-08-2024 10:19040 Body mass index (BMI) [Ratio] 39.3 kg/m2 Mckay Weeks MD Work Phone: [facility] 12-08-2024 10:19040 Body weight 97.52 kg Mckay Weeks MD Work Phone: [facility] 12-08-2024 10:19-040 Diastolic blood pressure 82 mm[Hg] Mckay Weeks MD Work Phone: [facility] 12-08-2024 10:19-0400 Heart rate 90 /min Mckay Weeks MD Work Phone: [facility] 12-08-2024 10:19-0400 Respiratory rate 16 /min Mckay Weeks MD Work Phone: [facility] 12-08-2024 10:19-0400 SaO2% (BldA) [Mass fraction] 100 % Mckay Weeks MD Work Phone: [facility] 12-08-2024 10:19-0400 Systolic blood pressure 122 mm[Hg] Mckay Weeks MD Work Phone: [facility] 09-12-2024 13:16-0400 Body height 157.5 cm Ashley Alvarenga PA Work Phone: [facility] 09-12-2024 13:16-0400 Body mass index (BMI) [Ratio] 40.42 kg/m2 Ashley Alvarenga PA Work Phone: [facility] 09-12-2024 13:16-0400 Body weight 100.25 kg Ashley Alvarenga PA Work Phone: [facility] 09-12-2024 13:16-0400 Diastolic blood pressure 80 mm[Hg] Ashley Alvarenga PA Work Phone: [facility] 09-12-2024 13:16-0400 Heart rate 102 /min Ashley Alvarenga PA Work Phone: [facility] 09-12-2024 13:16-0400 Respiratory rate 16 /min Ashley Alvarenga PA Work Phone: [facility] 09-12-2024 13:16-0400 SaO2% (BldA) [Mass fraction] 99 % Ashley Alvarenga PA Work Phone: [facility] 09-12-2024 13:16-0400 Systolic blood pressure 120 mm[Hg] Ashley Alvarenga PA Work Phone: [facility] 06-30-2024 09:30-0500 Body mass index (BMI) [Ratio] 42.29 kg/m2 Christopher Ulises DO Work Phone: [facility] 06-30-2024 09:30-0500 Body weight 104.87 kg Christopher Ulises DO Work Phone: [facility] 06-30-2024 09:30-0500 Diastolic blood pressure 74 mm[Hg] Christopher Ulises DO Work Phone: [facility] 06-30-2024 09:30-0500 Heart rate 78 /min Christopher Ulises DO Work Phone: [facility] 06-30-2024 09:30-0500 SaO2% (BldA) [Mass fraction] 94 % Christopher Ulises DO Work Phone: [facility] 06-30-2024 09:30-0500 Systolic blood pressure 128 mm[Hg] Christopher Ulises DO Work Phone: [facility] 02-11-2024 13:04-0400 Body height 157.5 cm Luis Nicholas DO Work Phone: [facility] 02-11-2024 13:04-0400 Body mass index (BMI) [Ratio] 38.41 kg/m2 Luis Nicholas DO Work Phone: [facility] 02-11-2024 13:04-0400 Body weight 95.25 kg Luis Nicholas DO Work Phone: [facility] 02-11-2024 13:04-0400 Diastolic blood pressure 72 mm[Hg] Luis Nicholas DO Work Phone: [facility] 02-11-2024 13:04-0400 Heart rate 69 /min Luis Nicholas DO Work Phone: [facility] 02-11-2024 13:04-0400 SaO2% (BldA) [Mass fraction] 99 % Luis Nicholas DO Work Phone: [facility] 02-11-2024 13:04-0400 Systolic blood pressure 108 mm[Hg] Luis Nicholas DO Work Phone: [facility] 01-19-2024 11:13-0400 Body mass index (BMI) [Ratio] 41.88 kg/m2 Babs Jannette DO Work Phone: [facility] 01-19-2024 11:13-0400 Body weight 103.87 kg Babs Jannette DO Work Phone: [facility] 01-19-2024 11:13-0400 Diastolic blood pressure 72 mm[Hg] Babs Jannette DO Work Phone: [facility] 01-19-2024 11:13-0400 Systolic blood pressure 122 mm[Hg] Babs Jannette DO Work Phone: [facility] 01-13-2024 10:51-0400 Body height 157.48 cm MD Mckay Weeks Work Phone: [facility] 01-13-2024 10:51-0400 Body mass index (BMI) [Ratio] 38.4 kg/m2 MD Mckay Weeks Work Phone: [facility] 01-13-2024 10:51-0400 Body weight 95.25 kg MD Mckay Weeks Work Phone: [facility] 01-13-2024 10:51-0400 Diastolic blood pressure 64 mm[Hg] MD Mckay Weeks Work Phone: [facility] 01-13-2024 10:51-0400 Heart rate 71 /min MD Mckay Weeks Work Phone: [facility] 01-13-2024 10:51-0400 SaO2% (BldA) [Mass fraction] 97 % MD Mckay Wekes Work Phone: [facility] 01-13-2024 10:51-0400 Systolic blood pressure 112 mm[Hg] MD Mckay Weeks Work Phone: [facility] 09-22-2023 13:20-0400 Diastolic blood pressure 90 mm[Hg] MD Mckay Weeks Work Phone: [facility] 09-22-2023 13:20-0400 Systolic blood pressure 130 mm[Hg] MD Mckay Weeks Work Phone: [facility] 08-04-2023 13:24-0400 Diastolic blood pressure 70 mm[Hg] [facility] 08-04-2023 13:24-0400 Heart rate 95 /min [facility] 08-04-2023 13:24-0400 SaO2% (BldA) [Mass fraction] 98 % [facility] 08-04-2023 13:24-0400 Systolic blood pressure 110 mm[Hg] [facility] Encounters Encounter Date Encounter Type Care Provider Facility Start: 01-17-2025 End: 01-17-2025 Patient encounter procedure Vee Ambrocio Jefferson HATCH BOSS-PARACHUTE/COMBATANT DIVER OFFICER-C -MRI [facility] Work Phone: Start: 01-17-2025 End: 01-17-2025 ambulatory Mckay Weeks MD Work Phone: [facility] Work Phone: Start: 01-16-2025 End: 01-16-2025 Patient encounter procedure Vee Jefferson HATCH BOSS-PARACHUTE/COMBATANT DIVER OFFICER-C -MRI [facility] Work Phone: Start: 01-16-2025 End: 01-16-2025 ambulatory Mckay Weeks MD Work Phone: [facility] Work Phone: Start: 12-08-2024 End: 12-08-2024 ambulatory Mckay Weeks MD Work Phone: [facility] Work Phone: Start: 12-08-2024 End: 12-08-2024 Patient encounter procedure Vee Gouldoll HATCH BOSS-PARACHUTE/COMBATANT DIVER OFFICER-C -[facility] Neurology Work Phone: Start: 11-29-2024 End: 11-29-2024 Patient encounter procedure Otilio Rodriguez DO -Electrodiagnostics Work Phone: Start: 11-29-2024 End: 11-29-2024 ambulatory Mckay Weeks MD Work Phone: [facility] Work Phone: Start: 11-29-2024 Non-patient / Non-visit Jayson Boothe DO -[facility] Neurology Work Phone: Start: 11-14-2024 End: 11-14-2024 Transcribe Orders Otilio Montgomery DO Work Phone: Referring Physician Comment on above: Postconcussion syndr ome (Primary Dx); Post-traumatic headache, not intractable, unspecified chronicity pattern Start: 10-06-2024 End: 10-06-2024 ambulatory [facility] Start: 09-19-2024 End: 09-19-2024 Telephone encounter Bharti Pinto CMA [facility] Rheumatology, A Department of [facility] Start: 09-12-2024 End: 09-12-2024 Bamboo flowsheet Ashley LOCKE Work Phone: [facility] Start: 09-12-2024 End: 09-12-2024 Bamboo flowsheet Ashley LOCKE Work Phone: [facility] Start: 09-12-2024 End: 09-12-2024 Office outpatient visit 25 minutes Ashley LOCKE Work Phone: [facility] Comment on above: Transient alteration of awareness (Primary Dx); Chronic migraine without aura without status migrainosus, not intractable (CMS/HCC); Weakness Start: 09-12-2024 End: 09-12-2024 ambulatory ASHLEY ALVARENGA Not Available Start: 07-21-2024 End: 07-21-2024 ambulatory OTILIO MONTGOMERY Not Available Start: 07-11-2024 End: 07-11-2024 Bamboo flowsheet Carlton Mijares PhD Work Phone: [facility] Start: 07-11-2024 End: 07-11-2024 Bamboo flowsheet Carlton Mijares PhD Work Phone: [facility] Start: 07-11-2024 End: 07-11-2024 ambulatory CARLTON MIJARES Not Available Start: 07-11-2024 End: 07-11-2024 Patient encounter [...] Start: 07-05-2024 End: 07-05-2024 Clinisync Result Encounter Christsarah Montgomery DO Work Phone: [facility] Unsolicited Start: 07-05-2024 End: 07-05-2024 Clinisync Result Encounter Christophbe Montgomery DO Work Phone: [facility] Unsolicited Start: 06-30-2024 End: 06-30-2024 Bamboo flowsheet Christopher Ulises DO Work Phone: [facility] Start: 06-30-2024 End: 06-30-2024 Bamboo flowsheet Christopher Ulises DO Work Phone: [facility] Start: 06-30-2024 End: 06-30-2024 Office outpatient visit 25 minutes Christopher Ulises DO Work Phone: [facility] Comment on above: Transient alteration of awareness (Primary Dx); Chronic migraine without aura without status migrainosus, not intractable (CMS/HCC); Weakness Start: 06-30-2024 End: 06-30-2024 ambulatory OTILIO MONTGOMERY Not Available Start: 05-31-2024 ambulatory [facility] Start: 05-30-2024 End: 06-02-2024 Emergency department patient visit [facility] Start: 02-11-2024 End: 02-11-2024 Bamboo flowsheet Luis Shaikh DO Work Phone: [facility] [place] [address] Start: 02-11-2024 End: 02-11-2024 Bamboo flowsheet Luis Shaikh DO Work Phone: [employer] [address] Start: 02-11-2024 End: 02-11-2024 Office consultation new/estab patient 60 min Luis Shaikh DO Work Phone: [facility] [place] [facility] [address] Comment on above: Intractable [...] yrs Babs Jannette DO Work Phone: [facility] Comment on above: Well woman exam with routine gynecological exam; H/O: hysterectomy; Pelvic pain in female Start: 01-19-2024 End: 01-19-2024 ambulatory BABS JANNETTE Not Available Start: 01-13-2024 End: 01-13-2024 ambulatory MD Mckay Weeks Work Phone: [facility] Work Phone: Start: 01-13-2024 End: 01-13-2024 Patient encounter procedure MD Mckay eWeks Work Phone: Replaced By [facility] Work Phone: Start: 10-23-2023 End: 10-23-2023 ambulatory MD Mckay Weeks Work Phone: [facility] Work Phone: Start: 10-23-2023 End: 10-23-2023 Patient encounter procedure MD Mckay Weeks Work Phone: [facility] [place] Work Phone: Start: 09-22-2023 End: 09-22-2023 Patient encounter procedure MD Mckay Weeks Work Phone: Replaced By [facility] Work Phone: Start: 08-04-2023 End: 08-04-2023 ambulatory [facility] Work Phone: Start: 08-04-2023 End: 08-04-2023 Patient encounter procedure Replaced By [facility] Work Phone: Start: 12-20-2021 End: 12-20-2021 Patient encounter procedure LORNA Velasquez Work Phone: [facility] Start: 01-08-2021 Encounter for gynecological examination (general) (routine) without abnormal findings DR BABS BHATIA [facility] Start: 12-24-2020 End: 12-24-[address] BABS BHATIA Facility:[facility] Start: 12-24-2020 End: 12-24-2020 Encounter for gynecological examination (general) (routine) without abnormal findings DR BABS BHATIA Facility:[facility] Start: 06-06-2020 End: 06-07-[address] MCKAY WEEKS Facility:[facility] Start: 03-14-2020 End: 03-15-[address] MCKAY WEEKS Facility:[facility] Procedures Date Procedure Procedure Detail Performing Clinician Start: 01-17-2025 End: 01-17-2025 XR pre/post mri xray Mckay Weeks MD Work Phone: Start: 01-17-2025 MRI of lumbar spine with contrast Mckay Weeks MD Work Phone: Start: 01-17-2025 MRI of cervical spin e with contrast Mckay Weeks MD Work Phone: Start: 01-16-2025 MRI of thoracic spin e with contrast Mckay Weeks MD Work Phone: Start: 07-05-2024 ALL MYOGLOBIN Lm Montgomery DO Work Phone: Start: 07-05-2024 [facility] CK Tyler Montgomery DO Work Phone: Start: 01-19-2024 IGP,APTIMA HPV,AGE GDLN Babs Jannette DO Work Phone: Start: 10-23-2023 MR angiography of he ad with contrast MD Mckay Weeks Work Phone: Start: 01-13-2023 Cytp cerv/vag auto t hin layer prep mnl screen Babs Jannette DO Work Phone: Start: 12-20-2021 X-ray of left ankle APR N Amanda Velasquez Work Phone: Start: 12-20-2021 X-ray of left foot HATCH BOSS Amanda Velasquez Work Phone: Start: 11-01-2018 H/O: section H/O: Bharti Pinto CMA H/O: hysterectomy H/O: hysterectomy Babs Jannette DO Work Phone: Plan of Treatment Date Care Activity Detail Author Start: 01-18-2029 DTaP,Tdap and Td Vac cines (2 - Td or Tdap) DTaP,Tdap and Td Vaccines (2 - Td or Tdap) [facility] Start: 01-19-2025 End: 01-19-2025 Patient encounter procedure 01/19/2025 11:00 AM EDT Office Visit [facility] [address] [facility] [facility] [place] [phone] Babs Bhatia DO [address] [place] [address] [facility] Start: 01-16-2025 MRI of thoracic spin e with contrast [facility] Start: 01-09-2025 Influenza vaccination Influenza Vacc ine [facility] Start: 11-07-2024 End: 11-07-2024 Patient encounter procedure 11/07/2024 9:00 AM EDT Office Visit [facility] [address] [address] [place] [phone] Vee Jefferson NP [address] [place] [phone] [facility] Start: 10-20-2024 End: 10-20-2024 Clinical Support 10/20/2024 8:15 AM EDT Clinical Support [facility] [address] [place] [address] [facility] Start: 10-17-2024 End: 10-17-2024 Clinical Support 10/17/2024 3:45 PM EDT Clinical Support [facility] [address] [place] [address] [facility] Start: 10-06-2024 End: 10-06-2024 Patient encounter procedure 10/06/2024 11:45 AM EDT [facility] Department of [address] [phone] Noah Hood MD MPH [address] [place] [phone] [facility], A Department of [facility] Start: 09-12-2024 End: 09-12-2025 Home EEG 36-84 Hours Home EEG 36-84 Hours Neurology Routine Transient alteration of awareness Expected: 09/12/2024 (Approximate), Expires: 09/12/2025 [facility] Work Phone: Comment on above: Expected: 09/12/2024 (Approximate), Expires: 09/12/2025 Start: 09-12-2024 End: 09-12-2024 Patient encounter procedure 09/12/2024 1:20 PM EDT Office Visit [facility] [address] [place] [phone] Ashley Alvarenga PA [address] [place] [address] Arrived [facility] Comment on above: Arrived Start: 07-21-2024 End: 07-21-2024 Patient encounter procedure 07/21/2024 9:00 AM EDT Office Visit [facility] [address] [place] [address] [facility] Start: 07-11-2024 End: 07-11-2024 Patient encounter procedure 07/11/2024 10:00 AM EST Office Visit [facility] [address] [place] [address] Carlton Mijares, PhD [address] [place], [place] [phone] [facility] Start: 06-30-2024 End: 06-30-2025 Creatine kinase [Enzymatic activity/volume] in Serum or Plasma CK Lab Routine Weakness Expected: 06/30/2024 (Approximate), Expires: 06/30/2025 [facility] Work Phone: Comment on above: Expected: 06/30/2024 (Approximate), Expires: 06/30/2025 Start: 06-30-2024 End: 06-30-2025 Myoglobin, serum Myoglobin, serum Lab Routine Weakness Expected: 06/30/2024 (Approximate), Expires: 06/30/2025 [facility] Comment on above: Expected: 06/30/2024 (Approximate), Expires: 06/30/2025 Start: 06-30-2024 End: 06-30-2025 Nuclear Ab [Titer] in Serum by Immunofluorescence [facility] Lab Routine Weakness Expected: 06/30/2024 (Approximate), Expires: 06/30/2025 [facility] Comment on above: Expected: 06/30/2024 (Approximate), Expires: 06/30/2025 Start: 06-30-2024 End: 06-30-2024 Patient encounter procedure 06/30/2024 9:30 AM EST Office Visit [facility] [address] [address] [place] [phone] Otilio Montgomery, DO [address] [place], [place] [phone] Arrived [facility] Comment on above: Arrived Start: 02-29-2024 End: 02-29-2024 Patient encounter procedure 02/29/2024 9:20 AM EDT Office Visit [facility] [place] [address] [place] [phone] Tanna Christiansen, BOBBIN DRIER [address] [place], [place] [facility] [place] [address] Start: 02-11-2024 End: 02-11-2024 Patient encounter procedure 02/11/2024 1:15 PM EDT Office Visit [facility] [place] [address] [place] [address] Luis Shaikh, DO [address] [place] [address] Arrived [facility] [place] [address] Comment on above: Arrived Start: 01-19-2024 End: 01-18-2025 US for US PELVIS-TRANSVAG IF INDICATED Imaging Routine Pelvic pain in female Expected: 01/19/2024 (Approximate), Expires: 01/18/2025 [facility] Comment on above: Expected: 01/19/2024 (Approximate), Expires: 01/18/2025 Start: 01-19-2024 End: 01-19-2024 Patient encounter procedure 01/19/2024 11:00 AM EDT Office Visit [facility] [address] [place] [address] Babs Bhatia, DO [address] [place] [address] Arrived [facility] Comment on above: Arrived Start: 01-13-2024 Patient referral [facility] Work Phone: Start: 2007 Screening for malign ant neoplasm of cervix Pap Smear [facility] Start: 2004 Adult BMI Screening Adult BMI Screen ing [facility] Start: 1998 Depression Screening Depression Scre ening [facility] Start: 1998 Tobacco Screening Tobacco Screening [facility] Cytology Cervical or vaginal smear or scraping study Pap Smear Pathology and Cytology Routine Well woman exam with routine gynecological exam Ordered: 01/19/2024 [facility] Work Phone: Comment on above: Ordered: 01/19/2024 Human papilloma viru s DNA [Presence] in Unspecified specimen by Probe with amplification HPV DNA probe, amplified Microbiology Routine Well woman exam with routine gynecological exam Ordered: 01/19/2024 [facility] Comment on above: Ordered: 01/19/2024 MR Cervical spine WO and W contrast IV [facility] MRA Head vessels W c ontrast IV [facility] MRA Head vessels WO contrast [facility] MRI of thoracic spin e with contrast [facility] Patient referral [facility] Work Phone: Immunizations Immunization Date Immunization Notes Care Provider Fa cility 01-18-2019 tetanus toxoid, redu tc diphtheria toxoid, and acellular pertussis vaccine, adsorbed Bharti Pinto [facility] 01-17-2019 RHO(D) immune globul in- IV or IM Bharti Pinto [facility] Payers Date Payer Category Payer Self-pay 2022 Medicaid [id number] 2022 Medicaid [id number] 11 [id number] 1986 Unknown [id number] 2.16.84 [id number] 1986 Unknown [id number] 2.16.84 [id number] 1986 Unknown [id number] 2.16.84 [id number] 1986 Unknown [id number] 2.16. [id number] 1986 Unknown [id number] 2.16. [id number] 1986 Unknown [id number] 2.16.84 [id number] 1986 Unknown [id number] 2.16.84 0.1.380179.3.579.2.1259 1986 Unknown [id number] 2.16.84 [id number] 1986 Unknown [id number] 2.16.84 0.1.951165.3.579.2.1259 1986 Unknown [id number] 2.16.84 0.1.468591.3.579.2.1259 1986 Unknown [id number] 2.16.84 [id number] 1986 Unknown [id number] 2.16. [id number] 1959 Unknown [id number] Unknown [id number] 2.16.8 [id number] Unknown [id number] 2.16.8 [id number] Unknown [id number] 2.16.8 [id number] Social History Date Type Detail Facility Tobacco smoking stat us LAIS Unknown if ever smoked [facility] Work Phone: Start: 1985 Sex Assigned At Female [facility] Start: 05-17-2018 End: 10-11-2018 Tobacco smoking status NHIS Smoker (finding) [facility] Tobacco smoking stat [facility] Tobacco smoking consumption unknown [facility] Start: 02-10-2023 Gender identity Identifies as female gender (finding) [facility] Start: 02-10-2023 Sexual orientation Heterosexual (finding) [facility] Start: 01-11-2019 Tobacco smoking status LAIS Ex-smoker [facility] End: 10-11-2018 History of tobacco use Cigarette Smoker [facility] Start: 01-11-2019 Tobacco use and exposure Smokeless tobacco non-user [facility] Start: 03-02-2019 Alcoholic beverage intake Ex-drinker (finding) [facility] Start: 02-24-2019 End: 06-21-2020 History of Social function [facility] Start: 02-24-2019 End: 06-21-2020 Tobacco use panel [facility] Childcare Unknown [facility] Start: 1985 Sex assigned at Not on file [facility] Start: 12-14-2014 Sex Female (finding) [facility] Start: 05-17-2018 Tobacco smoking status LAIS Smokes tobacco daily (finding) [facility] Medical Equipment Procedure Code Equipment Code Equipment Origin al Text Equipment Identifier Dates [id number] Start: 10-07-2018 Clinical Notes 03-15-2020 to 12-08-2024 Note Date & Type Note Facility 12-08-2024 Evaluation note Diagnosis Onset Date Resolution Abnormal finding on MRI of brain chronic December 08, 2024 10:13am Chiari I malformation chronic Parviz 2024 10:13am Chronic migraine without aura without status migrainosus, not intractable chronic December 08, 2024 10:13am Generalized weakness chronic December 08, 2024 10:13am Transient alteration of awareness resolved December 08, 2024 10:13am [facility] Work Phone: 1(245) 171-420805-12-2025 Miscellaneous Notes* Telephone Encounter - Bharti Pinto CMA - 09/19/2024 2:24 PM EDT ..Called pt n/aRosa Bernard to call back in office to schedule BOBBIN DRIER appt. DX-POSITIVE [facility] WEAKNESS [facility] encounter Note* Telephone Encounter - Bharti Pinto CMA - 09/19/2024 2:24 PM EDT ..Called pt n/mich Bernard to call back in office to schedule BOBBIN DRIER appt. DX-POSITIVE CORNELIUS WEAKNESS [facility]05-05-2025 History of Present illness Narrative* CHUCKY Gasca - 09/12/2024 1:20 PM EDT Images from the original note were not included. Chief Complaint: headaches Subjective Luis Stewart, 39 y.o., female MIGRAINE -neuropsych and labs to review -states she has had a few MRI's and her EEG done -started on Qulipta at last visit -states her insurance denied and she was not able to start -reports her PCP has since gave her samples of Ubrelvy -states she is having a migraine 2-4 times a week -lasting anywhere from 4 hours to 12 hours -continues to have a daily headache -starts behind eyes and radiates to back of head -admits light and sound sensitivity -admits nausea, no vomiting -reports she has been using dramine for some relief -occasional blurred vision and auras -sleep is inconsistent -averages 3 hours at a time -can go a few days with no sleep Acute Neurological Problem This is a chronic problem. The current episode started more than 1 month ago. The problem has been waxing and waning. Associated symptoms include chest pain, fatigue, headaches, nausea, vertigo and weakness. Pertinent negatives include no abdominal pain, diaphoresis, fever, neck pain or vomiting. She has tried acetaminophen, bed rest, drinking, eating, medication, position change, sleep, sugar/glucose and walking for the symptoms. The treatment provided mild relief. Review of Systems Constitutional: Positive for fatigue. Negative for diaphoresis and fever. Respiratory: Positive for shortness of breath. Cardiovascular: Positive for chest pain and palpitations. Gastrointestinal: Positive for nausea. Negative for abdominal pain and vomiting. Musculoskeletal: Positive for back pain. Negative for neck pain. Neurological: Positive for dizziness, vertigo, syncope, weakness, light- headedness and headaches. Psychiatric/Behavioral: Positive for confusion. Past Medical History: Diagnosis Date Amenorrhea Anxiety and depression ([facility]) Anxiety with depression Asthma ([facility]) Tobacco use Past Surgical History: Procedure [...] Alcohol use: Not on file Allergies: Chlorhexidine gluconate, Iodinated contrast media, and Chlorhexidine Vitals: 09/12/24 1316 BP: 120/80 Pulse: 102 Resp: 16 SpO2: 99% Body mass index is 40.42 kg/m . Weight: 221 lb Neurologic exam: Mental status: Awake, alert to [...] , wrist extensors , wrist flexor , sales associate key holder strength 5/5. LUE Strength deltoid , biceps , triceps , wrist extensors , wrist flexor , sales associate key holder strength 5/5. RLE Strength illopsoas, quadriceps, tibialis [...] reflex 2+ . Rm's sign negative. Coordination: Wpimis-tl-lgpc testing and rapid alternating movements are normal. Gait: Normal Review and summary of old records: Routine EEG done at [facility] 07/20/2024: normal EEG. There was some fast beta activity, which may be related to medication artifact. No evidence of epileptiform activity. Neuropsychology evaluation 07/21/2024: revealed no compelling consistent pattern of cognitive impairment and variable performance throughout. Presenting concerns suspected to be related to severe depression and anxiety, poor sleep quality, along with baseline history of ADHD. Blood work 07/05/2024: CORNELIUS positive, CK 37, myoglobin 20 Brain MRI 07/08/2024 done at [facility]: revealed no acute process. There was 8mm of downward displacement of the cerebellar tonsils, consistent with a mild Chiari I malformation, more notable on the left. Mild mucosal thickening in the maxillary sinuses. Brain MRI 06/22/2024 done at [facility]: revealed no acute intracranial process. 1 cm benign pineal gland. Follow up with noncontrast MRI in 12 months would be helpful to monitor stability. I have reviewed the patient's Emergency Department at [place] and the recent hospitalization and workup including workup for encephalopathic, toxic and intracranial process. These were all unremarkable. The patient was accompanied by her brother who indicated approximately an hour and a half priorto her arrival she had taken her daily medications and wondered if she had perhaps taken more medications on accident then were prescribed. CT of the brain without contrast on 05/29/2024: Unremarkable MRI of the brain with and without contrast and MR angiogram of the head: Unremarkable Assessment/Plan Diagnoses and all orders for this visit: Transient alteration of awareness The patient experienced an episode of transient alteration of awareness with [...] rizatriptan in addition to previously prescribed propranolol f or chronic migraine and patient did stop these. Routine EEG was unremarkable. Neuropsych revealed findings of severe depression and anxiety, poor sleep quality, and baseline ADHD contributing to symptoms. Plan: - I reviewed routine EEG - I will obtain an ambulatory EEG to assess for seizure or epileptiform activity which may explain the patient episodes and symptoms. - I reviewed neuropsychology testing with patient Chronic migraine without aura without status migrainosus, not intractable (CMS/HCC) Patient does have a history of chronic migraine. She gets approximately 20 headache days per month.She has failed propranolol and amitriptyline from a preventative perspective. MRI, MR angiogram andCT, as stated above, are unremarkable. Patient does have coexistent anxiety which likely plays a role in this as well. Insurance denied Qulipta. Plan: -Trial Aimovig 70mg for migraine prevention therapy -I counseled patient on potential medication side effects Weakness The patient also has complaints of weakness. This does not seem to follow any particular pattern. It seems to be generalized. Certainly this could be related to a widespread generalized process such as muscle or nerve disease. CK and myoglobin were unremarkable. CORNELIUS was positive. Plan: -I reviewed CK, myoglobin and antinuclear antibody with reflex -I will refer patient to rheumatology for opinion given her symptoms and positive CORNELIUS -Consider EMG of the right upper and lower extremity to assess for further pathology pending course -Consider PT pending course The patient was accompanied by her [id number] today who provided additional history and was agreeable to the plan. Pt has been fully educated on their diagnosis, lab results, treatment options, follow up plan, and return instructions Ashley Alvarenga PA-C documented in this encounterSt. Louis VA Medical [id number] History of Present illness Narrative* Carlton Mijares, PhD - 07/11/2024 10:00 AM EST Images from the original note were not [...] in a visit thereafter all of which wereunremarkable. There was question as to whether or not she may have taken inappropriate dosing of med ications which may have led to this process. [...] thought. Present concentration struggles are different that hertypical ADHD symptoms. Otherwise, remains independent in ADLs, [...] cocaine abuse. Clean 14 years. Vapes nicotine. [place] language [place]ian. Completed high school education along with vocational school. Homemaker. Resides with of 4 months, together 10+ years. Also has 3 children. MEDICAL HISTORY/MEDICATION: Past Medical History: Diagnosis Date Amenorrhea Anxiety and depression (CMS/HCC) Anxiety with depression Asthma (CMS/HCC) Tobacco use MEDICATIONS: Current Outpatient Medications Medication Instructions ALPRAZolam (Xanax) 0.25 MG tablet ALPRAZolam (Xanax) 0.5 MG tablet ergocalciferol (Vitamin D2) 1.25 MG (92030 UT) capsule escitalopram (Lexapro) 10 MG tablet escitalopram (Lexapro) 5 MG tablet fexofenadine (Draby) 180 MG tablet IBU 600 MG tablet [...] of this individual. Please contact me with [employer] at [phone]. documented in this [facility]02-20-2025 History of Present illness Narrative* Otilio Montgomery, DO - 06/30/2024 9:30 AM EST Images from the original note were not [...] vision changes. She states that if she wouldfocus on anything her eyes will jump. She states that she was getting vertigo with a true spinning but that has improved.. She had trouble with balance. She had BP fluctuations. She was having nauseabut denies vomiting. She has a hx of [...] History: Diagnosis Date Amenorrhea Anxiety and depression ([facility]) Anxiety with depression Asthma ([facility]) Tobacco use Past Surgical History: Procedure [...] , wrist extensors , wrist flexor , sales associate key holder strength 5/5. LUE Strength deltoid , biceps , triceps , wrist extensors , wrist flexor , sales associate key holder strength 5/5. RLE Strength illopsoas, quadriceps, tibialis [...] reflex 2+ . Rm's sign negative. Coordination: Tzubju-kg-wiil testing and rapid alternating movements are normal. Gait: Normal Review and summary of old records: I have reviewed the patient's Emergency Department at [facility] and the recent hospitalization and workup including workup for encephalopathic, toxic and intracranial process. These were all unremarkable. The patient was accompanied by her brother who indicated approximately an hour and a half priorto her arrival she had taken her daily [...] of transient alteration of awareness with slurred speechand altered mental status. She had an extensive [...] patient's symptoms. EEG is planned pending at [facility]. I wonder if there is a psychiatric component to the patient's complaints and this may help determine this etiology. Chronic migraine without aura without status migrainosus, not intractable (CMS/HCC) Patient does have a history of chronic migraine. She gets approximately 20 headache days per month.She has failed propranolol and amitriptyline from a preventative perspective. MRI, MR angiogram andCT, as stated above, are unremarkable. Patient does have coexistent anxiety which likely plays a role in this as well. Plan: Start Qulipta 60mg po daily. Side effects discussed in detail and patient understands and wishes toproceed. Weakness The patient also has complaints of [...] therapy The patient was accompanied by her yhovvo-im-pko today who provided additional history and was agreeable to the plan. Pt has been fully educated on their diagnosis, lab results, treatment options, follow up plan, and return instructions documented in this encounterSt. Louis VA Medical [id number] History of Present illness Narrative* Luis ShaikhDO - 02/11/2024 1:15 PM EDT Images from the original note were not included. Chief Complaint Patient presents with Headache Subjective Luis Stewart, 38 y.o., female at the request of Dr. De Anda. Dr. Weeks is her DrRosa Weeks. The patient states in Jun 2023 [...] one or two year. She went to [facility] ED and they gave her Dr. 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 Regardless he sent her over here. The propranolol was workinginitially but has lost its efficacy. She had an MRA of the head that was unremarkable and an MRI ofthe head that was also unremarkable. Plan MRA [...] to clinic: 6 weeks documented in this encounterSt. Louis VA Medical [id number] History of Present illness Narrative* Kiesha Fair LPN - 01/19/2024 11:00 AM EDT Reason for Appointment: Patient ID: Laurie Stewart is a 38 y.o. female who presents for Gynecologic Exam Patient presents today for Annual Exam. MEDICATIONS Current Outpatient Medications Medication Instructions ALPRAZolam (Xanax) 0.25 MG tablet ALPRAZolam (Xanax) 0.5 MG tablet ergocalciferol (Vitamin D2) 1.25 MG (69496 UT) capsule escitalopram (Lexapro) 10 MG tablet [...] nursing note reviewed. Exam conducted with a community living instructor present. Vitals: Estimated body mass index [...] of: Babs Bhatia DO documented in this encounterSt. Louis VA Medical [id number] NotePROCEDURE: XR CHEST 1 V REASON FOR STUDY/CLINICAL [...] No other acute process. Electronically authenticated by: JAYSON TIM Date: 2020-03-14 22:34[facility] HealthEvaluation noteNo assessment information availableBlanchard Valley Health System [facility] Work Phone: Evaluation note* Diagnosis Onset Date Resolution Status ADHD acute Anxiety and depression acute Headache, post-traumatic acu te Post concussion syndrome acu te [facility] Work Phone: evaluation note* Diagnosis Onset Date Resolution Status ADHD acute Anxiety and depression acute Headache, post-traumatic acu te Post concussion syndrome acu te ADHD acute Anxiety and depression acute Headache, post-traumatic acu te Post concussion syndrome acu te [facility] Work Phone: Evaluation note* Diagnosis Onset Date Resolution Status Headache, post-traumatic acu te [facility] Work Phone: Evaluation note* Diagnosis Intractable migraine without aura and without status migrainosus (CMS/HCC)- Primary Post concussion syndrome Postconcussion syndrome Dizziness Dizziness and giddiness Sleep disturbance Unspecified sleep disturbance documented in this encounter [facility]* Diagnosis Well woman exam with routine gynecological exam Routine gynecological examination H/O: hysterectomy Acquired absence of both cervix and uterus Pelvic pain in female Unspecified symptom associated with female genital organs documented in this encounter [facility]* Diagnosis Transient alteration of awareness- Primary Chronic migraine without aura without status migrainosus, not intractable (CMS/HCC) Weakness Other malaise and fatigue documented in this encounter [facility]* Diagnosis Transient alteration of awareness- Primary Post concussion syndrome Postconcussion syndrome Chronic migraine without aura without status migrainosus, not intractable (CMS/HCC) Sleep disturbance Unspecified sleep disturbance Memory loss Attention deficit hyperactivity disorder (ADHD), predominantly inattentive type (CMS/HCC) Depression, unspecified depression type (CMS/HCC) Generalized anxiety disorder (CMS/HCC) Generalized anxiety disorder documented in this encounter [facility]* Diagnosis Transient alteration of awareness- Primary Chronic migraine without aura without status migrainosus, not intractable (CMS/HCC) Weakness Other malaise and fatigue documented in this encounter [facility] note* Diagnosis Postconcussion syndrome- Primary Post-traumatic headache, not intractable, unspecified chronicity pattern [facility] Diagnosis Onset Date Resolution Status Admit Date Chronic migraine without aur a without status migrainosus, not intractable chronic December 08, 2024 10:13am Generalized weakness chronic December 08, 2024 10:13am Transient alteration of awareness resolved December 08, 2024 10:13am [facility] Work Phone: Hospital Discharge instructionsAmbulatory Orders* Referral to Neurology Time Frame: 01/13/24, Location: None Selected [facility] Work Phone: InstructionsNot on filedocumented in this encounter [facility] SystemReason for referral (narrative)No reason for referral information availableBlanchard Valley Health System [facility] Work Phone: Reason for visit Narrative* Consultation (Routine) - Closed Specialty Diagnoses / Procedures Referred By Contac t Referred To Contact Psychology Diagnoses Transient alteration of awareness Procedures [place] OFFICE/OUTPATIENT [facility] 60 MINUTES Otilio Montgomery DO [address] [place] [id number] Phone: tel: fax: Carlton Mijares, PhD [address] [place] [phone] Phone: tel: fax: Referral ID Status Reason Start Date Expiration Date V isits Requested Visits Authorized [id number] Closed Specialty Services Required 06/30/2024 12/27/2024 1 1 [facility] Summary Purpose Family History No Family History Records Found Relationship Condition Age at Onset Recorded Date/T gunnar father Unknown Not Specified Diabetes mellitus Unknown Unknown Relationship Condition Age at Onset Recorded Date/T gunnar father Unknown mother Diabetes mellitus Unknown Unknown Relationship Condition Age at Onset Recorded Date/T gunnar father Unknown Alcohol abuse Unknown Substance abuse Unknown mother Diabetes mellitus Unknown Unknown Cerebrovascular accident (CVA) Unknown Neuropathy Unknown Obesity Unknown son Attention deficit disorder Unknown Advance Directives No Advanced Directives Records Found Advance Directive Response Recorded Date/ Time Advance Directives No December 20, 2021 7:52pm Date Activated Date Inactivated Comments 01/16/2019 4:45 PM 01/20/2019 6:11 PM Chief Complaint and Reason for Visit Chief [...] aches Reason for Visit Headache, post-traum atic Chief Complaint Admit Date F07.81 G44.309 November 29, 2024 2:56 pm Chief Complaint Admit Date F07.81 G44.309 November 29, 2024 2:56 pm SB/AH ELIDIA TO CH/SC - 4-6 WEEK F/U November 102024 10:13am Reason for Visit Admit Date Chronic migraine without aur a without status migrainosus, not intractable December 08, 2024 10:13am Generalized weakness December 08, 2024 10: 13am Transient alteration of awareness November 102024 10:13am Chief Complaint Admit Date F07.81 G44.309 November 29, 2024 2:56 pm SB/AH ELIDIA TO CH/SC - 4-6 WEEK F/U November 102024 10:13am G93.5 January 16, 2025 4:43pm Reason for Visit Admit Date Abnormal finding on MRI of brain December 082024 10:13am Chiari I malformation December 08, 2024 10 :13am Chronic migraine without aur a without status migrainosus, not intractable December 08, 2024 10:13am Generalized weakness December 08, 2024 10: 13am Transient alteration of awareness November 102024 10:13am Chief Complaint Admit Date F07.81 G44.309 November 29, 2024 2:56 pm SB/AH ELIDIA TO CH/SC - 4-6 WEEK F/U November 102024 10:13am G93.5 January 16, 2025 4:43pm G93.5 January 17, 2025 4:52pm Additional Source Comments INFORMATION SOURCE (unrecogn ized section and content) DATE CREATED AUTHOR 01/09/2021 [facility] DATE CREATED AUTHOR AUTHOR'S ORGANIZ ATION 06/04/2024 [facility] DATE CREATED AUTHOR AUTHOR'S ORGANIZ ATION 09/15/2024 [facility] EPIC DATE CREATED AUTHOR AUTHOR'S ORGANIZ ATION 10/09/2024 [facility] DATE CREATED AUTHOR AUTHOR'S ORGANIZ ATION 01/23/2025 [facility] Care Teams (unrecognized sec tion and content) Team Status: Active Member Role Status Dates Mckay Weeks MD Primary Care Provider Active Team Status: Active Member Role Status Dates Mckay Weeks MD Primary Care Provider Active Start: November 29, 2024 Otilio Montgomery DO Other Provider Active Start: November 29, 2024 Jayson Boothe DO Attending Provider Active Sta rt: November 29, 2024 Team Status: Inactive Member Role Status Dates Mckay Weeks MD Primary Care Provider Active Start: December 08, 2024 End: December 08, 2024 Vee Jefferson APRN-PARACHUTE/COMBATANT DIVER OFFICER-C Attending Provider Active Start: December 08, 2024 End: December 08, 2024 Team Status: Inactive Member Role Status Dates Amanda Velasquez APRN Attending Provider Active Team Status: Inactive Member Role [...] January 13, 2024 End: January 13, 2024 Glass Lathe Operator Relationship Specialty Start Date End Date Mckay Weeks MD [address] [id number] PCP - General Family Medicine 11/20/22 Glass Lathe Operator Relationship Specialty Start Date End Date Mckay Weeks MD [address] [id number] PCP - General Family Medicine 11/20/22 Glass Lathe Operator Relationship Specialty Start Date End Date Mckay Weeks MD [address] [id number] PCP - General Family Medicine 11/20/22 Glass Lathe Operator Relationship Specialty Start Date End Date Mckay Weeks MD [address] [place] [phone] PCP - General Family Medicine 11/20/22 Glass Lathe Operator Relationship Specialty Start Date End Date Mckay Weeks MD [address] [id number] PCP - General Family Medicine 11/20/22 Glass Lathe Operator Relationship Specialty Start Date End Date Mckay Weeks MD [address] [place] [address] PCP - General Family Medicine 11/20/22 Glass Lathe Operator Relationship Specialty Start Date End Date Mckay Weeks MD [address] [place] [address] PCP - General Family Medicine 11/20/22 Glass Lathe Operator Relationship Specialty Start Date End Date Mckay Weeks MD [address] PCP - General Family Medicine 11/20/22 Glass Lathe Operator Relationship Specialty Start Date End Date Mckay Weeks MD [address] [id number] PCP - General Family Medicine 11/20/22 Glass Lathe Operator Relationship Specialty Start Date End Date Mckay Weeks MD [address] [phone] PCP - General Family Medicine 11/20/22 Glass Lathe Operator Relationship Specialty Start Date End Date Mckay Weeks MD [address] [place] [address] PCP - General Family Medicine 12/06/18 Glass Lathe Operator Relationship Specialty Start Date End Date Otilio Montgomery DO [address] [place] [phone] Referring Neurology 11/14/24 Team Status: Inactive Member Role Status Dates Mckay Weeks MD Primary Care Provider Active Start: November 29, 2024 End: November 29, 2024 Otilio Montgomery DO Attending Provider Active Start: November 29, 2024 End: November 29, 2024 Team Status: Inactive Member Role Status Dates Mckay Weeks MD Primary Care Provider Active Start: January 16, 2025 End: January 16, 2025 TIFFANY Pan Attending Provider Active Start: January 16, 2025 End: January 16, 2025 Team Status: Inactive Member Role Status Dates Mckay Weeks MD Primary Care Provider Active Start: January 17, 2025 End: January 17, 2025 TIFFANY Pan Attending Provider Active Start: January 17, 2025 End: January 17, 2025 Goals (unrecognized section and content) Goals may be documented in a n alternate sectionGoals may be documented in an alternate sectionGoals may be documented in an alternate sectionGoals may be documented in an alternate sectionNot on filedocumented as of this encounterGoals may be documented in an alternate sectionGoals may be documented in an alternate sectionGoals may be documented in an alternate sectionGoals may be documented in an alternate section Reason for Visit (unrecogniz ed section and content) Reason Comments Headache Reason Comments Gynecologic Exam Reason Comments Alteration of Awareness Source Comments (unrecognize d section and content) In the event this informatio n is protected by the Federal Confidentiality of Alcohol and Drug Abuse Patient Records regulations: The Federal rules restrict any use of the information to criminally investigate or prosecute any alcohol or drug abuse patient.[facility] FOR RECORDS PERTAINING TO PATIENTS WHO ARE [...] BE BASED ON THE PRIMARY CLINICAL RECORDS. [employer] [facility]. provides no warranty or guarantee of the accuracy or completeness of information in this document.
[2025-01-27 10:14] VITALS: BP 133/83; PULSE 85; TEMP 36.9; O2SAT 99; BMI 39.3
[2025-01-27 10:31] LABS: Hematocrit 38.0 % (36.0-48.0); Hemoglobin 12.8 g/dL (12.0-16.0); Immature Granulocytes Abs Auto 0.01 10^3/uL (0.00-0.03); Immature Granulocytes Pct Auto 0.2 % (0.0-0.5); Lymphocytes Absolute Auto 2.2 10^3/uL (1.2-3.8); Mean Corpuscular HGB Conc 33.7 g/dL (29.9-35.2); Mean Corpuscular Hemoglobin 31.1 pg (26.7-34.0); Mean Corpuscular Volume 92.2 fL (81.0-99.0); Platelet Count 237 10^3/uL (150-450); Red Blood Count 4.12 10^6/uL (4.20-5.40); White Blood Count 5.6 10^3/uL (4.0-11.0)
[2025-01-27 10:40] LABS: Anion Gap 12.4; Blood Urea Nitrogen 4.0 mg/dL (7.0-18.0); Calcium 9.3 mg/dL (8.5-10.1); Carbon Dioxide 28.5 mmol/L (21.0-32.0); Chloride 104 mmol/L (98-107); Estimated GFR (African America >60 (>=60 mL/min/1.73m^2); Estimated GFR (Non-African Ame >60 (>=60 mL/min/1.73m^2); Glucose 91 mg/dL (74-106); Potassium 3.9 mmol/L (3.5-5.1); Sodium 141 mmol/L (136-145)
--- NOTE | 2025-01-27 10:51 | ED.GENADUL1 ---
HPI HPI - General Adult General Chief complaint: Skin/Abscess/Foreign Body Stated complaint: RASH Time Seen by Provider: 01/27/25 10:05 Source: patient Mode of arrival: walk-in Limitations: no limitations History of Present Illness HPI narrative: 39-year-old female presents to the emergency department for a rash. It started 4 to 5 days ago around her ankles and she has had it on various other areas of her body. She has not used any new products. It does not itch and it is not painful, it is just there. She is never had anything like that before. Related Data Home Medications ?Medication ?Instructions ?Recorded ?Confirmed metformin 500 mg tablet,extended 500 mg PO QDAY 02/27/23 01/27/25 release 24 hr zolpidem 5 mg tablet 5 mg PO QPM PRN insomnia 02/27/23 01/27/25 fexofenadine 180 mg tablet 180 mg PO DAILY 03/13/23 01/27/25 ibuprofen 800 mg tablet 800 mg PO TID 03/13/23 01/27/25 atomoxetine 40 mg capsule 40 mg PO .qd 05/30/24 01/27/25 alprazolam 0.5 mg tablet 0.5 mg PO BID PRN anxiety 01/27/25 01/27/25 erenumab-aooe 70 mg/mL 70 mg subcut .q month 01/27/25 01/27/25 subcutaneous auto-injector (Aimovig Autoinjector) escitalopram oxalate 20 mg tablet 20 mg PO QDAY 01/27/25 01/27/25 Previous Rx's ?Medication ?Instructions ?Recorded clotrimazole-betamethasone 1 1 applic topical BID 2 weeks #45 01/27/25 %-0.05 % topical cream grams Allergies Allergy/AdvReac Type Severity Reaction Status Date / Time chlorhexidine Allergy Rash Verified 01/27/25 10:08 Opioid HPI Opioid Management Most Recent Opioid Data: Last Pain Scale 5 05/30/24, 13:56 Last ORT Total Score 7 05/30/24, 01:08 Last ORT Risk Category Moderate Risk 05/30/24, 01:08 Ur Phencyclidine Scrn, (NEGATIVE) Negative 05/29/24, 23:05 Review of Systems ROS Narrative A ten point review of systems is negative except as noted above. [facility] Medical History (Updated 01/27/25 @ 10:50 by Emerson Villalta MD) Chronic daily headache ?R51.9 - Headache, unspecified (ICD-10) ADHD ?F90.9 - Attention-deficit hyperactivity disorder, unspecified type (ICD-10) Major depression ?F32.9 - Major depressive disorder, single episode, unspecified (ICD-10) Knee pain ?M25.569 - Pain in unspecified knee (ICD-10) Back pain ?M54.9 - Dorsalgia, unspecified (ICD-10) History of blood transfusion ?Z92.89 - Personal history of other medical treatment (ICD-10) Anemia ?D64.9 - Anemia, unspecified (ICD-10) Insomnia ?G47.00 - Insomnia, unspecified (ICD-10) Depression ?F32.A - Depression, unspecified (ICD-10) Anxiety ?F41.9 - Anxiety disorder, unspecified (ICD-10) Sleep apnea ?G47.30 - Sleep apnea, unspecified (ICD-10) COVID-19 ?U07.1 - COVID-19 (ICD-10) Asthma ?J45.909 - Unspecified asthma, uncomplicated (ICD-10) Migraine ?G43.909 - Migraine, unspecified, not intractable, without status migrainosus (ICD-10) Dyspareunia Pelvic pain ?R10.2 - Pelvic and perineal pain (ICD-10) Prediabetes ?R73.03 - Prediabetes (ICD-10) Surgical History History of appendectomy ?Z90.49 - Acquired absence of other specified parts of digestive tract (ICD-10) History of cholecystectomy ?Z90.49 - Acquired absence of other specified parts of digestive tract (ICD-10) History of section ?Z98.891 - History of uterine scar from previous surgery (ICD-10) History of section ?Z98.891 - History of uterine scar from previous surgery (ICD-10) History of hysterectomy ?Z90.710 - Acquired absence of both cervix and uterus (ICD-10) History of section ?Z98.891 - History of uterine scar from previous surgery (ICD-10) Family History Other Family history of breast cancer Family history of cervical cancer Family history of diabetes mellitus Family history of stroke Social History (Updated 05/30/24 @ 01:15 by Cyndy Lion RN) Within the past year, how often did you have a drink containing alcohol: monthly or less Smoking status: Current every day smoker Do you use any of these nicotine containing products: e-cigarettes and vaping products Non-prescribed substance use: denies use 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 General: The patient appears well and in no apparent distress. Patient is resting comfortably on cart. Skin: Warm, dry, no pallor noted. There are various areas of slightly increased skin pigmentation which is well-demarcated. She has them on various areas of her body including her lower extremities and her torso. Below her left breast is an oval patch with central clearing. These areas are not raised. Head: Normocephalic, atraumatic Eye: Normal conjunctiva, no drainage Ears, Nose, Mouth, and Throat: oral mucosa is moist. Nares patent. Cardiovascular: Regular Rate and Rhythm Respiratory: Patient is in no distress, no accessory muscle use, lungs are clear to auscultation, no wheezing, rales or rhonchi Back: non-tender GI: Soft and nontender Musculoskeletal: The patient has no evidence of calf tenderness, no pitting edema, symmetrical pulses noted bilaterally Neurological: A&O, normal speech Psychiatric: Cooperative Constitutional Vital Signs, click to edit/add: Last Vital Signs Temp 98.4 F 01/27/25 10:14 Pulse 85 01/27/25 10:14 Resp 18 01/27/25 10:14 BP 133/83 01/27/25 10:14 Pulse Ox 99 01/27/25 10:14 O2 Del Method Room Air 01/27/25 10:14 Course Vital Signs Vital signs: Vital Signs Temperature 98.4 F 01/27/25 10:14 Pulse Rate 85 01/27/25 10:14 Respiratory Rate 18 01/27/25 10:14 Blood Pressure 133/83 01/27/25 10:14 Pulse Oximetry 99 01/27/25 10:14 Oxygen Delivery Method Room Air 01/27/25 10:14 Temperature 98.4 F 01/27/25 10:14 Pulse Rate 85 01/27/25 10:14 Respiratory Rate 18 01/27/25 10:14 Blood Pressure 133/83 01/27/25 10:14 Pulse Oximetry 99 01/27/25 10:14 Oxygen Delivery Method Room Air 01/27/25 10:14 Medical Decision Making MDM Narrative Medical decision making narrative: I am somewhat suspicious of fungal skin infection and she is prescribed Lotrisone. Follow-up with PCP if no improvement. Treatment diagnosis and follow-up were discussed with the patient. Differential Diagnosis Differential Diagnosis: Rash, fungal infection, contact dermatitis Lab Data Lab results reviewed: Yes I reviewed the patient's lab results Labs: Lab Results 01/27/25 Range/Units 10:25 WBC 5.6 (4.0-11.0) 10^3/uL RBC 4.12 L (4.20-5.40) 10^6/uL Hgb 12.8 (12.0-16.0) g/dL Hct 38.0 (36.0-48.0) % MCV 92.2 (81.0-99.0) fL MCH 31.1 (26.7-34.0) pg MCHC 33.7 (29.9-35.2) g/dL RDW 11.5 (11.0-15.0) % Plt Count 237 (150-450) 10^3/uL MPV 11.1 (9.5-13.5) fL Neut % (Auto) 50.5 (43.0-75.0) % Lymph % (Auto) 38.7 (20.5-60.0) % [place] % (Auto) 7.5 (1.7-12.0) % Eos % (Auto) 2.0 (0.9-7.0) % Baso % (Auto) 1.1 (0.2-2.0) % Neut # (Auto) 2.8 (1.4-6.5) 10^3/uL Lymph # (Auto) 2.2 (1.2-3.8) 10^3/uL [place] # (Auto) 0.4 (0.3-0.8) 10^3/uL Eos # (Auto) 0.1 (0.0-0.7) 10^3/uL Baso # (Auto) 0.1 (0.0-0.1) 10^3/uL Abs Immat Gran (auto) 0.01 (0.00-0.03) 10^3/uL Imm/Tot Granulo (auto) 0.2 (0.0-0.5) % Sodium 141 (136-145) mmol/L Potassium 3.9 (3.5-5.1) mmol/L Chloride 104 (98-107) mmol/L Carbon Dioxide 28.5 (21.0-32.0) mmol/L Anion Gap 12.4 BUN 4.0 L (7.0-18.0) mg/dL Creatinine 0.65 (0.55-1.02) mg/dL Est GFR ( Amer) >60 (>=60 mL/min/1.73m^2) Est GFR (Non-Af Amer) >60 (>=60 mL/min/1.73m^2) BUN/Creatinine Ratio 6.2 Glucose 91 (74-106) mg/dL Calcium 9.3 (8.5-10.1) mg/dL Discharge Plan Discharge Chief Complaint: Skin/Abscess/Foreign Body Clinical Impression: Rash Patient Disposition: Home, Self-Care Time of Disposition Decision: 10:50 Condition: Good Mode of Transportation: Private Vehicle Prescriptions / Home Meds: New clotrimazole-betamethasone 1-0.05 % cream 1 applic topical BID 14 Days Qty: 45 0RF No Action metformin 500 mg tablet extended release 24 hr 500 mg PO QDAY zolpidem 5 mg tablet 5 mg PO QPM PRN (Reason: insomnia) ibuprofen 800 mg tablet 800 mg PO TID Patient Comments: takes PRN fexofenadine 180 mg tablet 180 mg PO DAILY atomoxetine 40 mg capsule 40 mg PO .qd alprazolam 0.5 mg tablet 0.5 mg PO BID PRN (Reason: anxiety) escitalopram oxalate 20 mg tablet 20 mg PO QDAY Aimovig Autoinjector 70 mg/mL auto-injector 70 mg subcut .q month Patient Comments: Pt has had 2 doses so far Print Language: Moldovan Instructions: Acute Rash (ED) Referrals: MCKAY BOWDEN [Primary Care Provider, Family Practice] - 1 week
== END 2025-01-27 11:13 | disposition home or self-care (01) ==
PROVIDERS: Emergency Provider Emergency Medicine; PCP Family Medicine
DX: R21 Rash and other nonspecific skin eruption (principal); F17.290 Nicotine dependence, other tobacco product, uncomplicated
CPT/HCPCS: 36415; 80048; 85025; 99283

== ENCOUNTER 2025-03-14 19:11 | Outpatient (REF) | payer MEDICAID, SELFPAY ==
--- OUTSIDE RECORDS SUMMARY | 2024-01-20 03:45 | XMS_ITS ---
Author Organization [facility] vices Address [address] [place] [phone] Care Team Providers Care Duplicate Maker Name Role Phone Lashay Zimmerman Unavailable [phone] REASON FOR VISIT Recall (A) (37) Social History Sex Assigned At : Social History Observation Description Sex Assigned At Female Encounters Encounter Location Date Provider Diagnosis [facility] [address] [place] [address] [phone] 01/20/2024 Lashay Zimmerman Plan Of Treatment Next Appt Details Provider Name:Lashay curry, 05/22/2025 09:45:00 AM, [address] [place] [address], [phone], Provider Name:Lashay curry, 05/31/2025 12:45:00 PM, [address] [place] [address], [id number], Provider Name:Lashay curry, 06/14/2025 03:00:00 PM, [address] [place] [address], [id number], Progress Notes * VANESSALeilaniOB:1984 (40 yo F)Acc No.[id number]:01/20/2024 Patient:?Diana MENDEZ :?Lashay Zimmerman DDSDOB:1985???Age:38 Y ???Sex:FemaleDate:4Phone:[phone]:[address] [place], [place] [phone] Subjective: * Chief Complaints: * 1 . Recall (A) (37). * Medical History: Objective: * Vitals: Assessment: Plan: * Treatment: * Billing Information: * Visit Code: * Procedure Codes: * Electronic signature of Lashay Zimmerman DDS on 03/14/2025 at 01:41 PM EST Sign off status: Pending * Provider: Speedy Zimmerman DDS Date: 0 01/20/2024 Generated for Printing/Faxing/eTransmitting on:?03/14/2025 01:41 PM EST
--- OUTSIDE RECORDS SUMMARY | 2024-06-01 08:30 | XMS_ITS ---
Author Organization [facility] in [place] Address [address] [place] [address] Care Team Providers Care Filterer Name Role Phone Sandy Weeks Primary Care Provider REASON FOR VISIT [facility] Follow up Encounters Encounter Location Date Provider Diagnosis [facility] [address] [place] [address] 06/01/2024 Sandy Weeks Plan Of Treatment Next Appt Details Provider Name:Sandy Hoff es, 03/15/2025 02:00:00 PM, [address] [place], [address], Progress Notes * Solomon MENDEZle HDOB:[birth year] (40 yo F)Acc No.[id number]:06/01/2024 UNLOCKED PROGRESS NOTE Progress Note Patient: Diana SMITH :?Sandy Weeks MDDOB:1985???Age:39 Y ???Sex:FemaleDate:06/01/2024Phone:[phone]:[facility] [place], [place]-[address] Subjective: * Chief Complaints: * 1 . [facility] Follow up. * Medical History: Objective: * Vitals: Assessment: Plan: * Treatment: * * Electronic signature of Sandy Weeks MD, [id number] on 03/14/2025 at 01:42 PM ESTSign off status: PendingVisit Status:?R/S (Rescheduled) * Provider: Cosme Weeks MD Date: 0 06/01/2024 Generated for Printing/Faxing/eTransmitting on:?03/14/2025 01:42 PM EST
--- OUTSIDE RECORDS SUMMARY | 2024-11-29 10:15 | XMS_ITS ---
Author Organization [facility] vices Address [address] [place] [id number] Care Team Providers Care Senior Data Analyst Name Role Phone Lashay Zimmerman Unavailable [phone] REASON FOR VISIT Recall (A) (38) Social History Sex Assigned At : Social History Observation Description Sex Assigned At Female Encounters Encounter Location Date Provider Diagnosis [facility] [address] [place] [id number] 11/29/2024 Lashay Zimmerman Plan Of Treatment Next Appt Details Provider Name:Lashay curry, 05/22/2025 09:45:00 AM, [address] [place] [address], [id number], Provider Name:Lashay curry, 05/31/2025 12:45:00 PM, [address] [place] [address], [phone], Provider Name:Lashay curry, 06/14/2025 03:00:00 PM, [address] [place] [address], [id number], Progress Notes * Leilani MENDEZOB:1984 (40 yo F)Acc No.[id number]:11/29/2024 Patient:?Diana MENDEZ :?Lashay Zimmerman DDSDOB:1985???Age:39 Y ???Sex:FemaleDate:11/29/2024Phone:[phone]:[id number] Subjective: * Chief Complaints: * 1 . Recall (A) (38). * Medical History: Objective: * Vitals: Assessment: Plan: * Treatment: * Billing Information: * Visit Code: * Procedure Codes: * Electronic signature of Lashay Zimmerman DDS on 03/14/2025 at 01:41 PM EST Sign off status: Pending * Provider: Speedy Zimmerman DDS Date: 0 11/29/2024 Generated for Printing/Faxing/eTransmitting on:?03/14/2025 01:41 PM EST
--- OUTSIDE RECORDS SUMMARY | 2025-03-14 19:14 | XMS_ITS | CCD ---
Author Organization [facility] CliniSynh Care Team Providers Care Film Washer Name Role Phone DR SANDY WEEKS Primary Care Unavailable KHRIS, DR ELIZABETH Arias Admitting Unavailable PINEDO, DR ELIZABETH Arias Attending Unavailable KHRIS, DR ELIZABETH Arias Consulting Unavailable JAYSON TIM Consulting Unavailable JANNETTE, DR BRICE Admitting Unavailable JANNETTE, DR BRICE Attending Unavailable DESI, DR SANDY Espinoza Primary Care Unavailable JANNETTE, DR BRICE Consulting Unavailable DESI, DR SANDY Espinoza Admitting Unavailable DESI, DR SANDY Espinoza Attending Unavailable DESI, DR SANDY Espinoza Primary Care Unavailable [place], DR ANDREW Hopkins Consulting Unavailable DESI, DR SANDY Espinoza Consulting Unavailable LORNA Velasquez Attending Provider [phone] MD Sandy Weeks Primary Care Provider MD Robert De Anda Attending Provider Sandy Weeks MD Primary Care Provider [phone] SANDY WEEKS Primary Care Unavailable AMADOU COOK Consulting Unavailable INPATIENT, TELENEUROLOGY Consulting Unavail able SANDY WEEKS Referring Unavailable SANDY WEEKS Primary Care Unavailable OTILIO MONTGOMERY Attending Unavailable CARLTON MIJARES Attending Unavailable OTILIO MONTGOMERY Referring Unavailable JHONNY BHATIA Attending Unavailable LUIS SHAIKH Attending Unavailable ROBERT DE ANDA Referring Unavailable MARIAM ALVARENGA Attending Unavailable Sandy Weeks MD Primary Care Provider [phone] NOAH HOOD Attending Unavailable SANDY WEEKS Referring Unavailable SANDY WEEKS A Primary Care Unavailable Otilio Montgomery DO Unavailable Sandy Weeks MD Primary Care Provider Otilio Montgomery DO Attending Provider Otilio Montgomery DO Other Provider Jayson Boothe DO Attending Provider [phone] Ronny ROTHMAN-CORE SHAPER-Vee Conroy Attending Provider Vee Jefferson Attending Unavailable Vee Jefferson Admitting Unavailable Sandy Weeks Primary Care Unavailable Vee Jefferson Attending Unavailable Vee Jefferson Admitting Unavailable Sandy Weeks Primary Care Unavailable Sandy Weeks Primary Care Unavailable Otilio Montgomery Attending Unavailab Otilio Mahoney Admitting Unavailab Otilio Mahoney DO Attending Provider Sandy Weeks MD Primary Care Provider Allergies Allergy ClassificationReported Allergen(s)Allergy TypeDate of OnsetReaction(s) Facility (20 sources)Chlorhexidine; Translations: [CHLORHEXIDINE]Drug Rpjhxff55-65-5415 [facility] (18 sources)Chlorhexidine / EthanolDrug Qjoegfv28-81-7535[facility] (11 sources)Iodinated Contrast MediaPropensity to adverse uumrgrdqq09-76-3148 [facility] Medications Current Medications MedicationDrug Class(es)DatesSig (Normalized)Sig (Original)ALPRAZolam 0.5 mg oral tablet (20 sources)BenzodiazepineStart: 12-20-2023 End: 53-94-0497CCUCLVytfo (Xanax) 0.5 MG tablet 12/20/2023 ActiveStart: 08-26-2022 End: 16-33-0554NXPXJNatlo (Xanax) 0.25 MG tablet 08/26/2022 03/14/2025 Discontinued (Ineffective)amitriptyline hydrochloride 25 mg oral tablet (5 sources)Tricyclic AntidepressantStart: 02-11-2024 End: 15-99-0141lpen 1 tablet by mouth once dailyamitriptyline (Elavil) 25 MG tablet Indications: Intractable migraine without aura and without status migrainosus (CMS/HCC) Take 1 tablet (25 mg) by mouth Daily 30 tablet 2 02/11/2024 06/30/2024 Discontinued (Ineffective)atomoxetine 40 mg oral capsule (20 sources)Norepinephrine Reuptake InhibitorStart: 12-08-2024 End: 44-94-6710ybvc 1 capsule by mouth once dailyStart: 12-28-2023 End: 74-78-9211uyoxwudtfbn (Strattera) 40 MG capsule 12/28/2023 01/19/2024 Discontinued (Therapy completed)Start: 08-04-2023 End: 82-22-9373wncc 1 capsule by mouth once daily in the morningAtomoxetine 80 mg capsule Discontinued 80 MG PO Every morning August 04, 2023 12:00am January 13, 2024 10:49am1 ml erenumab-aooe 70 mg/ml auto-injector (4 sources)Start: 95-89-6689yljiam 1 mL by subcutaneous injection every 30 days erenumab (Aimovig) 70 MG/ML injection Indications: Chronic migraine without aura without status migrainosus, not intractable Inject 1 mL (70 mg) under the skin every 30 (thirty) days 1 mL 2 09/12/2024 Activeescitalopram 20 mg oral tablet (20 sources)Serotonin Reuptake InhibitorStart: 12-08-2024 End: 95-38-8744oyoh 1 tablet by mouth once dailyStart: 01-13-2024 End: 49-08-1959btwr 3 tablets by mouth once dailyEscitalopram Oxalate (Lexapro) 5 mg tablet Discontinued 0 PO Daily January 13, 2024 10:50am December 12, 2024 8:18am 15mg orally daily;Start: 86-32-5450byuz 2 tablets by mouth once daily escitalopram (Lexapro) 10 MG tablet Take 20 mg by mouth Daily 11/10/2023 Active Start: 17-19-3959evmeheqfhoms (Lexapro) 10 MG tablet 11/10/2023 ActiveStart: 11-04-2022 End: 68-43-0144bgmihzaogusm (Lexapro) 5 MG tablet 11/04/2022 03/14/2025 Discontinued (Therapy completed)estradiol 0.5 mg oral tablet (1 source)EstrogenStart: 03-14-2025 End: 28-05-0004uclj 1 tablet by mouth once dailyestradiol (Estrace) 0.5 MG tablet Indications: Decreased libido Take 1 tablet (0.5 mg) by mouth Daily Take 1 tablet by mouth for 30 days 30 tablet 11 03/14/2025 04/13/2025 Active famotidine 20 mg oral tablet (1 source)Histamine-2 Receptor AntagonistStart: 69-98-1835iaib 1 tablet by mouth once daily at bedtimefamotidine (PEPCID) 20 mg tablet Indications: Reflux gastritis TAKE ONE TABLET BY MOUTH EVERY NIGHTAT BEDTIME 30 tablet 03/30/2019 Activefexofenadine hydrochloride 180 mg oral tablet (20 sources)Histamine-1 Receptor AntagonistStart: 91-09-0365pjtdsrhefvrk ([place]) 180 MG tablet 10/21/2022 Srogsh24 hr metFORMIN hydrochloride 500 mg extended release oral tablet (20 sources)BiguanideStart: 99-13-5360xjgv 1 tablet by mouth once dailyStart: 12-08-2024 End: 81-65-6839xvzx 1 tablet by mouth every twenty-four hoursMetformin 500 mg tablet extended release 24 hr Discontinued 500 MG PO December 08, 2024 12:00am December 12, 2024 8:20amStart: 08-04-2023 End: 95-65-7967hzjc 1 tablet by mouth once dailyMetformin 500 mg tablet Discontinued 500 MG PO Daily August 04, 2023 12:00am December 12, 2024 8:19am Multiple Vitamins-Minerals (Multivitamin Adults) tablet (19 sources)Multiple Vitamins-Minerals (Multivitamin Adults) tablet Orally ActiveMultivitamin preparation (3 sources)Start: 19-17-8716ekrc 1 tablet by mouth once dailyMultivitamin Active 1 TAB PO Daily August 04, 2023 12:00amMultivitamin tablet (6 sources)Start: 38-96-8341gawp 1 tablet by mouth once dailyPRENATAL VITAMIN PLUS LOW IRON 27 mg iron- 1 mg tablet (1 source)Start: 67-39-9505KLXPYTTS VITAMIN PLUS LOW IRON 27 mg iron- 1 mg tablet 1 tablet daily. 09/22/2018 Activesertraline 100 mg oral tablet (3 sources)Serotonin Reuptake Inhibitor End: 96-54-5151pchzsbiszm (Zoloft) 100 MG tablet 1 (one) time each day at the same time. 01/19/2024 Discontinued (Therapy completed)zolpidem tartrate 5 mg oral tablet (20 sources)gamma-Aminobutyric Acid-ergic AgonistStart: 08-04-2023 End: 17-45-3003fhgp 1 tablet by mouth once daily at bedtimeZolpidem 10 mg tablet Discontinued 10 MG PO Daily at bedtime August 04, 2023 12:00am December 12 8:20amStart: 11-13-2022 End: 18-50-3666gezuhkuy (Ambien) 5 MG tablet 11/13/2022 Active Completed/Discontinued Medications MedicationDrug Class(es)DatesSig (Normalized)Sig (Original)Atogepant (Qulipta) 60 MG tablet (11 sources)Start: 06-30-2024 End: 79-63-3830zuns 1 tablet by mouth once dailyAtogepant (Qulipta) 60 MG tablet Indications: Chronic migraine without aura without status migrainosus, not intractable Take 60 mg by mouth Daily 30 tablet 11 06/30/2024 03/14/2025 Discontinued (Ineffective)Start: 06-30-2024 End: 74-34-5070wcwd 1 tablet by mouth once dailyAtogepant (Qulipta) 60 MG tablet Indications: Chronic migraine without aura without status migrainosus, not intractable Take 60 mg by mouth Daily 30 tablet 11 06/30/2024 06/30/2025 Active Start: 06-30-2024 End: 79-87-6181pqch 1 tablet by mouth once dailyAtogepant (Qulipta) 60 MG tablet Indications: Chronic migraine without aura without status migrainosus, not intractable (CMS/HCC) Take 60 mg by mouth Daily 30 tablet 06/30/2024 06/30/2025 Activeergocalciferol 1.25 mg oral capsule (18 sources)Provitamin D2 CompoundStart: 05-18-2023 End: 94-62-2399xxxrhykvteqxuf (Vitamin D2) 1.25 MG (52151 UT) capsule 05/18/2023 03/14/2025 Discontinued (Ineffective)ibuprofen 600 mg oral tablet (20 sources)Nonsteroidal Anti-inflammatory DrugStart: 09-09-2023 End: 16-93-5832EIK 600 MG tablet 09/09/2023 03/14/2025 Discontinued (Ineffective)Start: 42-32-2908mhdc 1 tablet by mouth three times dailyLORazepam 0.5 mg oral tablet (9 sources)BenzodiazepineStart: 08-04-2023 End: 66-22-7330czev 1 tablet by mouth once daily as neededLorazepam 0.5 mg tablet Discontinued 0.5 MG PO Daily as needed August 04, 2023 12:00am July 1:41pm24 hr propranolol hydrochloride 60 mg extended release oral capsule (20 sources)beta-Adrenergic BlockerStart: 08-04-2023 End: 56-03-2004hone 1 capsule by mouth once daily at bedtimePropranolol 60 mg capsule,extended release 24 hr Discontinued 60 MG PO Daily at bedtime 90 90 September 22, 2023 2:20pm 2024 11:43amrizatriptan 10 mg oral tablet (14 sources)Serotonin-1b and Serotonin-1d Receptor AgonistStart: 02-11-2024 End: 18-24-1994ttja 1 tablet by mouth oncerizatriptan (Maxalt) 10 MG tablet Indications: Intractable migraine without aura and without statusmigrainosus Take 1 tablet (10 mg) by mouth 1 (one) time if needed for migraine (may repeat x1) for up to 9 doses May repeat in 2 hours if unresolved. Do not exceed 30 mg in 24 hours. 9 tablet 02/11/2024 03/14/2025 Discontinued (Therapy completed) Problems Active Problems Problem ClassificationProblemDateDocumented DateEpisodic/ChronicAnxiety disorders (14 sources)Mixed anxiety and depressive disorder; Translations: [Anxiety disorder, unspecified]75-14-1661VnuytzqFftsotyof-deficit, conduct, and disruptive behavior disorders (9 sources)Attention deficit hyperactivity disorder; Translations: [Attention- deficit hyperactivity disorder, unspecified type]31-31-3980LhgbavkSlollgxso- deficit, conduct, and disruptive behavior disorders (3 sources)Attention-deficit hyperactivity disorder, unspecified type; Translations: [Attention deficit disorder with hyperactivity]52-07-5749Qapttho Attention-deficit, conduct, and disruptive behavior disorders (2 sources)Attention deficit hyperactivity disorder, predominantly inattentive type; Translations: [Attention-deficit hyperactivity disorder, predominantly inattentive type]58-61-6673YuuajjaXwdugjumi and vision defects (8 sources)Eye / vision finding; Translations: [Unspecified visual disturbance] 60-59-9811OfjgbygeDbpwfhbidl associated with dizziness or vertigo (2 sources)Dizziness; Translations: [Dizziness and giddiness]42-20-4575Bmunpujq Delirium, dementia, and amnestic and other cognitive disorders (19 sources)Postconcussion syndrome; Translations: [Postconcussional syndrome] Onset: 154313-75-0824XjjwzgpAhijdzpz; including migraine (20 sources)Refractory migraine without aura; Translations: [Migraine without aura, intractable, without statusmigrainosus]19-22-2965XmmuxekTmhpmecz; including migraine (16 sources)Posttraumatic headache; Translations: [Post-traumatic headache, unspecified, not intractable]Onset: 419622-76-7587JkvwwcngHaqhlmkimkkqk and screening for infectious disease (2 sources)Encounter for screening for human papillomavirus (HPV); Translations: [Contact with and (suspected)exposure to other viral communicable diseases] Onset: 38-05-8719EmwdxlayFrffdtg and fatigue (16 sources)Asthenia; Translations: [Weakness]51-11-6516UdizmxsyQjgc disorders (2 sources)Depressive disorder; Translations: [Depression, unspecified depression type (CMS/HCC)]16-42-2325NxngxnoTvahc complications of (1 source)Maternal obesity complicating , childbirth and the puerperium, antepartum; Translations: [Obesity complicating , third trimester]Onset: 642939-61-1213WpnugimUeadx nervous system disorders (1 source)Other chronic pain; Translations: [OTHER CHRONIC PAIN]Onset: 88-40-4860EgyomkuTicea nervous system disorders (8 sources)Chiari malformation type I; Translations: [Compression of brain] 00-26-2724DarenziCbfln nervous system disorders (1 source)Compression of brain; Translations: [Compression of brain]Onset: 67-85-6994EzqdfpiOcaum screening for suspected conditions (not mental disorders or infectious disease) (8 sources)Magnetic resonance imaging of brain abnormal; Translations: [Other abnormal findings on diagnostic imaging of central nervous system]12-12-2024 EpisodicOther upper respiratory infections (1 source)Chronic sinusitis, unspecified; Translations: [CHRONIC SINUSITIS UNSPECIFIED]Onset: 62-07-7868SqawkrkIyhvzyss codes; unclassified (12 sources)Obstructive sleep apnea syndrome; Translations: [Obstructive sleep apnea (adult) (pediatric)]Onset: 546589-80-2992AfocmlkOmufwwvo codes; unclassified (4 sources)Disturbance in sleep behavior; Translations: [Sleep disorder, unspecified]48-40-3244CjpvlnorEifveumu codes; unclassified (1 source)Pain, unspecified; Translations: [Pain, unspecified]Onset: 05-31-2024 EpisodicResidual codes; unclassified (20 sources)Transient alteration of awareness; Translations: [Transient alteration of awareness]85-84-6849PooklnvxUmxhcrcj codes; unclassified (2 sources)Amnesia; Translations: [Other amnesia]21-73-5970XeokfleuKfaeczse codes; unclassified (1 source)Reduced libido; Translations: [Decreased libido]93-30-1784Ikgynlrk Unclassified (1 source)[facility] Past or Other Problems Problem ClassificationProblemDateDocumented DateEpisodic/ChronicAbdominal pain (2 sources)Pain in female pelvis; Translations: [Pelvic and perineal pain] 89-23-0897VkktreuaTfoqumo obstructive pulmonary disease and bronchiectasis (1 source)Bronchitis, not specified as acute or chronic; Translations: [BRONCHITIS NOT SPEC ACUTE/CHRON]Onset: 21-21-0984QmnbrhqdJwkoigjk or abnormal glucose tolerance complicating ; childbirth; or the puerperium (2 sources)Gestational diabetes mellitus, class A>2< ; Translations: [Gestational diabetes mellitus in , unspecified control]Onset: 516184-67-8298UojsxuczAnpwyjqhl and duodenitis (1 source)Bile-induced gastritis; Translations: [Other gastritis without bleeding]Onset: 719226-49-2285IhqyktyhPckgfkndnv during ; abruptio placenta; placenta previa (2 sources)Placenta previa without hemorrhage; Translations: [Complete placenta previa NOS or without hemorrhage, third trimester]Onset: 09-20-2018 Resolved: 926372-15-1567AmqdiqbvWxfagewivns chest pain (4 sources)Other chest pain; Translations: [OTHER CHEST PAIN]Onset: 03-14-2020 EpisodicOther complications of (1 source)Vomiting of , unspecified; Translations: [Unspecified vomiting of , unspecified as to episode of care or not applicable] Onset: 550954-01-6992ExzpdgotQmgep complications of (1 source)Pain in pelvis; Translations: [Other specified related conditions, third trimester]Onset: 195532-89-5985ZghvtcxvMtdld complications of (1 source)High risk ; Translations: [Supervision of high risk , unspecified, third trimester]Onset: 058333-14-3237QbxqdnjsNcgus complications of (1 source)RhD negative; Translations: [Other specified related conditions, unspecified trimester]Onset: 155552-17-7514GctgbmmjXoutn and delivery including normal (1 source); Translations: [Encounter for supervision of normal , unspecified, unspecified trimester]Onset: EpisodicSpondylosis; intervertebral disc disorders; other back problems (4 sources)Lumbago with sciatica, left side; Translations: [LUMBAGO WITH SCIATICA LEFT SIDE]Onset: 62-71-0731WvntbkijJbxjbaabuvie (1 source)Onset: Results Test NameValueInterpretationReference RangeFacilityMR cervical spine wo/w conon 19-53-6093TC cervical spine wo/w [facility] [place] [address] MRI Report Signed Patient: Luis Jung MR#: [id number] : 1985 Acct:[id number] Age/Sex: 39 / F ADM Date: 01/17/25 Loc: MR Room: Type: [facility] Attending Dr: Vee ALLEN Copies to: TIFFANY Pan Ordering Provider: Vee Jefferson APRN-CORE SHAPER-C Date of Service: 01/17/25 MR/MR cervical spine [...] Guerrier M.D. 01/17/2025 7:01 PM Dictation Location: [place] [address] Transcribed By: [facility] 01/17/251900 Dictated By: Marquise Guerrier MD 01/17/25 185 Signed By: 01/17/251900[facility] lumbar spine wo/w nery 93-88-8368QW lumbar spine wo/w [facility] [place] [address] [place] [address] MRI Report Signed Patient: Luis Jung MR#: [id number] : 1985 Acct:[id number] Age/Sex: 39 / F ADM Date: 01/17/25 Loc: MR Room: Type: [facility] Attending Dr: Vee ALLEN Copies to: [...] plate of T11. Mild facet arthropathy L3-4. Zaep-ft-skkhcnpj facet arthropathy L4-5 and L5-S1. Vertebral body [...] Guerrier M.D. 01/17/2025 7:29 PM Dictation Location: [place] [address] Transcribed By: [facility] 01/17/251928 Dictated By: Marquise Guerrier MD 01/17/251925 Signed By: 01/17/25 [facility]Ad[facility]ician GroupNmgnetic resonance imaging reportOrdered By: Marquise Guerrier on 07-12-9488Mcimm [facility] [place] [address] [place] [address] MRI Report Signed Patient: Luis Jung MR#: [id number] : 1985 Acct:[id number] Age/Sex: 39 / F ADM Date: 5 Loc: MR Room: Type: [facility] Attending Dr: Vee ALLEN Copies to: TIFFANY Pan~ Ordering Provider: TIFFANY Pan Date of Service: 01/17/25 MR/MR lumbar spine wo/w con: G93.5 MRI lumbar spine performed without and with contrast INDICATION: Evaluate for possible syrinx, Chiari malformation COMPARISON: None FINDINGS: Lumbar vertebral heights and alignment and bone marrow signal is unremarkable. Diminishedmarrow signal likely related to patient's age and red marrow conversion. Endplate Schmorl's nodes L1-L2 and minimal Schmorl's node formation inferior plate of T11. Mild facet arthropathy L3-4. Mild-to- moderatefacet arthropathy L4-5 and L5-S1. Vertebral body heights [...] Guerrier M.D. 01/17/2025 7:29 PM Dictation Location: [place] [address] Transcribed By: WOO 01/17/251928 Dictated By: Marquise Guerrier MD 01/17/251925 Signed By: 01/17/251928 [facility] Work Phone: Study [facility] [place] [address] [place] [address] MRI Report Signed Patient: Luis Jung MR#: [id number] : 1985 Acct:[id number] Age/Sex: 39 / F ADM Date: 5 Loc: Room: Type: [facility] Attending Dr: Vee ALLEN Copies to: TIFFANY [...] spurring. Minimal left foraminal encroachment. No significant discdisease central canal or right foraminal narrowing. C7-T1: Mild to moderate facet arthropathy. Otherwise unremarkable.. MR/MR cervical spine wo/w con IMPRESSION: Minimal degenerative change without significant canal or neural foraminal narrowing. Cerebellar tonsillar ectopia without evidence of cervical cord syrinx or pathologic enhancement involving the cord. Impression dictated by: Marquise Guerrier M.D. 01/17/2025 7:01 PM Dictation Location: [place] [address] Transcribed By: [facility] 01/17/251900 Dictated By: Marquise Guerrier MD 01/17/251851 Signed By: 01/17/251900 [facility] Work Phone: X-ray reportOrdered By: Marquise Guerrier on 25-32-6965Ojzrx reportK[facility] [place] [address] [place] [address] XRay Report Signed Patient: Luis Jung MR#: [id number] : 1985 Acct:[id number] Age/Sex: 39 / F ADM Date: 5 Loc: MR Room: Type: [facility] Attending Dr: Vee ALLEN Copies to: TIFFANY Pan~ Ordering Provider: TIFFANY Pan Date of Service: 01/17/25 XR/XR pre/post mri xray: PRE MRI OF THE LUMBAR AND CERVICAL 2 VIEWS CERVICAL SPINE 2 VIEWS OF THE LUMBAR SPINE INDICATION: Headache/migraines, Chiari malformation XR/XR pre/post mri xray FINDINGS AND IMPRESSION: Cervical lumbar vertebral alignment and vertebral heights maintained. Mildlower lumbar facet arthropathy. No high-grade neural foraminal encroachment. Surgical clips right upper quadrant. Impression dictated by: Marquise Guerrier M.D. 01/17/2025 7:32 PM Dictation Location: [place] [address] Transcribed By: [facility] 01/17/251931 Dictated By: Marquise Guerrier MD 01/17/251929 Signed By: 01/17/251931 [facility] Work Phone: xr pre/post mri xrayon 80-19-6491SQ pre/post mri xray [facility] [place] [place] [address] XRay Report Signed Patient: Luis Jung MR#: [id number] : 1985 Acct:[id number] Age/Sex: 39 / F ADM Date: 01/17/25 Loc: MR Room: Type: [facility] Attending Dr: Vee ALLEN Copies to: [...] Guerrier M.D. 01/17/2025 7:32 PM Dictation Location: [place] [address] Transcribed By: [facility] 01/17/251931 Dictated By: Marquise Guerrier MD 01/17/251929 Signed By: 01/17/251931[facility] thoracic spine wo/w conon 10-87-7117XR thoracic spine wo/w [facility] [place] [address] [place] [address] MRI Report Signed Patient: Luis Jung MR#: [id number] : 1985 Acct:[id number] Age/Sex: 39 / F ADM Date: 01/16/25 Loc: MR Room: Type: [facility] Attending Dr: Vee ALLEN Copies to: TIFFANY [...] at T10-11. There are Schmorl's node deformities T10- T12. Otherwise the thoracic cord is normal in signal and morphology. No focal cord syrinx. No abnormal enhancement involving cord or the vertebral bodies. Paraspinal soft tissues unremarkable. MR/MR thoracic spine wo/w con IMPRESSION: Mild midthoracic degenerative changes. No evidence of thoracic cord syrinx. No significant canal or neural foraminal narrowing identified. Impression dictated by: Marquise Guerrier M.D. 01/16/2025 11:15 PM Dictation Location: [facility]29 Transcribed By: [facility] 01/16/252314 Dictated By: Marquise Guerrier MD 01/16/252310 Signed By: 01/16/252314[facility] GroupALL MYOGLOBINon 07-05-2024 Myoglobin [Mass/Vol]20 ng/mL9 - 82 ng/mLNOMS HealthcareCCF CKon 96-55-2343TM [Catalytic activity/Vol]37 U/L26 - 192 U/LNOMS HealthcareNo Panel Informationon 14-99-9917BTRUUZIDTWLGM HealthcareIGP,APTIMA HPV,AGE GDLNon 40-66-1751KGN GDLN ACOG TESTINGNote.NOMS HealthcareComment on above:TESTS RESULT FLAG UNITS REF RANGE LAB Clinician Provided Cytology Information Source.............Vagina No. of containers..01 ThinPrep Vial Age Algo ACOG Peggy... 30-65 01 FLAG LEGEND: L-Low Normal,H-High Normal,LL-Alert Low,HH-Alert High <-Panic Low,>-Panic High,A-Abnormal,AA-Critical Abnormal Performed at: 01 =G [facility] [address] [place] [address] Sabiha Quinn MD, HPV APTIMANegativeNegativeNOMS HealthcareComment on above:This nucleic acid amplification test detects fourteen high- risk HPV types (16,18,31,33,35,39,45,51,52,56,58,59,66,68) without differentiation. Performed at: = - [address], [place] [id number] Dehairing Machine Tender: Sabiha Quinn MD, Phone: [phone] Performed at: [address], [place] [id number] Dehairing Machine Tender: Sabiha Quinn MD, Phone: [phone] IGP, APTIMA HPV, RFX 16/18,45Note.NOMS HealthcareComment on above:TESTS RESULT FLAG UNITS REF RANGE LAB DIAGNOSIS: 02 NEGATIVE FOR INTRAEPITHELIAL LESION OR MALIGNANCY. Specimen adequacy: 02 Satisfactory for evaluation. Performed by: Craig Overton, Managed Services Consultant ([facility]) . 02 Note: Note 02 The Pap [...] <-Panic Low,>-Panic High,A-Abnormal,AA-Critical Abnormal Performed at: [address] [place] [address] Sabiha Quinn MD, SPATULA-ALONE VAGINA CLINISYNCACADIA HEALTHCARE HealthcareCytology Cervical or vaginal smear or scraping studyon 42-88-5481YHPOPhelps HealthPAP ACOG PANEL 2: 30 to 65on 12-28-2020..NormalThe Access Hospital DaytonComment on above:Result Comment: Performed at: WBPerformed By: #### [id number] #### [facility] [address] [place] [address] Tracyramona Sharma Gdln ACOG Syuatde99-31WiuigfHwrDayton VA Medical CenterComment on above:Performed By: #### [id number] #### [facility] [facility] [address] [place] [address] Tracy KarenDIAGNOSIS:CommentGenesis HospitalCompontiac general hospital on above:Result Comment: NEGATIVE FOR INTRAEPITHELIAL LESION OR MALIGNANCY. THIS SPECIMEN WAS RESCREENED PART OF OUR [employer]ILDER PROGRAM. Performed at: WBPerformed By: #### [id number] #### [facility] [address] [place] [address] Tracy KarenHPV AptimaNegativeNormalNegativeCleveland Clinic [facility]uclid [facility] on above:Result Comment: This nucleic acid amplification test detects fourteen high-risk HPV types (16,18,31,33,35,39,45,51,52,56,58,59,66,68) without differentiation. Performed at: =GPerformed By: #### [id number] #### [facility] [address] [place], [place] [id number] Tracy KarenMethodology:CommentNoDayton VA Medical CenterCompontiac general hospital on above: Result Comment: This liquid based ThinPrep(R) pap test was screened with the use of an image guided system. Performed at: WBPerformed By: #### [id number] #### [facility] [address] [place], [place] [id number] Tracy KarenNote:CommentGenesis HospitalComment on above:Result Comment: The Pap smear is a screening test designed to aid in the detection of premalignant and malignant conditions of the uterine cervix. It is not a diagnostic procedure and should not be used as the sole means of detecting cervical cancer. Both false-positive and false-negative reports do occur. . Performed at: WBPerformed By: #### [id number] #### [facility] [address] [place] [address] Tracy KarenPerformed by:[facility] on above: Result Comment: Addi Barajas, Managed Services Consultant (ASCP) Performed at: WBPerformed By: #### [id number] #### [facility] [address] [place] [address] Tracy KarenQC reviewed by:[facility] on above: Result Comment: Aby Oliveira, Supervisory Managed Services Consultant (ASCP) Performed at: WBPerformed By: #### [id number] #### [facility] [address] [place] [address] Tracy KarenSpecimen adequacy:[facility] on above:Result Comment: Satisfactory for evaluation. No endocervical component is identified. Performed at: WBPerformed By: #### [id number] #### [facility] [address] [place] [address] Tracy KarenCHLAMYDIA/GONOCOCCUS ANTONIO (SWAB/URINE/PAPon 94-43-7942Lvgslppom trachomatis, NAANegativeNormalNegativeC[facility] Clinic Eucl[facility] Hospital on above: Performed By: #### CT/NGNA #### [facility] [address] [place] [address] Tracy KarenNeisseria gonorrhoeae, NAANegativeNormalNegativeC[facility] Clinic [facility] on above:Performed By: #### CT/NGNA #### [facility] [address] [place] [address] Tracy KarenVAGINITIS/VAGINOSIS DNA PROBEon 31-46-9133Lrobeuu speciesNegative NormalNegativeThe [facility] on above:Performed By: #### VAGINT ####[facility] [address] [id number] KarenGalananerella vaginalisNegativeNormalNegativeThe [facility] DaytonComment on above:Performed By: #### VAGINT ####[facility] [address] [phone] KarenTrichomonas vaginalisNegativeNormal NegativeThe [facility] DaytonComment on above:Performed By: #### VAGINT ####[facility] [address] [phone] KarenXR LSPINE 2_3 VIEWSon 28-73-4427BM LSPINE 2_3 VIEWSEXAMINATION: XR LSPINE 2_3 VIEWS HISTORY: Lumbago with sciatica COMPARISON: No relevant comparison available. FINDINGS: BONES: Normal. No significant spondylosis, scoliosis, fracture, or visible bony lesion. DISC SPACES: Normal. No significant disc height narrowing, subluxation, or endplate abnormality. PARASPINOUS: Negative. No paraspinous abnormality is seen. OTHER: Negative. IMPRESSION: No acute abnormality Electronically authenticated by: ANDREW BLUM Date: 2020-06-06 09:25NormGuernsey Memorial Hospitale [facility]COVID-19 PCRon [id number]-CoV-2 (COVID-19) RNA ANTONIO+probe Ql (Unsp spec)Not detectedNormalNot DetectedThe [facility] DaytonCompontiac general hospital on above: Result Comment: This nucleic acid amplification test was developed and its performance characteristics determined by [facility]. Nucleic acid amplification tests include PCR and [...] a negative (not detected) result in this assay.Performed By: #### CVDPCR, CVDSTAT #### [facility] [address] [place] [address] Tracy KarenPRIORITY COVID PROCESSINGon 62-40-7405QmntfzoCgdbezuLebyxfQhu [facility] HospitalComment on above:Result Comment: ReceivedPerformed By: #### CVDPCR, CVDSTAT #### [facility] [address] [place] [address] Tracy KarenCBC AUTO DIFFon 16-03-1232XZXJ #0.1 103/ulNormal0.0-0.1The [facility] DaytonComment on above:Performed By: #### CBC #### [facility] [address] [place] [address] Tracy KarenBasophils/100 WBC (Bld)0.8 %Normal0.2-2.0The [facility] Comment on above:Performed By: #### CBC #### [facility] [address] [place] [address] Tracy KarenEO #0.3 103/ulNormal0.0-0.7The [facility] DaytonComment on above: Performed By: #### CBC #### [facility] [address] [place] [address] Tracy KarenEosinophils/100 WBC (Bld)3.8 %Normal0.9-7.0The [facility] Comment on above:Performed By: #### CBC #### [facility] [address] [place] [address] Tracy KarenErythrocyte distribution width (RBC) [Ratio]11.7 %Kkimkt70.0-15.0The [facility] DaytonComment on above:Performed By: #### CBC #### [facility] [address] [place] [address] Tracy KarenHematocrit (Bld) [Volume fraction]39.6 %Ilxxnt08.0-48.0The [facility] DaytonComment on above:Performed By: #### CBC #### [facility] [address] [place] [address] Tracy KarenHemoglobin (Bld) [Mass/Vol]13.0 g/cWSerwva49.0-16.0The [facility] DaytonComment on above:Performed By: #### CBC #### [facility] [address] [place] [address] Tracy KarenIG #0.03 10e3/ulNormal0.00-0.03The [facility] DaytonComment on above:Performed By: #### CBC #### [facility] [address] [place] [address] Tracy KarenIG %0.4 %Normal0.0-0.5The [facility] DaytonComment on above: Performed By: #### CBC #### [facility] [address] [place] [address] Tracy KarenLYMPH #3.5 103/ulNormal1.2-3.8The [facility] DaytonComment on above: Performed By: #### CBC #### [facility] [address] [place] [address] Tracy KarenLymphocytes/100 WBC (Bld)41.5 %Wgdocy83.5-60.0The [facility] Comment on above:Performed By: #### CBC #### [facility] [address] [place] [address] Tracy KarenMANUAL DIFF REQNONormalThe [facility] DaytonComment on above: Performed By: #### CBC #### [facility] [address] [place] [address] Trayc KarenMCH (RBC) [Entitic mass]31.0 ueNffrhu78.7-34.0The [facility] Comment on above:Performed By: #### CBC #### [facility] [address] [place] [address] Tracy KarenMCHC (RBC) [Mass/Vol]32.8 g/zVKijdlb62.9-35.2The [facility] Comment on above:Performed By: #### CBC #### [facility] [address] [address] Tracy KarenMCV (RBC) [Entitic vol]94.5 tSGpcjaa54.0-99.0The [facility] Comment on above:Performed By: #### CBC #### [facility] [address] [address] Tracy KarenMONO #0.7 103/ulNormal0.3-0.8The [facility] DaytonComment on above: Performed By: #### CBC #### [facility] [address] [address] Tracy KarenMonocytes/100 WBC (Bld)7.8 %Normal1.7-12.0[facility] Comment on above:Performed By: #### CBC #### [facility] [address] [address] Tracy KarenNEUT #3.9 103/ulNormal1.4-6.5The [facility] DaytonComment on above: Performed By: #### CBC #### [facility] [address] [place] [address] Tracy KarenNeutrophils/100 WBC (Bld)45.7 %Ehcrbe62.0-75.0The [facility] Comment on above:Performed By: #### CBC #### [facility] [address] [place] [address] Tracy KarenPlatelet mean volume (Bld) [Entitic vol]11.1 fLNormal9.5-13.5The [facility] DaytonComment on above:Performed By: #### CBC #### [facility] [address] [place] [address] Tracy XshdkSRG750 103/mdFmbqah937-255Ytv [facility] DaytonComment on above: Performed By: #### CBC #### [facility] [address] [address] Tracy KarenRBC4.19 106/ulCritically low4.20-5.40The [facility] DaytonComment on above:Performed By: #### CBC #### [facility] [address] [place] [address] Tracy KarenWBC8.4 103/ulNormal4.0-11.0The [facility] DaytonComment on above: Performed By: #### CBC #### [facility] [address] [place] [address] Tracy KarenPROF 14(COMP METB)on 24-22-9712Wrbhtjl [Mass/Vol]3.9 g/dLNormal 3.5-5.0The [facility] DaytonComment on above:Performed By: #### CMP #### [facility] [address] [place] [address] Tracy KarenAlbumin/Globulin [Mass ratio]1.2 {ratio}NormalNorwalk Memorial Hospital Comment on above:Performed By: #### CMP #### [facility] [address] [place] [address] Tracy KarenALP [Catalytic activity/Vol]63 U/ZIszlui45-189PpuNorwalk Memorial Hospital Comment on above:Performed By: #### CMP #### [facility] [address] [place] [address] Tracy KarenALT [Catalytic activity/Vol]29 U/LNormal9-52[facility] Comment on above:Performed By: #### CMP #### [facility] [address] [place] [address] Tracy KarenAnion gap [Moles/Vol]9.1 mmol/LNormalThe [facility] DaytonComment on above:Performed By: #### CMP #### [facility] [address] [place] [address] Tracy KarenAST [Catalytic activity/Vol]16 U/QRajqtk26-94NegNorwalk Memorial Hospital Comment on above:Performed By: #### CMP #### [facility] [address] [place] [address] Tracy KarenBilirubin [Mass/Vol]0.3 mg/dLNormal0.2-1.3TSouthwest General [facility] Center Comment on above:Performed By: #### CMP #### [facility] [address] [place] [address] Tracy KarenCalcium [Mass/Vol]9.2 mg/dLNormal8.4-10.2The [facility] Comment on above:Performed By: #### CMP #### [facility] [address] [place] [address] Tracy KarenChloride [Moles/Vol]103 mmol/FOxzqna43-074Pvu [facility] Comment on above:Performed By: #### CMP #### [facility] [address] [place] [address] Tracy KarenCO2 [Moles/Vol]28.1 mmol/ZMqwjmt03.0-30.0The [facility] Comment on above:Performed By: #### CMP #### [facility] [address] [place] [address] Tracy KarenCreatinine [Mass/Vol]0.60 mg/dLNormal0.52-1.04The [facility] Comment on above:Performed By: #### CMP #### [facility] [address] [place] [address] Tracy KarenEGFR-AF CITIZEN OF THE [place]>60Normal>=60The [facility] DaytonComment on above: Performed By: #### CMP #### [facility] [address] [place] [address] Tracy KarenEGFR-NON AF CITIZEN OF THE [place]>60Normal>=60The [facility] DaytonComment on above:Performed By: #### CMP #### [facility] [address] [place] [address] Tracy KarenGlobulin (S) [Mass/Vol]3.3 g/dLNormalThe [facility] DaytonComment on above:Performed By: #### CMP #### [facility] [address] [place] [address] Tracy KarenGlucose [Mass/Vol]97 mg/gXZqxyof24-012Cyc [facility] DaytonComment on above:Performed By: #### CMP #### [facility] [address] [place] [address] Tracy KarenPotassium [Moles/Vol]4.2 mmol/LNormal3.4-5.0[facility] Comment on above:Performed By: #### CMP #### [facility] [address] [place] [address] Tracy KarenProtein [Mass/Vol]7.2 g/dLNormal6.1-8.2[facility] HospitalComment on above:Performed By: #### CMP #### [facility] [address] [place] [address] Tracy KarenSodium [Moles/Vol]136 mmol/LCritically oxw118-263Eml [facility] DaytonComment on above:Performed By: #### CMP #### [facility] [address] [place] [address] Tracy KarenUrea nitrogen [Mass/Vol]9.0 mg/dLNormal7.0-17.0[facility] Comment on above:Performed By: #### CMP #### [facility] [address] [place] [address] Tracy KarenUrea nitrogen/Creatinine [Mass ratio]15.0 mg/mgNoDayton VA Medical CenterComment on above:Performed By: #### CMP #### [facility] [address] [place] [address] Tracy KarenTROPONIN - Ion 35-95-1348NSDU<0.012Normal<=0.034Nor[facility] Memorial HospitalComment on above:Performed By: #### TROP #### [facility] [address] [place] [address] Tracy KarenTROPONIN RANGESEE Park[facility] HealthComment on above: Result Comment: <0.034 ng/ml NEGATIVE 0.034-0.119 INDETERMINATE 0.120 AMI CUT OFFPerformed By: #### TROP #### [facility] [address] [place] [address] Tracy KarenINFLUENZA A AND B AGon 92-13-7866HDSHVUVJEDEVX [facility] HealthComment on above:Result Comment: Negative for Flu A protein angiten. Infection due to Flu A cannot be ruled out. FluA angiten in the sample may be below the detection limit of the test.Performed By: #### INFLUAB #### [facility] [address] [place] [address] Tracy ElaineenINFLUBNEGHSEE [facility] HealthComment on above: Result Comment: Negative for Flu B protein antigen. Infection due to Flu B cannot be ruled out. FluB antigen in the sample may be below the detection limit of the test.Performed By: #### INFLUAB #### [facility] [address] [place] [address] Tracy KarenINFLUENZA A AGNegativeNormalNEGATIVE SEE COMMENTThe [facility] DaytonComment on above:Performed By: #### INFLUAB #### [facility] [address] [place] [address] Tracy KarenINFLUENZA B AGNegativeNormalNEGATIVE SEE COMMENTThe [facility] DaytonComment on above:Performed By: #### INFLUAB #### [facility] [address] [place] [address] Tracy KarenINTERNAL CONTROLSWithin Normal LimitsNormalWithin Normal LimitsNorwalk Memorial HospitalComment on above:Performed By: #### INFLUAB #### [facility] [address] [place] [address] Tracy Pop Vital Signs Date TimeVital SignValuePerforming QoubxznxdMnjlzngs03-27-5174 14:10-0500Body fowmoc582.5 cmCore Memonic DO Work Phone: [facility] HealthVakqihrekf19-41-0770 14:10-0500Body mass index (BMI) [Ratio]38.41 kg/y3Oddfz Jannette DO Work Phone: [facility] HealthVamvnvhmma52-47-7966 14:10-0500Body cirvzi68.25 kgCore Jannette DO Work Phone: [phone]-[facility] HealthDcdsuyhhel50-93-8850 14:10-0500Diastolic blood gflkxcyb51 mm[Hg]Jhonny Quixey Work Phone: [facility] HealthWmffbbbxsy32-44-1271 14:10-0500Systolic blood ncnujumn426 mm[Hg]Jhonny Bhatia DO Work Phone: [facility] HealthQpdjhjpuom34-04-9245 17:51-0400Body kzuxnk932.48 cmSandy Weeks MD Work Phone: 1(287)[address]09-08-2025 17:51-0400 Body abgjip96.25 kgSandy Weeks MD Work Phone: 1(886)[address] [place], [place] 26[address]-31-2025 10:19-0400 Body mirgdc147.48 cmSandy Weeks MD Work Phone: 1(857)[address] [place], [place] 1248207-31-2025 10:19-0400 Body mass index (BMI) [Ratio]39.3 kg/f3QcxnbqwSandy Weeks MD Work Phone: 1(832)[address] [place], [place] 1248207-31-2025 10:19-0400 Body jfaxcm27.52 kgSandy Weeks MD Work Phone: 1(964)[address] [place], [place] 12[address]207-31-2025 10:19-0400 Diastolic blood ewkrbflv19 mm[Hg]Sandy Weeks MD Work Phone: 1(506)[address]07-31-2025 10:19-0400 Heart rate90 /minSandy Weeks MD Work Phone: 1(033)[address]07-31-2025 10:19-0400 Respiratory rate16 /minSandy Weeks MD Work Phone: 1(173)[address] [place], [place] 12[address]207-31-2025 10:19-0400 SaO2% (BldA) [Mass fraction]100 %aSndy Weeks MD Work Phone: 1(613)[address]07-31-2025 10:19-0400 Systolic blood hwceqaau801 mm[Hg]Sandy Weeks MD Work Phone: 1(892)[address]05-05-2025 13:16-0400 Body ytcezu245.5 Oneil LOCKE Work Phone: [facility] HealthYujxoemxsb00-22-4821 13:16-0400Body mass index (BMI) [Ratio]40.42 kg/m2Mariam Alvarenga PA Work Phone: [facility] HealthVdvvqrckdx99-17-7413 13:16-0400Body xcjzuj810.25 kgMariam Alvarenga PA Work Phone: [facility] HealthCahdcapvop84-46-7512 13:16-0400Diastolic blood tgbuexsw79 mm[Hg]Mariam Alvarenga PA Work Phone: [facility] HealthLiilfqgwri29-71-6980 13:16-0400Heart tpeb520 /min Mariam Alvarenga PA Work Phone: [facility] HealthTdbmtsddkn27-94-2037 13:16-0400Respiratory rate16 /minMariam Alvarenga PA Work Phone: [facility] HealthNunhxqmzpy77-23-7361 13:16-4982UeM9% (BldA) [Mass fraction]99 %Mariam Alvarenga PA Work Phone: [facility] HealthMlyrfabkhq05-50-5146 13:16-0400Systolic blood nvbsbloh164 mm[Hg]Mariam Alvarenga PA Work Phone: [facility] HealthGtcbwwhlol90-50-4430 09:30-0500Body mass index (BMI) [Ratio]42.29 kg/h3Vcwzojbmjdm Ulises DO Work Phone: [facility] HealthEzgacpbkpi56-35-0191 09:30-0500Body zburcj592.87 kgChristopher Ulises DO Work Phone: [facility] HealthUenbizlcxb20-08-5907 09:30-0500Diastolic blood tphxdfbu51 mm[Hg]Otilio Ulises DO Work Phone: [facility] HealthEfhqqzrhls74-25-2356 09:30-0500Heart rate78 /min Lmer Ulises DO Work Phone: [facility] HealthVesskbxlno97-68-7039 09:30-1944RlO8% (BldA) [Mass fraction]94 %Christopher Ulises DO Work Phone: [facility] HealthKhvfvcoufq79-19-2915 09:30-0500Systolic blood vhpmfjbo363 mm[Hg]Otilio Montgomery DO Work Phone: [facility] HealthGfuuijjxbk60-13-1345 13:04-0400Body weggan647.5 cmNicole Nicholas DO Work Phone: [facility] HealthJkayfzijrl01-18-3624 13:04-0400Body mass index (BMI) [Ratio]38.41 kg/o2Pjkbwh Nicholas DO Work Phone: [facility] HealthTdatqsxqff40-61-7773 13:04-0400Body .25 kgNicole Nicholas DO Work Phone: [place] [address]Iwwcxfzowz65-27-5978 13:04-0400Diastolic blood banckezu71 mm[Hg]Luis Nicholas DO Work Phone: [facility] HealthEzhpvdeyql62-20-6620 13:04-0400Heart rate69 /min Luis Nicholas DO Work Phone: [facility] HealthJsxvkvfqwf14-76-8757 13:04-5488KxC9% (BldA) [Mass fraction]99 %Luis Nicholas DO Work Phone: [facility] HealthUqghcclvgb27-57-2733 13:04-0400Systolic blood chytvfsu030 mm[Hg]Luis Nicholas DO Work Phone: [facility] HealthDrwimvskon53-56-9742 11:13-0400Body mass index (BMI) [Ratio]41.88 kg/z4Vrrng Jannette DO Work Phone: [facility] HealthPvwmduihlv60-77-5545 11:13-0400Body ymcgpp479.87 kgCorey Jannette DO Work Phone: [facility] HealthHevtubqhuq47-34-4192 11:13-0400Diastolic blood mm[Hg]Jhonny Jannette DO Work Phone: [address] [address]Lymuxlcefr61-52-6999 11:13-0400Systolic blood cxdbzihc324 mm[Hg]Jhonny Jannette DO Work Phone: [facility] HealthHfdbggfkyj09-90-1903 10:51-0400Body lyvjno130.48 cmMD Sandy Weeks Work Phone: 1(237)837-[address] [place], [place] 1196009-04-2024 10:51-0400 Body mass index (BMI) [Ratio]38.4 kg/m2MD Sandy Weeks Work Phone: [phone] [place], [place] 1196009-04-2024 10:51-0400 Body zkqwzu32.25 kgMD Sandy Weeks Work Phone: 1(948)974-[address] [place], [place] 1196009-04-2024 10:51-0400 Diastolic blood lcqrngmu03 mm[Hg]MD Sandy Weeks Work Phone: [phone])[address]09-04-2024 10:51-0400 Heart rate71 /minMD Sandy Weeks Work Phone: 1(242)[address]09-04-2024 10:51-0400 SaO2% (BldA) [Mass fraction]97 %MD Sandy Weeks Work Phone: 1(880)197-[address] [place], [place] 1196009-04-2024 10:51-0400 Systolic blood vltzsgoh036 mm[Hg]MD Sandy Weeks Work Phone: 1(763)[address]05-14-2024 13:20-0400 Diastolic blood mm[Hg]MD Sandy Weeks Work Phone: 1(140)049-[address] [place], [place] 1196005-14-2024 13:20-0400 Systolic blood tepcxywv506 mm[Hg]MD Sandy Weeks Work Phone: 1(358)759-[address] [place], [place] 1196003-26-2024 13:24-0400 Diastolic blood quhvrafo26 mm[Hg][facility]03-26-2024 13:24-0400Heart rate95 /minUniversity Hospitals Parma Medical Center03-26-2024 13:24-7742DpE9% (BldA) [Mass fraction]98 %[facility] 08-04-2023 13:24-0400Systolic blood ipuhwvgn092 mm[Hg][facility] Encounters Encounter DateEncounter TypeCare ProviderFacilityStart: 03-14-2025 End: 12-08-5574Zjwvje flowsheetCorey Jannette DO Work Phone: [facility] [place] [facility]YNStart: 03-14-2025 End: 99-35-4403Alngeg flowsheetCorey Jannette DO Work Phone: [facility]BGYNStart: 03-14-2025 End: 30-79-2190Nhpmbhn encounter procedureCorey Jannette DO Work Phone: NO HealthcareStart: 03-14-2025 End: 49-44-6190Xphvdvvt preventive med est patient 18-39 yrsCorey Jannette DO Work Phone: [facility] [place] [facility]BGYNComment on above:Well woman exam with routine gynecological exam; Decreased libidoStart: 02-16-2025 End: 79-20-9065ffrnftpwzdPtgcgjwHelena Weeks MD Work Phone: [facility] Work Phone: Start: 02-16-2025 End: 11-50-6106Vscxffs encounter procedureChherlinda Rodriguez DO-[facility] [place] Work Phone: Start: 02-13-2025 End: 93-05-9772egtmhxxtppZmmlibpHelena Weeks MD Work Phone: [facility] Work Phone: Start: 02-13-2025 End: 06-08-4874Ukdbyyg encounter procedureChherlinda Rodriguez DO-[facility] [place] Work Phone: Start: 01-17-2025 End: 97-68-5183Ocyplmz encounter procedureShunter Jefferson APRN-FNP-C-[facility] Work Phone: Start: 01-17-2025 End: 59-96-4665zomrousnovUnzxjdyHelena Weeks MD Work Phone: [facility] Work Phone: Start: 01-16-2025 End: 22-01-7456Ttnzgdt encounter procedureShunter Jefferson APRN-FNP-C-[facility] Work Phone: Start: 01-16-2025 End: 59-86-0952gelodfefzfFprbqok A Haynes MD Work Phone: [facility] Work Phone: Start: 12-08-2024 End: 85-33-0106fibjtohsqaOtpuphc A Haynes MD Work Phone: [facility] Work Phone: Start: 12-08-2024 End: 55-21-1298Tqnucgh encounter procedureShunter Jefferson APRN-FNP-C-[facility] Work Phone: Start: 11-29-2024 End: 28-14-2735Jwdwwfx encounter procedureChherlinda Rodriguez DO -Electrodiagnostics Work Phone: Start: 11-29-2024 End: 76-77-6323xlwxlgeudpZtlcjsvHelena Weeks MD Work Phone: [facility] Work Phone: Start: 11-24-2789Rdq-patient / Non-visitAdam [facility] Work Phone: Start: 11-14-2024 End: 70-07-2003Umtgacoeye OrdersChherlinda Montgomery DO Work Phone: Referring PhysicianComment on above:Postconcussion syndrome (Primary Dx); Post-traumatic headache, not intractable, unspecified chronicity patternStart: 10-06-2024 End: 49-83-6016qvqjbentmxMBSYO ZHANG AMBATIProMedica ProMedica Fostoria Community Hospitaltart: 09-19-2024 End: 07-49-1081Yvcsdcbyl encounterBharti Pinto CMAProMedica Rheumatology, A Department of [facility] Hospitaltart: 09-12-2024 End: 17-84-2841Jmapaz Andreas LOCKE Work Phone: aKATHARINA VIRGINIAUEStart: 09-12-2024 End: 86-89-2255Nyngvp Andreas LOCKE Work Phone: aKATHARINA VIRGINIAUEStart: 09-12-2024 End: 51-06-0485Nqqsdy outpatient visit 25 [facility] hospitalMariam LOCKE Work Phone: aKATHARINA HOLLYComment on above:Transient alteration of awareness (Primary Dx); Chronic migraine without aura without status migrainosus, not intractable (CMS/HCC); WeaknessStart: 09-12-2024 End: 68-37-8194jiarldmrlwVQRW HILLNot AvailableStart: 07-21-2024 End: 08-40-8534uurvramfmbBQDLFHZQWDR HASSETTNot AvailableStart: 07-11-2024 End: 03-21-3711Kqinao Duc Mijares PhD Work Phone: aNA SANDUSKYStart: 07-11-2024 End: 47-72-8566Yonlip Duc Mijares PhD Work Phone: ana SANDUSKYStart: 07-11-2024 End: 14-89-0174ybgsgdvtdvNKBDWLRL DENBESTENNot AvailableStart: 07-11-2024 End: 04-43-1893Czfirhi encounter procedureCarlton Mijares PhD Work Phone: aNA Joss on above:Transient alteration of awareness (Primary Dx); Post concussion syndrome; Chronic migraine without aura without status migrainosus, not intractable (CMS/HCC); Sleep disturbance; Memory loss; Attention deficit hyperactivity disorder (ADHD), predominantly inattentive type (CMS/HCC); Depression, unspecified depression type (CMS/HCC); Generalized anxiety disorder (CMS/HCC)Start: 07-05-2024 End: 58-56-0015Wbxgktroq Result EncounterChristopher Ulises DO Work Phone: [facility] External Department UnsolicitedStart: 07-05-2024 End: 00-80-2162Ofcepqspq Result EncounterChristopher Ulises DO Work Phone: [facility] External Department UnsolicitedStart: 06-30-2024 End: 14-62-1306Pwozck flowsheetChristopher Ulises DO Work Phone: aNA SANDUSKYStart: 06-30-2024 End: 28-47-9853Njgufr flowsheetChristopher Ulises DO Work Phone: aNA SANDUSKYStart: 06-30-2024 End: 44-82-5474Avceht outpatient visit 25 minutesChristopher Ulises DO Work Phone: aNA ALTONUSKYComment on above:Transient alteration of awareness (Primary Dx); Chronic migraine without aura without status migrainosus, not intractable (CMS/HCC); WeaknessStart: 06-30-2024 End: 77-93-4892vmjhjuiebkEWAYQSSYLXX HASSETTNot AvailableStart: 05-31-2024 ambulatoryHEATexas [facility] PPGStart: 05-30-2024 End: 19-78-2651Hmdjolmrx department patient visitHEATexas Health Harris Medical [facility] Ambulatory PPGStart: 02-11-2024 End: 32-12-5635Jzxsrs flowsheetNicole Nicholas DO Work Phone: [facility] [place] [address] R[address]TEStart: 02-11-2024 End: 10-68-1773Orxlsg flowsheetNicole Nicholas DO Work Phone: [facility] [place] [facility] ROUTEStart: 02-11-2024 End: 76-96-7689Xizvxw consultation new/estab patient 60 minNicole Nicholas DO Work Phone: [facility] [place] STATE ROUTEComment on above:Intractable migraine without aura and without status migrainosus (CMS/HCC) (Primary Dx); Post concussion syndrome; Dizziness; Sleep disturbanceStart: 02-11-2024 End: 99-23-5558ehotnlzqvwMDEYGD DANNERNot AvailableStart: 01-19-2024 End: 47-15-6978Heqaxg flowsheetCorey Jannette DO Work Phone: noms BCP OBStart: 01-19-2024 End: 60-95-7593Xgdjvxwdn Result EncounterCorey Jannette DO Work Phone: noms External Department UnsolicitedStart: 01-19-2024 End: 23-46-7301Qyizrejdd Result EncounterCorey Jannette DO Work Phone: noms External Department UnsolicitedStart: 01-19-2024 End: 63-93-2530Styyhdg encounter procedureCorey Jannette DO Work Phone: noms HealthcareStart: 01-19-2024 End: 75-32-6471Baexemcb preventive med est patient 18-39 yrsCorey Jannette DO Work Phone: noms BCP OBComment on above:Well woman exam with routine gynecological exam; H/O: hysterectomy; Pelvic pain in femaleStart: 01-19-2024 End: 59-40-3596koubvvoujzHXNEL FAZIONot AvailableStart: 01-13-2024 End: 43-44-2346pfgxvxooeoEB Sandy Alexis Desi Work Phone: [facility] Work Phone: Start: 01-13-2024 End: 06-25-1329Dtlyxbr encounter procedureMD Sandy Desi Work Phone: [facility] Work Phone: Start: 10-23-2023 End: 54-37-4301lzwwexbaonBV Sandy Alexis Desi Work Phone: [facility] Work Phone: Start: 10-23-2023 End: 86-39-0511Ewhdaij encounter procedureMD Sandy Weeks Work Phone: [facility] [place] Work Phone: Start: 09-22-2023 End: 28-77-4077Fyxwjlq encounter procedureMD Sandy Weeks Work Phone: [facility] Re[facility] Sp[facility] Work Phone: Start: 08-04-2023 End: 73-97-9429xqhqyusglyOhrnrigprUniversity Hospitals Health System Work Phone: Start: 08-04-2023 End: 17-71-4192Stijmhb encounter procedureUn[facility] Work Phone: Start: 12-20-2021 End: 99-14-0882Wlxrsdp encounter procedureAPRN Amanda Velasquez Work Phone: [facility] Damien Start: 48-55-4663Yvxzaheru for gynecological examination (general) (routine) without abnormal findingsDR JHONNY FAZIOThe [place] HospitalStart: 12-24-2020 End: 94-29-0645cqsomqsckjRX JHONNY FAZIOFacility:I3Kofto: 12-24-2020 End: 63-27-2492Ztibntfzr for gynecological examination (general) (routine) without abnormal findingsDR JHONNY FAZIOFacility:P2Ewqor: 06-06-2020 End: 56-85-3671znyyyqqanjFR SANDY A HAYNESFacility:H6Llscg: 03-14-2020 End: 49-26-5995plbtjfxgohFM SANDY A HAYNESFacility:H1 Procedures DateProcedureProcedure DetailPerforming ClinicianStart: 01-17-2025 End: 14-56-0884DO pre/post mri xraySandy Weeks MD Work Phone: start: 58-96-4565GLI of lumbar spine with contrast Sandy Weeks MD Work Phone: Start: 39-50-7128NIU of cervical spine with contrast Sandy Weeks MD Work Phone: Start: 35-22-0104MSF of thoracic spine with contrast Sandy Weeks MD Work Phone: Start: 94-70-0674QQX MYOGLOBINChristopher Ulises DO Work Phone: Start: 17-94-5272CMR CKChristopher Ulises DO Work Phone: Start: 41-12-0653CHW,APTIMA HPV,AGE GDLNCorey Jannette DO Work Phone: Start: 51-24-9628KT angiography of head with contrast MD Sandy Weeks Work Phone: start: 56-67-6555Zklt cerv/vag auto thin layer prep mnl screenCorey Memonic DO Work Phone: Start: 50-75-3280F-ray of left ankleAPRN Amanda Velasquez Work Phone: Start: 24-41-1381U-ray of left footAPRN Amanda Velasquez Work Phone: Start: 11-01-2018H/O: sectionH/O: Bharti Pinto CMAH/O: hysterectomyH/O: hysterectomyCorey Memonic DO Work Phone: Plan of Treatment DateCare ActivityDetailAuthorStart: 59-36-1004OEdA,Tdap and Td Vaccines (2 - Td or Tdap)DTaP,Tdap and Td Vaccines (2 - Td or Tdap)[facility] SystemStart: 04-13-2025 End: 99-59-8102Rdopycx encounter sntjqaxaj36/04/2025 11:50 AM EST Office Visit [facility] [place] [address] [place] [address] Jhonny Bhatia DO [address] [place] [address] [facility] [place] ECHAVARRIAGYNStart: 01-19-2025 End: 14-78-2637Hynlqnx encounter yzkkzybjb14/11/2025 11:00 AM EDT Office Visit [facility] OB [address] [place] [phone] Jhonny Bhatia DO [address] [place] [address] N[facility] BCP OBStart: 05-50-0285FLS of thoracic spine with contrastCherrington Hospitaltart: 30-55-4548Sizzvwgtw vaccination Influenza VaccineProGrand Lake Joint Township District Memorial Hospitalca Health SystemStart: 11-07-2024 End: 56-16-4946Evhttxu encounter cpgefufzi74/30/2025 9:00 AM EDT Office Visit [facility] [address] [place] [phone] Vee Jefferson NP [address] [place] [address] CORNELIUS SAHNIYStart: 10-20-2024 End: 21-56-5012Bxasbmui Xtyyxot2510/20/2024 8:15 AM EDT Clinical Support [facility] [place] [address] [place] [address] [place] Start: 10-17-2024 End: 25-33-5119Cbsigeus Ahgxklp8210/17/2024 3:45 PM EDT Clinical Support [facility] [place] [address] [facility] [address] [place] [address] [facility] [place] Start: 10-06-2024 End: 99-36-7304Atctwai encounter ubxyuhddk42/29/2025 11:45 AM EDT Office Visit [facility] Department of [address] [address] Noah Hood MD MPH [address] [place] [phone] [facility]tart: 09-12-2024 End: 50-53-8625Qnyo EEG 36-84 HoursHome EEG 36-84 Hours Neurology Routine Transient alteration of awareness Expected: 09/12/2024 (Approximate), Expires: 09/12/2025[facility] Work Phone: comment on above:Expected: 09/12/2024 (Approximate), Expires: 09/12/2025Start: 09-12-2024 End: 79-70-2894Yboomew encounter /05/2025 1:20 PM EDT Office Visit [facility] [place] [address] [place] [phone] Mariam Alvarenga PA [address] [place] [address] Oliver SAWYERGARRYVIRGILComment on above:ArrivedStart: 07-21-2024 End: 08-44-7222Kiuwvid encounter mqunlotdd39/13/2025 9:00 AM EDT Office Visit [facility] [address] [facility] [address] [place] [phone] aNA KAITLYNYStart: 07-11-2024 End: 41-30-1882Inustbn encounter awkbofjno99/03/2025 10:00 AM EST Office Visit [facility] [address] [facility] [address] [place] [phone] Carlton Mijares, PhD [address] [place], [place] [phone] CORNELIUS SAHNIYStart: 06-30-2024 End: 00-16-4063Hxrbtfhp kinase [Enzymatic activity/volume] in Serum or PlasmaCK Lab Routine Weakness Expected: 06/30/2024 (Approximate), Expires: 06/30/2025[facility] Work Phone: comment on above:Expected: 06/30/2024 (Approximate), Expires: 06/30/2025Start: 06-30-2024 End: 34-05-4983Svpttutjj, serumMyoglobin, serum Lab Routine Weakness Expected: 06/30/2024 (Approximate), Expires: 06/30/2025NOMS HealthcareComment on above: Expected: 06/30/2024 (Approximate), Expires: 06/30/2025Start: 06-30-2024 End: 71-92-4989Ysgklyo Ab [Titer] in Serum by ImmunofluorescenceANA Lab Routine Weakness Expected: 06/30/2024 (Approximate), Expires: 06/30/2025[facility] Comment on above:Expected: 06/30/2024 (Approximate), Expires: 06/30/2025Start: 06-30-2024 End: 95-71-7822Fcqspuu encounter moultboxx71/20/2025 9:30 AM EST Office Visit [facility] REN [address] [place] [phone] Otilio Montgomery, DO [address] [place], [place] [phone] Oliver HOYTomment on above:ArrivedStart: 02-29-2024 End: 80-73-8637Fjqcyfs encounter uhgukkkgs73/21/2024 9:20 AM EDT Office Visit [facility] [place] [address] [place] [phone] Tanna Christiansen, MANAGER TRAINEE [address] [place], [place] [facility] ROUTEStart: 02-11-2024 End: 93-96-0701Puqujpd encounter yxggvkncz03/03/2024 1:15 PM EDT Office Visit [facility] [place] [address] [place] [phone] Luis Shaikh, DO [address] [place] [address] ArrivedMOMOGALION HOSPITAL ROUTEComment on above: ArrivedStart: 01-19-2024 End: 47-65-5636ES for pregnancyUS PELVIS-TRANSVAG IF INDICATED Imaging Routine Pelvic pain in female Expected: 01/19/2024 (Approximate), Expires: 01/18/2025 NOMS HealthcareComment on above:Expected: 01/19/2024 (Approximate), Expires: 01/18/2025Start: 01-19-2024 End: 32-20-4410Hrztvek encounter mcgdnjafz07/10/2024 11:00 AM EDT Office Visit [facility] [address] [phone] Jhonny Bhatia, DO [address] [place] [address] ArrivedMORENO VALLEY COMMUN[facility] OBComment on above:ArrivedStart: 72-06-8979Jfnrpnv [facility] Work Phone: Start: 67-49-7893Fsikgxjee for malignant neoplasm of cervixPap SmearProMercy Health St. [facility] Hospital SystemStart: 67-14-9207Vlpzo BMI ScreeningAdult BMI ScreeningTwin City Hospital Cognio SystemStart: 08-25-7844Srchnvcefk Screening Depression ScreeningTwin City Hospital Cognio SystemStart: 99-20-9271Vnlkbyd Screening Tobacco ScreeningProMercy Health St. [facility] Hospital SystemCytology Cervical or vaginal smear or scraping studyPap Smear Pathology and Cytology Routine Well woman exam with routine gynecological exam Ordered: 01/19/2024[facility] Work Phone: comment on above:Ordered: 01/19/2024ytology Cervical or vaginal smear or scraping studyPap Smear Pathology and Cytology Routine Well woman exam with routine gynecological exam Ordered: 03/14/2025[facility]ST21 Work Phone: comment on above:Ordered: 03/14/2025Human papilloma virus DNA [Presence] in Unspecified specimen by Probe with amplificationHPV DNA probe, amplified Microbiology Routine Well woman exam with routine gynecological exam Ordered: 01/19/2024[facility] HealthcareComment on above:Ordered: 01/19/2024 Human papilloma virus DNA [Presence] in Unspecified specimen by Probe with amplificationHPV DNA probe, amplified Microbiology Routine Well woman exam with routine gynecological exam Ordered: 03/14/2025[facility] HealthcareComment on above: Ordered: 03/14/2025MR Cervical spine WO and W contrast [facility] HospitalMRA Head vessels W contrast [facility] HospitalMRA Head vessels WO [facility] SystemMRI of thoracic spine with Memorial Health SystemPatient referralWestern Reserve Hospital Work Phone: Immunizations Immunization DateImmunizationNotesCare YwfyohltLpnmbpbd39-24-9685fsavhrx toxoid, reduced diphtheria toxoid, and acellular pertussis vaccine, adsorbedMagnoconrado Pinto [facility]09-09-2019RHO(D) immune globulin- IV or IM Bharti iPnto [facility] Payers DatePayer CategoryPayerPolicy [id number]-pay2023Medicaid [id number] [id number] 2..1.248630.3.57[id number] 2..1.947812.3.57[id number] 2..1.979008.3.57[id number] 2..1.261812.3.57[id number] 2.160.1.805484.3.57[id number] 2.160.1.210349.3.57[id number] 2.160.1.904789.3.57[id number] 2.160.1.526881.3.57[id number] 2.16.840.1.506244.3.57[id number] 2..840.1.678500.3.57[id number] 2..840.1.174281.3.57[id number] 2.0.1.263957.3.579.2.2[id number] 2..840.1.108775.3.579.2.809Fzddhez38541506 2.840.1.519184.3.579.2.531 [id number] 2.0.1.255757.3.579.2.531 Social History DateTypeDetailFacilityTobacco smoking status NHISUnknown if ever smokedMercy Health St. [facility] Work Phone: Start: 90-64-0359Uxo Assigned At BirthFeTogus VA Medical Centertart: 05-17-2018 End: 48-33-0346Xdwsxxy smoking status NHISSmoker (finding)[facility] CenterTobacco smoking status NHISTobacco smoking consumption unknownNOMS HealthcareStart: 30-79-9305Ivddpk identityIdentifies as female gender (finding) [facility] HealthcareStart: 61-10-5574Asczdo orientationHeterosexual (finding)[facility] HealthcareStart: 70-83-8787Vwvwwdx smoking status NHISEx-smokerProMedica Health System End: 25-01-3918Xixvacx of tobacco useCigarette SmokerProMedica Health System Start: 58-52-3683Fswxsxr use and exposureSmokeless tobacco non-userProMedica Health SystemStart: 85-08-6572Gctewclms beverage intakeEx-drinker (finding) [facility] SystemStart: 02-24-2019 End: 02-26-5236Ljhmcec of Social functionProMedica Health SystemStart: 02-24-2019 End: 87-09-7982Npfosku use panelWyandot Memorial HospitalPlaid SystemStart: 07-23-2022 Kathleen [facility] CampusStart: 40-96-5489Ucj assigned at birthNot on file [facility] HospitalMediciNova SystemStart: 70-68-5682DwtBohkpm (finding)[facility] HospitalMediciNova SystemStart: 32-29-0047Vvikyne smoking status NHISSmokes tobacco daily (finding) [facility] Medical Equipment Procedure CodeEquipment CodeEquipment Original TextEquipment IdentifierDates [id number]: 10-07-2018 Clinical Notes 03-15-2020 to 03-14-2025 Note Date & UbuiJhjpGfbcmyuf39-52-5445 History of Present illness Narrative* Kiesha Fair, SOLUTIONS MANAGER - 03/14/2025 1:40 PM EST Reason for Appointment: Patient ID: Luis Jung is a 40 y.o. female who presents for Gynecologic Exam Patient presents today for Annual Exam. MEDICATIONS Current Outpatient Medications Medication Instructions Aimovig 70 mg, Subcutaneous, Every 30 days ALPRAZolam (Xanax) 0.5 MG tablet atomoxetine (STRATTERA) 40 mg, Oral, Daily, Swallow capsule whole; do not open. If opened accidentally, do not touch eyes; wash hands immediately (product is an eye irritant). escitalopram (LEXAPRO) 20 mg, Oral, Daily fexofenadine (Darby) 180 MG tablet Lancets (onetouch ultrasoft) lancets metFORMIN XR (Glucophage-XR) 500 MG 24 hr tablet Oral for 90 Days Multiple Vitamins-Minerals (Multivitamin Adults) tablet Orally OneTouch Ultra test strip zolpidem (Ambien) 5 MG tablet ALLERGIES Allergies Allergen Reactions Chlorhexidine Gluconate Other Reaction(s): Severe rash Iodinated Contrast Media Chlorhexidine Rash rash PROBLEMS Active Ambulatory Problems Diagnosis Date Noted GABRIELA (obstructive sleep apnea) 02/17/2024 Resolved Ambulatory Problems Diagnosis Date Noted No Resolved Ambulatory Problems Past Medical History: Diagnosis Date Amenorrhea Anxiety and depression Anxiety with depression Asthma (HCC) Tobacco use HISTORY PAST MEDICAL HISTORY SOCIAL HISTORY Past Medical History: Diagnosis Date Amenorrhea Anxiety and depression Anxiety with depression Asthma (HCC) Tobacco use Social History Tobacco Use Smoking [...] HISTORY 2009 Miscarriage PARTIAL HYSTERECTOMY 01/17/2019 supracervical MD LAP,CHOLECYSTECTOMY 2010 REVIEW OF SYSTEMS Review of Systems: Review of Systems Constitutional: Negative. HENT: Negative. Eyes: Negative. Respiratory: Negative. Cardiovascular: Negative. Gastrointestinal: Negative. Genitourinary: Negative. Musculoskeletal: Negative. Skin: Negative. Neurological: Negative. All other systems reviewed and are negative. Hematological: Negative. Endocrine: Negative. Allergic/Immunologic: Negative. OBJECTIVE Objective: Physical Exam Constitutional: Appearance: Normal appearance. She is well-developed. Genitourinary: Vulva normal. Vaginal cuff intact. Cervix is absent. Uterus is absent. Cardiovascular: Rate and Rhythm: Normal rate and [...] nursing note reviewed. Exam conducted with a dough molder hand present. Vitals: Estimated body mass index is 38.41 kg/m as calculated from the following: Height as of this encounter: 5' 2 . Weight as of this encounter: 210 lb. BP: 114/68 No LMP recorded (lmp unknown). Patient has had a hysterectomy. ASSESSMENT & PLAN ICD-10-CM 1. Well woman exam with routine gynecological exam Z01.419 Pap Smear HPV DNA probe, amplified Orders Placed This Encounter Procedures HPV DNA probe, amplified Annual Wellness Exam (Post Hysterectomy): Patient presents today for routine annual exam. Patient states she has complaints of DECREASED LIBIDO, pt to start estrogen, rx for 0.5 estrogen tablet. Pt to return in 12 weeks for follow up. If nothing changed will order lab and increase testosterone. Pt to increase metformin to 1000mg a day, pt to return in 4 weeks for adipex. Patients vitals were reviewed and within normal limits. Growth and development is noted to be appropriate for age. Menstrual history is noted to be obsolete due to patients history of hysterectomy. No mental health concerns was expressed. Pap Smear: Speculum was inserted into the vagina and pap was obtained without difficulty. HPV testing was performed per guidelines. Patient was advised that pap results could take anywhere from 7 to 10 days to receive and our office will reach out to the patient with those once we have them. Patient can also view results via Zapper. I reinforced importance of condom use for STI prevention. Patient declined cultures to be performed with today's visit. Breast Exam: Upon examination, clinical breast exam was noted to be normal. Patient was counseled on breast self-awareness, including the importance of knowing what is normal for her own breasts and promptly reporting any changes such as new lumps, skin dimpling, nipple discharge, or pain. Screening mammogram recommended annually beginning at age 40 or earlier if risk factors are present. Discussed signs and symptoms of breast cancer and when to seek medical attention. Answered all patient questions. Follow Up: Patient is to return to our office in one year for annual exam unless needed otherwise. Documented by Kiesha Fair LPN on behalf of: Jhonny Bhatia DO documented in this encounterPhelps HealthQdomvlrzwv44-47-0660 Evaluation note* Diagnosis Onset Date Resolution Status Admit Date Abnormal finding on MRI of brain chronicJuly 2024 10:13amChiari I malformationchronicJuly 2024 10:13amChronic migraine without aura without status migrainosus, not intractable chronicJuly 2024 10:13amGeneralized weaknesschronicJuly 2024 10:13am Transient alteration of awarenessresolvedJuly 2024 10:13am [facility] Work Phone: [phone]) 807-319805-12-2025 Miscellaneous Notes* Telephone Encounter - Bharti Pinto CMA - 09/19/2024 2:24 PM EDT ..Called pt n/mich Bernard to call back in office to schedule MANAGER TRAINEE appt. DX-POSITIVE CORNELIUS WEAKNESS documented in this encounterAshtabula General Hospital05-12-2025 Telephone encounter Note* Telephone Encounter - Bharti Pinto CMA - 09/19/2024 2:24 PM EDT ..Called pt n/mich Bernard to call back in office to schedule MANAGER TRAINEE appt. DX-POSITIVE CORNELIUS WEAKNESS [facility] Cognio Uawgul57-01-9044 History of Present illness Narrative* CHUCKY Gasca [...] History: Diagnosis Date Amenorrhea Anxiety and depression ([facility]/HCC) Anxiety with depression Asthma ([facility]) Tobacco use Past Surgical History: Procedure Laterality Date SECTION, LOW TRANSVERSE 04/13/2017 SECTION, LOW TRANSVERSE 01/17/2019 SECTION, LOW TRANSVERSE 02/05/2011 LAPAROSCOPY DIAGNOSTIC / BIOPSY / ASPIRATION / LYSIS 03/13/2023 lysis of omental adhesion OTHER SURGICAL HISTORY 2009 Miscarriage PARTIAL HYSTERECTOMY 01/17/2019 supracervical MD LAP,CHOLECYSTECTOMY 2010 Family History Problem Relation Name [...] , wrist extensors , wrist flexor , rouge miller strength 5/5. LUE Strength deltoid , biceps , triceps , wrist extensors , wrist flexor , rouge miller strength 5/5. RLE Strength illopsoas, quadriceps, tibialis [...] reflex 2+ . Rm's sign negative. Coordination: Nzfwbt-jj-udub testing and rapid alternating movements are normal. Gait: Normal Review and summary of old records: Routine EEG done at [facility] 07/20/2024: normal EEG. There was some [...] myoglobin 20 Brain MRI 07/08/2024 done at [facility]: revealed no acute process. There was 8mm of downward displacement of the cerebellar tonsils, consistent with a mild Chiari I malformation, more notable on the left. Mild mucosal thickening in the maxillary sinuses. Brain MRI 06/22/2024 done at [facility]: revealed no acute intracranial process. 1 cm benign pineal gland. Follow up with noncontrast MRI in 12 months would be helpful to monitor stability. I have reviewed the patient's Emergency Department at [place] and the recent hospitalization and workup including [...] course The patient was accompanied by her cnbhna-je-koq today who provided additional history and was agreeable to the plan. Pt has been fully educated on their diagnosis, lab results, treatment options, follow up plan, and return instructions RYAN Gascaally signed by CHUCKY Gasca at 09/12/2024 4:03 PM EDT documented in this encounterPhelps HealthWbdomjkfct46-47-3730 History of Present illness Narrative* Carlton Mijares, [...] cocaine abuse. Clean 14 years. Vapes nicotine. [place] language [place]. Completed high school education along with vocational school. Homemaker. Resides with of 4 months, together 10+ years. Also has 3 children. MEDICAL HISTORY/MEDICATION: Past Medical History: Diagnosis Date Amenorrhea Anxiety and depression (CMS/HCC) Anxiety with depression Asthma (CMS/HCC) Tobacco use MEDICATIONS: Current Outpatient Medications Medication Instructions ALPRAZolam (Xanax) 0.25 MG tablet ALPRAZolam (Xanax) 0.5 MG tablet ergocalciferol (Vitamin D2) 1.25 MG (01860 UT) capsule escitalopram (Lexapro) 10 MG tablet [...] of this individual. Please contact me with [employer] at [phone]. documented in this [facility]02-20-2025 History of Present illness Narrative* Otilio Montgomery, [...] History: Diagnosis Date Amenorrhea Anxiety and depression ([facility]/HCC) Anxiety with depression Asthma ([facility]) Tobacco use Past Surgical History: Procedure Laterality Date SECTION, LOW TRANSVERSE 04/13/2017 SECTION, LOW TRANSVERSE 01/17/2019 SECTION, LOW TRANSVERSE 02/05/2011 LAPAROSCOPY DIAGNOSTIC / BIOPSY / ASPIRATION / LYSIS 03/13/2023 lysis of omental adhesion OTHER SURGICAL HISTORY 2009 Miscarriage PARTIAL HYSTERECTOMY 01/17/2019 supracervical MD LAP,CHOLECYSTECTOMY 2010 Family History Problem Relation Name [...] , wrist extensors , wrist flexor , rouge miller strength 5/5. LUE Strength deltoid , biceps , triceps , wrist extensors , wrist flexor , rouge miller strength 5/5. RLE Strength illopsoas, quadriceps, tibialis [...] reflex 2+ . Rm's sign negative. Coordination: Wtdbwp-[id number]-avzh testing and rapid alternating movements are normal. Gait: Normal Review and summary of old records: I have reviewed the patient's Emergency Department at [facility] and the recent hospitalization and workup including [...] patient's symptoms. EEG is planned pending at [facility]. I wonder if there is a psychiatric [...] therapy The patient was accompanied by her uxcill-qo-unx today who provided additional history and was agreeable to the plan. Pt has been fully educated on their diagnosis, lab results, treatment options, follow up plan, and return instructions documented in this encounterPhelps [id number] History of Present illness Narrative* Luiscallie ShaikhDO - 02/11/2024 1:15 PM EDT Images [...] one or two year. She went to [facility] ED and they gave her Dr. 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 Regardless he sent her over here. The [...] to clinic: 6 weeks documented in this encounterPhelps [id number] History of Present illness Narrative* Kiesha Fair, SOLUTIONS MANAGER - 01/19/2024 11:00 AM EDT Reason for Appointment: Patient ID: Laurie Stewart is a 38 y.o. female who presents for Gynecologic Exam Patient presents today for Annual Exam. MEDICATIONS Current Outpatient Medications Medication Instructions ALPRAZolam (Xanax) 0.25 MG tablet ALPRAZolam (Xanax) 0.5 MG tablet ergocalciferol (Vitamin D2) 1.25 MG (91879 UT) capsule escitalopram (Lexapro) 10 MG tablet [...] and depression (CMS/HCC) Anxiety with depression Asthma ([facility]/HCC) Tobacco use HISTORY PAST MEDICAL HISTORY SOCIAL [...] HISTORY 2009 Miscarriage PARTIAL HYSTERECTOMY 01/17/2019 supracervical MD LAP,CHOLECYSTECTOMY 2010 REVIEW OF SYSTEMS Review of [...] nursing note reviewed. Exam conducted with a dough molder hand present. Vitals: Estimated body mass index is [...] by Kiesha Fair LPN on behalf of: Jhonny Bhatia DO documented in this encounterPhelps [id number] NotePROCEDURE: XR CHEST 1 V REASON FOR [...] Electronically authenticated by: JAYSON TIM Date: 2020-03-14 22:34[facility] noteNo assessment information availableOhiohealth [facility] Work Phone: Evaluation note* Diagnosis Onset Date Resolution Status ADHD acuteAnxiety and depressionacuteHeadache, post-traumaticacutePost concussion syndromeacute [facility] Work Phone: Evaluation note* Diagnosis Onset Date Resolution Status ADHD acuteAnxiety and depressionacuteHeadache, post-traumaticacutePost concussion syndromeacuteADHDacuteAnxiety and depressionacuteHeadache, post-traumaticacute Post conc[facility] syndromeBar[facility] Work Phone: Evaluation note* Diagnosis Onset Date Resolution Status Headache, post-traumatic acute [facility] Work Phone: Evaluation note* Diagnosis Intractable migraine without aura and without status migrainosus (CMS/HCC)- Primary Post concussion syndrome Postconcussion syndrome Dizziness Dizziness and giddiness Sleep disturbance Unspecified sleep disturbance documented in this encounter [facility]* Diagnosis Well woman exam with routine gynecological exam Routine gynecological examination H/O: hysterectomy Acquired absence of both cervix and uterus Pelvic pain in female Unspecified symptom associated with female genital organs documented in this encounter [facility]* Diagnosis Transient alteration of awareness- Primary Chronic migraine without aura without status migrainosus, not intractable (CMS/HCC) Weakness Other malaise and fatigue documented in this encounter [facility] HealthcareEvaluation note* Diagnosis Transient alteration of awareness- Primary Post concussion syndrome Postconcussion syndrome Chronic migraine without aura without status migrainosus, not intractable (CMS/HCC) Sleep disturbance Unspecified sleep disturbance Memory loss Attention deficit hyperactivity disorder (ADHD), predominantly inattentive type (CMS/HCC) Depression, unspecified depression type (CMS/HCC) Generalized anxiety disorder (CMS/HCC) Generalized anxiety disorder documented in this encounter [facility]* Diagnosis Transient alteration of awareness- Primary Chronic migraine without aura without status migrainosus, not intractable (CMS/HCC) Weakness Other malaise and fatigue documented in this encounter [facility] HealthcareEvaluation note* Diagnosis Postconcussion syndrome- Primary Post-traumatic headache, not intractable, unspecified chronicity pattern [facility] Diagnosis Onset Date Resolution Status Admit Date Chronic migraine without aura without st atus migrainosus, not intractable chronicJuly 2024 10:13amGeneralized weaknesschronicJuly 2024 10:13am Transient alteration of awarenessresolvedJuly 2024 10:13am [facility] Work Phone: Evaluation note* Diagnosis Well woman exam with routine gynecological exam Routine gynecological examination Decreased libido documented in this encounter [facility] HealthcareHospital Discharge instructionsAmbulatory Orders* Referral to Neurology Time Frame: 01/13/24, Location: None Selected [facility] Work Phone: InstructionsNot on filedocumented in this encounter [facility] SystemReason for referral (narrative)No reason for referral information availableMercy Health St. [facility] Work Phone: Reason for visit Narrative* Consultation (Routine) - ClosedSpecialtyDiagnoses / ProceduresReferred By ContactReferred To Contact Psychology Diagnoses Transient alteration of awareness Procedures MD OFFICE/OUTPATIENT NEW HIGH MDM 60 MINUTES Otilio Montgomery DO [address] [place] [address] Phone: tel: fax: Carlton Mijares, PhD [address] [place] [phone] Phone: tel: fax: Referral [id number] DateExpiration DateVisits RequestedVisits [id number] Specialty Services Required / [facility] Healthcare Summary Purpose Family History Relationship Condition Age at Onset Recorded Date/T gunnar father Unknown Not SpecifiedDiabetes mellitusUnknownDeceasedUnknown Relationship Condition Age at Onset Recorded Date/T gunnar father Unknown motherDiabetes mellitusUnknownDeceasedUnknown Relationship Condition Age at Onset Recorded Date/T gunnar father Unknown Alcohol abuseUnknownSubstance abuseUnknownmotherDiabetes mellitusUnknownDeceased UnknownCerebrovascular accident (CVA)UnknownNeuropathyUnknownObesityUnknownson Attention deficit disorderUnknown Advance Directives Advance Directive Response Recorded Date/ Time Advance Directives No December 20, 2021 7:52pm Date ActivatedDate InactivatedComments01/16/2019 4:45 PM01/20/2019 6:11 PM Chief Complaint and Reason for Visit Chief Complaint T14.90XA Chief Complaint concussion eval Reason for Visit ADHD Anxiety and depression Headache, post-traumatic Post concussion syndrome Chief Complaint concussion eval 8 week follow up G44.309 H53.9Reason for VisitADHD Anxiety and depression Headache, post-traumatic Post concussion syndrome ADHD Anxiety and depression Headache, post-traumatic Post concussion syndrome Chief Complaint G44.309 H53.9 Increased head achesReason for VisitHeadache, post-traumatic Chief Complaint Admit Date F07.81 G44.309 November 29, 2024 2:56 pm Chief Complaint Admit Date F07.81 G44.309 November 29, 2024 2:56 pm SB/AH ELIDIA TO /SC - 4-6 WEEK F/U November 102024 10:13am [...] 2025 4:43pm G93.5 January 17, 2025 4:52pm Chief Complaint Admit Date F07.81 G44.309 November 29, 2024 2:56 pm SB/AH ELIDIA TO CH/SC - 4-6 WEEK F/U November 102024 10:13am G93.5 January 16, 2025 4:43pm G93.5 January 17, 2025 4:52pm AMB EEG PER SC-- NPCR #[id number] Octobe r 2024 2:41pm Chief Complaint Admit Date F07.81 G44.309 November 29, 2024 2:56 pm SB/AH ELIDIA TO CH/SC - 4-6 WEEK F/U November 102024 10:13am G93.5 January 16, 2025 4:43pm G93.5 January 17, 2025 4:52pm AMB EEG PER SC-- NPCR #[id number] Octobe r 2024 2:41pm EEG [place] February 16, 2025 8: 01am Additional Source Comments INFORMATION SOURCE (unrecogn ized section and content) DATE CREATED AUTHOR 01/09/2021 [facility] DATE CREATED AUTHOR AUTHOR'S ORGANIZ ATION 06/04/2024 [facility] DATE CREATED AUTHOR AUTHOR'S ORGANIZ ATION 09/15/2024 [facility] DATE CREATED AUTHOR AUTHOR'S ORGANIZ ATION 10/09/2024 [facility] DATE CREATED AUTHOR AUTHOR'S ORGANIZ ATION 01/23/2025 [facility] Care Teams (unrecognized sec tion and content) Team Status: Active Member Role Status Dates Sandy Weeks MD Primary Care Provider Active Team Status: Active Member Role Status Dates Sandy Weeks MD Primary Care Provider Active Start: November 29, 2024 Otilio Montgomery , DOOther ProviderActiveStart: November 29, 2024 Jayson Boothe , Attending ProviderActiveStart: November 29, 2024 Team Status: Inactive Member Role Status Dates Sandy Weeks MD Primary Care Provider Active Start: December 08, 2024 End: December 08, 2024Vee Jefferson APRN-FNP-CAttending ProviderActiveStart: December 08, 2024 End: December 08, 2024 Team Status: Inactive Member Role Status Dates Amanda Velasquez APRN Attending Provider Active Team Status: Inactive Member Role Status Dates Sandy Weeks MD Primary Care Provider Active Start: August 04, 2023 End: August 04, 2023JoNegrita Izquierdo ProviderActiveStart: August 04, 2023 End: August 04, 2023 Team Status: Inactive Member Role Status Yvette Weeks MD Primary Care Provider Active Start: September 22, 2023 End: September 22, 2023JoNegrita Izquierdo ProviderActiveStart: September 22, 2023 End: September 22, 2023 Team Status: Inactive Member Role Status Yvette Weeks MD Primary Care Provider Active Start: October 23, 2023 End: October 23, 2023JoNegrita Izquierdo ProviderActiveStart: October 23, 2023 End: October 23, 2023 Team Status: Inactive Member Role Status Yvette Weeks MD Primary Care Provider Active Start: January 13, 2024 End: January 13, 2024JoNegrita Izquierdo ProviderActiveStart: January 13, 2024 End: January 13, 2024Team MemberRelationshipSpecialtyStart DateEnd Date Sandy Weeks MD [address] [place] [address] PCP - GeneralFamily Medicine11/20/22Team MemberRelationshipSpecialtyStart DateEnd Date Sandy Weeks MD [address] [place] [address] PCP - GeneralFamily Medicine11/20/22Team MemberRelationshipSpecialtyStart DateEnd Date Sandy Weeks MD [address] [place] [address] PCP - GeneralFamily Medicine11/20/22Team MemberRelationshipSpecialtyStart DateEnd Date Sandy Weeks MD [address] [place] [address] PCP - GeneralFamily Medicine11/20/22Team MemberRelationshipSpecialtyStart DateEnd Date Sandy Weeks MD [address] [place] [address] PCP - GeneralFamily Medicine11/20/22Team MemberRelationshipSpecialtyStart DateEnd Date Sandy Weeks MD [address] [place] [address] PCP - GeneralFamily Medicine11/20/22Team MemberRelationshipSpecialtyStart DateEnd Date Sandy Weeks MD [address] [place] [address] PCP - GeneralFamily Medicine11/20/22Team MemberRelationshipSpecialtyStart DateEnd Date Sandy Weeks MD [address] [place] [address] [facility]/20/22Team MemberRelationshipSpecialtyStart DateEnd Date Sandy Weeks MD [address] [place] [address] [facility] - [facility]11/20/22Team MemberRelationshipSpecialtyStart DateEnd Date Sandy Weeks MD [address] [place] [address] PCP - [facility] Medicine11/20/22Team MemberRelationshipSpecialtyStart DateEnd Date Sandy Weeks MD [address] [place] [address] [facility] - [facility]12/06/18Team MemberRelationshipSpecialtyStart DateEnd Date Otilio Montgomery DO [address] [place] [phone] ReferringNeurology11/14/24 Team Status: Inactive Member Role Status Yvette Weeks MD Primary Care Provider Active Start: November 29, 2024 End: November 29tomasa Montgomery DOAttending ProviderActiveStart: November 29, 2024 End: November 29, 2024 Team Status: Inactive Member Role Status Yvette Weeks MD Primary Care Provider Active Start: January 16, 2025 End: January 16, 2025Vee Jefferson APRN-FNP-CAttending ProviderActive Start: January 16, 2025 End: January 16, 2025 Team Status: Inactive Member Role Status Yvette Weeks MD Primary Care Provider Active Start: January 17, 2025 End: January 17, 2025Vee Jefferson APRN-FNP-CAttending ProviderActive Start: January 17, 2025 End: January 17, 2025 Team Status: Inactive Member Role Status Dates Sandy Weeks MD Primary Care Provider Active Start: February 13, 2025 End: February 13Lakisha Magaña ProviderActiveStart: February 13, 2025 End: February 13, 2025 Team Status: Inactive Member Role Status Dates Sandy Weeks MD Primary Care Provider Active Start: February 16, 2025 End: February 16Lakisha Magaña ProviderActiveStart: February 16, 2025 End: February 16, 2025Team MemberRelationshipSpecialtyStart DateEnd Date Sandy Weeks MD [address] [place] [address] PCP - GeneralFamily Medicine11/20/22 Goals (unrecognized section and content) Goals may [...] for Visit (unrecogniz ed section and content) ReasonCommentsHeadacheReasonCommentsGynecologic ExamReasonCommentsAlteration of Awareness Source Comments (unrecognize d section and content) In the event this informatio n is protected by the Federal Confidentiality of Alcohol and Drug Abuse Patient Records regulations: The Federal rules restrict any use of the information to criminally investigate or prosecute any alcohol or drug abuse patient.[facility] FOR RECORDS PERTAINING TO PATIENTS [...] PRIMARY CLINICAL RECORDS. [facility] YEOXIN [facility]. provides no warranty or guarantee of the accuracy or completeness of information in this document.
--- OUTSIDE RECORDS SUMMARY | 2025-03-14 19:15 | XMS_ITS | Clinical Summary ---
Author Organization [facility] Address [address] [place] [address] Care Team Providers Care Plate Mill Hand Name Role Phone Wili Montgomery DO Unavailable [phone] Social History Tobacco UseTypesPacks/DayYears UsedDateSmoking Tobacco: Never Assessed CommentsUnknownSex and Gender InformationValueDate RecordedSex Assigned at Not on fileLegal ZprDruddx55/07/2025 3:06 PM EDTGender IdentityNot on fileSexual OrientationNot on file Plan of Treatment Not on file Insurance Care Teams Team MemberRelationshipSpecialtyStart DateEnd Date Wili Montgomery DO ReferringNeurology11/14/24
--- OUTSIDE RECORDS SUMMARY | 2025-03-14 19:15 | XMS_ITS | Patient Health Record ---
Author Organization [facility] in [place] Address [address] [place] [address] Care Team Providers Care Care Professionals Name Role Phone Sandy Weeks Primary Care Provider Provider, Radiology Unavailable [phone] oGrge Zarate Unavailable [phone] Olvin Haro Unavailable [phone] Allergies Allergen (clinical drug ingredient) Drug/Non Drug Allergy documented on EMR Reaction Allergy Type Onset Date Status chlorhexidine Hibiclens Severe rash Drug Allergy Active Results Component Value Reference Range Notes AMMONIA Reviewed date:10/21/2024 12:39:38 PM Interpretation: Performing Lab: Notes/Report: AMMONIA <10 HEMOGLOBIN A1C (GLYCO) Reviewed date:10/21/2024 12:39:38 PM Interpretation: Performing Lab: Notes/Report: [id number] A1C5.4MAGNESIUM Reviewed date:10/21/2024 12:39:38 PM Interpretation: Performing Lab: Notes/Report: MG2.1CBC WITH DIFF Reviewed date:10/21/2024 12:39:38 PM Interpretation: Performing Lab: Notes/Report: WBC8.1RBC4.98ONW00.8MCV91.8HCT40.4MCH30.8PHBB97.7RDW11.3SCD952RLZLRLKLHQVT with ALB/CREAT RATIO, URINE (MALB)) Reviewed date:10/21/2024 12:39:38 PM Interpretation: Performing Lab: Notes/Report: CREAT, UR25.72MICROALBUMIN<1.3T3 FREE (T3FR) Reviewed date:10/21/2024 12:39:38 PM Interpretation: Performing Lab: Notes/Report: T3, FREE2.17TSH Reviewed date:10/21/2024 12:39:38 PM Interpretation: Performing Lab: Notes/Report: TSH2.013VITAMIN D, 25 LEVEL (TOTAL) Reviewed date:10/21/2024 12:39:38 PM Interpretation: Performing Lab: Notes/Report: VIT D-25, TOT73.8CMP (COMP MET MADRIGAL) w/eGFR CKD-EPI Reviewed date:10/21/2024 12:39:38 PM Interpretation: Performing Lab: Notes/Report: GLUCOSE (FBS)97BUN (UREA NTORGEN)8.9JDHDAEFWMH8.69GFR CKD>60SODIUM (NA)>60 POTASSIUM (K)3.5CHLORIDE (CL)103CARBON JMEPEDZ27.1GUYOCLJ7.0ALBUMIN, BLOOD3.8 PROTEIN, TOTAL (TP)7.0ALKALINE PHOSPHATE (ALP)63ALT (SGPT)36AST (SGOT)18 BILIRUBIN, TOTAL0.6MRI Brain w/wo contrast * Reviewed date:10/21/2024 12:39:38 PM Interpretation: Performing Lab: Notes/Report: [place] [address] Name: Pat Aguiar : 1985 Gender: F Referring Provider: Gorge Zarate Exam: MRI BRAIN WITH AND WITHOUT CONTRAST Exam Start: 06/22/2024 Accn: [id number] History: Daily headaches. Migraines. MRI of the brain with and without gadolinium. Patient was given 20 mL of Clariscan IV. Findings: No restricted diffusion to suggest a recent infarct. 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 Follow-up noncontrast MRI of the brain in 12 months would be helpful to assess stability. Brainstem is unremarkable. No abnormalities in the region of the internal auditory canals or sella.Nasal septal deviation to the left. Paranasal sinuses and mastoid air cells are clear. No abnormal enhancement within the brain parenchyma. No venous thrombosis. No low- lying cerebellar tonsils. Calvarium is unremarkable. No evidence for intracranial hypertension or hypotension. Normal vascular flow voids. IMPRESSION: 1. No acute intracranial process. No abnormal enhancement. 2. 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 Follow-up noncontrast brain MRI in 12 months would be helpful to assess stability. 3. Remainder unremarkable. Transcribed by: CINDY URIOSTEGUI 06/22/2024 11:30 Sincerely, Saurabh Noble MD Electronically Signed: 06/22/2024 12:21 Thank you for referring LUIS LOVELACE to the [facility], [facility] - [facility]Real&Saurabh, [phone] Reason For Referral No Information Medications Medication SIG (Take, Route, Frequency, Duration) Notes Start Date End Date Status QUEtiapine Fumarate 25 MG 1 tablet at be dtime Orally Once a day; Duration: 30 days 09/19/2024Not-TakingAtomoxetine HCl 40 MGTAKE 1 CAPSULE BY MOUTH EVERY MORNING; Duration: 30ActiveAimovig 70 MG/MLSubcutaneous; Duration: 30 DaysActiveUbrelvy 100 MG1 tablet within 2 hours of onset of migraine Pqunmv4908/22/2024Not-Taking metFORMIN HCl ER 500 MGTAKE 1 TABLET BY MOUTH DAILY WITH FOOD; Duration: 90 ActiveFexofenadine HCl 180 MGTAKE 1 TABLET BY MOUTH DAILY SWALLOW WHOLE WITH WATER, DO NOT TAKE WITH FRUIT JUICES; Duration:30ActiveEscitalopram Oxalate 20 MGTAKE 1 TABLET BY MOUTH DAILY; Duration: 30ActiveBlood Glucose Meter --please use for accuchek meter, which is what insurance is now pntokbox64/10/2025Active Blood Glucose Test Strips 333 - as directed In Vitro; Duration: 30 days please use for accuchek test strips, which is what insurance is now covering 5ActiveALPRAZolam 0.5 MG1 tablet Orally Twice a day prn anxiety; Duration: 30 days5ActiveZolpidem Tartrate 5 MG1 tablet at bedtime Orally Once a day; Duration: 30 days5ActiveIbuprofen 800 MGTAKE 1 TABLET BY MOUTH 3 TIMES A DAY WITH FOOD OR MILK NEEDED; Duration: 30Active Immunizations Vaccine Route Administration Date Status Comme nts Tdap (Boostrix) Unknown 01/18/2019 Administered Social History Tobacco Use: Social History Observation Description Date Details (start date - stop date) Former Smoker NA - NA Tobacco Control (Standard) Question Answer Notes Tobacco use: Former smoker How long has it been since you last smoked?1-5 yearsAdditional Findings: Tobacco vpd-pgcyYt-tyucfeqz cigarette smoker (10-19/day) Problems Problem Type SNOMED Code ICD Code Onset Dates Problem Status W/U Status Risk Notes Problem Chronic migraine wit hout aura, non-refractory (disorder) ([id number]) Migraine without aura, not intractable, without status migrainosus (G43.009) ActiveconfirmedProblemEncephalopathy (28954330)Encephalopathy, unspecified (G93.40)ActiveconfirmedProblemMorbid obesity (disorder) (096534857)Morbid (severe) obesity due to excess calories (E66.01)ActiveconfirmedProblem Postconcussion syndrome (77464153)Postconcussional syndrome (F07.81)Active confirmedProblemModerate major depression, single episode (66818157)Major depressive disorder, single episode, moderate (F32.1)ActiveconfirmedProblem Phobia (882779816)Other specified phobia (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)ActiveconfirmedProblemMigraine without aura, not refractory (disorder) (160559529)Migraine, unspecified, not intractable, without status migrainosus (G43.909)ActiveconfirmedProblemInsomnia (992240457)Insomnia, unspecified (G47.00)ActiveconfirmedProblemSleep disorder (56928605)Sleep disorder, unspecified (G47.9)ActiveconfirmedProblemChronic pain (14355521)Other chronic pain (G89.29)ActiveconfirmedProblemAllergic rhinitis (43617662)Allergic rhinitis, unspecified (J30.9)ActiveconfirmedProblemSciatica (89655298)Lumbago with sciatica, left side (M54.42)ActiveconfirmedProblem Abnormal gait (56237093)Unsteadiness on feet (R26.81)ActiveconfirmedProblem Amnesia (55161892)Other amnesia (R41.3)ActiveconfirmedProblemObesity (558351438) Obesity (E66.9)ActiveconfirmedProblemAnxiety (14051682)Anxiety (F41.9)Active confirmedProblemObstructive sleep apnea syndrome (20116375)GABRIELA (obstructive sleep apnea) (G47.33)ActiveconfirmedProblemVitamin D deficiency (74492190) Vitamin D deficiency (E55.9)ActiveconfirmedProblemInsulin resistance (169871627) Insulin resistance (E88.81)ActiveconfirmedProblemConstipation (17344927) Constipation, unspecified constipation type (K59.00)ActiveconfirmedProblem Hypoglycemia (138891124)Hypoglycemia (E16.2)ActiveconfirmedProblemObese class II (457628535524335)BMI 38.0-38.9,adult (Z68.38)ActiveconfirmedProblemChronic sinusitis (71385692)Sinus infection (J32.9)ActiveconfirmedProblemEx-tobacco user (finding) (414224513)History of tobacco abuse (Z87.891)ActiveconfirmedProblem History of gestational diabetes mellitus (056472743)History of gestational diabetes (Z86.32)ActiveconfirmedProblemIron deficiency anemia (15034400)Iron deficiency anemia, unspecified iron deficiency anemia type (D50.9)Active confirmedProblemDysosmia (471512168)Dysosmia (R43.9)ActiveconfirmedProblemSkin sensation disturbance (05650621)Left leg paresthesias (R20.2)Activeconfirmed ProblemPrediabetes (446292238)Prediabetes (R73.03)ActiveconfirmedProblemAdult attention deficit disorder (198135339)Adult attention deficit disorder (F98.8) ActiveconfirmedProblemIncreased insulin level (458821492)Increased insulin level (E16.1)ActiveconfirmedProblemBody mass index 35.00 to 39.99 (601446324967499) Body mass index [BMI] 39.0-39.9, adult (Z68.39)Activeconfirmed Vital Signs Heart Rate 88 /min 12/20/2024 weight and BP s table Temperature 97.0 degrees Fahrenheit 06/21/2024 Respiratory Rate16 /min12/20/2024weight and BP rbsrjzQxevrupy35 %12/20/2024 weight and BP stableBlood pressure uztvkuvnv53 mm Hg12/20/2024weight and BP ntpurvSknqwv54.5 in12/20/2024weight and BP stableBlood pressure zjtnryrt423 mm Hg12/20/2024weight and BP gxeksiIygwuw983 lbs12/20/2024weight and BP stableBMI 37.66 kg/m212/20/2024weight and BP stable Procedures Procedure Date Ordered Date Performed Result Body Sit e EEG Routine 06/02/2024 N/A Encounters Encounter Location Date Provider Diagnosis [facility] [address] [place] [address] 07/18/2024 Sandy Weeks Anxiety F41.9 ; Insomnia, unspecified G47.00 ; Migraine without aura, not intractable, without status migrainosus G43.009 and Other abnormal findings on diagnostic imaging of central nervous system R90.[address] [address] 06/02/2024 Gorge Zarate Encephalopathy, unspecified G93.40 ; Other amnesia R41.3 ; Migraine without aura, not intractable, without status migrainosus G43.009 ; Other symptoms and signs involving the musculoskeletal system R29.898 ; Unsteadiness on feet R26.81 ; Vitamin D deficiency E55.9 ; Prediabetes R73.03 ; Morbid (severe) obesity due to excess calories E66.01 and Body mass index [BMI] 39.0-39.9, adult Z68.[address] [address] 09/19/2024 Sandy Weeks Insomnia, unspecifie d G47.00 ; Major depressive disorder, single episode, moderate F32.1 ; Anxiety F41.9 ; Migraine without aura, not intractable, without status migrainosus G43.009 and Prediabetes R73.[address] [address] 08/22/2024 Sandy Weeks Anxiety F41.9 ; Insomnia, unspecified G47.00 ; Migraine without aura, not intractable, without status migrainosus G43.009 and Other abnormal findings on diagnostic imaging of central nervous system R90.[address] [address] 10/20/2024 Sandy Weeks Insomnia, unspecifie d G47.00 ; Major depressive disorder, single episode, moderate F32.1 ; Anxiety F41.9 ; Migraine without aura, not intractable, without status migrainosus G43.009 and Prediabetes R73.03 [facility] [address] [place] [address] 03/23/2024 Sandy Weeks Anxiety F41.9 ; Insomnia, unspecified G47.00 ; Adult attention deficit disorder F98.8 ; Postconcussional syndrome F07.81 and Migraine, unspecified, not intractable, without status migrainosus G43.[address] [address] 05/19/2024 Sandy Weeks Prediabetes R73.03 ; Migraine, unspecified, not intractable, without status migrainosus G43.909 ; Adult attention deficit disorder F98.8 ; Strain of muscle and tendon of back wall of thorax, initial encounter S29.012A ; Strain of muscle, fascia and tendon of lower back, initial encounter S39.012A and Dermatitis, unspecified L30.9 [facility] [address] [place] [address] 06/21/2024 Olvin Márquez sleep hyg iene Z72.821 ; GABRIELA (obstructive sleep apnea) G47.33 ; Other specified phobia F40.298 ; Insomnia, unspecified G47.00 ; Obesity E66.9 ; History of tobacco abuse Z87.891 and Body mass index [BMI] 39.0-39.9, adult Z68.[address] [address] 12/20/2024 Sandy Weeks Encounter for genera l adult medical examination without abnormal findings Z00.00 ; Prediabetes R73.03 ; Adult attention deficit disorder F98.8 ; Anxiety F41.9 ; Sleep disorder, unspecified G47.9 and Migraine, unspecified, not intractable, without status migrainosus G43.909 [facility] [address] [place] [address] 06/22/2024 Radiology Provider Migraine without aura, not intractable, without status migrainosus G43.009 [facility] [address] [place] [address] 11/09/2024 Sandy Weeks Anxiety F41.9 [facility] [address] [place] [address] 11/17/2024 Sandy Weeks Pulmonary Medicine [address] [place] [address]/ [facility] [address] [place] [address] 01/24/2025Heather HaynesAnxiety F41.9[facility] [address] [place] [address]/[facility] [address] [place] [address]/03/2025Heather HaynesAnxiety F41.9 and Insomnia, unspecified G47.00[facility] [address] [place] [address]/[facility] [address] [place] [address]/[facility] [address] [place] [address]/Heather HaynesInsomnia, unspecified G47.00[facility] [address] [place] [address]/ Sandy HaynesInsomnia, unspecified G47.00[facility] [address] [place] [address]/09/2024[facility] [address] [place] [address]/Sandy WeeksInsomnia, unspecified G47.00[facility] [address] [place] [address]/03/2024 Sandy Weeks Assessments Encounter Date Diagnosis (ICD Code) Assessment Notes Treatment Notes Treatment Clinical Notes Section Notes 06/21/2024 Inadequate sleep hygiene (ICD-10 - Z72.821) Stemming from her episode with a long period of sleep and memory loss, she has developed a fear of falling asleep. This has distorted her sleep cycle. She takes Ambien around 8:00 and goes to bed then, but will lay in bed until 3-4 AM. Sets her alarm for 6 AM, but does not get up. She has her wake her at 10 AM. She will take frequent naps during the day. To work on her sleep hygiene, I discussed following strategies:- Stop taking naps- She states she was to get up every morning 6 AM, so she will need to get up every morning at 6 AM, and not go back to bed.- Following the above will build up a sleep deficit. The goal is that she will eventually become tired enough to fall asleep.- If she is still in bed after 30 minutes and not asleep, she should get up and do something mundain such as reading or newspaper/magazine or do some light cleaning. After that, she should go to bed. If she cannot fall asleep after another 30 minutes, repeat the process.- Avoid any bright lights or stimulating activity at least 30-60 minutes prior to bedtime.- Avoid alcohol, eating, excessive intake of fluids for at least 2 hours prior to bedtime. Discussed a worry journal that she can jot down her anxieties, issues, etc. during a specified time every day. She will offload the brain from ruminating over it while trying to fall asleep. 03/23/2024Insomnia, unspecified (ICD-10 - G47.00)Will need ambien next month 03/23/2024nxiety (ICD-10 - F41.9) Continue the lexapro 15mg daily Continue xanax 05/19/2024Migraine, unspecified, not intractable, without status migrainosus (ICD-10 - G43.909)05/19/2024Prediabetes (ICD-10 - R73.03)Needs new monitor 07/18/2024Insomnia, unspecified (ICD-10 - G47.00)Stable, continue current meds,and follow with sleep med07/18/2024nxiety (ICD-10 - F41.9)Continue current meds06/02/2024Encephalopathy, unspecified (ICD-10 - G93.40) labs EEG f/u neuro in 06/2024 for further testing ER if recurs ?transient global amnesia vs thyroid vs TIA vs brain tumor vs MS vs post concussion related vs elevated ammonia vs B12 def vs migraine related vs ambien use vs withdralws from meds vs seizure vs ? 06/02/2024Other amnesia (ICD-10 - R41.3) see above EEG MRI 06/22/2024Migraine without aura, not intractable, without status migrainosus (ICD-10 - G43.009)09/19/2024Major depressive disorder, single episode, moderate (ICD-10 - F32.1)Continue current meds09/19/2024Insomnia, unspecified (ICD-10 - G47.00)Add low dose seroquel nightly, to help with insomnia and depression 08/22/2024Insomnia, unspecified (ICD-10 - G47.00)Having trouble wearing the CPAP, and has not been sleeping well lately, d/t diqmtzxxm70/12/2025Major depressive disorder, single episode, moderate (ICD-10 - F32.1)Continue current meds10/20/2024Insomnia, unspecified (ICD-10 - G47.00) Improved, but still not great. -only takes half of the seroquel, and only a few times a week, since it makes her so sleepy 08/22/2024nxiety (ICD-10 - F41.9) Increase lexapro to 20mg daily Ok to try 1/2 tab of xanax during the day, and still full tab at night 12/20/2024Encounter for general adult medical examination without abnormal findings (ICD-10 - Z00.00)12/20/2024Prediabetes (ICD-10 - R73.03) Last A1c 5.4 (in May) -continue on metformin daily -since strips are no longer covered, ok to just check sugars once or twice a week 04/06/2024Insomnia, unspecified (ICD-10 - G47.00)06/21/2024nxiety (ICD-10 - F41.9)08/23/2024Insomnia, unspecified (ICD-10 - G47.00)08/30/2024Insomnia, unspecified (ICD-10 - G47.00)11/09/2024nxiety (ICD-10 - F41.9)01/24/2025nxiety (ICD-10 - F41.9)06/21/2024Insomnia, unspecified (ICD-10 - G47.00)12/20/2024 Adult attention deficit disorder (ICD-10 - F98.8) Will continue atomoxetine 40mg daily for now. Consider trying a new med in a few months once the headaches are better controlled 10/20/2024nxiety (ICD-10 - F41.9)Continue current meds08/22/2024Migraine without aura, not intractable, without status migrainosus (ICD-10 - G43.009) Samples of Ubrelvy given Keep FU with neuro on September 12, to discuss all recent testing, and what med to try next since their preferred med is not covered. 09/19/2024nxiety (ICD-10 - F41.9)06/02/2024Migraine without aura, not intractable, without status migrainosus (ICD-10 - G43.009) CROSS log f/u neuro as directed ?aimovig for prevention 05/19/2024dult attention deficit disorder (ICD-10 - F98.8)07/18/2024Migraine without aura, not intractable, without status migrainosus (ICD-10 - G43.009) Follow with neuro03/23/2024dult attention deficit disorder (ICD-10 - F98.8)Stay off the atomoxetine for now.06/21/2024OSA (obstructive sleep apnea) (ICD-10 - G47.33) Atxi-fa-eszw encounter performed with the patient to document continued need for PAP therapy. -Current DME: [facility]02/10/2023; Initial AHI: 9-Insurance refused PAP titration-Compliance was reviewed from 04/30/2024 - 05/29/2024-Total days used: 1/30 (3%)-Total of all days >4 hours of use: 0/39 (0%)-Current model, mode, & pressure: AirSense 11 AutoSet - AutoCPAP 5-15-Median pressure: N/A -Residual AHI: N/A -Air leak (95th percentile): N/A-Mask/harness fitting: Irritates her after the concussion?-Sleep quality: N/A-Daytime hypersomnolence: N/A-Recommendations: Patient essentially has not been using her CPAP over the last 4-5 months, which she states is secondary to irritation with the harness secondary to her concussion... Last visit, her complaint was nasal dryness, and even then, her overall compliance is beginning to taper off. She states she wants a new mask, but at the time she inquired, it was too soon. He claims that her DME was supposed to contact her when she was due for a new mask; shedid not reach out to them recently to inquire about the status of a new mask either. Explained to her that I can contact her DME about getting a new mask, but with essentially no compliance data, there is a risk that she would not be approved. She claims that she does want to wear the CPAP and voiced that it had some benefit in the past. She has additional issues regarding insomnia, poor sleep hygiene, and a fear of falling asleep which are separate from GABRIELA, and are discussed below. Scheduling her for a 1 year follow-up; she was counseled that she may need to return sooner if a 30-90 day compliance is requested if/when she gets a new mask. 06/21/2024Other specified phobia (ICD-10 - F40.298) Patient states ever since having her episode she has a fear of falling asleep. She sees a therapist, but at this point, she may have more benefit from seeing psychiatrist, especially as it is now involving her sleep. 06/21/2024Insomnia, unspecified (ICD-10 - G47.00) Patient has a history of insomnia, but at this time, I believe it is due to inadequate sleep hygiene and other sleep related issues. I would work on lifestyle modifications before considering any hypnotics. 03/23/2024ostconcussional syndrome (ICD-10 - F07.81)07/18/2024Other abnormal findings on diagnostic imaging of central nervous system (ICD-10 - R90.89) Abnormal MRI - have neuro look at both MRIs and discuss - may need to see neurosurgeon?05/19/2024Strain of muscle and tendon of back wall of thorax, initial encounter (ICD-10 - S29.012A)09/19/2024Migraine without aura, not intractable, without status migrainosus (ICD-10 - G43.009)Follow up with neuro 06/02/2024Other symptoms and signs involving the musculoskeletal system (ICD-10 - R29.898) fall precautions MRI brain no driving 08/22/2024Other abnormal findings on diagnostic imaging of central nervous system (ICD-10 - R90.89) Discuss MRIs further with Neuro at upcoming appointment. Still question on 1 of the MRIs about chiari malformation! 12/20/2024nxiety (ICD-10 - F41.9)Continue lexapro 20mg daily and xanax as biakya7810/20/2024Migraine without aura, not intractable, without status migrainosus (ICD-10 - G43.009)Still minimal relief of headaches - insurance is not wanting to pay for any of the meds that neuro wants her to try12/20/2024 Sleep disorder, unspecified (ICD-10 - G47.9)Refill of ambien - continue with eavuskygc43/12/2025Prediabetes (ICD-10 - R73.03)check sugars a few times a week 06/02/2024Unsteadiness on feet (ICD-10 - R26.81) MRI brain f/u neuro ?lumbar testing if other testing normal 09/19/2024Prediabetes (ICD-10 - R73.03)Confusion about strips.05/19/2024Strain of muscle, fascia and tendon of lower back, initial encounter (ICD-10 - S39.012A)03/23/2024Migraine, unspecified, not intractable, without status migrainosus (ICD-10 - G43.909) Gradually wean off the propranolol - every other day for a week or 2 and then stop to see if that helps with the BP dropping and nearly passing out Call to reschedule with neuro to discuss other options 06/21/2024Obesity (ICD-10 - E66.9) Patient's weight is inducing a restrictive pulmonary physiology. Weight loss indicated: Decrease calories, increase activity. 06/21/2024History of tobacco abuse (ICD-10 - Z87.891) This patient does not meet current LDCT criteria (e.g. age, time from cessation, # pack-years). 05/19/2024Dermatitis, unspecified (ICD-10 - L30.9)06/02/2024Vitamin D deficiency (ICD-10 - E55.9)lab - tx based on ztjqtvo5012/20/2024Migraine, unspecified, not intractable, without status migrainosus (ICD-10 - G43.909)Contineu aimovig shots and follow up with neuro as huszebiz35/23/2025Prediabetes (ICD-10 - R73.03) lab - adjust med prn diet/exercise monitor bs eye exam yearly 06/21/2024ody mass index [BMI] 39.0-39.9, adult (ICD-10 - Z68.39)06/02/2024 Morbid (severe) obesity due to excess calories (ICD-10 - E66.01)diet/exercise 06/02/2024ody mass index [BMI] 39.0-39.9, adult (ICD-10 - Z68.39)06/21/2024 Other Patient is complaining of insomnia. Unclear if associated with undiagnosed GABRIELA vs. primary vs. other. Discussed behavior modification strategies and sleep hygeine. Recommended avoiding bright lights (e.g. iPhone) and stimulating activities 30-60 minutes prior to bed. Though she returns from work later in the evening, avoid over eating prior to bed and avoid EtOH. Discussed a worry journal for to jot down her stressors at a dedicated time daily. Continue to maintain awakening up at 5:30AM. Patient complains of hypersomnia. She has signs and symptoms suggestive of underlying GABRIELA. Discussed w/up which includes PSG. Explained that if GABRIELA is diagnosed, standard treatment is PAP therapy. Explained what that entails and necessary use in order to establish compliance, and return for a 30-90day compliance check with the PAP. The patient voiced understanding and that she will undergo a PSG. Ordering a PSG...convert to HST if insurance will not pay for it. Discussed that weight loss wouldbe of benefit for any GABRIELA as well as her overall health. F/U 4 months in anticipation she will qualify for PAP and fits within the 30-90 day time frame. 03/23/2024Other Plan Of Treatment Pending Test Test Name Order Date T4 FREE (T4FR) 06/02/2024 XR Thoracic Spine (3 views) dorsal * 01/2025 XR Lumbar Spine (4-5 views) 05/19/2024 EEG Routine 06/02/2024 VITAMIN B12 LEVEL AND FOLATE (FOLIC ACID ) 06/02/2024 Next Appt Details Provider Name:Sandy Alexis eubanks, 03/15/2025 02:00:00 PM, [address] [place], [id number], Insurance Providers Payer Name Payer Address Payer Phone Subscriber Number Group Number Insured Name Patient Relationship to Insured Coverage Start Date Coverage End Date [employer] [place] [employer] [address] [address] [place] [address] [id number] Riki Jung - patient is the [id number] 2022 Medical (General) History Medical History History ICD Code GABRIELA (obstructive sleep apnea) G47.33 Gestational diabetes Depression/anxietyChronic low back sgiyKqilbqecR12.86LrcovohH06.9History of tobacco dblwbA82.891ADDMigrainesSurgical History Surgery Date(Month/Year) Oral surgery 09/09/2023 Laparoscopy 04/02 Csection, with complication, s/p partial hysterectomy 01/27 Cholecystectomy csection [id number] History Reason Date(Month/Year) Csection with complications, had hystere ctomy, transfusion 01/27
--- OUTSIDE RECORDS SUMMARY | 2025-03-14 19:15 | XMS_ITS | Patient Health Record ---
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 Name Role Phone Lashay Zimmerman Unavailable [phone] Janet Walker Unavailable [phone] Allergies No Known Allergies Reason For Referral No Information Medications Medication SIG (Take, Route, Frequency, Duration) Notes Start Date End Date Status Zolpidem Tartrate 5 MG Oral; Duration: 30 Days ActiveALPRAZolam 0.5 MG1 tablet Orally Twice a day; Duration: 30 daysActive Escitalopram Oxalate 20 MG1 tablet Orally Once a day; Duration: 90 daysActive Atomoxetine HCl 40 MG1 capsule in the morning Orally Once a day; Duration: 30 daysActivePredniSONE (Iain)Not-TakingmetFORMIN HCl ER 500 MGOral; Duration: 90 DaysActiveFexofenadine HCl 180 MGOral; Duration: 30 DaysActiveDenta 5000 Plus 1.1 %[place] with toothpaste morning and night. Do not rinse after use. Dental twice a day; Duration: 30 days5ActiveIbuprofen 800 MG1 tablet with food or milk as needed Orally every 8 hrs1 in morning and 1 at nightActive Social History Tobacco Use: Social History Observation Description Date Details (start date - stop date) Light tobacco s moker 05/29/1999 - NA Sex Assigned At : Social History Observation Description Sex Assigned At Female Tobacco Control (Standard) Question Answer Notes Tobacco use: Light tobacco smoker When did you start smoking?05/29/1999Additional Findings: Tobacco user e-cigaretteSection Notes: Vape Vape Vape Vape Problems Problem Type SNOMED Code ICD Code Onset Dates Problem Status W/U Status Risk Notes Problem Tobacco user (573311730) Cigaret te nicotine dependence without complication (F17.210) ActiveconfirmedProblemObese class II (576959702227182)BMI 36.0-36.9,adult (Z68.36)ActiveconfirmedProblemMorbid obesity (533502804)Severe obesity (BMI >= 40) (E66.01)ActiveconfirmedProblemBody mass index 40+ - morbidly obese (654904937)BMI 40.0-44.9, adult (Z68.41)ActiveconfirmedProblemObesity (993128605)Obesity (BMI 30-39.9) (E66.9)Activeconfirmed Vital Signs Heart Rate 96 /min 11/24/2024 Blood pressure evxykxosf77 mm Hg11/24/2024Height-cm157.48 cm11/24/2024Weight-kg 97.52 kg11/24/20240977Pnjwtt59 in11/24/2024lood pressure mm Hg 11/24/20249009Ebpbij148 lbs11/24/2024BMI39.32 kg/m211/24/2024 Encounters Encounter Location Date Provider Diagnosis [facility] [address], [place] [phone] 05/23/2024 Lashay Zimmerman BMI 40.0-44.9, zen lt Z68.41 ; Severe obesity (BMI >= 40) E66.01 ; Dietary counseling Z71.3 ; Exercise counseling Z71.82 ; Cigarette nicotine dependence without complication F17.210 ; Encounter for dental examination and cleaning with abnormal findings Z01.21 ; Encounter for screening for dental disorders Z13.84 ; Dental caries into dentine K02.62 and Caries of dentin K02.62 [facility] [address], [place] [id number] 08/03/2024 Lashay Zimmerman Dental caries into dentine K02.62 and Caries of dentin K02.62 [facility] [address] [place] [phone] 11/24/2024 Janet Kauffmancheryl Vapes nicotine containing substance Z72.0 ; Necrosis of pulp K04.1 ; Encounter for dental examination and cleaning with abnormal findings Z01.21 ; Caries of dentin K02.62 ; Cigarette nicotine dependence without complication F17.210 and Obesity (BMI 30-39.9) E66.9 Assessments Encounter Date Diagnosis (ICD Code) Assessment Notes Treatment Notes Treatment Clinical Notes Section Notes 05/23/2024 Severe obesity (BMI >= 40) (ICD- 10 - E66.01) 05/23/2024MI 40.0-44.9, adult (ICD-10 - Z68.41)11/24/2024Necrosis of pulp (ICD- 10 - K04.1)08/03/2024Dental caries into dentine (ICD-10 - K02.62)11/24/2024Vapes nicotine containing substance (ICD-10 - Z72.0)08/03/2024aries of dentin (ICD-10 - K02.62)11/24/2024Encounter for dental examination and cleaning with abnormal findings (ICD-10 - Z01.21)05/23/2024Dietary counseling (ICD-10 - Z71.3) 11/24/2024aries of dentin (ICD-10 - K02.62)11/24/2024igarette nicotine dependence without complication (ICD-10 - F17.210)Patient provided with [phone] phone line.05/23/2024Exercise counseling (ICD-10 - Z71.82) 05/23/2024igarette nicotine dependence without complication (ICD-10 - F17.210) Patient provided with [phone] phone line.11/24/2024Obesity (BMI 30-39.9) (ICD-10 - E66.9)05/23/2024Encounter for dental examination and cleaning with abnormal findings (ICD-10 - Z01.21)05/23/2024Encounter for screening for dental disorders (ICD-10 - Z13.84)05/23/2024Dental caries into dentine (ICD-10 - K02.62)05/23/2024aries of dentin (ICD-10 - K02.62) Plan Of Treatment Next Appt Details Provider Name:Lashay curry, 05/22/2025 09:45:00 AM, [address] [place] [address], [phone], Provider Name:Lashay curry, 05/31/2025 12:45:00 PM, [address] [place] [address], [phone], Provider Name:Lashay curry, 06/14/2025 03:00:00 PM, [address] [place] [address], [phone], Insurance Providers Payer Name Payer Address Payer Phone Subscriber Number Group Number Insured Name Patient Relationship to Insured Coverage Start Date Coverage End Date [facility] [address] [address] [place] [phone] [id number] [employer] AD19 Diana Parker Self - patient is the insured 5 DMedicaid CFC after AnthemPO [address] [place], [place] [id number] Denise Jungelf - patient is the [id number] 2022 Medical (General) History Medical History History ICD Code Polycystic ovary Syndrome Sleep disorderseasonal allergiesdepression
[2025-03-17 14:08] LABS: Age Gdln ACOG Testing Note (.); IGP, Aptima HPV, rfx 16/18,45 Note (.)
== END 2025-03-14 19:12 | disposition home or self-care (01) ==
LOC: LAB 19:11
PROVIDERS: PCP Family Medicine; Visit Provider Obstetrics & Gynecology
DX: Z01.419 Encounter for gynecological examination (general) (routine) without abnormal findings (principal)
CPT/HCPCS: 87624; 88175